=== PATIENT | male | born 1950 | race Caucasian/White ===

== ENCOUNTER 2016-10-25 15:09 | Emergency (ER) | payer OTHER, MEDICARE ==
[~2016-10-25 15:09] MED LIST: 8 HOUR PAIN RE650 M2 PO; ABILIFY 2MG2 MG PO; ABILIFY10 M1 PO; ABILIFY2 MG PO; ACEPHEN650 M1 PR; ALBUTEROL 3 ML3 ML INH; ALBUTEROL SULFAT3 M1 INH; ALBUTEROL2.5 MG/3 M INH/SOL; ASPIRIN CHILDRE81 MG PO; ASPIRIN EC81 M1 PO; ATIVAN 0.5MG T0.5 MG PO; ATORVASTATIN CA20 MG PO; ATROVENT HFA 121 PUF INH; BISACODYL10 M1 RC; BUPROPION HCL300 MG PO; BUPROPION XL300 M1 PO; CEFTIN 250 #201 PAC PO; CEFUROXIME AXE500 MG PO; CLEOCIN HCL150 MG PO; CLINDAMYCIN HY300 MG PO; ESCITALOPRAM10 MG PO; FLEET ENEMA133 ML RC; FUROSEMIDE20 M1 PO; FUROSEMIDE20 MG PO; FUROSEMIDE40 M1 PO; FUROSEMIDE40 MG PO; GABAPENTIN400 M2 PO; GABAPENTIN400 MG PO; IMDUR60 MG PO; ISOSORBIDE MONO30 M1 PO; KLOR-CON 10MEQ10 MEQ PO; LASIX20 M1 PO; LASIX40 M1 PO; LASIX40 MG PO; LASIX80 MG PO; LEVAQUIN500 M1 PO; LEXAPRO 5MG5 MG PO; LEXAPRO10 M1 PO; LIPITOR20 M2 PO; LISINOPRIL10 MG PO; LOPRESSOR 25MG25 MG PO; LOPRESSOR50 M1 PO; LUBRIDERM 480ML16 OZ EXT; METOPROLOL TART25 M1 PO; MILK OF MA400 MG/52 PO; NEURONTIN100 MG PO; NEURONTIN300 MG PO; OMEPRAZOLE20 M2 PO; PREDNISONE 10MG10 M1 PO; PREDNISONE 5 MG5 MG PO; PREDNISONE10 M1 PO; PREDNISONE10 MG PO; PROAIR HFA0.09 MG/Ac INH; PROAIR HFA8.5 GM INH; PROBIOTIC & ACI1 CAP PO; PROBIOTIC FORMU1 CAP PO; PROBIOTIC1 EACH PO; REMERON 15MG TA15 MG PO; REMERON30 M1 PO; ROBITUSSIN AC SY5 ML PO; SENOKOT NATURA8.6 MG PO; SPIRIVA1 PUF INH; SYMBICORT 160/41 PUF INH; TRAMADOL HCL50 M1 PO; TRAMADOL50 MG PO; TYLENOL325 M1 PO; ULTRAM50 M1 PO; VENTOLIN1 PUF INH; WELLBUTRIN XL300 M2 PO
--- NOTE | 2016-10-25 16:24 | ED MVC/FALL/TRAUMA COMPLAINT ---
History of Present Illness General Chief Complaint: Fall Stated Complaint: FALL 1 HOUR AGO, L SIDE PAIN Source: patient, old records Exam Limitations: no limitations Vital Signs & Intake/Output Vital Signs & Intake/Output Vital Signs Date Time Temp Pulse Resp B/P B/P Pulse O2 O2 Flow FiO2 Mean Ox Delivery Rate 10/25 1756 65 18 108/57 98 Nasal 2.0L Cannula 10/25 1628 Nasal 2.0L Cannula 10/25 1512 97.7 88 18 125/84 95 Nasal 2.5L Cannula Allergies Coded Allergies: adhesive tape (ALL TAPE EXCEPT PAPER 12/08/15) Reconcile Medications Acetaminophen (Tylenol) 325 MG TABLET 650 MG PO Q6P PRN PAIN Albuterol Sulfate 2.5 MG/3 ML VIAL.NEB 1 Vial INH/FERCHO TID RESPIRATORY ( Reported) Aripiprazole (Abilify) 2 MG TABLET 1 TAB PO QAM mood (Reported) Aripiprazole (Abilify) 2 MG TABLET 2 TAB PO QPM MOOD Aspirin (Ecotrin*) 81 MG TABLET.DR 2 TAB PO DAILY heart health (Reported) Atorvastatin Calcium (Lipitor) 20 MG TABLET 1 TAB PO DAILY CHOLESTEROL ( Reported) Bisacodyl 10 MG SUPP.RECT 1 SUP RC DAILY PRN NO BM (Reported) Budesonide/Formoterol Fumara (Symbicort 160-4.5 Mcg Inhaler) 160 MCG/4.5 MCG PUF 2 PUF INH BID COPD Bupropion HCl (Bupropion XL) 300 MG TAB.ER.24H 1 TAB PO DAILY DEPRESSION ( Reported) Escitalopram Oxalate (Lexapro) 10 MG TABLET 1 TAB PO DAILY DEPRESSION ( Reported) Furosemide (Lasix) 40 MG TABLET 1 MG PO DAILY leg swelling Gabapentin 400 MG CAPSULE 1 TAB PO BID PAIN (Reported) Isosorbide Mononitrate (Isosorbide Mononitrate ER) 30 MG TAB.ER.24H 1 TAB PO DAILY BP (Reported) Levofloxacin (Levaquin) 500 MG TABLET 1 TAB PO ONCE A DAY Throat infection Magnesium Hydroxide (Milk Of Magnesia) 400 MG/5 ML ORAL.SUSP 30 ML PO DAILY PRN NO BM IN 3 DAYS (Reported) Metoprolol Tartrate 25 MG TABLET 1 TAB PO BID HEART (Reported) Mirtazapine (Remeron 15MG Tab) 15 MG TABLET 1 TAB PO QPM DEPRESSION Na Phos,M-B/Na Phos,Di-Ba (Fleet Enema) 133 ML ENEMA 1 E RC DAILY PRN NO BM ( Reported) Omeprazole 20 MG CAPSULE.DR 1 MG PO DAILY AC PRN gerd Prednisone 10 MG TAB.DS.PK 1 TAB PO SI Lung Problem On Take 03/06-03/07 take 3 tabs every day 03/08-03/09 take 2 tabs every day 03/10-03/11 take 1 tab every day then stop Tramadol HCl 50 MG TABLET 2 TAB PO TID PAIN (Reported) Triage Note: TRIAGE; PT TO ED S/P FALL AND HIT HIS HEAD, UNSURE OF ANY LOC. ALSO HIT THE LEFT SIDE OF HIS BODY. PT C/O PAIN TO LEFT SIDE OF BODY. Triage Nurses Notes Reviewed? yes Onset: Abrupt Duration: hour(s): (1), constant Timing: recent history Severity: moderate, severe Severity Numbers: 8 Injuries/Fall Location: head, chest, abdomen, lower extremity Method of Injury: fall Loss of Consciousness: unsure No Modifying Factors: none Associated Symptoms: DENIES HPI: 66 Year old male with past medical history of bariatric surgery, history of chronic hypercapneic and hypoxic respiratory failure, severe sleep apnea difficult to control with positive airway pressure, severe O2 dep COPD, moderate persistent asthma, chronic lower extremity edema, CAD s/p CABG, HTN, and chronic venous insufficiency presents after he had a mechanical fall at his brothers . Patient is unsure of LOC however states he did hit his head. The fall occurred earlier this morning. He states that he's had left-sided head chest wrist leg and abdominal pain. He has not taken anything for symptoms. There is no dizziness or palpitations chest pain prior to the fall. He denies any right- sided injury no nausea no vomiting no vision changes. (UMESH GARCÍA) Past History Travel History Traveled to [place] past 21 day No Medical History Any Pertinent Medical History? see below for history Neurological: NONE EENT: NONE Cardiovascular: CAD (S/P CABG X 3 '03), hyperlipidemia, PVD Respiratory: COPD (2L O2 CONTINUOUS), obstructive sleep apnea (NIGHTLY CPAP) Gastrointestinal: NONE Hepatic: NONE Renal: NONE Musculoskeletal: chronic back pain, BACK SURGERY Psychiatric: depression (WITH SI+) Endocrine: obesity Blood Disorders: NONE Cancer(s): NONE TOOL AND CUTTER GRINDER/Reproductive: NONE Other Medical Hx: scc of vocal cords History of MRSA: No History of VRE: No History of CDIFF: No Influenza Vaccine: 03/07/15 Surgical History Surgical History: CABG, laminectomy (L4-5) Psychosocial History Who do you live with Family Services at Home Home Health Aide, Nursing, Occupational Therapy What is your primary language Moldovan Tobacco Use: Never used Family History Family History, If Any: FATHER (CAD and CVA). MOTHER (CAD). Hx Contributory? No (UMESH GARCÍA) Review of Systems Review of Systems Constitutional: Reports: see HPI. All Other Systems: Reviewed and Negative Comments Review of systems: See HPI, All other systems negative. Constitutional, no chills no fever, no malaise HEENT: No visual changes no sore throat no congestion, no ear pain Cardiovascular: No chest pain , no palpitation , no orthopnea Skin: no rashes, no change in skin Respiratory: No dyspnea no cough no sputum no hemoptysis GI: No nausea no vomiting, no diarrhea, no bloating/constipation : No dysuria No hematuria, no frequency, no discharge Muscle skeletal: No joint pain, no joint swelling, no back pain, no neck pain, Neurologic: No numbness no confusion, no headache Psych: No stress no depression,. Heme/endocrine: No bruising no bleeding Immunology: No lymphadenopathy (UMESH GARCÍA) Physical Exam Physical Exam General Appearance: well developed/nourished, no apparent distress, alert, awake Comments: Well-developed well-nourished person in no acute distress HEENT: Normal EENT exam; PERRL, EOMI, HEAD is atraumatic. moist mucous membranes. Neck: Supple, no lymphadenopathy, normal range of motion without pain or tenderness Back: Nontender, no CVA tenderness. Full range of motion Cardiovascular: Regular rate and rhythms no murmurs rubs or gallops, normal JVP Respiratory: Chest nontender.There were no bony deformities, no asymmetry. No respiratory distress. Patient speaking in full complete sentences. Breath sounds clear to auscultation bilaterally: NO W/R/R Abdomen: Soft, obese, no ecchymosis nontender nondistended, no appreciable organomegaly. Normal bowel sounds. No rebound/guarding, No appreciable enlargement of the abdominal aorta, No ascites. Shoulder: Atraumatic/Stable. FROM . Elbow: Atraumatic/stable. FROM. No laxity Upper arm/Forearm: Atraumatic. Nontender. No edema, 5 out of 5 escrow clerk strength noted to bilateral upper extremities Hand/Wrist: Atraumatic/stable. Skin intact. FROM Pulses: Normal/equal radial pulses bilaterally. Brisk cap refill Hip/Pelvis: Atraumatic/Stable. FROM. No pain with pelvic compression Knee: Atraumatic/stable. FROM. No joint swelling, no effusion. No laxity. Negative kinga/anterior drawer test. No pain with ROM Leg: Atraumatic. Nontender. No edema, 5 out of 5 strength in the lower extremity, normal dorsiflexion of great toe bilaterally, gross sensation is intact, patellar tendon reflex 2+ bilaterally. Ankle/Foot: Atraumatic/stable. Skin intact. FROM. No swelling, no effusion. No laxity on exam Pulses: Normal/equal DP/PT pulses bilaterally. Brisk cap refill Neuro: Alert oriented x3, motor sensory normal, cranial nerves II through XII grossly intact. There were no obvious focal neurologic abnormalities. Skin: No appreciable rash on exposed skin, skin is warm and dry. Psych: Mood and affect is normal, memory and judgment is normal. Core Measures ACS in differential dx? No Severe Sepsis Present: No Septic Shock Present: No (UMESH GARCÍA) Progress Differential Diagnosis: abd injury, C/T/L spine injury, ext injury, ICH, pelvis injury, pnemothorax, spinal cord injury Plan of Care: Orders Procedure Date/time Status Regular Diet 10/26 B Active Patient medicated tramadol x-rays CAT scan ordered Repeat evaluation patient reports to feeling poorly tramadol I discussed with the patient at length all of their results. I had an extensive conversation regarding need for close follow up with their primary care physician this week as well as return precautions. I answered all of their questions, they feel comfortable with the plan and follow-up care. I discussed with the patient/family the medications that they will receive. I gave them signs and symptoms that could indicate an adverse reaction. I have advised them to limit their activities until they can see how they respond to the medication. (UMESH GARCÍA) Diagnostic Imaging: Viewed by Me: Radiology Read, CT Scan. Discussed w/RAD: Radiology Read, CT Scan. Radiology Impression: PATIENT: CODY HERNÁNDEZ PRESENT AGE: 66 PATIENT ACCOUNT NO: [id number] : 51 LOCATION: [facility] ORDERING PHYSICIAN: UMESH BYRNES SERVICE DATE: 10/25/16 EXAM TYPE: CAT - CT ABD & PELVIS W/O IV CONTRAS; CT CHEST WO IV CONTRAST EXAMINATION: CT CHEST, ABDOMEN AND PELVIS WITHOUT CONTRAST CLINICAL INFORMATION: Left-sided chest and abdomen pain after fall. COMPARISON: Abdominal pelvic CT from 02/06/2012. TECHNIQUE: Contiguous axial thin section helical images of the chest, abdomen and pelvis were performed without oral or IV contrast. The data set was reformatted in the coronal and sagittal planes and reviewed on an independent workstation. DLP: 2502 mGy-cm. FINDINGS: The heart is of normal size. There is no pericardial effusion. There is neither mediastinal, hilar nor axillary lymphadenopathy. There are no chest wall masses. Review of lung windows demonstrates that there are neither pleural effusions nor pneumothoraces. There is left lower lobe bronchiectasis and adjacent scarring with mild bronchial wall thickening. This is likely chronic. There are no acute consolidations. There are no pulmonary parenchymal nodules. The liver is of normal size and attenuation without focal lesions nor intrahepatic biliary ductal dilation. A normal gallbladder is identified. There is no wall thickening or discernible pericholecystic fluid. The spleen, pancreas, adrenal glands are unremarkable. Both kidneys are of normal size and attenuation without hydronephrosis or nephrolithiasis. There is no abdominal free fluid. There is neither mesenteric nor retroperitoneal lymphadenopathy. There is sigmoid diverticulosis without evidence of diverticulitis. Otherwise, unremarkable unopacified loops of small and large bowel are identified. A normal appendix is identified. There is no pelvic free fluid. The urinary bladder is unremarkable. There is neither pelvic nor inguinal lymphadenopathy. Bone windows: Neither sclerotic nor lytic bone lesions are identified. There is disc height loss at L4/L5 and L5/S1. There is increased sclerosis within the facet joints of the lower lumbar spine. IMPRESSION: No evidence for acute traumatic injury. Bronchiectasis and scarring within the left lower lobe, likely chronic. Sigmoid diverticulosis without evidence of diverticulitis. Moderate degenerative change within the lower lumbar spine. DICTATED BY: ELIU LOGAN MD DATE/TIME DICTATED:10/25/161714 MOTORCYCLE SUBASSEMBLER:KARENA DATE/TIME TRANSCRIBED:10/25/161714 CONFIDENTIAL, DO NOT COPY WITHOUT APPROPRIATE AUTHORIZATION. <Electronically signed in Other Vendor System> SIGNED BY: ELIU LOGAN MD 10/25/161726, PATIENT: CODY HERNÁNDEZ PRESENT AGE: 66 PATIENT ACCOUNT NO: [id number] : 51 LOCATION: [facility] ORDERING PHYSICIAN: UMESH BYRNES SERVICE DATE : 10/25/16163 EXAM TYPE: CAT - CT HEAD WO IV CONTRAST EXAMINATION: CT HEAD WITHOUT CONTRAST CLINICAL INFORMATION: Trauma to head. Pain after fall. COMPARISON: None. TECHNIQUE: Contiguous helical images of the brain were obtained without IV contrast. Multiplanar reconstructions were performed. DLP: 700 mGy-cm. FINDINGS: There are no pathologic extra-axial fluid collections. The lateral, third, fourth ventricles are nondilated and concordant with the appearance of the sulci. There is no evidence for acute intraparenchymal hemorrhage or infarct. There is neither mass nor mass effect. There is no shift of midline structures. The paranasal sinuses and mastoid air cells are clear. There are no osseous lesions. IMPRESSION: No evidence for acute intracranial injury. DICTATED BY: ELIU LOGAN MD DATE/TIME DICTATED:10/25/161709 MOTORCYCLE SUBASSEMBLER:KARENA DATE/TIME TRANSCRIBED:10/25/161709 CONFIDENTIAL, DO NOT COPY WITHOUT APPROPRIATE AUTHORIZATION. <Electronically signed in Other Vendor System> SIGNED BY: ELIU LOGAN MD 10/25/161717 (UMESH GARCÍA) Departure Departure Time of Disposition: 1751 Disposition: HOME OR SELF CARE Condition: Stable Clinical Impression Primary Impression: Fall Referrals: SULEMA ZENG,VANNESSA Cano (PCP/Family) Additional Instructions: Continue taking your pain medication as prescribed rest ice. Follow-up with her primary care physician return with any concerns. Departure Forms: Customer Survey General Discharge Information (UMESH GARCÍA) PA/ACADEMIC ADVISER Co-Sign Statement Statement: ED Attending supervision documentation- [X] I saw and evaluated the patient. I have also reviewed all the pertinent lab results and diagnostic results. I agree with the findings and the plan of care as documented in the PA's/ACADEMIC ADVISER's documentation. [X] I have reviewed the ED Record and agree with the PA's/ACADEMIC ADVISER's documentation. [] Additions or exceptions (if any) to the PAs/ACADEMIC ADVISER's note and plan are summarized below: [] (ULICES ZENG,DIOGO Dawn)
--- NOTE | 2016-10-25 17:18 | CT SCAN REPORT ---
EXAMINATION: CT HEAD WITHOUT CONTRAST CLINICAL INFORMATION: Trauma to head. Pain after fall. COMPARISON: None. TECHNIQUE: Contiguous helical images of the brain were obtained without IV contrast. Multiplanar reconstructions were performed. DLP: 700 mGy-cm. FINDINGS: There are no pathologic extra-axial fluid collections. The lateral, third, fourth ventricles are nondilated and concordant with the appearance of the sulci. There is no evidence for acute intraparenchymal hemorrhage or infarct. There is neither mass nor mass effect. There is no shift of midline structures. The paranasal sinuses and mastoid air cells are clear. There are no osseous lesions. IMPRESSION: No evidence for acute intracranial injury.
--- NOTE | 2016-10-25 17:27 | CT SCAN REPORT ---
EXAMINATION: CT CHEST, ABDOMEN AND PELVIS WITHOUT CONTRAST CLINICAL INFORMATION: Left-sided chest and abdomen pain after fall. COMPARISON: Abdominal pelvic CT from 02/06/2012. TECHNIQUE: Contiguous axial thin section helical images of the chest, abdomen and pelvis were performed without oral or IV contrast. The data set was reformatted in the coronal and sagittal planes and reviewed on an independent workstation. DLP: 2502 mGy-cm. FINDINGS: The heart is of normal size. There is no pericardial effusion. There is neither mediastinal, hilar nor axillary lymphadenopathy. There are no chest wall masses. Review of lung windows demonstrates that there are neither pleural effusions nor pneumothoraces. There is left lower lobe bronchiectasis and adjacent scarring with mild bronchial wall thickening. This is likely chronic. There are no acute consolidations. There are no pulmonary parenchymal nodules. The liver is of normal size and attenuation without focal lesions nor intrahepatic biliary ductal dilation. A normal gallbladder is identified. There is no wall thickening or discernible pericholecystic fluid. The spleen, pancreas, adrenal glands are unremarkable. Both kidneys are of normal size and attenuation without hydronephrosis or nephrolithiasis. There is no abdominal free fluid. There is neither mesenteric nor retroperitoneal lymphadenopathy. There is sigmoid diverticulosis without evidence of diverticulitis. Otherwise, unremarkable unopacified loops of small and large bowel are identified. A normal appendix is identified. There is no pelvic free fluid. The urinary bladder is unremarkable. There is neither pelvic nor inguinal lymphadenopathy. Bone windows: Neither sclerotic nor lytic bone lesions are identified. There is disc height loss at L4/L5 and L5/S1. There is increased sclerosis within the facet joints of the lower lumbar spine. IMPRESSION: No evidence for acute traumatic injury. Bronchiectasis and scarring within the left lower lobe, likely chronic. Sigmoid diverticulosis without evidence of diverticulitis. Moderate degenerative change within the lower lumbar spine.
--- NOTE | 2016-10-25 17:46 | RADIOLOGY REPORT ---
EXAMINATION: XR TIBIA AND FIBULA, LEFT XR WRIST, LEFT CLINICAL INFORMATION: Status post fall with left lower extremity pain and left wrist pain COMPARISON: None TECHNIQUE: AP and lateral views of the left tibia and fibula were obtained. 4 views of the left wrist were obtained FINDINGS: Left lower extremity: There is mild narrowing of the medial compartment of the left knee. The distal femur appears intact. There is no joint effusion. Marginal osteophytes are present along the medial and lateral compartments as well as the patellofemoral compartment. The tibia and fibula appear intact. Vascular calcifications are noted posterior to the left knee. Scattered dermal calcifications are present throughout the subcutaneous tissues. Limited views of the left ankle are grossly unremarkable. Left wrist: The distal radius and ulna appear intact. The carpal rows are maintained. No acute fracture or subluxation. Dedicated views of the scaphoid are within normal range. No lytic or sclerotic lesion. IMPRESSION: 1. No acute fracture or subluxation involving the left wrist. 2. No acute fracture or subluxation involving the left lower extremity. 3. Mild to moderate tricompartmental degenerative changes involving the left knee.
[2016-10-25 17:56] VITALS: BP 108/57
== END 2016-10-25 18:31 ==
LOC: ERH 15:09
DX: S09.90XA Unspecified injury of head, initial encounter (principal); R07.9 Chest pain, unspecified; W19.XXXA Unspecified fall, initial encounter; Y92.89 Other specified places as the place of occurrence of the external cause; Y93.9 Activity, unspecified
CPT/HCPCS: 73110-LT; 73590-LT; 74176

== ENCOUNTER 2016-11-14 11:20 | Emergency (ER) | payer OTHER, MEDICARE ==
[~2016-11-14] VITALS: Ht 185.4 cm; Wt 151.0 kg
[2016-11-14 11:25] VITALS: BP 109/71
--- NOTE | 2016-11-14 11:33 | ED UPPER/LOWER EXTREMITY COMPL ---
History of Present Illness General Chief Complaint: Laceration Procedure Stated Complaint: LEFT LEG LAC Source: patient Exam Limitations: no limitations Vital Signs & Intake/Output Vital Signs & Intake/Output Vital Signs Date Time Temp Pulse Resp B/P B/P Pulse O2 O2 Flow FiO2 Mean Ox Delivery Rate 11/14 1125 98.6 64 18 109/71 98 Nasal 2.5L Cannula Allergies Coded Allergies: adhesive tape (ALL TAPE EXCEPT PAPER 12/08/15) Reconcile Medications Acetaminophen (Tylenol) 325 MG TABLET 650 MG PO Q6P PRN PAIN Albuterol Sulfate 2.5 MG/3 ML VIAL.NEB 1 Vial INH/FERCHO TID RESPIRATORY ( Reported) Aripiprazole (Abilify) 2 MG TABLET 1 TAB PO QAM mood (Reported) Aripiprazole (Abilify) 2 MG TABLET 2 TAB PO QPM MOOD Aspirin (Ecotrin*) 81 MG TABLET.DR 2 TAB PO DAILY heart health (Reported) Atorvastatin Calcium (Lipitor) 20 MG TABLET 1 TAB PO DAILY CHOLESTEROL ( Reported) Bisacodyl 10 MG SUPP.RECT 1 SUP RC DAILY PRN NO BM (Reported) Budesonide/Formoterol Fumara (Symbicort 160-4.5 Mcg Inhaler) 160 MCG/4.5 MCG PUF 2 PUF INH BID COPD Bupropion HCl (Bupropion XL) 300 MG TAB.ER.24H 1 TAB PO DAILY DEPRESSION ( Reported) Escitalopram Oxalate (Lexapro) 10 MG TABLET 1 TAB PO DAILY DEPRESSION ( Reported) Furosemide (Lasix) 40 MG TABLET 1 MG PO DAILY leg swelling Gabapentin 400 MG CAPSULE 1 TAB PO BID PAIN (Reported) Isosorbide Mononitrate (Isosorbide Mononitrate ER) 30 MG TAB.ER.24H 1 TAB PO DAILY BP (Reported) Levofloxacin (Levaquin) 500 MG TABLET 1 TAB PO ONCE A DAY Throat infection Magnesium Hydroxide (Milk Of Magnesia) 400 MG/5 ML ORAL.SUSP 30 ML PO DAILY PRN NO BM IN 3 DAYS (Reported) Metoprolol Tartrate 25 MG TABLET 1 TAB PO BID HEART (Reported) Mirtazapine (Remeron 15MG Tab) 15 MG TABLET 1 TAB PO QPM DEPRESSION Na Phos,M-B/Na Phos,Di-Ba (Fleet Enema) 133 ML ENEMA 1 E RC DAILY PRN NO BM ( Reported) Omeprazole 20 MG CAPSULE.DR 1 MG PO DAILY AC PRN gerd Prednisone 10 MG TAB.DS.PK 1 TAB PO SI Lung Problem On Take 03/06-03/07 take 3 tabs every day 03/08-03/09 take 2 tabs every day 03/10-03/11 take 1 tab every day then stop Tramadol HCl 50 MG TABLET 2 TAB PO TID PAIN (Reported) Triage Note: 66 YO MALE TO TRIAGE FOR LAC TO L DALY. STATES HE HIT IT ON A SCREEN THIS AM AND IT WONT STOP BLEEDING. PT TAKEN ASPIRIN DAILY. Triage Nurses Notes Reviewed? yes Onset: Morning Duration: hour(s): Timing: single episode today Severity: moderate Method of Injury: laceration HPI: 66-year-old male presents to emergency department complaining of laceration to left lower leg occurring just prior to arrival. Patient states that as he walked through his doorway his screen door hit a plastic bag into his leg causing 3 small lacerations. He was not able to control the bleeding well at home. He takes 2 baby aspirin at home daily. He is not up-to-date on his tetanus vaccine. (ALLERGA CHAVEZ) Past History Travel History Traveled to [place] past 21 day No Medical History Any Pertinent Medical History? 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 MOTHER (CAD). Hx Contributory? No (ALLEGRA CHAVEZ) Review of Systems Review of Systems Constitutional: Reports: no symptoms. EENTM: Reports: no symptoms. Respiratory: Reports: no symptoms. Cardiovascular: Reports: no symptoms. Gastrointestinal/Abdominal: Reports: no symptoms. Genitourinary: Reports: no symptoms. Musculoskeletal: Reports: see HPI. Skin: Reports: no symptoms. Neurological/Psychological: Reports: no symptoms. Hematologic/Endocrine: Reports: see HPI. Immunological: Reports: no symptoms. All Other Systems: Reviewed and Negative (ALLEGRA CHAVEZ) Physical Exam Physical Exam General Appearance: well developed/nourished, no apparent distress, alert, awake Head: atraumatic, normal appearance Eyes: Bilateral: normal appearance, EOMI. Ears, Nose, Throat: hearing grossly normal Neck: normal inspection, supple Cardiovascular/Respiratory: no respiratory distress Leg Left: 2x2cm nodular mass on left anterior lower leg, approx 6 cm distal to left patella, fluctuant, 3 0.5mm lacerations to anterior lower leg Skin: dark red/purple discoloration of bilateral lower legs (ALLEGRA CHAVEZ) Progress Differential Diagnosis: fracture, sprain, tendon injury, laceration, abrasion, contusion, puncture wound, skin tear Plan of Care: Current Medications Sig/Samreen Start time Last Medication Dose Stop Time Status Admin Tetanus/Diphtheria 0.5 ML ONCE ONE 11/14 121 AC Toxoids Adsorbed 11/14 1216 (Decavac) 11/14/2016 12:09:11 PM Wounds appear superficial and linear, bleeding has been controlled. No signs of infection at this time. Wounds approximated with Dermabond and Steri-Strips. Suspicion for fracture or sprain is low at this time given that patient did not fall and has no bony tenderness. Patient is in agreement with plan of care. (ALLEGRA CHAVEZ) Departure Departure Time of Disposition: 121 Disposition: HOME OR SELF CARE Condition: Stable Clinical Impression Primary Impression: Skin tear Referrals: VANNESSA LEONE MD (PCP/Family) Additional Instructions: Follow-up with your primary care physician call to make appointment. Keep area clean and dry. The Steri-Strips will fall off on their own. Return for any worsening symptoms or concerns. You're given a tetanus vaccination here in the emergency department today. Elevate her leg as much as possible as it may begin to start bruising and becoming swollen. 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 I have also reviewed all the pertinent lab results and diagnostic results. I agree with the findings and the plan of care as documented in the PA's/TRUCK RAILROAD AND BUS MOTOR MECHANIC's documentation. [X] I have reviewed the ED Record and agree with the PA's/TRUCK RAILROAD AND BUS MOTOR MECHANIC's documentation. [] Additions or exceptions (if any) to the PAs/TRUCK RAILROAD AND BUS MOTOR MECHANIC's note and plan are summarized below: [] (ULICES ZENG,DIOGO Dawn) Procedures Laceration/Wound Repair Laceration/Wound Repair: Wound Location: lower extremity Wound's Depth, Shape: linear, superficial Wound Length (cm): 1 Wound Explored: irrigated extensively Irrigated w/ Saline (ccs): 100 Betadine Prep? Yes Anesthesia: none Wound Repaired With: Steri-strips, Dermabond Sterile Dressing Applied: Yes Date of Last Tetanus: 11/14/16 Tetanus Status: up to date Progress: Patient tolerated procedure well. (JUDITH BYRNES,ALLEGRA)
== END 2016-11-14 12:26 ==
LOC: ERH 11:20
DX: S81.812A Laceration without foreign body, left lower leg, initial encounter (principal); W22.8XXA Striking against or struck by other objects, initial encounter; Y93.01 Activity, walking, marching and hiking; Y92.9 Unspecified place or not applicable
CPT/HCPCS: 90714

== ENCOUNTER 2017-06-08 07:28 | Inpatient (IN) | payer OTHER, MEDICARE ==
[~2017-06-08] VITALS: Ht 185.4 cm; Wt 149.7 kg
[~2017-06-08 07:28] MED LIST changes: +ESCITALOPRAM OX10 MG PO; +KLOR-CON 1010 ME1 PO; +MIRTAZAPINE30 M2 PO; +NAPROXEN500 M2 PO; +NORCO 5-325 TA1 EACH PO; +PANTOPRAZOLE SO40 M1 PO; +REMERON15 M2 PO; +SYMBICORT 16010.2 GM INH
--- NOTE | 2017-06-08 08:21 | RADIOLOGY REPORT ---
EXAMINATION: XR PORTABLE CHEST CLINICAL INFORMATION: Shortness of breath. Productive cough. COMPARISON: 03/23/2017 TECHNIQUE: Portable frontal view of the chest was obtained. FINDINGS: Median sternotomy wires appear intact. Surgical clips overlie the mediastinum. Low lung volumes. Increased hazy left basilar opacity with small left pleural effusion. This is superimposed on known chronic scarring. No pneumothorax. The cardiomediastinal silhouette is unchanged. No acute osseous abnormality. IMPRESSION: There are known chronic changes at the left base, but there appears to be increased opacity suggestive of small effusion with associated atelectasis/pneumonia.
--- NOTE | 2017-06-08 09:22 | ED DYSPNEA/ASTHMA COMPLAINT ---
History of Present Illness General Chief Complaint: Dyspnea (COPD, CHF, Other) Stated Complaint: INCREASED SOB Source: patient, old records, EMS Exam Limitations: no limitations Vital Signs & Intake/Output Vital Signs & Intake/Output Vital Signs Date Time Temp Pulse Resp B/P B/P Pulse O2 O2 Flow FiO2 Mean Ox Delivery Rate 06/08 1352 98.9 72 18 120/70 97 Nasal 2.0L Cannula 06/08 1243 98.0 70 20 102/51 98 Nasal 2.0L Cannula 06/08 1044 98.2 68 20 114/57 97 Nasal 2.0L Cannula 06/08 0926 97 Nasal 2.0L Cannula 06/08 0803 96 Nasal 2.0L Cannula 06/08 0736 97 Nasal 2.0L Cannula 06/08 0734 98.6 89 20 133/86 97 Nasal 2.0L Cannula Allergies Coded Allergies: adhesive tape (ALL TAPE GIVES RASH EXCEPT PAPER, PAPER TAPE OK 01/14/17) Reconcile Medications Albuterol Sulfate 2.5 MG/3 ML VIAL.NEB 1 Vial INH/FERCHO BID RESPIRATORY ( Reported) Aspirin (Ecotrin*) 81 MG TABLET.DR 2 TAB PO DAILY heart health (Reported) Atorvastatin Calcium (Lipitor) 20 MG TABLET 1 TAB PO DAILY CHOLESTEROL ( Reported) Budesonide/Formoterol Fumarate (Symbicort 160-4.5 Mcg Inhaler) 160 MCG-4.5 MCG/ ACTUATION HFA.AER.AD 2 PUF INH BID COPD (Reported) Bupropion HCl (Bupropion XL) 300 MG TAB.ER.24H 1 TAB PO DAILY DEPRESSION ( Reported) Escitalopram Oxalate 10 MG TABLET 1 TAB PO DAILY DEPRESSION (Reported) Furosemide (Lasix) 40 MG TABLET 1 TAB PO DAILY DIURETIC (Reported) Gabapentin 400 MG CAPSULE 1 TAB PO BID PAIN (Reported) Isosorbide Mononitrate (Isosorbide Mononitrate ER) 30 MG TAB.ER.24H 1 TAB PO DAILY BP (Reported) Metoprolol Tartrate 25 MG TABLET 1 TAB PO BID HEART (Reported) Mirtazapine 30 MG TABLET 1 TAB PO QPM MENTAL HEALTH (Reported) Naproxen 500 MG TABLET 1 TAB PO BID PAIN/INFLAMMATION (Reported) Pantoprazole Sodium 40 MG TABLET.DR 1 TAB PO DAILY ACID REFLUX (Reported) Potassium Chloride (Klor-Con 10) 10 MEQ TABLET.ER SUPPLEMENT (Reported) Core Measure Meds Pre-Hospital aspirin Triage Note: PT BIBA FROM HOME AFTER HAVING INCREASEED SOB. 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 PT ARRIVES SOB 02 SAT 93% ON RA PLACED ON O2 2L VIA NC. PT COUGHING UNABLE TO SPIT OUT ANYTHING. Triage Nurses Notes Reviewed? yes Onset: 3 days ago Duration: day(s):, constant, continues in ED Timing: recent history Severity: moderate, severe Activities at Onset: rest Prior Episodes/Possible Cause: illness exposure Modifying Factors: Worsens With: movement. Associated Symptoms: cough, wheezing, weakness HPI: 3 days prior to admission patient complains of progressive productive cough with increasing shortness of breath and wheezing worse with exertion not relieved with rest nebulizer BiPAP. He denies fever chills nausea vomiting diarrhea chest pain headache dysuria rash bleeding. Past History Travel History Traveled to [place] past 21 day No Medical History Any Pertinent Medical History? 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 MOTHER (CAD). Hx Contributory? Yes Review of Systems Review of Systems Constitutional: Reports: see HPI, malaise. EENTM: Reports: no symptoms. Respiratory: Reports: see HPI, cough, short of breath, sputum production. Cardiovascular: Reports: no symptoms. GI: Reports: no symptoms. Genitourinary: Reports: no symptoms. Musculoskeletal: Reports: no symptoms. Skin: Reports: no symptoms. Neurological/Psychological: Reports: no symptoms. Hematologic/Endocrine: Reports: no symptoms. Immunologic/Allergic: Reports: no symptoms. All Other Systems: Reviewed and Negative Physical Exam Physical Exam General Appearance: well developed/nourished, alert, awake, anxious, moderate distress, severe distress, obese Head: atraumatic, normal appearance Eyes: Bilateral: normal appearance, PERRL, EOMI. Ears, Nose, Throat: normal pharynx, normal ENT inspection, hearing grossly normal Neck: normal inspection, supple, full range of motion, no midline tenderness Respiratory: chest non-tender, decreased breath sounds, accessory muscle use, wheezing, rales, respiratory distress Cardiovascular: regular rate/rhythm, normal peripheral pulses, norml femoral pulses equa Peripheral Pulses: 4+ carotid (R), 4+ carotid (L) Gastrointestinal: normal bowel sounds, soft, non-tender, no organomegaly Extremities: normal inspection, normal capillary refill, normal range of motion, pedal edema, stasis dermatitis Neurologic/Psych: no motor/sensory deficits, awake, alert, oriented x 3, 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 Yes No ASA d/t Medical Contraindication CVA/TIA Diagnosis No Sepsis Present: No Sepsis Focused Exam Completed? No Progress Differential Diagnosis: asthma, bronchitis, CHF, COPD, pneumonia Plan of Care: Orders Procedure Date/time Status CBC WITHOUT DIFFERENTIAL 06/09 0600 Active BASIC ELECTROLYTES PLUS BUN&CR 06/09 0600 Active Regular Diet 06/08 L Active Vital Signs 06/08 1400 Complete Teach/Educate 06/08 1400 Active Pain Treatment and Response 06/08 1400 Active Nutritional Intake, Monitor 06/08 1400 Active Isolation 06/08 1400 Active Intake & Output 06/08 1400 Complete Patient Care Conference 06/08 1400 Active Activity/Ambulation 06/08 1400 Complete TRC EVALUATION (GEN) 06/08 1221 Active Pathway - chart 06/08 1221 Active House Staff 06/08 1221 Active Patient Data 06/08 1221 Active RAPID VIRAL INFLUENZA A 06/08 1221 Active STREP PNEUMO URINARY ANTIGEN 06/08 1221 Active LEGIONELLA URINARY ANTIGEN 06/08 1221 Active LOWER RESPIRATORY CULTURE 06/08 1221 Active Patient Data 06/08 1215 Active OXYGEN SETUP (GEN) 06/08 1041 Active Saline Lock 06/08 1041 Active Admit to inpatient 06/08 1041 Active Add-on Test (ER Only) 06/08 1041 Active Vital Signs 06/08 1041 Active Activity/Ambulation 06/08 1041 Active Code Status 06/08 1041 Active Intake & Output 06/08 1032 Active TROPONIN LEVEL 06/08 0954 Complete BLOOD CULTURE 06/08 0833 Active MAGNESIUM 06/08 0800 Complete COMPREHENSIVE METABOLIC PANEL 06/08 08 Complete CBC WITHOUT DIFFERENTIAL 06/08 08 Complete B-TYPE NATRIURETIC PEP (BNP) 06/08 08 Complete EKG 06/08 0800 Active VTE Mechanical Prophylaxis 06/08 UNK Active Current Medications Sig/Samreen Start time Last Medication Dose Stop Time Status Admin Azithromycin 500 MG DAILY 06/09 1000 AC (Zithromax) Sodium Chloride 250 ML (Normal Saline 0.9%) Ceftriaxone Sodium 1,000 MG DAILY 06/09 1000 AC (Rocephin) Enoxaparin Sodium 40 MG DAILY 06/09 1000 AC (Lovenox) Omeprazole 40 MG DAILY AC 06/09 0700 AC (Prilosec) Mirtazapine 30 MG QPM 06/08 2200 AC (Remeron) Aspirin Buffered 162 MG DAILY 06/08 1415 UNVr (Ecotrin) Budesonide/ 2 PUF BID 06/08 1410 UNVr Formoterol Fumarate (Symbicort) Bupropion HCl 300 MG DAILY 06/08 1410 UNVr (Wellbutrin XL) Escitalopram Oxalate 10 MG DAILY 06/08 1410 UNVr (Lexapro) Gabapentin 400 MG BID 06/08 1410 UNVr (Neurontin) Atorvastatin Calcium 20 MG DAILY 06/08 1409 UNVr (Lipitor) Sodium Chloride 1,000 ML Q13H 06/08 1345 AC 06/08 (Normal Saline 0.9%) 1407 Acetaminophen 650 MG Q6PRN PRN 06/08 1230 AC (Tylenol) Ibuprofen 600 MG Q6P PRN 06/08 1230 AC (Motrin) Oxycodone HCl 5 MG Q6 PRN 06/08 1230 AC (Roxicodone) Laboratory Tests 06/08/17 0954: Anion Gap 8, Estimated GFR > 60, BUN/Creatinine Ratio 26.3 H, Glucose 108 H, Calcium 9.3, Magnesium 2.4 H, Total Bilirubin 0.3, AST 23, ALT 36, Alkaline Phosphatase 81, Troponin I < 0.01, [id number] Pept 255 H, Total Protein 6.4, Albumin 3.6, Globulin 2.8, Albumin/Globulin Ratio 1.3, CBC w Diff NO MAN DIFF REQ, RBC 5.15, MCV 86.4, MCH 28.4, RDW 15.5 H, MPV 7.2 L, Gran % 81.3 H, Lymphocytes % 10.4 L, Monocytes % 7.1, Eosinophils % 0.8, Basophils % 0.4, Absolute Granulocytes 8.0 H, Absolute Lymphocytes 1.0 L, Absolute Monocytes 0.7 H, Absolute Eosinophils 0.1, Absolute Basophils 0, PUBS MCHC 32.8 L Microbiology 06/08 1221 URINE ROUT: Legionella Antigen - COLB 06/08 1221 URINE ROUT: Streptococcus pneumoniae Antigen (M - COLB 06/08 1221 LOWER RESP: Respiratory Culture - COLB 06/08 1221 LOWER RESP: Gram Stain - COLB 06/08 1221 NASOPHARYN: Influenza Virus A & B Rapid Smear - COLB 06/08 1015 BLOOD: Blood Culture - RECD 06/08 0957 BLOOD: Blood Culture - RECD Diagnostic Imaging: Viewed by Me: Radiology Read. Discussed w/RAD: Radiology Read. CXR Impression: There are known chronic changes at the left base, but there appears to be increased opacity suggestive of small effusion with associated atelectasis/pneumonia. Initial ED EKG: normal axis, normal intervals, normal p-waves, normal QRS complex, normal sinus rhythm, nonspecific ST T wave chg Prior EKG: unchanged Rhythm Strip: sinus tachycardia Departure Departure Disposition: STILL A PATIENT Condition: Stable Clinical Impression Primary Impression: Pneumonia Qualifiers: Pneumonia type: due to unspecified organism Laterality: left Lung location: lower lobe of lung Qualified Code: J18.1 - Lobar pneumonia, unspecified organism Secondary Impressions: COPD exacerbation Referrals: Byron ZENG,Tristan Cano (PCP/Family) Departure Forms: Customer Survey General Discharge Information Admission Note Spoke With: Braulio Kaye MD Documentation of Exam: Documentation of any treatments & extenuating circumstances including Concerns Regarding Discharge (functional status, medication knowledge or non-compliance, living conditions, etc.) that warrant an admission rather than observation: Supplemental oxygen IV antibiotics serial beta agonist nebs IV steroids medication adjustment follow cultures continuing care discharge planning Critical Care Note Critical Care Note Critical Care Time: non-applicable
[2017-06-08 10:01] LABS: ABSOLUTE BASOPHIL COUNT 0 /CUMM (0.0-0.2); ABSOLUTE EOSINOPHIL COUNT 0.1 /CUMM (0.0-0.7); ABSOLUTE MONOCYTE COUNT 0.7 /CUMM (0.10-0.60); BASOPHIL % 0.4 % (0.0-2.0); EOSINOPHIL % 0.8 % (0-5); GRANULOCYTE % 81.3 % (42.2-75.2); HEMATOCRIT 44.4 % (42-52); MEAN CORPUSCULAR HGB 28.4 PG (27.0-31.0); MEAN CORPUSCULAR HGB CONC 32.8 G/DL (33.0-37.0); MEAN CORPUSCULAR VOLUME 86.4 FL (80.0-94.0); MEAN PLATELET VOLUME 7.2 FL (7.4-10.4); PLATELET COUNT 242 /CUMM (130-400); RBC DISTRIBUTION WIDTH 15.5 % (11.5-14.5); RED BLOOD CELL CT 5.15 /CUMM (4.70-6.10); WHITE BLOOD CELL COUNT 9.8 /CUMM (4.8-10.8)
--- NOTE | 2017-06-08 12:22 | History & Physical ---
IainRaina dela cruz 06/08/17 1221: General Information and HPI MD Statement: I have seen and personally examined CODY HERNÁNDEZ and documented this H&P. 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 Patient has been having trouble breathing for the last couple of days both exertional and on resting, worsening for the last 2-3 days. Not associated with any chest chest pain/palpitations/sweating. Had a documented temperature at home of 101 with chills last night. Denied any nausea vomiting and abdominal discomfort and denied any urinary bowel habit complaints. Patient mentioned that last night his symptoms gotten worse(used his inhalers/ nebulizers at home without any improvement), to the point he couldnt breathe, and was in to ER for further assessment. In the ER patient, patient was found to be in respiratory distress was put on 2 L continuous oxygen per nasal cannula, received IV steroids with some friends on azithromycin that resulted in improvement in his symptoms. As mentioned above patient was recently diagnosed in April 2016 with recurrence of cancer of the vocal cords has been scheduled for vocal cord removal on 06/14/2016 by ENT specialist. Patient is ex smoker , dosenot drink alcohol. Allergies/Medications Allergies: Coded Allergies: adhesive tape (ALL TAPE GIVES RASH EXCEPT PAPER, PAPER TAPE [place] 01/14/17) Home Med list Albuterol Sulfate 2.5 MG/3 ML VIAL.NEB 1 Vial INH/FERCHO BID RESPIRATORY ( Reported) Aspirin (Ecotrin*) 81 MG TABLET.DR 2 TAB PO DAILY heart health (Reported) Atorvastatin Calcium (Lipitor) 20 MG TABLET 1 TAB PO DAILY CHOLESTEROL ( Reported) Budesonide/Formoterol Fumarate (Symbicort 160-4.5 Mcg Inhaler) 160 MCG-4.5 MCG/ ACTUATION HFA.AER.AD 2 PUF INH BID COPD (Reported) Bupropion HCl (Bupropion XL) 300 MG TAB.ER.24H 1 TAB PO DAILY DEPRESSION ( Reported) Escitalopram Oxalate 10 MG TABLET 1 TAB PO DAILY DEPRESSION (Reported) Furosemide (Lasix) 40 MG TABLET 1 TAB PO DAILY DIURETIC (Reported) Gabapentin 400 MG CAPSULE 1 TAB PO BID PAIN (Reported) Isosorbide Mononitrate (Isosorbide Mononitrate ER) 30 MG TAB.ER.24H 1 TAB PO DAILY BP (Reported) Metoprolol Tartrate 25 MG TABLET 1 TAB PO BID HEART (Reported) Mirtazapine 30 MG TABLET 1 TAB PO QPM MENTAL HEALTH (Reported) Naproxen 500 MG TABLET 1 TAB PO BID PAIN/INFLAMMATION (Reported) Pantoprazole Sodium 40 MG TABLET.DR 1 TAB PO DAILY ACID REFLUX (Reported) Potassium Chloride (Klor-Con 10) 10 MEQ TABLET.ER SUPPLEMENT (Reported) Past History Travel History Traveled to [place] past 21 day No Medical History Neurological: NONE EENT: NONE Cardiovascular: CAD (S/P CABG X 3 '03), hyperlipidemia, PVD Respiratory: COPD (2L O2 CONTINUOUS), obstructive sleep apnea (NIGHTLY CPAP) Gastrointestinal: NONE Hepatic: NONE Renal: NONE Musculoskeletal: chronic back pain, BACK SURGERY Psychiatric: depression (WITH SI+) Endocrine: obesity Blood Disorders: NONE 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 MOTHER (CAD). Psychosocial History Who Do You Live With? Roommate Services at Home: Home Health Aide, Nursing, Occupational Therapy Primary Language: Yoruba ETOH Use: denies use Illicit Drug Use: denies illicit drug use Functional Ability ADLs Independent: eating, toileting. Needs Assist: dressing, bathing. Ambulation: walker IADLs Needs Assist: medication admin. Review of Systems Review of Systems Constitutional: Reports: chills, fever, weakness. EENTM: Denies: blurred vision, double vision, visual changes, eye pain. Cardiovascular: Denies: chest pain, edema, orthopena. Respiratory: Denies: cough, hemoptysis, orthopnea. GI: Denies: abdominal pain, constipation, diarrhea. Musculoskeletal: Denies: joint pain, joint swelling. Exam & Diagnostic Data Last 24 Hrs of Vital Signs/I&O Vital Signs Date Time Temp Pulse Resp B/P B/P Pulse O2 O2 Flow FiO2 Mean Ox Delivery Rate 06/08 1044 98.2 68 20 114/57 97 Nasal 2.0L Cannula 06/08 0926 97 Nasal 2.0L Cannula 06/08 0803 96 Nasal 2.0L Cannula 06/08 0736 97 Nasal 2.0L Cannula 06/08 0734 98.6 89 20 133/86 97 Nasal 2.0L Cannula Intake & Output 06/08 1600 06/08 0800 06/08 0000 Intake Total 250 Output Total Balance 250 Intake, IV 250 Patient 330 lb Weight Weight Reported by Patient Measurement Method Physical Exam General Appearance Alert, Oriented X3 Skin No Rashes, No Breakdown HEENT Atraumatic, PERRLA Neck Supple, No JVD Cardiovascular Regular Rate, Normal S1, Normal S2 Lungs decreased breath sounds bilaerally Abdomen Normal Bowel Sounds, Soft Neurological Normal Gait, Normal Speech Extremities bilateral skin changes Vascular Normal Pulses Last 24 Hrs of Labs/Radu: Laboratory Tests 06/08/17 0954: Anion Gap 8, Estimated GFR > 60, BUN/Creatinine Ratio 26.3 H, Glucose 108 H, Calcium 9.3, Magnesium 2.4 H, Total Bilirubin 0.3, AST 23, ALT 36, Alkaline Phosphatase 81, Troponin I < 0.01, Hij-B-Nwvxiwgzqod Pept 255 H, Total Protein 6.4, Albumin 3.6, Globulin 2.8, Albumin/Globulin Ratio 1.3, CBC w Diff NO MAN DIFF REQ, RBC 5.15, MCV 86.4, MCH 28.4, RDW 15.5 H, MPV 7.2 L, Gran % 81.3 H, Lymphocytes % 10.4 L, Monocytes % 7.1, Eosinophils % 0.8, Basophils % 0.4, Absolute Granulocytes 8.0 H, Absolute Lymphocytes 1.0 L, Absolute Monocytes 0.7 H, Absolute Eosinophils 0.1, Absolute Basophils 0, PUBS MCHC 32.8 L Microbiology 06/08 1221 URINE ROUT: Legionella Antigen - COLB 06/08 1221 URINE ROUT: Streptococcus pneumoniae Antigen (M - COLB 06/08 1221 LOWER RESP: Respiratory Culture - COLB 06/08 1221 LOWER RESP: Gram Stain - COLB 06/08 1221 NASOPHARYN: Influenza Virus A & B Rapid Smear - COLB 06/08 1015 BLOOD: Blood Culture - RECD 06/08 0957 BLOOD: Blood Culture - RECD Assessment/Plan Assessment: Patient is a 64-year-old morbidly obese man with a past medical history significant for 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 Vitals on admission: Temperature 98.6, pulse 89, sedimentation rate 20, blood pressure 138/80 on 2 L saturating around 92% Chest x-ray: There are known chronic changes at the left base, but there appears to be increased opacity suggestive of small effusion with associated atelectasis/pneumonia. Assessment and plan Problem list 1. Acute on chronic hypoxic respiratory failure in setting of community- acquired pneumonia 2. History of chronic hypoxic respiratory failure due to COPD and GUSTAVO 3. History of coronary artery disease status post CABG 2003 4. 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 Hx of hypertension and hyperlipidemia 1. Acute on chronic hypoxic respiratory failure in setting of community- acquired pneumonia * Admit the patient [facility] floor * Patient received 1 dose of IV cefazolin and azithromycin in the ED with Solu- Medrol 125 mg. Patient is currently afebrile without any leukocytosis but in view of his symptoms worsening shortness of breath with fever of 101 and chest x -ray suggestive of possible opacity we'll treat him for community-acquired pneumonia . Continue with IV ceftriaxone And Azithromycin . * TRC nebs. * Hold antihypertensives(blood pressure is currently borderline. 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 * Monitor vitals every 4 hours. 2. History of chronic hypoxic respiratory failure due to COPD and GUSTAVO * Continue oxygen * Continue nocturnal bipap. 3. History of coronary artery disease status post CABG 2003: * Continue aspirin, statin * Hold Lasix and metoprolol(in the setting of borderline blood pressure). 4. 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 * Pt has been scheduled for vocal cord removal on 06/14/2016 by ENT specialist. * Will inform ENT specialist about patient's admission to the hospital 5. Hx of hypertension and hyperlipidemia: * Continue statins * Anti-hypertensives on hold DVT prophylaxis subcutaneous Lovenox mild to moderate pain controlled with Tylenol and ibuprofen Patient is full code As Ranked By This Provider Problem List: 1. Pneumonia Qualifiers Pneumonia type: due to unspecified organism Laterality: left Lung location: lower lobe of lung Qualified Code: J18.1 - Lobar pneumonia, unspecified organism Core Measures/Misc (02/21) Acute Coronary Syndrome ACS Diagnosis: No Congestive Heart Failure Congestive Heart Failure Diagnosis No Cerebrovascular Accident CVA/TIA Diagnosis: No VTE (View Protocol) VTE Risk Factors No risk factors No Mechanical VTE Prophylaxis d/t LowRisk-No Interven Req'd No VTE Pharm Prophylaxis d/t LowRisk-No Interven Req'd Sepsis (View protocol) Sepsis Present: No Resident Review Statement Resident Statement: examined this patient, discussed with dietetic intern Kristy Mane MD 06/09/17 0800: Attending MD Review Statement Attending Statement Attending MD Statement: examined this patient, discuss w/resident/PA/CONSULTING GROUP ANALYST, agreed w/resident/PA/CONSULTING GROUP ANALYST, reviewed EMR data (avail), reviewed images Attending Assessment/Plan: See medical brief addendum note dated 06/08/17
[2017-06-08 13:52] VITALS: BP 120/70
--- NOTE | 2017-06-08 14:02 | Admission Certification ---
Admission Certification Certification Statement - As attending physician, I certify that at the time of - admission, based on clinical presentation, severity of - symptoms, need for further diagnostic testing and - therapeutic interventions, and risk of adverse outcomes - without in-hospital treatment, in my clinical assessment, - this patient requires an acute hospital stay for a minimum - of two nights or longer. I have also considered psychsocial - factors such as support system, advanced age, financial - issues, cognitive issues, and failed out-patient treatments, - past re-admission history, safety of patient, and lack of - compliance as applicable. Specific rationale supporting this admission is: Sob, cap needs IV abx
--- NOTE | 2017-06-08 14:05 | PN- Att Addend ---
Attending Addendum Attending Brief Note 66-year-old male past medical history of squamous cell carcinoma of the vocal cord status post radiation therapy and scheduled for surgery on June 14, COPD with chronic respiratory failure on 2 L of oxygen at home, CAD status post CABG and morbid obesity was here with complaints of cough, shortness of breath and fever of 101 at home. Patient is afebrile here and doesn't have a high white count but given the constellation of symptoms and a chest x-ray suggestive of an opacity we'll treat him for community-acquired pneumonia with IV ceftriaxone and azithromycin. 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 Will notify ENT that he is here in terms of his scheduled surgery. Will hold off on his antihypertensives given his blood pressure is borderline and hydrate him gently watching closely as he does have a history of chronic diastolic heart failure. We'll put him on DVT prophylaxis and follow-up.
[2017-06-08 22:58] VITALS: BP 118/72
[2017-06-09 06:38] VITALS: BP 120/68
--- NOTE | 2017-06-09 08:28 | Cons- Pulmonary ---
General Information and HPI Consulting Request Date of Consult: 06/09/17 Requested By: Dr. Mane Reason for Consult: Community acquired pneumonia Source of Information: patient, old records Exam Limitations: no limitations History of Present Illness: The patient is a 66-year-old male with a past medical history significant for squamous cell carcinoma of the vocal cord status post biopsy and radiation with recurrence, followed by ENT and awaiting vocal cord removal later this month, morbid obesity status post bariatric surgery with significant weight loss, coronary artery disease status post CABG in 2003, hypertension, hyperlipidemia, chronic hypoxic respiratory failure secondary to COPD on nocturnal oxygen, objective sleep apnea on nocturnal BiPAP, and ejection fraction preserved heart failure. The patient presented to the emergency department with several days of worsening shortness of breath. The patient's symptoms have worsened over the past 2-3 days. They were not associated with any chest pain or palpitations. His symptoms worsened despite the use of his inhalers and nebulizer. The patient also has had an ongoing cough. At home he had a fever of 101 associated with chills. In the emergency department, the patient was afebrile with a saturation of 93% on room air. He is placed on 2 L nasal cannula. The patient had a chest x-ray that showed increased density at the left lung base suspicious for pneumonia. The patient was pancultured and started on ceftriaxone and azithromycin. Allergies/Medications Allergies: Coded Allergies: adhesive tape (ALL TAPE GIVES RASH EXCEPT PAPER, PAPER TAPE OK 01/14/17) Home Med List: Albuterol Sulfate 2.5 MG/3 ML VIAL.NEB 1 Vial INH/FERCHO BID RESPIRATORY ( Reported) Aspirin (Ecotrin*) 81 MG TABLET.DR 2 TAB PO DAILY heart health (Reported) Atorvastatin Calcium (Lipitor) 20 MG TABLET 1 TAB PO DAILY CHOLESTEROL ( Reported) Budesonide/Formoterol Fumarate (Symbicort 160-4.5 Mcg Inhaler) 160 MCG-4.5 MCG/ ACTUATION HFA.AER.AD 2 PUF INH BID COPD (Reported) Bupropion HCl (Bupropion XL) 300 MG TAB.ER.24H 1 TAB PO DAILY DEPRESSION ( Reported) Escitalopram Oxalate 10 MG TABLET 1 TAB PO DAILY DEPRESSION (Reported) Furosemide (Lasix) 40 MG TABLET 1 TAB PO DAILY DIURETIC (Reported) Gabapentin 400 MG CAPSULE 1 TAB PO BID PAIN (Reported) Isosorbide Mononitrate (Isosorbide Mononitrate ER) 30 MG TAB.ER.24H 1 TAB PO DAILY BP (Reported) Metoprolol Tartrate 25 MG TABLET 1 TAB PO BID HEART (Reported) Mirtazapine 30 MG TABLET 1 TAB PO QPM MENTAL HEALTH (Reported) Naproxen 500 MG TABLET 1 TAB PO BID PAIN/INFLAMMATION (Reported) Pantoprazole Sodium 40 MG TABLET.DR 1 TAB PO DAILY ACID REFLUX (Reported) Potassium Chloride (Klor-Con 10) 10 MEQ TABLET.ER SUPPLEMENT (Reported) Current Medications: Current Medications Sig/Samreen Start time Last Medication Dose Route Stop Time Status Admin Acetaminophen 650 MG Q6PRN PRN 06/08 1230 AC PO Albuterol Sulfate 3 ML EVERY 4 HRS/AWAKE 06/09 0800 AC 06/08 INH 2100 Albuterol Sulfate 3 ML ONCE ONE 06/08 0915 DC 06/08 INH 06/08 0916 0925 Aspirin Buffered 162 MG DAILY 06/08 1415 AC PO Atorvastatin Calcium 20 MG DAILY 06/08 1409 AC 06/08 PO 1719 Azithromycin 500 MG DAILY 06/09 1000 AC Sodium Chloride 250 ML IV Azithromycin 500 MG ONCE ONE 06/08 0915 DC 06/08 Sodium Chloride 250 ML IV 06/08 1014 1028 Budesonide/ 2 PUF BID 06/08 1410 AC 06/08 Formoterol Fumarate INH 2104 Bupropion HCl 300 MG DAILY 06/08 1410 AC 06/08 PO 1719 Ceftriaxone Sodium 1,000 MG DAILY 06/09 1000 AC IV Ceftriaxone Sodium 0 .STK-MED ONE 06/08 1005 DC .ROUTE Ceftriaxone Sodium 1,000 MG ONCE ONE 06/08 0915 DC 06/08 IV 06/08 0916 1018 Enoxaparin Sodium 40 MG DAILY 06/09 1000 AC SC Escitalopram Oxalate 10 MG DAILY 06/08 1410 AC 06/08 PO 1719 Gabapentin 400 MG BID 06/08 1410 AC 06/08 PO 2104 Guaifenesin 0 .STK-MED ONE 06/08 1005 DC PO Guaifenesin/ 10 ML ONCE ONE 06/08 0915 DC 06/08 Dextromethorphan PO 06/08 0916 1028 Ibuprofen 600 MG Q6P PRN 06/08 1230 AC PO Influenza Virus 0.5 ML ONCE ONE 06/08 1430 DC 06/08 Vaccine IM 06/08 1431 2106 Methylprednisolone 0 .STK-MED ONE 06/08 1005 DC .ROUTE Methylprednisolone 125 MG ONCE ONE 06/08 0915 DC 06/08 IV 06/08 0916 1018 Mirtazapine 30 MG QPM 06/08 2200 AC 06/08 PO 2104 Omeprazole 40 MG DAILY AC 06/09 0700 AC 06/09 PO 0602 Oxycodone HCl 5 MG Q6 PRN 06/08 1230 AC PO Sodium Chloride 1,000 ML Q13H 06/08 1345 DC 06/08 IV 06/09 0244 1407 Past History Travel History Traveled to [place] past 21 day No Medical History Blood Transfusion Hx: No Neurological: NONE EENT: NONE Cardiovascular: CAD (S/P CABG X 3 '03), hyperlipidemia, PVD Respiratory: COPD (2L O2 CONTINUOUS), obstructive sleep apnea (NIGHTLY CPAP) Gastrointestinal: GERD Hepatic: NONE Renal: NONE Musculoskeletal: chronic back pain, BACK SURGERY Psychiatric: depression (WITH SI+) Endocrine: obesity Blood Disorders: NONE 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 MOTHER (CAD). Psychosocial History Where Do You Live? Home Who Do You Live With? Roommate Services at Home: Home Health Aide, Nursing Primary Language: [place] Smoking Status: Former Smoker ETOH Use: denies use Illicit Drug Use: denies illicit drug use Functional Ability ADLs Independent: eating, toileting. Needs Assist: dressing, bathing. Ambulation: walker IADLs Needs Assist: medication admin. Exam & Diagnostic Data Last 24 Hrs of Vital Signs/I&O Vital Signs Date Time Temp Pulse Resp B/P B/P Pulse O2 O2 Flow FiO2 Mean Ox Delivery Rate 06/09 0638 97.5 66 18 120/68 98 BIPAP 06/09 0201 61 97 06/09 0000 BIPAP 06/08 2258 98.4 74 19 118/72 97 BIPAP 06/08 2147 Nasal 2.0L Cannula 06/08 1419 97 Nasal 2.0L Cannula 06/08 1352 98.9 72 18 120/70 97 Nasal 2.0L Cannula 06/08 1243 98.0 70 20 102/51 98 Nasal 2.0L Cannula 06/08 1044 98.2 68 20 114/57 97 Nasal 2.0L Cannula 06/08 0926 97 Nasal 2.0L Cannula Intake & Output 06/09 1600 06/09 0800 06/09 0000 Intake Total 450 225 Output Total 300 Balance 450 -75 Intake, IV 450 225 Output, Urine 300 Last 48 Hrs of Labs/Radu: Laboratory Tests 06/09/17 0750: Sodium Pending, Potassium Pending, Chloride Pending, Carbon Dioxide Pending, Anion Gap Pending, BUN Pending, Creatinine Pending, BUN/Creatinine Ratio Pending , CBC w Diff Pending, WBC Pending, RBC Pending, Hgb Pending, Hct Pending, MCV Pending, MCH Pending, RDW Pending, Plt Count Pending, MPV Pending, PUBS MCHC Pending 06/08/17 0954: Anion Gap 8, Estimated GFR > 60, BUN/Creatinine Ratio 26.3 H, Glucose 108 H, Calcium 9.3, Magnesium 2.4 H, Total Bilirubin 0.3, AST 23, ALT 36, Alkaline Phosphatase 81, Troponin I < 0.01, Ttf-Y-Wvspfgvytyw Pept 255 H, Total Protein 6.4, Albumin 3.6, Globulin 2.8, Albumin/Globulin Ratio 1.3, CBC w Diff NO MAN DIFF REQ, RBC 5.15, MCV 86.4, MCH 28.4, RDW 15.5 H, MPV 7.2 L, Gran % 81.3 H, Lymphocytes % 10.4 L, Monocytes % 7.1, Eosinophils % 0.8, Basophils % 0.4, Absolute Granulocytes 8.0 H, Absolute Lymphocytes 1.0 L, Absolute Monocytes 0.7 H, Absolute Eosinophils 0.1, Absolute Basophils 0, PUBS MCHC 32.8 L Diagnostic Data CXR Results There are known chronic changes at the left base, but there appears to be increased opacity suggestive of small effusion with associated atelectasis/pneumonia. Assessment/Plan Impression/Plan: 1. Left lower lobe pneumonia, community-acquired. 2. 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 Followed by ENT. 3. History of morbid obesity status post bariatric surgery with significant weight loss. 4. History of obstructive sleep apnea on nocturnal BiPAP. 5. History of CAD status post CABG and history of heart failure. 6. History of prolonged respiratory failure status post tracheostomy with removal. Recommendations: * Check quick flu (ordered). * Check urine for Strep pneumo and legionnella. * Continue ceftriaxone and azithromycin. * Check a non-contrast CT of the chest. * Swallowing evaluation. Consult Acknowledgment - Thank you for your consult request.
[2017-06-09 08:32] LABS: ABSOLUTE BASOPHIL COUNT 0 /CUMM (0.0-0.2); ABSOLUTE EOSINOPHIL COUNT 0.1 /CUMM (0.0-0.7); ABSOLUTE GRANULOCYTE CT 9.9 /CUMM (1.4-6.5); ABSOLUTE LYMPH COUNT 1.2 /CUMM (1.2-3.4); ABSOLUTE MONOCYTE COUNT 0.8 /CUMM (0.10-0.60); BASOPHIL % 0.4 % (0.0-2.0); EOSINOPHIL % 0.5 % (0-5); GRANULOCYTE % 82.2 % (42.2-75.2); HEMATOCRIT 40.4 % (42-52); MEAN CORPUSCULAR HGB 28.4 PG (27.0-31.0); MEAN CORPUSCULAR VOLUME 86.1 FL (80.0-94.0); MEAN PLATELET VOLUME 7.6 FL (7.4-10.4); PLATELET COUNT 238 /CUMM (130-400); RBC DISTRIBUTION WIDTH 15.5 % (11.5-14.5); RED BLOOD CELL CT 4.69 /CUMM (4.70-6.10)
--- NOTE | 2017-06-09 09:24 | PN- Housestaff ---
See Addendum Subjective Follow-up For: CAP Subjective: Patient was seen and examined. On BiPAP. Reports dyspnea however states that it is much improved compared to his admission day. Denies headache, dizziness, lightheadedness, chest pain, nausea, vomiting, abdominal pain, urinary symptoms. Blood cultures pending. Sputum culture, sputum Gram stain, rapid influenza, legionella and strep pneumonia antigens ordered but to be sent. Continues to remain afebrile, developed slight leukocytosis today (WBC 12 with granulocytosis). Review of Systems Constitutional: Reports: see HPI. Objective Last 24 Hrs of Vital Signs/I&O Vital Signs Date Time Temp Pulse Resp B/P B/P Pulse O2 O2 Flow FiO2 Mean Ox Delivery Rate 06/09 0841 98 Room Air 06/09 0638 97.5 66 18 120/68 98 BIPAP 06/09 0201 61 97 06/09 0000 BIPAP 06/08 2258 98.4 74 19 118/72 97 BIPAP 06/08 2147 Nasal 2.0L Cannula 06/08 1419 97 Nasal 2.0L Cannula 06/08 1352 98.9 72 18 120/70 97 Nasal 2.0L Cannula 06/08 1243 98.0 70 20 102/51 98 Nasal 2.0L Cannula 06/08 1044 98.2 68 20 114/57 97 Nasal 2.0L Cannula Intake & Output 06/09 1600 06/09 0800 06/09 0000 Intake Total 450 225 Output Total 300 Balance 450 -75 Intake, IV 450 225 Output, Urine 300 Physical Exam General Appearance: Alert, Oriented X3, Cooperative, No Acute Distress, On BIPAP Skin: No Rashes HEENT: Atraumatic, PERRLA, EOMI Neck: Supple, No JVD, No thryomegaly Lymphatic: Cervical nl Cardiovascular: Regular Rate, Normal S1, Normal S2, No Murmurs, Gallops, Rubs Lungs: Clear to Auscultation (ant auscultation), Normal Air Movement Abdomen: Normal Bowel Sounds, Soft, No Tenderness, No Hepatospenomegaly, No Masses Extremities: No Clubbing, No Cyanosis, No Edema, Normal Pulses, No Tenderness/ Swelling Current Medications: Current Medications Sig/Samreen Start time Last Medication Dose Route Stop Time Status Admin Acetaminophen 650 MG Q6PRN PRN 06/08 1230 AC PO Albuterol Sulfate 3 ML EVERY 4 HRS/AWAKE 06/09 0800 AC 06/09 INH 0839 Aspirin Buffered 162 MG DAILY 06/08 1415 AC PO Atorvastatin Calcium 20 MG DAILY 06/08 1409 AC 06/08 PO 1719 Azithromycin 500 MG DAILY 06/09 1000 AC Sodium Chloride 250 ML IV Azithromycin 500 MG ONCE ONE 06/08 0915 DC 06/08 Sodium Chloride 250 ML IV 06/08 1014 1028 Budesonide/ 2 PUF BID 06/08 1410 AC 06/08 Formoterol Fumarate INH 2104 Bupropion HCl 300 MG DAILY 06/08 1410 AC 06/08 PO 1719 Ceftriaxone Sodium 1,000 MG DAILY 06/09 1000 AC IV Ceftriaxone Sodium 0 .STK-MED ONE 06/08 1005 DC .ROUTE Enoxaparin Sodium 40 MG DAILY 06/09 1000 AC SC Escitalopram Oxalate 10 MG DAILY 06/08 1410 AC 06/08 PO 1719 Gabapentin 400 MG BID 06/08 1410 AC 06/08 PO 2104 Guaifenesin 0 .STK-MED ONE 06/08 1005 DC PO Ibuprofen 600 MG Q6P PRN 06/08 1230 AC PO Influenza Virus 0.5 ML ONCE ONE 06/08 1430 DC 06/08 Vaccine IM 06/08 1431 2106 Methylprednisolone 0 .STK-MED ONE 06/08 1005 DC .ROUTE Mirtazapine 30 MG QPM 06/08 2200 AC 06/08 PO 2104 Omeprazole 40 MG DAILY AC 06/09 0700 AC 06/09 PO 0602 Oxycodone HCl 5 MG Q6 PRN 06/08 1230 AC PO Sodium Chloride 1,000 ML Q13H 06/08 1345 DC 06/08 IV 06/09 0244 1407 Last 24 Hrs of Lab/Radu Results Last 24 Hrs of Labs/Mics: Laboratory Tests 06/09/17 0750: Anion Gap 9, Estimated GFR > 60, BUN/Creatinine Ratio 38.3 H, CBC w Diff NO MAN DIFF REQ, RBC 4.69 L, MCV 86.1, MCH 28.4, RDW 15.5 H, MPV 7.6, Gran % 82.2 H, Lymphocytes % 10.3 L, Monocytes % 6.6, Eosinophils % 0.5, Basophils % 0.4, Absolute Granulocytes 9.9 H, Absolute Lymphocytes 1.2, Absolute Monocytes 0.8 H, Absolute Eosinophils 0.1, Absolute Basophils 0, PUBS MCHC 33.0 06/08/17 0954: Anion Gap 8, Estimated GFR > 60, BUN/Creatinine Ratio 26.3 H, Glucose 108 H, Calcium 9.3, Magnesium 2.4 H, Total Bilirubin 0.3, AST 23, ALT 36, Alkaline Phosphatase 81, Troponin I < 0.01, Uze-V-Dnbbsndqhxz Pept 255 H, Total Protein 6.4, Albumin 3.6, Globulin 2.8, Albumin/Globulin Ratio 1.3, CBC w Diff NO MAN DIFF REQ, RBC 5.15, MCV 86.4, MCH 28.4, RDW 15.5 H, MPV 7.2 L, Gran % 81.3 H, Lymphocytes % 10.4 L, Monocytes % 7.1, Eosinophils % 0.8, Basophils % 0.4, Absolute Granulocytes 8.0 H, Absolute Lymphocytes 1.0 L, Absolute Monocytes 0.7 H, Absolute Eosinophils 0.1, Absolute Basophils 0, PUBS MCHC 32.8 L Microbiology 06/08 1221 URINE ROUT: Legionella Antigen - COLB 06/08 1221 URINE ROUT: Streptococcus pneumoniae Antigen (M - COLB 06/08 1221 LOWER RESP: Respiratory Culture - COLB 06/08 1221 LOWER RESP: Gram Stain - COLB 06/08 1221 NASOPHARYN: Influenza Virus A & B Rapid Smear - COLB 06/08 1015 BLOOD: Blood Culture - RECD 06/08 0957 BLOOD: Blood Culture - RECD Assessment/Plan Assessment: This is a 66-year-old gentleman with past medical history significant for 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 Chest x-ray on admission reveals increased opacity suggestive of small effusion with associated atelectasis/pneumonia. Problem list/plan #Dyspnea: Likely acute on chronic respiratory failure in a patient with a history of COPD, chronic hypoxic respiratory failure now with community-acquired pneumonia. Patient has received 1 dose of IV cefazolin and azithromycin in the ED along with 125 mg of IV methylprednisolone. He has remained afebrile since presentation however is reported to have a fever of 101 at home. * Continue nocturnal BiPAP and oxygen supplementation as needed * Consider checking an ABG * Continue with TRC/nebs * Pulmonary consult appreciated, will follow recommendations * Non- contrast CT chest ordered per pulmonary recommendations. 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 * Swallow evaluation ordered * Will follow up with ENT #History of CAD and heart failure: * Continue with aspirin, statin * Consider restarting furosemide and metoprolol if blood pressure allows #DVT prophylaxis: * Subcutaneous enoxaparin #CODE STATUS: * Full code Problem List: 1. GUSTAVO on CPAP 2. Pneumonia Pain Ratin Pain Location: NA Pain Goal: Remain pain free Pain Plan: NA Tomorrow's Labs & Rationales: BEP to monitor electrolytes CBC to monitor WBC
--- NOTE | 2017-06-09 15:45 | CT SCAN REPORT ---
EXAMINATION: CT CHEST WITHOUT CONTRAST CLINICAL INFORMATION: Dyspnea. Presumptive diagnosis of pneumonia. COMPARISON: Chest x-ray dated 06/08/2017. CT scan of the neck dated 03/26/2017. PET CT scan dated 03/23/2017. CT scan of the chest dated 10/25/2016. TECHNIQUE: Multidetector volumetric CT imaging of the chest was obtained noncontrast. Sagittal and coronal reformations were obtained. DLP: 1011.97 mGy-cm. FINDINGS: LUNGS: Prominent subpleural fat deposition is seen bilaterally. There is volume loss in both lower lobes with both dependent atelectasis seen in the right and left lower lobe and linear plate-like atelectasis seen in the left lower lobe. Mild associated traction bronchiectasis is seen in this region. Small focal rounded area of fluid attenuation is seen in the extreme left lung base, likely representing a trace amount of pleural fluid, similar to prior exam. No evolving dense consolidation is seen to suspect a pneumonia. There are small peribronchial areas of subtle groundglass opacities seen scattered throughout the lungs, suggestive of a airway associated inflammation/bronchitis. No pneumothorax. Central airways patent. LYMPHOVASCULAR STRUCTURES: The patient is status post median sternotomy and CABG surgery. Severe three-vessel coronary artery calcifications are seen. Aortic and heart size normal. No pericardial effusion. No mediastinal, hilar or axillary adenopathy or free fluid collection. THYROID GLAND: Small nodular densities in the thyroid gland again noted along the course left mid lobe calcification, similar to prior exam. UPPER ABDOMEN: There is a small hiatal hernia. Slightly lobulated appearance of the adrenal glands is stable. Included portions of the solid organs in the upper abdomen, otherwise unremarkable. Incidental note is made of a small accessory splenule in the splenic hilar region. BONES: Multilevel moderate degenerative changes as seen in the thoracic spine. No suspicious focal findings. IMPRESSION: 1. No evolving dense consolidation is seen. There are patchy areas of peribronchial groundglass opacities, raising the suspicion of subtle airway associated inflammation/infection. Clinical correlation requested. 2. Plate-like area of atelectasis in the superior segment of the left lower lobe again seen, unchanged. 3. Dependent areas of atelectatic change in both lung bases again noted, unchanged. 4. Small loculated pocket of fluid is seen in the extreme left lung base, unchanged dating back to at least 10/25/2016. 5. Severe three-vessel coronary artery calcifications. 6. Small hiatal hernia.
[2017-06-09 16:00] VITALS: BP 163/73
[2017-06-09 21:59] VITALS: BP 132/68
[2017-06-10 06:22] VITALS: BP 134/66
[2017-06-10 08:07] LABS: ABSOLUTE BASOPHIL COUNT 0 /CUMM (0.0-0.2); ABSOLUTE EOSINOPHIL COUNT 0.1 /CUMM (0.0-0.7); ABSOLUTE GRANULOCYTE CT 8.9 /CUMM (1.4-6.5); ABSOLUTE MONOCYTE COUNT 0.8 /CUMM (0.10-0.60); BASOPHIL % 0.4 % (0.0-2.0); EOSINOPHIL % 0.9 % (0-5); GRANULOCYTE % 81.6 % (42.2-75.2); HEMATOCRIT 41.2 % (42-52); MEAN CORPUSCULAR HGB 28.5 PG (27.0-31.0); MEAN CORPUSCULAR HGB CONC 32.8 G/DL (33.0-37.0); MEAN PLATELET VOLUME 7.5 FL (7.4-10.4); PLATELET COUNT 249 /CUMM (130-400); RBC DISTRIBUTION WIDTH 15.6 % (11.5-14.5); RED BLOOD CELL CT 4.73 /CUMM (4.70-6.10); WHITE BLOOD CELL COUNT 10.9 /CUMM (4.8-10.8)
--- NOTE | 2017-06-10 09:06 | PN- Att Addend ---
Attending Addendum Attending Brief Note Patient seen and examined. He says he had a rough night. Overall he does feel like he is getting better albeit slowly. He says that Dr Hammonds is scheduled to do the surgery but he believes it's canceled due to this infection. He is a 66-year-old morbidly obese male with a history of squamous cell carcinoma of the vocal cords who is here with a community-acquired pneumonia. We have him on IV ceftriaxone and azithromycin. The noncontrast chest CT recommended by pulmonary showed atelectasis and some groundglass opacities. Swallow initially wanted to do modified barium swallow but his size does not permit him to sit on the table and they felt that he was safe for a regular diet. We'll discuss with pulmonary and ENT and follow closely.
--- NOTE | 2017-06-10 09:56 | PN- Pulmonary ---
Subjective HPI/Critical Care Issues: The patient is awake and alert. He did not sleep well last night and feels fatigued today. He continues to have a cough which is now more productive with loose sputum. He is less congested in his chest. He continues to have shortness of breath however this has improved overall. His CT scan of the chest demonstrated atelectasis with some groundglass opacities. His ENT surgery has been canceled due to his current respiratory infection/pneumonia. A modified barium swallow was recommended by speech therapy however his weight limit does not permit him to sit on the table. Objective Current Medications: Current Medications Sig/Samreen Start time Last Medication Dose Route Stop Time Status Admin Acetaminophen 650 MG Q6PRN PRN 06/08 1230 AC PO Albuterol Sulfate 3 ML EVERY 4 HRS/AWAKE 06/09 0800 AC 06/10 INH 0739 Aspirin Buffered 162 MG DAILY 06/08 1415 AC PO Atorvastatin Calcium 20 MG DAILY 06/08 1409 AC 06/09 PO 1044 Azithromycin 500 MG 2200 06/09 2359 AC 06/10 Sodium Chloride 250 ML IV 0010 Azithromycin 500 MG DAILY 06/09 1000 DC 06/09 Sodium Chloride 250 ML IV 1045 Budesonide/ 2 PUF BID 06/08 1410 AC 06/09 Formoterol Fumarate INH 2100 Bupropion HCl 300 MG DAILY 06/08 1410 AC 06/09 PO 1044 Ceftriaxone Sodium 1,000 MG DAILY 06/09 1000 AC 06/09 IV 1045 Enoxaparin Sodium 40 MG DAILY 06/09 1000 AC 06/09 SC 1045 Escitalopram Oxalate 10 MG DAILY 06/08 1410 AC 06/09 PO 1044 Furosemide 40 MG DAILY 06/10 1000 AC PO Gabapentin 400 MG BID 06/08 1410 AC 06/09 PO 2059 Ibuprofen 600 MG Q6P PRN 06/08 1230 AC 06/10 PO 0518 Mirtazapine 30 MG QPM 06/08 2200 AC 06/09 PO 2059 Omeprazole 40 MG DAILY AC 06/09 0700 AC 06/10 PO 0516 Oxycodone HCl 5 MG Q6 PRN 06/08 1230 AC 06/09 PO 2149 Patient Medication 1 ED ONE ONE 06/09 1230 DC 06/09 Teaching ED 06/09 1231 1817 Vital Signs & I&O Last 24 Hrs of Vitals and I&O: Vital Signs Date Time Temp Pulse Resp B/P B/P Pulse O2 O2 Flow FiO2 Mean Ox Delivery Rate 06/10 06 97.7 77 20 134/66 98 06/10 0230 105 99 06/10 0217 99 Nasal 2.0L Cannula 06/10 0000 BIPAP 06/09 2209 76 95 06/09 2159 97.9 81 20 132/68 98 BIPAP 06/09 1625 98 Nasal 2.0L Cannula 06/09 1600 98.2 89 22 163/73 98 Nasal 2.0L Cannula 06/09 1600 98 Nasal 2.0L Cannula Intake & Output 06/10 1600 06/10 0800 06/10 0000 Intake Total 240 240 Output Total Balance 240 240 Intake, Oral 240 240 Exam General Appearance: no apparent distress, alert, awake, comfortable Head: atraumatic Neck: supple Respiratory: rhonchi, trachea is midline, lungs expand symmetrically Cardiovascular: regular rate/rhythm, heart sounds are distant Abdomen: normal bowel sounds, soft, non-tender Extremities: chronic edema Skin: intact, warm/dry Results Last 24 Hrs of Lab Results: Laboratory Tests 06/10/17 0650: Anion Gap 9, Estimated GFR > 60, BUN/Creatinine Ratio 31.3 H, CBC w Diff NO MAN DIFF REQ, RBC 4.73, MCV 87.0, MCH 28.5, RDW 15.6 H, MPV 7.5, Gran % 81.6 H, Lymphocytes % 9.6 L, Monocytes % 7.5, Eosinophils % 0.9, Basophils % 0.4, Absolute Granulocytes 8.9 H, Absolute Lymphocytes 1.0 L, Absolute Monocytes 0.8 H, Absolute Eosinophils 0.1, Absolute Basophils 0, PUBS MCHC 32.[address] Scan Findings: 1. No evolving dense consolidation is seen. There are patchy areas of peribronchial groundglass opacities, raising the suspicion of subtle airway associated inflammation/infection. Clinical correlation requested. 2. Plate-like area of atelectasis in the superior segment of the left lower lobe again seen, unchanged. 3. Dependent areas of atelectatic change in both lung bases again noted, unchanged. 4. Small loculated pocket of fluid is seen in the extreme left lung base, unchanged dating back to at least 10/25/2016. 5. Severe three-vessel coronary artery calcifications. 6. Small hiatal hernia. Impression/Plan Impression/Plan Impression/Plan: 1. Community-acquired pneumonia. 2. 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 3. History of morbid obesity status post bariatric surgery with significant weight loss. 4. History of obstructive sleep apnea on nocturnal BiPAP. 5. History of CAD status post CABG and history of heart failure. 6. History of prolonged respiratory failure status post tracheostomy with removal. 7. Rhinorrhea. Recommendations: * Continue supplemental oxygen to maintain saturations greater than 92%. * Continue ceftriaxone and azithromycin. * Please send sputum for culture again - poor quality samples. * Continue nebs/total respiratory care. * Add fluticasone nasal spray, 2 sprays each nostril at bedtime. * Agree with restarting Lasix. * Continue home medications as per primary team. * DVT prophylaxis at all times. * Out of bed to chair/increase activity. * Continue all supportive care.
--- NOTE | 2017-06-10 14:43 | PN- Housestaff ---
See Addendum Subjective Follow-up For: CAP Subjective: Patient was seen and examined. On BiPAP. Reports dyspnea and feeling wheezy. Feels worse compared to yesterday. Denies headache, dizziness, lightheadedness, chest pain, nausea, vomiting, abdominal pain, urinary symptoms. Blood cultures neg(Jun 08). Sputum culture, sputum Gram stain: poor quality sample rapid influenza, legionella and strep pneumonia antigens ordered but to be sent. Continues to remain afebrile, leukocytosis improved. His weight is over the limit for the xray table for MBS. His ENT Sx to be rescheduled by Dr. Hammonds. Review of Systems Constitutional: Reports: see HPI. Objective Last 24 Hrs of Vital Signs/I&O Vital Signs Date Time Temp Pulse Resp B/P B/P Pulse O2 O2 Flow FiO2 Mean Ox Delivery Rate 06/10 1600 Nasal 2.0L Cannula 06/10 1600 98 06/10 1600 98 BIPAP 2.0L 06/10 1454 97.6 78 20 120/62 99 Nasal 2.0L Cannula 06/10 1037 98 BIPAP 06/10 1015 94 Room Air 06/10 0800 BIPAP 06/10 0622 97.7 77 20 134/66 98 06/10 0230 105 99 06/10 0217 99 Nasal 2.0L Cannula 06/10 0000 BIPAP 06/09 2209 76 95 06/09 2159 97.9 81 20 132/68 98 BIPAP Intake & Output 06/10 1600 06/10 0800 06/10 0000 Intake Total 400 240 240 Output Total Balance 400 240 240 Intake, IV 0 Intake, Oral 400 240 240 Number 0 Bowel Movements Physical Exam General Appearance: Alert, Cooperative, No Acute Distress Other Physical Findings: Skin: No Rashes HEENT: Atraumatic, PERRLA, EOMI Neck: Supple, No JVD, No thryomegaly Lymphatic: Cervical nl Cardiovascular: Regular Rate, Normal S1, Normal S2, No Murmurs, Gallops, Rubs Lungs: Clear to Auscultation, Normal Air Movement Abdomen: Normal Bowel Sounds, Soft, No Tenderness, No Hepatospenomegaly, No Masses Extremities: No Clubbing, No Cyanosis, No Edema, Normal Pulses, No Tenderness/ Swelling Current Medications: Current Medications Sig/Samreen Start time Last Medication Dose Route Stop Time Status Admin Acetaminophen 650 MG Q6PRN PRN 06/08 1230 AC PO Albuterol Sulfate 3 ML EVERY 4 HRS/AWAKE 06/09 0800 AC 06/10 INH 1558 Aspirin Buffered 162 MG DAILY 06/08 1415 AC 06/10 PO 1000 Atorvastatin Calcium 20 MG DAILY 06/08 1409 AC 06/10 PO 1000 Azithromycin 500 MG 2200 06/09 2359 AC 06/10 Sodium Chloride 250 ML IV 0010 Azithromycin 500 MG DAILY 06/09 1000 DC 06/09 Sodium Chloride 250 ML IV 1045 Budesonide/ 2 PUF BID 06/08 1410 AC 06/10 Formoterol Fumarate INH 1000 Bupropion HCl 300 MG DAILY 06/08 1410 AC 06/10 PO 1000 Ceftriaxone Sodium 1,000 MG DAILY 06/09 1000 AC 06/10 IV 1000 Enoxaparin Sodium 40 MG DAILY 06/09 1000 AC 06/10 SC 1000 Escitalopram Oxalate 10 MG DAILY 06/08 1410 AC 06/10 PO 1000 Fluticasone 2 SPRAY AT BEDTIME 06/10 2200 AC Propionate DARRYL Furosemide 40 MG DAILY 06/10 1000 AC 06/10 PO 1134 Gabapentin 400 MG BID 06/08 1410 AC 06/10 PO 1000 Ibuprofen 600 MG Q6P PRN 06/08 1230 AC 06/10 PO 1952 Mirtazapine 30 MG QPM 06/08 2200 AC 06/09 PO 2059 Omeprazole 40 MG DAILY AC 06/09 0700 AC 06/10 PO 0516 Oxycodone HCl 5 MG Q6 PRN 06/08 1230 AC 06/09 PO 2149 Last 24 Hrs of Lab/Radu Results Last 24 Hrs of Labs/Mics: Laboratory Tests 06/10/17 0650: Anion Gap 9, Estimated GFR > 60, BUN/Creatinine Ratio 31.3 H, CBC w Diff NO MAN DIFF REQ, RBC 4.73, MCV 87.0, MCH 28.5, RDW 15.6 H, MPV 7.5, Gran % 81.6 H, Lymphocytes % 9.6 L, Monocytes % 7.5, Eosinophils % 0.9, Basophils % 0.4, Absolute Granulocytes 8.9 H, Absolute Lymphocytes 1.0 L, Absolute Monocytes 0.8 H, Absolute Eosinophils 0.1, Absolute Basophils 0, PUBS MCHC 32.8 L Microbiology 06/10 1443 LOWER RESP: Respiratory Culture - ORD 01/04 1443 LOWER RESP: Gram Stain - ORD 06/09 2229 LOWER RESP: Respiratory Culture - CAN Cancelled: POOR QUALITY SPECIMEN CALLED [facility] FOR RECOLLECT AT 2317 06/09 2229 LOWER RESP: Gram Stain - CAN Cancelled: POOR QUALITY SPECIMEN CALLED [facility] FOR RECOLLECT AT 2316 Assessment/Plan Assessment: This is a 66-year-old gentleman with past medical history significant for 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 Chest x-ray on admission reveals increased opacity suggestive of small effusion with associated atelectasis/pneumonia. Problem list/plan #Dyspnea: Likely acute on chronic respiratory failure in a patient with a history of COPD, chronic hypoxic respiratory failure now with community-acquired pneumonia. Patient has received 1 dose of IV cefazolin and azithromycin in the ED along with 125 mg of IV methylprednisolone. He has remained afebrile since presentation however is reported to have a fever of 101 at home. * Continue nocturnal BiPAP and oxygen supplementation as needed * Consider checking an ABG * Continue with TRC/nebs * Pulmonary consult appreciated, will follow recommendations * Fluticasone added per pulmonary * Non- contrast CT chest reveals atelectasis and groundglass opacities. 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 * Swallow evaluation done; speech therapy recommended MBS.His weight is over the limit for the xray table for MBS. * Meanwhile was started on regular diet speech therapist #History of CAD and heart failure: * Continue with aspirin, statin * Consider restarting metoprolol if blood pressure allows * furosemide restarted today #DVT prophylaxis: * Subcutaneous enoxaparin #CODE STATUS: * Full code Problem List: 1. Sleep apnea 2. GUSTAVO treated with BiPAP 3. Pneumonia Pain Ratin Pain Location: NA Pain Goal: Remain pain free Pain Plan: NA Tomorrow's Labs & Rationales: BEP to monitor electrolytes CBC to monitor WBC
[2017-06-10 14:54] VITALS: BP 120/62
[2017-06-10 22:33] VITALS: BP 122/74
[2017-06-11 06:35] VITALS: BP 142/76
--- NOTE | 2017-06-11 08:14 | PN- Housestaff ---
Lee Ruth 06/11/17 0814: Subjective Follow-up For: CAP Subjective: Patient seen and examined. Still reports having shortness of breath. Feels improved compared to yesterday. Adequate oxygen saturation on 2 L nasal cannula oxygen. Denies headache, dizziness, lightheadedness, chest pain, nausea, vomiting, abdominal pain, urinary symptoms. Blood cultures neg(Jun 08). Sputum culture, sputum Gram stain: poor quality sample; repeat culture also poor quality sample. rapid influenza, legionella and strep pneumonia antigens ordered but to be sent. Continues to remain afebrile, leukocytosis improved. Review of Systems Constitutional: Reports: see HPI. Objective Last 24 Hrs of Vital Signs/I&O Vital Signs Date Time Temp Pulse Resp B/P B/P Pulse O2 O2 Flow FiO2 Mean Ox Delivery Rate 06/11 1650 97 Nasal 2.0L Cannula 06/11 1600 Nasal 2.0L Cannula 06/11 1500 97.9 68 18 124/70 94 Room Air 06/11 1146 78 136/78 06/11 0942 20 96 Nasal 2.0L Cannula 06/11 0929 94 Room Air 06/11 0900 96 Nasal 2.0L Cannula 06/11 0800 20 95 BIPAP 06/11 0635 98.3 77 20 142/76 95 CPAP 06/11 0424 96 BIPAP 2.0L 06/11 0000 BIPAP 06/10 2356 71 96 06/10 2325 78 98 06/10 2233 98.0 82 21 122/74 96 Nasal 2.0L Cannula Intake & Output 06/11 1600 06/11 0800 06/11 0000 Intake Total 850 490 990 Output Total Balance 850 490 990 Intake, IV 50 10 270 Intake, Oral 800 480 720 Number 0 1 Bowel Movements Physical Exam General Appearance: Alert, No Acute Distress Other Physical Findings: Skin: No Rashes HEENT: Atraumatic, PERRLA, EOMI Neck: Supple, No JVD, No thryomegaly Lymphatic: Cervical nl Cardiovascular: Regular Rate, Normal S1, Normal S2, No Murmurs, Gallops, Rubs Lungs: Clear to Auscultation, Normal Air Movement Abdomen: Normal Bowel Sounds, Soft, No Tenderness, No Hepatospenomegaly, No Masses Extremities: No Clubbing, No Cyanosis, No Edema, Normal Pulses, No Tenderness/ Swelling Current Medications: Current Medications Sig/Samreen Start time Last Medication Dose Route Stop Time Status Admin Acetaminophen 650 MG Q6PRN PRN 06/08 1230 AC PO Albuterol Sulfate 3 ML EVERY 4 HRS/AWAKE 06/09 0800 AC 06/11 INH 1655 Aspirin Buffered 162 MG DAILY 06/08 1415 AC 06/11 PO 1012 Atorvastatin Calcium 20 MG DAILY 06/08 1409 AC 06/11 PO 1012 Azithromycin 500 MG 2200 06/11 2200 AC Sodium Chloride 250 ML IV Azithromycin 500 MG 2200 06/09 2359 DC 06/10 Sodium Chloride 250 ML IV 2214 Budesonide/ 2 PUF BID 06/08 1410 AC 06/11 Formoterol Fumarate INH 1012 Bupropion HCl 300 MG DAILY 06/08 1410 AC 06/11 PO 1012 Ceftriaxone Sodium 1,000 MG DAILY 06/12 1000 AC IV Ceftriaxone Sodium 1,000 MG DAILY 06/09 1000 DC 06/11 IV 1012 Enoxaparin Sodium 40 MG DAILY 06/09 1000 AC 06/11 SC 1012 Escitalopram Oxalate 10 MG DAILY 06/08 1410 AC 06/11 PO 1012 Fluticasone 2 SPRAY AT BEDTIME 06/10 2200 AC 06/10 Propionate DARRYL 2214 Furosemide 40 MG DAILY 06/10 1000 AC 06/11 PO 1012 Gabapentin 400 MG BID 06/08 1410 AC 06/11 PO 1012 Ibuprofen 600 MG Q6P PRN 06/08 1230 AC 06/11 PO 0440 Isosorbide 30 MG DAILY 06/11 1030 AC 06/11 Mononitrate PO 1146 Metoprolol Tartrate 25 MG BID 06/11 1031 AC 06/11 PO 1146 Mirtazapine 30 MG QPM 06/08 2200 AC 06/10 PO 2214 Omeprazole 40 MG DAILY AC 06/09 0700 AC 06/11 PO 0647 Oxycodone HCl 5 MG Q6 PRN 06/08 1230 AC 06/11 PO 0649 Last 24 Hrs of Lab/Radu Results Last 24 Hrs of Labs/Mics: Microbiology 06/10 2126 LOWER RESP: Respiratory Culture - CAN Cancelled: NUMBER OF SQUAMOUS CELLS INDICATES POOR QUALITY SPECIMEN 06/10 2126 LOWER RESP: Gram Stain - CAN Cancelled: NUMBER OF SQUAMOUS CELLS INDICATES POOR QUALITY SPECIMEN Assessment/Plan Assessment: This is a 66-year-old gentleman with past medical history significant for 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 Chest x-ray on admission reveals increased opacity suggestive of small effusion with associated atelectasis/pneumonia. Problem list/plan #Dyspnea: Likely acute on chronic respiratory failure in a patient with a history of COPD, chronic hypoxic respiratory failure now with community-acquired pneumonia. Patient has received 1 dose of IV cefazolin and azithromycin in the ED along with 125 mg of IV methylprednisolone. He has remained afebrile since presentation however is reported to have a fever of 101 at home. * Continue nocturnal BiPAP and oxygen supplementation as needed * Consider checking an ABG * Continue with TRC/nebs * Pulmonary consult appreciated, will follow recommendations * Fluticasone added per pulmonary * Non- contrast CT chest reveals atelectasis and groundglass opacities. * Follow-up all cultures * Continue with ceftriaxone and azithromycin; change to PO levofloxacin upon discharge to complete total 7 days of AB tx. 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 * Swallow evaluation done; speech therapy recommended MBS.His weight is over the limit for the xray table for MBS. * Meanwhile was started on regular diet per speech therapist #History of CAD and heart failure: * Continue with aspirin, statin * Restart metoprolol and Imdur * furosemide restarted today #DVT prophylaxis: * Subcutaneous enoxaparin #CODE STATUS: * Full code Problem List: 1. Pneumonia Pain Ratin Pain Location: NA Pain Goal: Remain pain free Pain Plan: NA Tomorrow's Labs & Rationales: CBC to montior WBC levels Kristy Mane MD 06/11/17 0943: Attending MD Review Statement Attending Statement Attending MD Statement: examined this patient, discuss w/resident/PA/BLANKING MACHINE OPERATOR, agreed w/resident/PA/BLANKING MACHINE OPERATOR, discussed with family, reviewed images Attending Assessment/Plan: Pt feels a little low today. He still coughing and feels short of breath. We have him on IV ceftriaxone and azithromycin for community-acquired pneumonia as evidenced by groundglass opacities on the CT chest. He has underlying squamous cell carcinoma of the vocal cords. I spoke to Dr. Jorge and if he is clinically improving will plan for discharge in a.m. on an oral quinolone to finish a total of [address] Jorge wants to repeat the chest x-ray before he goes just to make sure there is no effusion there. We'll also restart his Imdur and metoprolol today. We had held it on admission because of his borderline blood pressure.
--- NOTE | 2017-06-11 09:20 | PN- Pulmonary ---
Subjective HPI/Critical Care Issues: The patient is awake and alert. He reports that his throat is sore. His respiratory status has improved overall. His cough is better and he is producing less sputum. He has no chest pain, fever or chills. He is ambulating well without issue. His shortness of breath has improved overall as well. Objective Current Medications: Current Medications Sig/Samreen Start time Last Medication Dose Route Stop Time Status Admin Acetaminophen 650 MG Q6PRN PRN 06/08 1230 AC PO Albuterol Sulfate 3 ML EVERY 4 HRS/AWAKE 06/09 0800 AC 06/11 INH 0423 Aspirin Buffered 162 MG DAILY 06/08 1415 AC 06/10 PO 1000 Atorvastatin Calcium 20 MG DAILY 06/08 1409 AC 06/10 PO 1000 Azithromycin 500 MG 2200 06/09 2359 AC 06/10 Sodium Chloride 250 ML IV 2214 Budesonide/ 2 PUF BID 06/08 1410 AC 06/10 Formoterol Fumarate INH 2214 Bupropion HCl 300 MG DAILY 06/08 1410 AC 06/10 PO 1000 Ceftriaxone Sodium 1,000 MG DAILY 06/09 1000 AC 06/10 IV 1000 Enoxaparin Sodium 40 MG DAILY 06/09 1000 AC 06/10 SC 1000 Escitalopram Oxalate 10 MG DAILY 06/08 1410 AC 06/10 PO 1000 Fluticasone 2 SPRAY AT BEDTIME 06/10 2200 AC 06/10 Propionate DARRYL 2214 Furosemide 40 MG DAILY 06/10 1000 AC 06/10 PO 1134 Gabapentin 400 MG BID 06/08 1410 AC 06/10 PO 2214 Ibuprofen 600 MG Q6P PRN 06/08 1230 AC 06/11 PO 0440 Mirtazapine 30 MG QPM 06/08 2200 AC 06/10 PO 2214 Omeprazole 40 MG DAILY AC 06/09 0700 AC 06/11 PO 0647 Oxycodone HCl 5 MG Q6 PRN 06/08 1230 AC 06/11 PO 0649 Vital Signs & I&O Last 24 Hrs of Vitals and I&O: Vital Signs Date Time Temp Pulse Resp B/P B/P Pulse O2 O2 Flow FiO2 Mean Ox Delivery Rate 06/11 0800 20 95 BIPAP 06/11 0635 98.3 77 20 142/76 95 CPAP 06/11 0424 96 BIPAP 2.0L 06/11 0000 BIPAP 06/10 2356 71 96 06/10 2325 78 98 06/10 2233 98.0 82 21 122/74 96 Nasal 2.0L Cannula 06/10 1600 Nasal 2.0L Cannula 06/10 1600 98 06/10 1600 98 BIPAP 2.0L 06/10 1454 97.6 78 20 120/62 99 Nasal 2.0L Cannula 06/10 1037 98 BIPAP 06/10 1015 94 Room Air Intake & Output 06/11 1600 06/11 0800 06/11 0000 Intake Total 490 990 Output Total Balance 490 990 Intake, IV 10 270 Intake, Oral 480 720 Number 1 Bowel Movements Exam General Appearance: no apparent distress, alert, awake, comfortable Head: atraumatic Neck: supple Respiratory: rhonchi, trachea is midline, lungs expand symmetrically Cardiovascular: regular rate/rhythm, heart sounds are distant Abdomen: normal bowel sounds, soft, non-tender Extremities: chronic edema Skin: intact, warm/dry Impression/Plan Impression/Plan Impression/Plan: 1. Community-acquired pneumonia. 2. 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 3. History of morbid obesity status post bariatric surgery with significant weight loss. 4. History of obstructive sleep apnea on nocturnal BiPAP. 5. History of CAD status post CABG and history of heart failure. 6. History of prolonged respiratory failure status post tracheostomy with removal. 7. Rhinorrhea. Recommendations: * Continue supplemental oxygen to maintain saturations greater than 92%. * Continue ceftriaxone and azithromycin. * Check a chest x-ray tomorrow morning to ensure no development of worsening consolidation or pleural effusion. * If the patient improves over the next 24 hours, exchange engineer to a quinolone and consider discharge to home. * Continue nebs/total respiratory care. * Continue fluticasone nasal spray, 2 sprays each nostril at bedtime. * Continue PO Lasix. * Continue home medications as per primary team. Antihypertensives being restarted. * DVT prophylaxis at all times. * Out of bed to chair/increase activity. * Continue all supportive care.
--- NOTE | 2017-06-11 11:51 | RADIOLOGY REPORT ---
EXAMINATION: XR CHEST CLINICAL INFORMATION: Dyspnea COMPARISON: CT chest 06/09/2016 TECHNIQUE: 2 views of the chest were obtained. FINDINGS: Status post median sternotomy and CABG. The cardiomediastinal silhouette is stable. There are low lung volumes. There is a small left pleural effusion with adjacent airspace opacity most likely representing atelectasis. Minimal right basal atelectasis. No pneumothorax is appreciated. No acute osseous abnormalities. IMPRESSION: Low lung volumes. Small left effusion with adjacent atelectasis otherwise no acute cardiopulmonary process.
[2017-06-11] MEDS ORDERED: FLUTICASONE PRO16 GM NAS (12:35)
[2017-06-11] MEDS ORDERED: LEVAQUIN500 M1 PO (12:35)
--- NOTE | 2017-06-11 12:37 | Patient Discharge Instructions ---
Discharge Instructions General Discharge Information You were seen/treated for: Community-acquired pneumonia COPD exacerbation Special Instructions: discharge. Diet Continue normal diet: Yes Additional DIET Information: Low-sodium diet, 2 g daily sodium. Activity Additional ACTIVITY Info: As tolerated. Acute Coronary Syndrome Inclusion Criteria At DC or during hospital stay patient has or had the following: ACS DIAGNOSIS No Discharge Core Measures Meds if any: Prescribed or Continued at Discharge Meds if any: NOT Prescribed or Continued at Discharge Congestive Heart Failure Inclusion Criteria At DC or during hospital stay patient has or had the following: CHF DIAGNOSIS No Discharge Core Measures Meds if any: Prescribed or Continued at Discharge Meds if any: NOT Prescribed or Continued at Discharge Cerebrovascular accident Inclusion Criteria At DC or during hospital stay patient has or had the following: CVA/TIA Diagnosis No Discharge Core Measures Meds if any: Prescribed or Continued at Discharge Meds if any: NOT Prescribed or Continued at Discharge Venous thromboembolism Inclusion Criteria VTE Diagnosis No VTE Type NONE VTE Confirmed by (Test) NONE Discharge Core Measures - Per Current guidelines, there needs to be overlap - treatment for the first 5 days of Warfarin therapy. - If discharged on Warfarin prior to 5 days of - overlap therapy, the patient will need to be - assessed for post discharge needs including - *Post discharge parental anticoagulation - *Warfarin and/or parental anticoagulation education - *Follow up date to check INR post discharge At least 5 days overlap therapy as Inpatient No Meds if any: Prescribed or Continued at Discharge Note: Overlap Therapy is Warfarin and Anticoagulant Meds if any: NOT Prescribed or Continued at Discharge
[2017-06-11 15:00] VITALS: BP 124/70
[2017-06-11 22:25] VITALS: BP 104/60
--- NOTE | 2017-06-12 04:58 | Event Note ---
Event Note Event Note: Rapid response called at 3:40 AM, patient was desaturating to 70% on 2 L oxygen while using BiPAP. On arrival patient was tachycardic, tachypneic and he was placed on Ventimask, patient was alert, awake, oriented 3. Loud wheezing heard , but on auscultation lying where clear with decreased air entry bibasilar. We obtain ABG, chest x-ray, EKG troponin, CBC and basic panel electrolytes stat. ABG came back as acute on chronic hypercarbic respiratory acidosis/failure. Patient received treatment and after that his oxygen saturation improved and he went back and has baseline of 2 L oxygen on BiPAP with oxygen saturation in 98% and his tachycardia subsided.
--- NOTE | 2017-06-12 04:58 | RADIOLOGY REPORT ---
EXAMINATION: XR PORTABLE CHEST CLINICAL INFORMATION: Oxygen desaturation. Shortness of breath, wheezing. COMPARISON: Chest radiographs dated 06/11/2017, chest CT dated 06/09/2017. TECHNIQUE: Portable frontal view of the chest was obtained. FINDINGS: Equivocal subtle increase in left perihilar opacity. No pleural effusion. Cardiomediastinal silhouette is stable with midline sternotomy wires noted. No pneumothorax. Chronic deformity of the left second rib. No acute osseous abnormalities. IMPRESSION: Equivocal subtle increase versus no change in left perihilar opacity.
[2017-06-12 05:10] LABS: ABSOLUTE BASOPHIL COUNT 0.1 /CUMM (0.0-0.2); ABSOLUTE EOSINOPHIL COUNT 0.2 /CUMM (0.0-0.7); ABSOLUTE GRANULOCYTE CT 7.4 /CUMM (1.4-6.5); ABSOLUTE MONOCYTE COUNT 0.6 /CUMM (0.10-0.60); BASOPHIL % 0.6 % (0.0-2.0); EOSINOPHIL % 1.7 % (0-5); GRANULOCYTE % 80.6 % (42.2-75.2); HEMATOCRIT 42.2 % (42-52); MEAN CORPUSCULAR HGB 28.1 PG (27.0-31.0); MEAN CORPUSCULAR VOLUME 87.8 FL (80.0-94.0); MEAN PLATELET VOLUME 7.8 FL (7.4-10.4); PLATELET COUNT 271 /CUMM (130-400); RBC DISTRIBUTION WIDTH 16.1 % (11.5-14.5); WHITE BLOOD CELL COUNT 9.2 /CUMM (4.8-10.8)
[2017-06-12 07:19] VITALS: BP 124/80
[2017-06-12 08:19] LABS: ABSOLUTE BASOPHIL COUNT 0 /CUMM (0.0-0.2); ABSOLUTE EOSINOPHIL COUNT 0.1 /CUMM (0.0-0.7); ABSOLUTE GRANULOCYTE CT 8.3 /CUMM (1.4-6.5); ABSOLUTE LYMPH COUNT 0.7 /CUMM (1.2-3.4); ABSOLUTE MONOCYTE COUNT 0.6 /CUMM (0.10-0.60); BASOPHIL % 0.4 % (0.0-2.0); GRANULOCYTE % 85.4 % (42.2-75.2); HEMATOCRIT 38.2 % (42-52); MEAN CORPUSCULAR HGB 28.8 PG (27.0-31.0); MEAN CORPUSCULAR HGB CONC 33.1 G/DL (33.0-37.0); MEAN CORPUSCULAR VOLUME 87.1 FL (80.0-94.0); MEAN PLATELET VOLUME 7.4 FL (7.4-10.4); PLATELET COUNT 235 /CUMM (130-400); RBC DISTRIBUTION WIDTH 15.4 % (11.5-14.5); RED BLOOD CELL CT 4.38 /CUMM (4.70-6.10); WHITE BLOOD CELL COUNT 9.8 /CUMM (4.8-10.8)
--- NOTE | 2017-06-12 09:58 | PN- Housestaff ---
Dean Schwab 06/12/17 0958: Subjective Follow-up For: CAP Hypoxemic respiratory failure with rapid response on 06/12/2017 Subjective: Overnight the patient was found to be hypoxemic with a saturation of 70% on 2L via BiPAP, tachypneic and tachycardic, audible wheezing present at the time. Follow-up AB.19/78/171/29 on 6L. EKG unchanged, follow-up troponin negative. CXR showed subtle increase in L perihilar opacity, no pleural effusion. This morning Mrs. Bella is resting comfortably in bed, able to be off the BiPAP for a few minutes, states that he has been producing a lot of secretions but is unable to expel completely. He does report subjective fever at this time. Review of Systems Constitutional: Reports: see HPI. EENTM: Reports: no symptoms. Cardiovascular: Reports: no symptoms. Respiratory: Reports: see HPI. Gastrointestinal: Reports: no symptoms. Genitourinary: Reports: no symptoms. Musculoskeletal: Reports: no symptoms. Objective Last 24 Hrs of Vital Signs/I&O Vital Signs Date Time Temp Pulse Resp B/P B/P Pulse O2 O2 Flow FiO2 Mean Ox Delivery Rate 06/12 1050 88 95 06/12 1020 77 124/80 06/12 1019 77 124/80 06/12 0843 95 BIPAP 2.0L 06/12 0719 98.4 77 16 124/80 97 06/12 0514 104 97 06/12 0350 98 Nasal 4.0L Cannula 06/12 0017 89 98 06/12 0000 CPAP 06/11 2225 98.0 70 19 104/60 93 Room Air 06/11 2151 85 98 06/11 2052 70 104/60 06/11 1650 97 Nasal 2.0L Cannula 06/11 1600 Nasal 2.0L Cannula 06/11 1500 97.9 68 18 124/70 94 Room Air Intake & Output 06/12 1600 06/12 0800 06/12 0000 Intake Total 1150 Output Total Balance 1150 Intake, IV 250 Intake, Oral 900 Physical Exam General Appearance: Alert, Cooperative, currently on the BiPAP in no acute distress Skin: No Breakdown Skin Temp/Moisture Exam: Cool/Diaphoretic HEENT: Mucous Membr. moist/pink Cardiovascular: Regular Rate, Normal S1, Normal S2 Lungs: significantly diminished breath sounds and basilar regions bilaterally. extra stridor appreciated at the substernal region anteriorly Abdomen: Normal Bowel Sounds, Soft, No Tenderness Neurological: Normal Speech, Normal Tone Extremities: chronic venous changes present in the distal lower extremities. 2+ pitting edema Vascular: Pulses Symmetrical Current Medications: Current Medications Sig/Samreen Start time Last Medication Dose Route Stop Time Status Admin Acetaminophen 650 MG Q6PRN PRN 06/08 1230 AC PO Albuterol Sulfate 3 ML EVERY 4 HRS/AWAKE 06/09 0800 AC 06/12 INH 1203 Aspirin Buffered 162 MG DAILY 06/08 1415 AC 06/12 PO 1020 Atorvastatin Calcium 20 MG DAILY 06/08 1409 AC 06/12 PO 1021 Azithromycin 500 MG 2200 06/11 2200 AC 06/11 Sodium Chloride 250 ML IV 2053 Azithromycin 500 MG 2200 06/09 2359 DC 06/10 Sodium Chloride 250 ML IV 2214 Budesonide/ 2 PUF BID 06/08 1410 AC 06/12 Formoterol Fumarate INH 1017 Bupropion HCl 300 MG DAILY 06/08 1410 AC 06/12 PO 1021 Ceftriaxone Sodium 1,000 MG DAILY 06/12 1000 AC 06/12 IV 1012 Ceftriaxone Sodium 1,000 MG DAILY 06/09 1000 DC 06/11 IV 1012 Enoxaparin Sodium 40 MG DAILY 06/09 1000 AC 06/12 SC 1011 Escitalopram Oxalate 10 MG DAILY 06/08 1410 AC 06/12 PO 1021 Fluticasone 2 SPRAY AT BEDTIME 06/10 2200 AC 06/11 Propionate DARRYL 2051 Furosemide 40 MG DAILY 06/10 1000 AC 06/12 PO 1019 Gabapentin 400 MG BID 06/08 1410 AC 06/12 PO 1021 Ibuprofen 600 MG Q6P PRN 06/08 1230 AC 06/11 PO 1856 Isosorbide 30 MG DAILY 06/11 1030 AC 06/12 Mononitrate PO 1019 Metoprolol Tartrate 25 MG BID 06/11 1031 AC 06/12 PO 1020 Mirtazapine 30 MG QPM 06/08 2200 AC 06/11 PO 2052 Omeprazole 40 MG DAILY AC 06/09 0700 AC 06/12 PO 0518 Oxycodone HCl 5 MG Q6 PRN 06/08 1230 AC 06/11 PO 0649 Last 24 Hrs of Lab/Radu Results Last 24 Hrs of Labs/Mics: Laboratory Tests 06/12/17 0700: CBC w Diff MAN DIFF ORDERED, RBC 4.38 L, MCV 87.1, MCH 28.8, RDW 15.4 H, MPV 7.4, Gran % 85.4 H, Lymphocytes % 7.2 L, Monocytes % 6.0, Eosinophils % 1.0, Basophils % 0.4, Absolute Granulocytes 8.3 H, Segmented Neutrophils Pending, Absolute Lymphocytes 0.7 L, Absolute Monocytes 0.6, Absolute Eosinophils 0.1, Absolute Basophils 0, PUBS MCHC 33.1 06/12/17 0440: Troponin I < 0.01 06/12/17 0440: Anion Gap 9, Estimated GFR > 60, BUN/Creatinine Ratio 30.0 H, Phosphorus 5.0 H , Magnesium 2.2, CBC w Diff NO MAN DIFF REQ, RBC 4.80, MCV 87.8, MCH 28.1, RDW 16.1 H, MPV 7.8, Gran % 80.6 H, Lymphocytes % 10.4 L, Monocytes % 6.7, Eosinophils % 1.7, Basophils % 0.6, Absolute Granulocytes 7.4 H, Absolute Lymphocytes 1.0 L, Absolute Monocytes 0.6, Absolute Eosinophils 0.2, Absolute Basophils 0.1, PUBS MCHC 32.0 L 06/12/17 0355: pH 7.19 *L, pCO2 78 *H, pO2 171 H, HCO3 29 H, ABG O2 Sat (Measured) 99.0, P-50 (Temp Corrected) N, Carboxyhemoglobin 0.5 L, O2 Concentration % 6L, O2 Delivery Method NEB RX, Phlebotomy Draw Site RIGHT RADIAL Assessment/Plan Assessment: This is a 66-year-old gentleman with past medical history significant for 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 Problem list/plan #Dyspnea: * AB.19/78/171/29 on 6 LNC. Patient appears to be resting comfortably at this time but unable to obtain a repeat ABG due to edema. 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 * Swallow evaluation done; speech therapy recommended MBS.His weight is over the limit for the xray table for MBS. * Meanwhile was started on regular diet per speech therapist #History of CAD and heart failure: * Continue with aspirin, statin * Restart metoprolol and Imdur * furosemide restarted today #DVT prophylaxis: * Subcutaneous enoxaparin #CODE STATUS: * Full code Problem List: 1. GUSTAVO treated with BiPAP 2. Shortness of breath Pain Ratin Pain Location: NA Pain Goal: Pain 4 or less Pain Plan: NA Tomorrow's Labs & Rationales: BEP: following Cr, magnesium and phsophorus DVT/Prophylaxis: pharmacological Gordon Wan MD 06/12/176: Attending MD Review Statement Attending Statement Attending MD Statement: examined this patient, discuss w/resident/PA/ACUTE DIALYSIS REGISTERED NURSE, agreed w/resident/PA/ACUTE DIALYSIS REGISTERED NURSE, reviewed EMR data (avail), discussed with nursing, discussed with case mgmt, amended to note Attending Assessment/Plan: The patient was seen and discussed with house staff and nursing. Had rapid response yesterday and some increased congestion. Will continue IV antibiotics today and follow.
--- NOTE | 2017-06-12 13:22 | PN- Pulmonary ---
Subjective HPI/Critical Care Issues: Patient seen and examined this morning. He had a desaturation episode overnight and was placed back on BiPAP. He appears to be doing better now and he should have an ABG performed this morning to assure resolution of significant respiratory stenosis. Objective Current Medications: Current Medications Sig/Samreen Start time Last Medication Dose Route Stop Time Status Admin Acetaminophen 650 MG Q6PRN PRN 06/08 1230 AC PO Albuterol Sulfate 3 ML EVERY 4 HRS/AWAKE 06/09 0800 AC 06/12 INH 1203 Aspirin Buffered 162 MG DAILY 06/08 1415 AC 06/12 PO 1020 Atorvastatin Calcium 20 MG DAILY 06/08 1409 AC 06/12 PO 1021 Azithromycin 500 MG 2200 06/11 2200 AC 06/11 Sodium Chloride 250 ML IV 2053 Budesonide/ 2 PUF BID 06/08 1410 AC 06/12 Formoterol Fumarate INH 1017 Bupropion HCl 300 MG DAILY 06/08 1410 AC 06/12 PO 1021 Ceftriaxone Sodium 1,000 MG DAILY 06/12 1000 AC 06/12 IV 1012 Enoxaparin Sodium 40 MG DAILY 06/09 1000 AC 06/12 SC 1011 Escitalopram Oxalate 10 MG DAILY 06/08 1410 AC 06/12 PO 1021 Fluticasone 2 SPRAY AT BEDTIME 06/10 2200 AC 06/11 Propionate DARRYL 2051 Furosemide 40 MG DAILY 06/10 1000 AC 06/12 PO 1019 Gabapentin 400 MG BID 06/08 1410 AC 06/12 PO 1021 Ibuprofen 600 MG Q6P PRN 06/08 1230 AC 06/11 PO 1856 Isosorbide 30 MG DAILY 06/11 1030 AC 06/12 Mononitrate PO 1019 Metoprolol Tartrate 25 MG BID 06/11 1031 AC 06/12 PO 1020 Mirtazapine 30 MG QPM 06/08 2200 AC 06/11 PO 2052 Omeprazole 40 MG DAILY AC 06/09 0700 AC 06/12 PO 0518 Oxycodone HCl 5 MG Q6 PRN 06/08 1230 AC 06/11 PO 0649 Vital Signs & I&O Last 24 Hrs of Vitals and I&O: Vital Signs Date Time Temp Pulse Resp B/P B/P Pulse O2 O2 Flow FiO2 Mean Ox Delivery Rate 06/12 1050 88 95 06/12 1020 77 124/80 06/12 1019 77 124/80 06/12 0843 95 BIPAP 2.0L 06/12 0719 98.4 77 16 124/80 97 06/12 0514 104 97 06/12 0350 98 Nasal 4.0L Cannula 06/12 0017 89 98 06/12 0000 CPAP 06/11 2225 98.0 70 19 104/60 93 Room Air 06/11 2151 85 98 06/11 2052 70 104/60 06/11 1650 97 Nasal 2.0L Cannula 06/11 1600 Nasal 2.0L Cannula 06/11 1500 97.9 68 18 124/70 94 Room Air Intake & Output 06/12 1600 06/12 0800 06/12 0000 Intake Total 1150 Output Total Balance 1150 Intake, IV 250 Intake, Oral 900 Exam Other Physical Findings: Generally - Awake, alert Cardiovascular - S1, S2 Lungs - rare rhonchi Abdomen - Bowel sounds positive, soft, non-tender Extremities - without edema Results Last 24 Hrs of Lab Results: Laboratory Tests 06/12/17 0700: CBC w Diff MAN DIFF ORDERED, RBC 4.38 L, MCV 87.1, MCH 28.8, RDW 15.4 H, MPV 7.4, Gran % 85.4 H, Lymphocytes % 7.2 L, Monocytes % 6.0, Eosinophils % 1.0, Basophils % 0.4, Absolute Granulocytes 8.3 H, Segmented Neutrophils 77 H, Band Neutrophils 6 H, Absolute Lymphocytes 0.7 L, Lymphocytes 8 L, Monocytes 9, Absolute Monocytes 0.6, Absolute Eosinophils 0.1, Absolute Basophils 0, Platelet Estimate VERIFIED BY SMEAR, Anisocytosis 1+, PUBS MCHC 33.1 06/12/17 0440: Troponin I < 0.01 06/12/17 0440: Anion Gap 9, Estimated GFR > 60, BUN/Creatinine Ratio 30.0 H, Phosphorus 5.0 H , Magnesium 2.2, CBC w Diff NO MAN DIFF REQ, RBC 4.80, MCV 87.8, MCH 28.1, RDW 16.1 H, MPV 7.8, Gran % 80.6 H, Lymphocytes % 10.4 L, Monocytes % 6.7, Eosinophils % 1.7, Basophils % 0.6, Absolute Granulocytes 7.4 H, Absolute Lymphocytes 1.0 L, Absolute Monocytes 0.6, Absolute Eosinophils 0.2, Absolute Basophils 0.1, PUBS MCHC 32.0 L 06/12/17 0355: pH 7.19 *L, pCO2 78 *H, pO2 171 H, HCO3 29 H, ABG O2 Sat (Measured) 99.0, P-50 (Temp Corrected) N, Carboxyhemoglobin 0.5 L, O2 Concentration % 6L, O2 Delivery Method NEB RX, Phlebotomy Draw Site RIGHT RADIAL Impression/Plan Impression/Plan Impression/Plan: Impression 66 year old man * cap * resp acidosis - hypercarbic respiratory failure acute on chronic * sq cell ca of vocal cords * obesity * bereket Plan -check abg -nocturnal bipap -cont abx -hold dc for now DVT prophylaxis at all times
[2017-06-12 13:23] VITALS: BP 140/72
--- NOTE | 2017-06-12 21:04 | Event Note ---
Event Note Event Note: Notified by the nurse that patient was having difficulty breathing even while on BiPAP and has no improvement with albuterol treatment. Vitals stable with O2 sats in the 90s on BiPAP . ABG done couple of hours ago showed pH of 7.40, PCO2 55 and PO2 of 108. Lung examination; markedly decreased airway entry bilaterally. Patient was informed about the possibility of being intubated if no improvement on BiPAP, which the patient refused. Patient daughter who is the POA was called , who agreed(also convinced the patient) for intubation if needed. CTA was ordered but could not be done as the patient had an adverse reaction to the contrast in the past. Chest x-ray did not show any infiltrate or vascular congestion but Slight blunting of costophrenic angles likely due to small bilateral pleural effusions. Troponins and EKG were negative. Patient spitting improved after BiPAP settings were increased to 18/9 and after giving IV Solu-Medrol 40 mg once. Will continue IV Solu-Medrol 40 mg every 8 and increased BiPAP settings to 22/[address] Velasquez's recommendations.
[2017-06-12 21:41] VITALS: BP 152/81
--- NOTE | 2017-06-12 22:50 | RADIOLOGY REPORT ---
EXAMINATION: XR PORTABLE CHEST CLINICAL INFORMATION: Shortness of breath. COMPARISON: Chest x-ray 06/12/[address] chest 06/09/2017 TECHNIQUE: Portable frontal view of the chest was obtained. 10:26 PM FINDINGS: Status post median sternotomy for CABG. There is no pulmonary vascular congestion. No focal consolidation. Slight blunting of the right and left costophrenic angles consistent with small bilateral pleural effusions. No pneumothorax. IMPRESSION: No infiltrate or vascular congestion. Slight blunting of costophrenic angles likely due to small bilateral pleural effusions.
[2017-06-13 07:32] VITALS: BP 158/90
--- NOTE | 2017-06-13 09:36 | PN- Housestaff ---
Martin ZENG,Iswiil 06/13/17 0936: Subjective Follow-up For: CAP Acute on chronic hypercarbic respiratory failure Squamous cell carcinoma of focal cord Obesity Obstructive sleep apnea Subjective: Afebrile, hemodynamically stable, saturating well on BiPAP. He reports improvement on his cough and shortness breath spatial when he is on BiPAP. A rapid response was called overnight(refer to events note) however patient now denies any current active complaints Review of Systems Constitutional: Reports: no symptoms. Respiratory: Reports: cough, short of breath. Denies: wheezing. Gastrointestinal: Reports: no symptoms. Genitourinary: Reports: no symptoms. Objective Last 24 Hrs of Vital Signs/I&O Vital Signs Date Time Temp Pulse Resp B/P B/P Pulse O2 O2 Flow FiO2 Mean Ox Delivery Rate 06/13 1625 61 98 06/13 1438 97.8 67 18 130/90 98 06/13 1353 94 06/13 1143 95 06/13 1030 73 122/70 06/13 1030 73 122/70 06/13 0807 94 BIPAP 30% 06/13 0806 94 06/13 0800 94 BIPAP 2.0L 06/13 0732 98.2 66 20 158/90 98 06/13 0324 72 96 06/13 0110 70 97 06/13 0000 93 BIPAP 06/12 2258 87 97 06/12 2221 111 169/96 06/12 2141 83 152/81 06/12 2009 97 Intake & Output 06/13 1600 06/13 0800 06/13 0000 Intake Total 620 350 500 Output Total 350 Balance 620 350 150 Intake, IV 250 Intake, Oral 620 350 250 Number 1 Bowel Movements Output, Urine 350 Patient 149.685 kg Weight Physical Exam General Appearance: Alert, Oriented X3, Cooperative, No Acute Distress, morbid obese Skin: No Rashes HEENT: Atraumatic, PERRLA, EOMI, Mucous Membr. 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 Plan #Acute on chronic hypercarbic respiratory failure most likely secondary to community-acquired pneumonia. The patient has a history of COPD, GUSTAVO, the community-acquired pneumonia most likely exacerbated his baseline dyspnea which left him with hypercarbic respiratory failure. All culture are still negative. * Continue nocturnal BiPAP and oxygen supplementation as needed * Continue with TRC/nebs * We will continue Solu-Medrol * Follow-up all cultures * We will continue IV ceftriaxone and azithromycin. 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 * Swallow evaluation done, started on regular diet per speech therapist #History of CAD and heart failure: * Continue with aspirin, statin * Restart metoprolol and Imdur * furosemide restarted today -Regular diet -DVT prophylaxis: Subcutaneous enoxaparin -CODE STATUS: Full code Problem List: 1. GUSTAVO treated with BiPAP 2. Acute hypercapnic respiratory failure due to obstructive sleep apnea Pain Ratin Pain Location: See assessment and plan Pain Goal: Remain pain free Pain Plan: See assessment and plan Tomorrow's Labs & Rationales: CBCs to follow hemoglobin Gordon Wan MD 06/13/171952: Attending MD Review Statement Attending Statement Attending MD Statement: examined this patient, discuss w/resident/PA/CHAR PULLER, agreed w/resident/PA/CHAR PULLER, reviewed EMR data (avail), discussed with nursing, amended to note Attending Assessment/Plan: The patient was seen and discussed with house staff and nursing. Pulmonary input from Dr. Velasquez appreciated. Another rapid response last evening- still using Bipap. Continue care as per pulmonary and follow respiratory status closely.
--- NOTE | 2017-06-13 12:01 | PN- Pulmonary ---
Subjective HPI/Critical Care Issues: pt seen and examined overnight desaturated, declined cta per team bipap settings changed to 28/03 Objective Current Medications: Current Medications Sig/Samreen Start time Last Medication Dose Route Stop Time Status Admin Acetaminophen 650 MG Q6PRN PRN 06/08 1230 AC PO Albuterol Sulfate 3 ML EVERY 4 HRS/AWAKE 06/09 0800 AC 06/13 INH 1142 Aspirin Buffered 162 MG DAILY 06/08 1415 AC 06/12 PO 1020 Atorvastatin Calcium 20 MG DAILY 06/08 1409 AC 06/12 PO 1021 Azithromycin 500 MG 2200 06/11 2200 AC 06/12 Sodium Chloride 250 ML IV 2222 Budesonide/ 2 PUF BID 06/08 1410 AC 06/12 Formoterol Fumarate INH 1017 Bupropion HCl 300 MG DAILY 06/08 1410 AC 06/12 PO 1021 Ceftriaxone Sodium 1,000 MG DAILY 06/12 1000 AC 06/12 IV 1012 Enoxaparin Sodium 40 MG DAILY 06/09 1000 AC 06/12 SC 1011 Escitalopram Oxalate 10 MG DAILY 06/08 1410 AC 06/12 PO 1021 Fluticasone 2 SPRAY AT BEDTIME 06/10 2200 AC 06/11 Propionate DARRYL 2051 Furosemide 40 MG DAILY 06/10 1000 AC 06/12 PO 1019 Gabapentin 400 MG BID 06/08 1410 AC 06/12 PO 2221 Ibuprofen 600 MG Q6P PRN 06/08 1230 AC 06/11 PO 1856 Isosorbide 30 MG DAILY 06/11 1030 AC 06/12 Mononitrate PO 1019 Methylprednisolone 40 MG Q8 06/13 0600 AC 06/13 IV 0539 Methylprednisolone 40 MG ONCE ONE 06/12 2230 DC 06/12 IV 06/12 2231 2221 Metoprolol Tartrate 25 MG BID 06/11 1031 AC 06/12 PO 2221 Mirtazapine 30 MG QPM 06/08 2200 AC 06/12 PO 2221 Omeprazole 40 MG DAILY AC 06/09 0700 AC 06/13 PO 0539 Oxycodone HCl 5 MG Q6 PRN 06/08 1230 AC 06/11 PO 0649 Vital Signs & I&O Last 24 Hrs of Vitals and I&O: Vital Signs Date Time Temp Pulse Resp B/P B/P Pulse O2 O2 Flow FiO2 Mean Ox Delivery Rate 06/13 1143 95 06/13 0807 94 BIPAP 30% 06/13 0806 94 06/13 0800 94 BIPAP 2.0L 06/13 0732 98.2 66 20 158/90 98 06/13 0324 72 96 06/13 0110 70 97 06/13 0000 93 BIPAP 06/12 2258 87 97 06/12 2221 111 169/96 06/12 2141 83 152/81 06/12 2008 97 06/12 1700 68 97 06/12 1645 93 Nasal 2.0L Cannula 06/12 1323 98.1 98 20 140/72 97 Nasal 4.0L Cannula Intake & Output 06/13 1600 06/13 0800 06/13 0000 Intake Total 350 500 Output Total 350 Balance 350 150 Intake, IV 250 Intake, Oral 350 250 Output, Urine 350 Patient 330 lb Weight Exam Other Physical Findings: Generally - Awake, alert Cardiovascular - S1, S2 Lungs - rare rhonchi Abdomen - Bowel sounds positive, soft, non-tender Extremities - without edema Results Last 24 Hrs of Lab Results: Laboratory Tests 06/13/17 0626: Anion Gap 10, Estimated GFR > 60, BUN/Creatinine Ratio 31.7 H, Phosphorus 3.2 06/12/17 2100: Troponin I < 0.01 06/12/17 1720: pH 7.40, pCO2 55 H, pO2 108 H, HCO3 33 H, ABG O2 Sat (Measured) 97.0, Carboxyhemoglobin 0.5 L, O2 Concentration % 4L, Temperature 98.6, O2 Delivery Method BIPAP, Vent Mode S, Expiratory Pressure 9, Inspiratory Pressure 15, Phlebotomy Draw Site RIGHT RADIAL Impression/Plan Impression/Plan Impression/Plan: Impression 66 year old man * cap * resp acidosis - hypercarbic respiratory failure acute on chronic * sq cell ca of vocal cords * obesity * bereket Plan -bipap settings changed 28/03, give breaks for eating and use prn and nocturnal -cont abx -cont solumedrol -hold dc for now DVT prophylaxis at all times
[2017-06-13 14:38] VITALS: BP 130/90
[2017-06-13 23:18] VITALS: BP 143/69
[2017-06-14 07:28] VITALS: BP 128/82
--- NOTE | 2017-06-14 09:20 | PN- Att Addend ---
Attending Addendum Attending Brief Note Patient seen and examined. Events over the weekend noted. On Wednesday, June 12 patient went into acute hypoxemic hypercapnic respiratory failure with a pH of 7.19 and a PCO2 of 78 and required BiPAP. Currently he says he's feeling better than over the weekend. He refused the CTA as he felt it was not needed and he felt that this was all his COPD. He is on IV steroids per pulmonary with antibiotics. We are treating him for a community-acquired pneumonia and a COPD exacerbation. He has underlying squamous cell carcinoma of his vocal cord and surgery for that was postponed. Will discuss with pulmonary and follow-up.
[2017-06-14 09:29] LABS: ABSOLUTE BASOPHIL COUNT 0 /CUMM (0.0-0.2); ABSOLUTE EOSINOPHIL COUNT 0 /CUMM (0.0-0.7); ABSOLUTE GRANULOCYTE CT 16.7 /CUMM (1.4-6.5); ABSOLUTE LYMPH COUNT 0.7 /CUMM (1.2-3.4); EOSINOPHIL % 0 % (0-5); MEAN PLATELET VOLUME 7.8 FL (7.4-10.4)
[2017-06-14 09:57] LABS: ABSOLUTE MONOCYTE COUNT 0.7 /CUMM (0.10-0.60); BASOPHIL % 0.1 % (0.0-2.0); HEMATOCRIT 38.8 % (42-52); MEAN CORPUSCULAR HGB 28.8 PG (27.0-31.0); MEAN CORPUSCULAR HGB CONC 32.9 G/DL (33.0-37.0); MEAN CORPUSCULAR VOLUME 87.5 FL (80.0-94.0); PLATELET COUNT 274 /CUMM (130-400); RBC DISTRIBUTION WIDTH 15.8 % (11.5-14.5); RED BLOOD CELL CT 4.43 /CUMM (4.70-6.10)
[2017-06-14 10:07] LABS: WHITE BLOOD CELL COUNT 18.2 /CUMM (4.8-10.8)
[2017-06-14 10:57] LABS: GRANULOCYTE % 91.9 % (42.2-75.2)
--- NOTE | 2017-06-14 10:57 | PN- Housestaff ---
See Addendum Subjective Follow-up For: CAP COPD exacerbation Subjective: Patient was seen and examined. States that his SOB has improved. Developed Acute Hypoxic resp failure over the weekend. CTA was recommended which he refused. States that he "Cannot" receive contrast, developed reaction after having CT of the neck in March. He is unsure about the nature of the reation; however states that he was not hospitalized. He gave me permission to call her daughter to get more detail about the reaction ; tried to reach the daughter, left a voice msg. Review of Systems Constitutional: Reports: no symptoms. Objective Last 24 Hrs of Vital Signs/I&O Vital Signs Date Time Temp Pulse Resp B/P B/P Pulse O2 O2 Flow FiO2 Mean Ox Delivery Rate 06/14 2232 98.3 72 20 120/70 98 BIPAP 06/14 2153 120/70 06/14 2100 75 95 06/14 1601 96 Nasal 2.0L Cannula 06/14 1600 Nasal 1.0L Cannula 06/14 1449 98.1 70 20 130/63 96 Nasal 1.0L Cannula 06/14 1200 18 96 Nasal 1.0L Cannula 06/14 1143 120/78 06/14 0926 102/48 06/14 0846 76 96 06/14 0845 96 BIPAP 30% 06/14 0800 96 Nasal 2.0L Cannula 06/14 0750 97 BIPAP 06/14 0728 98.6 63 20 128/82 97 06/14 0607 58 96 06/14 0317 61 94 06/14 0042 58 97 06/14 0000 CPAP 06/13 2318 71 143/69 06/13 2309 80 97 06/13 2306 98.4 75 20 97 Room Air 06/13 2304 71 141/69 Intake & Output 06/14 1600 08 0800 06/14 0000 Intake Total 850 Output Total Balance 850 Intake, IV 50 Intake, Oral 800 Number 0 Bowel Movements Physical Exam General Appearance: Alert, Oriented X3, Cooperative, No Acute Distress, on Bipap Other Physical Findings: Skin: No Rashes HEENT: Atraumatic, PERRLA, EOMI Neck: Supple, No JVD, No thryomegaly Lymphatic: Cervical nl Cardiovascular: Regular Rate, Normal S1, Normal S2, No Murmurs, Gallops, Rubs Lungs: Clear to Auscultation, Normal Air Movement Abdomen: Normal Bowel Sounds, Soft, No Tenderness, No Hepatospenomegaly, No Masses Extremities: No Clubbing, No Cyanosis, No Edema, Normal Pulses, No Tenderness/ Swelling Current Medications: Current Medications Sig/Samreen Start time Last Medication Dose Route Stop Time Status Admin Acetaminophen 650 MG Q6PRN PRN 06/08 1230 AC PO Albuterol Sulfate 3 ML EVERY 4 HRS/AWAKE 06/09 0800 AC 06/14 INH 2033 Aspirin Buffered 162 MG DAILY 06/08 1415 AC 06/14 PO 0926 Atorvastatin Calcium 20 MG DAILY 06/08 1409 AC 06/14 PO 0926 Azithromycin 500 MG 2200 06/11 2200 AC 06/14 Sodium Chloride 250 ML IV 2154 Budesonide/ 2 PUF BID 06/08 1410 AC 06/14 Formoterol Fumarate INH 2154 Bupropion HCl 300 MG DAILY 06/08 1410 AC 06/14 PO 0927 Ceftriaxone Sodium 1,000 MG DAILY 06/12 1000 AC 06/14 IV 1143 Enoxaparin Sodium 40 MG DAILY 06/09 1000 AC 06/14 SC 0926 Escitalopram Oxalate 10 MG DAILY 06/08 1410 AC 06/14 PO 0926 Fluticasone 2 SPRAY AT BEDTIME 06/10 2200 AC 06/14 Propionate DARRYL 2152 Furosemide 40 MG DAILY 06/10 1000 DC 06/14 PO 0926 Gabapentin 400 MG BID 06/08 1410 AC 06/14 PO 2153 Ibuprofen 600 MG Q6P PRN 06/08 1230 AC 06/11 PO 1856 Isosorbide 30 MG DAILY 06/11 1030 AC 06/14 Mononitrate PO 1143 Methylprednisolone 40 MG Q8 06/13 0600 AC 06/14 IV 2153 Metoprolol Tartrate 25 MG BID 06/11 1031 AC 06/14 PO 2153 Mirtazapine 30 MG QPM 06/08 2200 AC 06/14 PO 2153 Omeprazole 40 MG DAILY AC 06/09 0700 AC 06/14 PO 0634 Oxycodone HCl 5 MG Q6 PRN 06/08 1230 AC 06/11 PO 0649 Patient Medication 1 ED ONE ONE 06/14 1145 DC 06/14 Teaching ED 06/14 1146 1153 Last 24 Hrs of Lab/Radu Results Last 24 Hrs of Labs/Mics: Laboratory Tests 06/14/17 0705: Anion Gap 13, Estimated GFR > 60, BUN/Creatinine Ratio 30.0 H, CBC w Diff NO MAN DIFF REQ, RBC 4.43 L, MCV 87.5, MCH 28.8, RDW 15.8 H, MPV 7.8, Gran % 91.9 H, Lymphocytes % 3.9 L, Monocytes % 4.1, Eosinophils % 0, Basophils % 0.1, Absolute Granulocytes 16.7 H, Absolute Lymphocytes 0.7 L, Absolute Monocytes 0.7 H, Absolute Eosinophils 0, Absolute Basophils 0, PUBS MCHC 32.9 L Assessment/Plan Assessment: #Dyspnea: Likely acute on chronic respiratory failure in a patient with a history of COPD, chronic hypoxic respiratory failure now with community-acquired pneumonia. Patient has received 1 dose of IV cefazolin and azithromycin in the ED along with 125 mg of IV methylprednisolone. He has remained afebrile since presentation however is reported to have a fever of 101 at home. * Continue nocturnal BiPAP and oxygen supplementation as needed * Non- contrast CT chest reveals atelectasis and groundglass opacities. * Consider checking an ABG * Continue with TRC/nebs * Pulmonary consult appreciated, will follow recommendations * C/w Fluticasone * Was started on IV methylprednisolone over the weekend * Follow-up all cultures * Continue with ceftriaxone and azithromycin * Worsening of leukocytosis likely 2/2 IV steroids. 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 * Swallow evaluation done; speech therapy recommended MBS.His weight is over the limit for the xray table for MBS. * Meanwhile was started on regular diet per speech therapist #History of CAD and heart failure: * Continue with aspirin, statin, metoprolol and Imdur * Hold furosemide given hypernatremia #DVT prophylaxis: * Subcutaneous enoxaparin #CODE STATUS: * Full code Problem List: 1. COPD exacerbation 2. Pneumonia Pain Ratin Pain Location: NA Pain Goal: Remain pain free Pain Plan: NA Tomorrow's Labs & Rationales: CBC to montior WBC levels
[2017-06-14 14:49] VITALS: BP 130/63
[2017-06-14 22:32] VITALS: BP 120/70
[2017-06-15 06:17] VITALS: BP 139/74
[2017-06-15 08:06] LABS: ABSOLUTE BASOPHIL COUNT 0 /CUMM (0.0-0.2); ABSOLUTE EOSINOPHIL COUNT 0 /CUMM (0.0-0.7); ABSOLUTE GRANULOCYTE CT 11.4 /CUMM (1.4-6.5); ABSOLUTE LYMPH COUNT 0.6 /CUMM (1.2-3.4); ABSOLUTE MONOCYTE COUNT 0.5 /CUMM (0.10-0.60); BASOPHIL % 0.1 % (0.0-2.0); EOSINOPHIL % 0 % (0-5); HEMATOCRIT 38.4 % (42-52); MEAN CORPUSCULAR HGB 28.5 PG (27.0-31.0); MEAN CORPUSCULAR HGB CONC 32.8 G/DL (33.0-37.0); MEAN CORPUSCULAR VOLUME 86.8 FL (80.0-94.0); MEAN PLATELET VOLUME 7.7 FL (7.4-10.4); PLATELET COUNT 248 /CUMM (130-400); RBC DISTRIBUTION WIDTH 15.7 % (11.5-14.5); RED BLOOD CELL CT 4.42 /CUMM (4.70-6.10); WHITE BLOOD CELL COUNT 12.6 /CUMM (4.8-10.8)
[2017-06-15 08:46] LABS: GRANULOCYTE % 90.7 % (42.2-75.2)
--- NOTE | 2017-06-15 12:14 | PN- Housestaff ---
Lee Ruth 06/15/17 1214: Subjective Follow-up For: CAP COPD exacerbation Subjective: Patient was seen and examined. His dyspnea has much improved. Denies headache, dizziness, lightheadedness, nausea, vomiting, abdominal pain, urinary symptoms. Had previous adverse reaction to contrast (patient is unsure about the nature of the reaction) Leukocytosis has improved. Saturating adequately on room air. Review of Systems Constitutional: Denies: see HPI. Objective Last 24 Hrs of Vital Signs/I&O Vital Signs Date Time Temp Pulse Resp B/P B/P Pulse O2 O2 Flow FiO2 Mean Ox Delivery Rate 06/15 1413 97.8 67 20 116/57 95 Room Air 06/15 0810 65 98 06/15 08 Nasal 1.0L Cannula 06/15 0617 98.2 64 20 139/74 93 06/15 0101 76 96 06/15 0000 Nasal 1.0L Cannula 06/14 2232 98.3 72 20 120/70 98 BIPAP 06/14 2153 120/70 06/14 2100 75 95 Intake & Output 06/15 1600 06/15 0800 06/15 0000 Intake Total 1350 240 240 Output Total 500 200 Balance 850 240 40 Intake, IV 0 Intake, Oral 1350 240 240 Number 0 Bowel Movements Output, Urine 500 200 Physical Exam General Appearance: Alert, Oriented X3, Cooperative, No Acute Distress Other Physical Findings: Skin: No Rashes HEENT: Atraumatic, PERRLA, EOMI Neck: Supple, No JVD, No thryomegaly Lymphatic: Cervical nl Cardiovascular: Regular Rate, Normal S1, Normal S2, No Murmurs, Gallops, Rubs Lungs: Clear to Auscultation, Normal Air Movement Abdomen: Normal Bowel Sounds, Soft, No Tenderness, No Hepatospenomegaly, No Masses Extremities: No Clubbing, No Cyanosis, No Edema, Normal Pulses, No Tenderness/ Swelling Current Medications: Current Medications Sig/Samreen Start time Last Medication Dose Route Stop Time Status Admin Acetaminophen 650 MG Q6PRN PRN 06/08 1230 AC PO Albuterol Sulfate 3 ML EVERY 4 HRS/AWAKE 06/09 0800 AC 06/15 INH 1153 Aspirin Buffered 162 MG DAILY 06/08 1415 AC 06/15 PO 1045 Atorvastatin Calcium 20 MG DAILY 06/08 1409 AC 06/15 PO 1045 Azithromycin 500 MG 2200 06/150 AC Dextrose/Water 250 ML IV Azithromycin 500 MG 2200 06/11 2200 DC 06/14 Sodium Chloride 250 ML IV 2154 Budesonide/ 2 PUF BID 06/08 1410 AC 06/15 Formoterol Fumarate INH 1044 Bupropion HCl 300 MG DAILY 06/08 1410 AC 06/15 PO 1045 Ceftriaxone Sodium 1,000 MG DAILY 06/12 1000 AC 06/15 IV 1044 Enoxaparin Sodium 40 MG DAILY 06/09 1000 AC 06/15 SC 1045 Escitalopram Oxalate 10 MG DAILY 06/08 1410 AC 06/15 PO 1044 Fluticasone 2 SPRAY AT BEDTIME 06/10 2200 AC 06/14 Propionate DARRYL 2152 Gabapentin 400 MG BID 06/08 1410 AC 06/15 PO 1045 Ibuprofen 600 MG Q6P PRN 06/08 1230 AC 06/11 PO 1856 Isosorbide 30 MG DAILY 06/11 1030 AC 06/15 Mononitrate PO 1045 Methylprednisolone 40 MG Q8 06/13 0600 DC 06/15 IV 0526 Metoprolol Tartrate 25 MG BID 06/11 1031 AC 06/15 PO 1045 Mirtazapine 30 MG QPM 06/08 2200 AC 06/14 PO 2153 Omeprazole 40 MG DAILY AC 06/09 0700 AC 06/15 PO 0526 Oxycodone HCl 5 MG Q6 PRN 06/08 1230 DC 06/11 PO 0649 Prednisone 60 MG DAILY 06/16 1000 AC PO Last 24 Hrs of Lab/Radu Results Last 24 Hrs of Labs/Mics: Laboratory Tests 06/15/17 0706: Anion Gap 10, Estimated GFR > 60, BUN/Creatinine Ratio 27.1 H, CBC w Diff NO MAN DIFF REQ, RBC 4.42 L, MCV 86.8, MCH 28.5, RDW 15.7 H, MPV 7.7, Gran % 90.7 H, Lymphocytes % 5.2 L, Monocytes % 4.0, Eosinophils % 0, Basophils % 0.1, Absolute Granulocytes 11.4 H, Absolute Lymphocytes 0.6 L, Absolute Monocytes 0.5, Absolute Eosinophils 0, Absolute Basophils 0, PUBS MCHC 32.8 L Assessment/Plan Assessment: This is a 66-year-old gentleman with past medical history significant for 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 Chest x-ray on admission reveals increased opacity suggestive of small effusion with associated atelectasis/pneumonia. Problem list/plan #Dyspnea: Likely acute on chronic respiratory failure in a patient with a history of COPD, chronic hypoxic respiratory failure now with community-acquired pneumonia. Patient has received 1 dose of IV cefazolin and azithromycin in the ED along with 125 mg of IV methylprednisolone. He has remained afebrile since presentation however is reported to have a fever of 101 at home. * Continue nocturnal BiPAP and oxygen supplementation as needed * Non- contrast CT chest reveals atelectasis and groundglass opacities. * Consider checking an ABG * Continue with TRC/nebs * Pulmonary consult appreciated. * Just, Dr. Jorge spoke with attending Dr. Mane. She recommended VQ scan to rule out PE. 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 * Swallow evaluation done; speech therapy recommended MBS.His weight is over the limit for the xray table for MBS. * Meanwhile was started on regular diet per speech therapist #History of CAD and heart failure: * Continue with aspirin, statin, metoprolol and Imdur * Hypernatremia has resolved, will resume furosemide tomorrow. #DVT prophylaxis: * Subcutaneous enoxaparin #CODE STATUS: * Full code Problem List: 1. COPD exacerbation Pain Ratin Pain Location: NA Pain Goal: Remain pain free Pain Plan: NA Tomorrow's Labs & Rationales: CBC to monitor leukocytosis BEP to monitor electrolytes Kristy Mane MD 06/15/17 1509: Attending MD Review Statement Attending Statement Attending MD Statement: examined this patient, discuss w/resident/PA/CLINICAL HAEMATOLOGIST, agreed w/resident/PA/CLINICAL HAEMATOLOGIST, reviewed EMR data (avail), discussed with nursing, reviewed images Attending Assessment/Plan: Overall patient feels about the same. I discussed with Dr. Jorge that patient says he got contrast for the CT neck in March following which she had a reaction and he is not willing to undergo a CTA again. I tried to leave a message for the daughter but couldn't get through to regarding what the reaction was. Dr. Jorge feels that we should get a VQ scan to rule out a PE. If it's a low probability for a PE then we'll switch him to by mouth steroids and taper him with aim for discharge in a.m. He is a 66-year-old male with a history of vocal cord squamous cell carcinoma who came in with a community-acquired pneumonia and was hospital course was complicated by acute hypoxic and hypercapnic respiratory failure that developed over 06/12-06/13.
[2017-06-15 14:13] VITALS: BP 116/57
--- NOTE | 2017-06-15 17:45 | RADIOLOGY REPORT ---
EXAMINATION: XR PORTABLE CHEST CLINICAL INFORMATION: Dyspnea. COMPARISON: Chest x-ray 06/12/2017. CT chest 06/09/2017. PET/CT 03/23/2017 TECHNIQUE: Portable frontal view of the chest was obtained. 5:13 PM FINDINGS: Status post median sternotomy. Heart size normal. No pulmonary vascular congestion. There is persistent hazy opacity at the left lung base with blunting left costophrenic angle and thickening the lateral pleura at the left hemithorax stable since prior chest x-ray 06/12/2017. There is no right pleural effusion. The right lung is clear. Deformity of the left second rib related to an old healed fracture again noted. Appears more radiolucent on this current study which could be projectional. History of head deformity similar to this on chest x-ray 06/12/2017. No specific lytic lesion was seen on CT chest 06/09/2017. IMPRESSION: Persistent pleural-based density at the left lung base and left lateral chest wall similar prior exams.. No acute infiltrate or pulmonary vascular congestion.
--- NOTE | 2017-06-15 18:05 | NUCLEAR MEDICINE REPORT ---
EXAMINATION: PULMONARY VENTILATION PERFUSION STUDY CLINICAL INFORMATION: Shortness of breath in patient with vocal cord cancer and COPD. COMPARISON: The previous lung scan dated 01/12/2014 is available for comparison. A radiograph of the chest dated 06/15/2017, the same date as this lung scan, is available for comparison. TECHNIQUE: Serial gamma scintillation camera images were obtained over the posterior chest during the single breath, equilibrium rebreathing and washout of 16.6 mCi Xe 133 gas. The patient then received 3.7 mCi Tc-99m MAA intravenously and a 6-view perfusion study was performed. FINDINGS: Ventilation images: On the single breath and equilibrium images there is homogeneous distribution of gas bilaterally. During the washout phase there minimal gas trapping at the right lung base. Perfusion images: No segmental perfusion defects are present. Minimal nonsegmental perfusion abnormality is present posteriorly in the right upper lung jackson. This could be due to some prominence of the major interlobar fissure in this region. There is also dilatation of the mediastinum in the cardiac silhouette is top normal in size. No additional focal anatomic perfusion defects are present. Compared to the previous study dated 01/12/2014, the mild abnormality posteriorly in the right upper lobe is slightly more prominent on the current study but similar in size and shape to the prior study. The scan appearance is otherwise not significantly changed. IMPRESSION: Very low probability of pulmonary embolism.
[2017-06-15 22:00] VITALS: BP 128/68
[2017-06-16 07:13] VITALS: BP 128/76
[2017-06-16 09:39] LABS: ABSOLUTE BASOPHIL COUNT 0 /CUMM (0.0-0.2); ABSOLUTE EOSINOPHIL COUNT 0.1 /CUMM (0.0-0.7); ABSOLUTE GRANULOCYTE CT 8.2 /CUMM (1.4-6.5); ABSOLUTE LYMPH COUNT 1.3 /CUMM (1.2-3.4); ABSOLUTE MONOCYTE COUNT 0.9 /CUMM (0.10-0.60); BASOPHIL % 0.4 % (0.0-2.0); EOSINOPHIL % 0.8 % (0-5); GRANULOCYTE % 77.5 % (42.2-75.2); HEMATOCRIT 40.8 % (42-52); MEAN CORPUSCULAR HGB 28.5 PG (27.0-31.0); MEAN CORPUSCULAR HGB CONC 32.5 G/DL (33.0-37.0); MEAN CORPUSCULAR VOLUME 87.9 FL (80.0-94.0); MEAN PLATELET VOLUME 7.7 FL (7.4-10.4); PLATELET COUNT 235 /CUMM (130-400); RED BLOOD CELL CT 4.65 /CUMM (4.70-6.10); WHITE BLOOD CELL COUNT 10.5 /CUMM (4.8-10.8)
--- NOTE | 2017-06-16 13:21 | PN- Housestaff ---
Lee Ruth 06/16/17 1321: Subjective Follow-up For: CAP COPD exacerbation Subjective: The patient was seen and examined. He had an episode of dyspnea, unable to catch his breath. ABG and IV methylprednisolone 40 mg 1 ordered. Also received TRC/nebs. He denies dizziness, lightheadedness, chest pain, palpitation, abdominal pain, urinary symptoms. Review of Systems Constitutional: Reports: see HPI. Objective Last 24 Hrs of Vital Signs/I&O Vital Signs Date Time Temp Pulse Resp B/P B/P Pulse O2 O2 Flow FiO2 Mean Ox Delivery Rate 06/16 1628 97 Nasal 1.0L Cannula 06/16 1421 98.2 66 20 95/53 95 Nasal 2.0L Cannula 06/16 1147 72 98 06/16 1111 BIPAP 30% 06/16 0845 98 06/16 0841 98 BIPAP 30% 06/16 0713 97.3 67 18 128/76 97 06/16 0549 98 BIPAP 30% 06/16 0545 72 98 06/16 0238 67 97 06/16 0000 98 BIPAP 06/15 2215 98.0 66 19 98 BIPAP 06/15 2200 128/68 06/15 1916 BIPAP 30% Intake & Output 06/16 1600 06/16 0800 06/16 0000 Intake Total 120 510 Output Total Balance 120 510 Intake, IV 270 Intake, Oral 120 240 Physical Exam General Appearance: Alert, Cooperative, Mild Distress Other Physical Findings: Skin: No Rashes HEENT: Atraumatic, PERRLA, EOMI Neck: Supple, No JVD, No thryomegaly Lymphatic: Cervical nl Cardiovascular: Regular Rate, Normal S1, Normal S2, No Murmurs, Gallops, Rubs Lungs: Mild expiratory wheezes Abdomen: Normal Bowel Sounds, Soft, No Tenderness, No Hepatospenomegaly, No Masses Extremities: No Clubbing, No Cyanosis, No Edema, Normal Pulses, No Tenderness/ Swelling Current Medications: Current Medications Sig/Samreen Start time Last Medication Dose Route Stop Time Status Admin Acetaminophen 650 MG Q6PRN PRN 06/08 1230 AC PO Albuterol Sulfate 3 ML EVERY 4 HRS/AWAKE 06/09 0800 AC 06/16 INH 1626 Aspirin Buffered 162 MG DAILY 06/08 1415 AC 06/16 PO 0947 Atorvastatin Calcium 20 MG DAILY 06/08 1409 AC 06/16 PO 0948 Azithromycin 500 MG 2200 06/15 2200 DC 06/15 Dextrose/Water 250 ML IV 2136 Budesonide/ 2 PUF BID 06/08 1410 AC 06/16 Formoterol Fumarate INH 0948 Bupropion HCl 300 MG DAILY 06/08 1410 AC 06/16 PO 0947 Ceftriaxone Sodium 1,000 MG DAILY 06/12 1000 DC 06/16 IV 0947 Enoxaparin Sodium 40 MG DAILY 06/09 1000 AC 06/16 SC 0948 Escitalopram Oxalate 10 MG DAILY 06/08 1410 AC 06/16 PO 0948 Fluticasone 2 SPRAY AT BEDTIME 06/10 2200 AC 06/15 Propionate DARRYL 2135 Furosemide 40 MG DAILY 06/16 1000 AC 06/16 PO 0949 Gabapentin 400 MG BID 06/08 1410 AC 06/16 PO 0947 Ibuprofen 600 MG .STK-MED ONE 06/15 2337 DC PO 06/15 2338 Ibuprofen 600 MG Q6P PRN 06/08 1230 AC 06/15 PO 2339 Isosorbide 30 MG DAILY 06/11 1030 AC 06/16 Mononitrate PO 0948 Methylprednisolone 40 MG ONCE ONE 06/16 0915 DC 06/16 IV 06/16 0916 0947 Metoprolol Tartrate 25 MG BID 06/11 1031 AC 06/16 PO 0947 Mirtazapine 30 MG QPM 06/08 2200 AC 06/15 PO 2136 Omeprazole 40 MG DAILY AC 06/09 0700 AC 06/16 PO 0600 Patient Medication 1 ED ONE ONE 06/16 1130 [facility] 06/16 1131 Prednisone 60 MG DAILY 06/16 1000 AC 06/16 PO 0947 Last 24 Hrs of Lab/Radu Results Last 24 Hrs of Labs/Mics: Laboratory Tests 06/16/17 0920: pH 7.45, pCO2 44, pO2 112 H, HCO3 30 H, ABG O2 Sat (Measured) 98.0, P-50 (Temp Corrected) YES, Carboxyhemoglobin 0.2 L, O2 Concentration % 30%, Temperature 97.3, Respiration Rate 20, O2 Delivery Method BIPAP, Vent Mode ST, Expiratory Pressure 10, Inspiratory Pressure 22, Phlebotomy Draw Site RIGHT RADIAL 06/16/17 0700: Anion Gap 11, Estimated GFR > 60, BUN/Creatinine Ratio 30.0 H, CBC w Diff NO MAN DIFF REQ, RBC 4.65 L, MCV 87.9, MCH 28.5, RDW 16.0 H, MPV 7.7, Gran % 77.5 H, Lymphocytes % 12.8 L, Monocytes % 8.5, Eosinophils % 0.8, Basophils % 0.4, Absolute Granulocytes 8.2 H, Absolute Lymphocytes 1.3, Absolute Monocytes 0.9 H, Absolute Eosinophils 0.1, Absolute Basophils 0, PUBS MCHC 32.5 L Assessment/Plan Assessment: This is a 66-year-old gentleman with past medical history significant for 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 Chest x-ray on admission reveals increased opacity suggestive of small effusion with associated atelectasis/pneumonia. Problem list/plan #Dyspnea: Likely acute on chronic respiratory failure in a patient with a history of COPD, chronic hypoxic respiratory failure now with community-acquired pneumonia. Patient has received 1 dose of IV cefazolin and azithromycin in the ED along with 125 mg of IV methylprednisolone. He has remained afebrile since presentation however is reported to have a fever of 101 at home. * Continue nocturnal BiPAP and oxygen supplementation as needed * Non- contrast CT chest reveals atelectasis and groundglass opacities. * Consider checking an ABG * Continue with TRC/nebs * Pulmonary consult appreciated. * VQ scan low probability for PE. * C/w Fluticasone * PO prednisone taper. Required additional one-time dose of IV methylprednisolone this morning. * Blood cultures negative * Discontinue ceftriaxone and azithromycin * Leukocytosis resolved. 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 * Swallow evaluation done; speech therapy recommended MBS.His weight is over the limit for the xray table for MBS. * Meanwhile was started on regular diet per speech therapist #History of CAD and heart failure: * Continue with aspirin, statin, metoprolol and Imdur * Hypernatremia has resolved, will resume furosemide tomorrow. #DVT prophylaxis: * Subcutaneous enoxaparin #CODE STATUS: * Full code Problem List: 1. GUSTAVO treated with BiPAP 2. COPD exacerbation 3. Pneumonia Pain Ratin Pain Location: NA Pain Goal: Remain pain free Pain Plan: NA Tomorrow's Labs & Rationales: BEP and mg to monitor electrolytes. Antonietta ZENG,Kristy 06/16/17 1322: Attending MD Review Statement Attending Statement Attending MD Statement: examined this patient, discuss w/resident/PA/ALIGNER TYPEWRITER, agreed w/resident/PA/ALIGNER TYPEWRITER, reviewed EMR data (avail), discussed with nursing, discussed with case mgmt, reviewed images Attending Assessment/Plan: Patient had an episode this morning where he became acutely short of breath. Required BiPAP. Blood gas showed PO2 of 112 and PCO2 in the 40s. I called Dr. Jorge again and spoke to her at length over the phone. She is discussing the case with me over the phone. The VQ scan was negative for a PE. Based on Dr. Jorge's recommendations I recommended STR with [facility] as patient has significant comorbidities of COPD, morbid obesity, chronic respiratory failure on oxygen and his hospital course has been complicated by episodes of acute hypercapnic respiratory acidosis. transport manager spoke to him and he is agreeable to rehabilitation at [facility], will pursue that. We'll keep him on the by mouth prednisone and he is finished 7 days of antibiotics for pneumonia with stop the antibiotics at this point.
[2017-06-16 14:21] VITALS: BP 95/53
--- NOTE | 2017-06-16 19:18 | Discharge Summary ---
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 Physical exam on admission: Temperature 98.6, pulse rate 89, respiratory rate 20 , blood pressure 133/86, oxygen saturation 97% on 2 L nasal cannula oxygen. General Appearance Alert, Oriented X3 Skin No Rashes, No Breakdown HEENT Atraumatic, PERRLA Neck Supple, No JVD Cardiovascular Regular Rate, Normal S1, Normal S2 Lungs decreased breath sounds bilaerally Abdomen Normal Bowel Sounds, Soft Neurological Normal Gait, Normal Speech Extremities bilateral skin changes Vascular Normal Pulses Chest x-ray on admission revealed increased opacity suggestive of small effusion with associated atelectasis/pneumonia. The following problems were addressed during the course of his hospital stay: #Dyspnea/community acquired pneumonia, COPD exacerbation: Likely acute on chronic respiratory failure in a patient with a history of COPD, chronic hypoxic respiratory failure now with community-acquired pneumonia and a component of COPD exacerbation. The patient has received 1 dose of IV cefazolin and azithromycin in the ED along with 125 mg of IV methylprednisolone. He has remained afebrile since presentation however is reported to have a fever of 101 at home. Non- contrast CT chest reveals atelectasis and groundglass opacities. We continue nocturnal BiPAP and oxygen supplementation as needed. He was also started on fluticasone for acute rhinitis. Admitted to the hospital, patient had episodes of acute respiratory failure and was started on IV steroids. Pulmonary recommended VQ scan which revealed very low probability for PE. IV steroids was later on changed to by mouth prednisone taper. Blood cultures remained negative. Leukocytosis resolved. The patient completed a five-day course of IV antibiotic therapy with ceftriaxone and azithromycin. #History of GUSTAVO on nocturnal BiPAP The patient was maintained on nocturnal BiPAP. 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 He will need to follow- up with ENT to reschedule the appointment when appropriate. The course of his hospital stay, swallow evaluation was performed. Speech therapy recommended modified barium swallow study (MBS) however the patient's weight was over the limit for the x-ray table for MBS. Meanwhile, he was cleared by speech therapist to be started on regular diet. #History of CAD and heart failure: We continued aspirin, statin, metoprolol and Imdur. Furosemide held briefly given hypernatremia. Was resumed after hypernatremia resolved. #DVT prophylaxis: Subcutaneous enoxaparin #CODE STATUS: Full code Allergies: Coded Allergies: adhesive tape (ALL TAPE GIVES RASH EXCEPT PAPER, PAPER TAPE OK 01/14/17) Significant Procedures: PULMONARY VENTILATION PERFUSION STUDY 06/15/17 FINDINGS: Ventilation images: On the single breath and equilibrium images there is homogeneous distribution of gas bilaterally. During the washout phase there minimal gas trapping at the right lung base. Perfusion images: No segmental perfusion defects are present. Minimal nonsegmental perfusion abnormality is present posteriorly in the right upper lung jackson. This could be due to some prominence of the major interlobar fissure in this region. There is also dilatation of the mediastinum in the cardiac silhouette is top normal in size. No additional focal anatomic perfusion defects are present. Compared to the previous study dated 01/12/2014, the mild abnormality posteriorly in the right upper lobe is slightly more prominent on the current study but similar in size and shape to the prior study. The scan appearance is otherwise not significantly changed. IMPRESSION: Very low probability of pulmonary embolism. Disposition Summary Disposition Principal Diagnosis: Community-acquired pneumonia Additional Diagnosis: COPD exacerbation Acute hypercapnic resp failure Sq cell ca of vocal cord Obesity Discharge Disposition: SNF Discharge Instructions General Discharge Information Code Status: Full Code Patient's Diet: Low-sodium diet, 2 g daily sodium. Patient's Activity: As tolerated Follow-Up Instructions/Appts: discharge. Medications at Discharge Discharge Medications: Continue taking these medications: Aspirin (Ecotrin*) 81 MG TABLET.DR 2 Tablet ORAL DAILY Days = 30 Comments: Last Taken: 01/22/17 Time: 09:30 AM Isosorbide Mononitrate (Isosorbide Mononitrate ER) 30 MG TAB.ER.24H 1 Tablet ORAL DAILY Days = 30 Comments: Last Taken: 02/07/17 Time: 10:20AM Atorvastatin Calcium (Lipitor) 20 MG TABLET 1 Tablet ORAL DAILY Days = 30 Comments: Last Taken: 02/06/17 Time: 4:15PM Albuterol Sulfate (Albuterol Sulfate) 2.5 MG/3 ML VIAL.NEB 1 Vial Inhale Solution TWICE DAILY Comments: Last Taken: 02/07/17 Time: 8:34AM Metoprolol Tartrate (Metoprolol Tartrate) 25 MG TABLET 1 Tablet ORAL TWICE DAILY Qty = 180 Comments: Last Taken: 02/07/17 Time: 10:21AM Gabapentin (Gabapentin) 400 MG CAPSULE 1 Tablet ORAL TWICE DAILY Qty = 60 Comments: Last Taken: 02/07/17 Time: 10:22 AM Bupropion HCl (Bupropion XL) 300 MG TAB.ER.24H 1 Tablet ORAL DAILY Qty = 30 Comments: Last Taken: 02/07/17 Time: 10:22AM Budesonide/Formoterol Fumarate (Symbicort 160-4.5 Mcg Inhaler) 160 MCG-4.5 MCG/ ACTUATION HFA.AER.AD 2 Puff Inhale through mouth TWICE DAILY Comments: Last Taken: 02/07/17 Time: 10:22AM Furosemide (Lasix) 40 MG TABLET 1 Tablet ORAL DAILY Comments: Last Taken: 02/06/17 Time: 09:00AM Naproxen (Naproxen) 500 MG TABLET 1 Tablet ORAL TWICE DAILY Qty = 180 Comments: Last Taken: 01/22/17 Time: 09:30 AM Mirtazapine (Mirtazapine) 30 MG TABLET 1 Tablet ORAL Every night Qty = 90 Comments: Last Taken: 01/21/17 Time: 10:30 PM Potassium Chloride (Klor-Con 10) 10 MEQ TABLET.ER Tablet ORAL TWICE DAILY Qty = 180 Pantoprazole Sodium (Pantoprazole Sodium) 40 MG TABLET.DR 1 Tablet ORAL DAILY Qty = 90 Escitalopram Oxalate (Escitalopram Oxalate) 10 MG TABLET 1 Tablet ORAL DAILY Qty = 90 Start taking the following new medications: Fluticasone Propionate (Fluticasone Propionate) 50 MCG/ACTUATION SPRAY.SUSP 2 [place] In the nose AT BEDTIME Qty = 1 No Refills Prednisone (Prednisone) 10 MG TABLET 1 Tablet ORAL SEE INSTRUCTIONS Qty = 47 No Refills Instructions: 5 Tabs on 06/18/17, 06/19/17, 06/20/17 4 Tabs on 06/21/17, 06/22/17, 06/23/17 3 Tabs on 06/24/17, 06/25/17, 06/26/17 2 Tabs on 06/27/17, 06/28/17, 06/29/17 1 Tab on 06/30/17, 07/01/17, 07/02/17 0.5 Tab on 07/03/17, 07/04/17, 07/05/17 Then stop Copies To: Luisito ZENG,Yuli Nelson; Cassius ZENG,Jonathan Harrison; Byron ZENG,Tristan Cano
[2017-06-16] MEDS ORDERED: PREDNISONE10 M2 PO (20:40)
[2017-06-16 22:10] VITALS: BP 114/59
[2017-06-17 07:20] VITALS: BP 116/56
--- NOTE | 2017-06-17 08:04 | PN- Housestaff ---
See Addendum Subjective Follow-up For: CAP COPD exacerbation Subjective: The patient was seen and examined. He offers no complaints. No further episodes of dyspnea. Denies headache, nausea, vomiting, chest pain, shortness of breath, abdominal pain, urinary symptoms. Vital signs stable. No overnight events noted. Review of Systems Constitutional: Reports: no symptoms. Objective Last 24 Hrs of Vital Signs/I&O Vital Signs Date Time Temp Pulse Resp B/P B/P Pulse O2 O2 Flow FiO2 Mean Ox Delivery Rate 06/17 1013 80 116/56 06/17 1012 80 116/56 06/17 0817 Nasal 1.0L Cannula 06/17 0815 80 98 06/17 0800 98 Nasal 1.0L Cannula 06/17 0720 98.2 58 18 116/56 98 06/17 0056 58 97 06/17 0000 BIPAP 06/16 2223 67 114/59 06/16 2210 98.4 67 20 114/59 93 Nasal 1.0L Cannula 06/16 2203 78 98 06/16 1628 97 Nasal 1.0L Cannula 06/16 1600 Nasal 1.0L Cannula 06/16 1421 98.2 66 20 95/53 95 Nasal 2.0L Cannula Intake & Output 06/17 1600 06/17 0800 06/17 0000 Intake Total 120 120 Output Total Balance 120 120 Intake, Oral 120 120 Physical Exam General Appearance: Alert, Cooperative, No Acute Distress Other Physical Findings: Skin: No Rashes HEENT: Atraumatic, PERRLA, EOMI Neck: Supple, No JVD, No thryomegaly Lymphatic: Cervical nl Cardiovascular: Regular Rate, Normal S1, Normal S2, No Murmurs, Gallops, Rubs Lungs: CTA BL Abdomen: Normal Bowel Sounds, Soft, No Tenderness, No Hepatospenomegaly, No Masses Extremities: No Clubbing, No Cyanosis, No Edema, Normal Pulses, No Tenderness/ Swelling Current Medications: Current Medications Sig/Samreen Start time Last Medication Dose Route Stop Time Status Admin Acetaminophen 650 MG Q6PRN PRN 06/08 1230 AC PO Albuterol Sulfate 3 ML EVERY 4 HRS/AWAKE 06/09 0800 AC 06/17 INH 1145 Aspirin Buffered 162 MG DAILY 06/08 1415 AC 06/17 PO 1013 Atorvastatin Calcium 20 MG DAILY 06/08 1409 AC 06/17 PO 1012 Budesonide/ 2 PUF BID 06/08 1410 AC 06/17 Formoterol Fumarate INH 1014 Bupropion HCl 300 MG DAILY 06/08 1410 AC 06/17 PO 1012 Enoxaparin Sodium 40 MG DAILY 06/09 1000 AC 06/17 SC 1013 Escitalopram Oxalate 10 MG DAILY 06/08 1410 AC 06/17 PO 1012 Fluticasone 2 SPRAY AT BEDTIME 06/10 2200 AC 06/16 Propionate DARRYL 2224 Furosemide 40 MG DAILY 06/16 1000 AC 06/17 PO 1013 Gabapentin 400 MG BID 06/08 1410 AC 06/17 PO 1012 Ibuprofen 600 MG Q6P PRN 06/08 1230 AC 06/15 PO 2339 Isosorbide 30 MG DAILY 06/11 1030 AC 06/17 Mononitrate PO 1012 Metoprolol Tartrate 25 MG BID 06/11 1031 AC 06/17 PO 1013 Mirtazapine 30 MG QPM 06/08 2200 AC 06/16 PO 2223 Omeprazole 40 MG DAILY AC 06/09 0700 AC 06/17 PO 0530 Prednisone 60 MG DAILY 06/16 1000 AC 06/17 PO 1011 Last 24 Hrs of Lab/Radu Results Last 24 Hrs of Labs/Mics: Laboratory Tests 06/17/17 0745: Anion Gap 10, Estimated GFR > 60, BUN/Creatinine Ratio 34.3 H, Magnesium 2.3 Assessment/Plan Assessment: This is a 66-year-old gentleman with past medical history significant for 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 Chest x-ray on admission reveals increased opacity suggestive of small effusion with associated atelectasis/pneumonia. Problem list/plan #Dyspnea: Likely acute on chronic respiratory failure in a patient with a history of COPD, chronic hypoxic respiratory failure now with community-acquired pneumonia. Patient has received 1 dose of IV cefazolin and azithromycin in the ED along with 125 mg of IV methylprednisolone. He has remained afebrile since presentation however is reported to have a fever of 101 at home. * Continue nocturnal BiPAP and oxygen supplementation as needed * Non- contrast CT chest reveals atelectasis and groundglass opacities. * Consider checking an ABG * Continue with TRC/nebs * Pulmonary consult appreciated. * VQ scan low probability for PE. * C/w Fluticasone * C/w PO prednisone taper upon discharge * Blood cultures negative * Leukocytosis resolved. 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 * Swallow evaluation done; speech therapy recommended MBS. His weight is over the limit for the xray table for MBS. * Meanwhile was started on regular diet per speech therapist #History of CAD and heart failure: * Continue with aspirin, statin, metoprolol and Imdur * Hypernatremia has resolved, now on furosemide. #DVT prophylaxis: * Subcutaneous enoxaparin #CODE STATUS: * Full code Problem List: 1. COPD exacerbation 2. Pneumonia Pain Ratin Pain Location: NA Pain Goal: Remain pain free Pain Plan: NA Tomorrow's Labs & Rationales: None Consulting Request: Consulting Specialty: Pulmonary Disease
[2017-06-17 13:51] VITALS: BP 116/56
== END 2017-06-17 14:38 | DRG 190 ==
LOC: ERH 07:28 → ERHI 10:41 → 2NB 10:41 → ENRESERV 13:07 → ENTRNSPT 13:15 → EDTRNSPT 13:29 → EDTRNSPTSTS 13:29 → CMPTRNSPT 13:45 → 2NB 13:47 → ENPENDDIS 06-17 10:25 → 2NB 06-17 14:38
PROVIDERS: Emergency Medicine; Internal Medicine; Internal Medicine Hematology & Oncology; Student in an Organized Health Care Education/Training Program
DX: J44.0 Chronic obstructive pulmonary disease with (acute) lower respiratory infection (principal); J18.9 Pneumonia, unspecified organism; J96.21 Acute and chronic respiratory failure with hypoxia; I11.0 Hypertensive heart disease with heart failure; I50.30 Unspecified diastolic (congestive) heart failure; Z99.81 Dependence on supplemental oxygen; Z68.41 Body mass index [BMI] 40.0-44.9, adult; J00 Acute nasopharyngitis [common cold]; J44.1 Chronic obstructive pulmonary disease with (acute) exacerbation; E66.01 Morbid (severe) obesity due to excess calories; Z98.84 Bariatric surgery status; G47.33 Obstructive sleep apnea (adult) (pediatric); Z85.21 Personal history of malignant neoplasm of larynx; I25.10 Atherosclerotic heart disease of native coronary artery without angina pectoris; Z95.1 Presence of aortocoronary bypass graft
CPT/HCPCS: 2NBSP; 2NSBP; 36415; 71045; 71046; 78582; 82436; 87040; 87070; 87449; 87450; 87804; 87804-59; 93005; 93010; 94799; 96365; 96375; 97161-GP; A9540; A9558; J0456; J0696; J1650; J2920; J2930; J3490; J7040; J7060

== ENCOUNTER 2017-06-20 20:49 | Observation (INO) | payer OTHER, MEDICARE ==
[~2017-06-20] VITALS: Ht 185.4 cm; Wt 146.5 kg
[~2017-06-20 20:49] MED LIST changes: +FLUTICASONE PRO16 GM NAS; +PREDNISONE10 M2 PO
--- NOTE | 2017-06-20 20:57 | ED DYSPNEA/ASTHMA COMPLAINT ---
History of Present Illness General Chief Complaint: Dyspnea (COPD, CHF, Other) Stated Complaint: BIBA FOR DIFFICULTY BREATHING Source: patient, old records, EMS Exam Limitations: clinical condition Vital Signs & Intake/Output Vital Signs & Intake/Output Vital Signs Date Time Temp Pulse Resp B/P B/P Pulse O2 O2 Flow FiO2 Mean Ox Delivery Rate 06/21 0055 89 98 06/209 98.7 06/201 69 20 131/68 98 BIPAP 06/20 2108 93 Non 10L ReBreather 06/20 2107 98 BIPAP 35% 06/20 2102 112 98 ED Intake and Output 06/21 0000 06/20 1200 Intake Total 0 Output Total Balance 0 Intake, Oral 0 Allergies Coded Allergies: adhesive tape (ALL TAPE GIVES RASH EXCEPT PAPER, PAPER TAPE OK 01/14/17) Reconcile Medications Albuterol Sulfate 2.5 MG/3 ML VIAL.NEB 1 Vial INH/FERCHO BID RESPIRATORY ( Reported) Aspirin (Ecotrin*) 81 MG TABLET.DR 2 TAB PO DAILY heart health (Reported) Atorvastatin Calcium (Lipitor) 20 MG TABLET 1 TAB PO DAILY CHOLESTEROL ( Reported) Budesonide/Formoterol Fumarate (Symbicort 160-4.5 Mcg Inhaler) 160 MCG-4.5 MCG/ ACTUATION HFA.AER.AD 2 PUF INH BID COPD (Reported) Bupropion HCl (Bupropion XL) 300 MG TAB.ER.24H 1 TAB PO DAILY DEPRESSION ( Reported) Escitalopram Oxalate 10 MG TABLET 1 TAB PO DAILY DEPRESSION (Reported) Fluticasone Propionate 50 MCG/ACTUATION SPRAY.SUSP 2 SPRAY DARRYL AT BEDTIME Rhinitis Furosemide (Lasix) 40 MG TABLET 1 TAB PO DAILY DIURETIC (Reported) Gabapentin 400 MG CAPSULE 1 TAB PO BID PAIN (Reported) Isosorbide Mononitrate (Isosorbide Mononitrate ER) 30 MG TAB.ER.24H 1 TAB PO DAILY BP (Reported) Metoprolol Tartrate 25 MG TABLET 1 TAB PO BID HEART (Reported) Mirtazapine 30 MG TABLET 1 TAB PO QPM MENTAL HEALTH (Reported) Naproxen 500 MG TABLET 1 TAB PO BID PAIN/INFLAMMATION (Reported) Pantoprazole Sodium 40 MG TABLET.DR 1 TAB PO DAILY ACID REFLUX (Reported) Potassium Chloride (Klor-Con 10) 10 MEQ TABLET.ER SUPPLEMENT (Reported) Prednisone 10 MG TABLET 1 TAB PO SEE ADMIN CRITERIA COPD exacerbation 5 Tabs on 06/18/17, 06/19/17, 06/20/17 4 Tabs on 06/21/17, 06/22/17, 06/23/17 3 Tabs on 06/24/17, 06/25/17, 06/26/17 2 Tabs on 06/27/17, 06/28/17, 06/29/17 1 Tab on 06/30/17, 07/01/17, 07/02/17 0.5 Tab on 07/03/17, 07/04/17, 07/05/17 Then stop Triage Nurses Notes Reviewed? 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, coronary artery disease status post CABG in 2003, hypertension, hyperlipidemia chronic respiratory failure secondary to COPD currently on 2 L of nasal cannula, history of prolonged respiratory failure status post tracheostomy with removal obstructive sleep apnea on nocturnal BiPAP, status post bariatric surgery in 2015 who was recently admitted and discharged from [facility] and admitted on June 08 and discharged on June 17 for concerns of COMMUNITY ACQUIRED pneumonia and COPD exacerbation patient was transferred to short-term rehabilitation who presents to the emergency room brought in by and bones for significant respiratory failure and coughing and wheezing in which EMS state that ox and saturation was low 80s prior to arrival patient was given dual neb on arrival with improvement of aeration with high flow oxygen Patient denies any chest pain arm pain jaw pain nausea vomiting leg swelling hemoptysis History is limited due to respirator distress and speaking in 1-2 word sentences (Darion BYRNES,Lance) Past History Travel History Traveled to [place] past 21 day No Medical History Any Pertinent Medical History? see below for history Neurological: NONE EENT: NONE Cardiovascular: CAD (S/P CABG X 3 '03), hyperlipidemia, PVD Respiratory: COPD (2L O2 CONTINUOUS), obstructive sleep apnea (NIGHTLY CPAP) Gastrointestinal: GERD Hepatic: NONE Renal: NONE Musculoskeletal: chronic back pain, BACK SURGERY Psychiatric: depression (WITH SI+) Endocrine: obesity Blood Disorders: NONE Cancer(s): CA OF [place] SPECIAL NEEDS CAREGIVER/Reproductive: NONE Other Medical Hx: scc of vocal cords, tracheostomy History of MRSA: No History of VRE: No History of CDIFF: No Influenza Vaccine: 06/08/17 Tetanus Vaccine: 11/14/16 Surgical History Surgical History: CABG, laminectomy (L4-5), GASTRIC SLEEVE Psychosocial History Who do you live with Patient/Self Services at Home Home Health Aide, Nursing What is your primary language Bhutanese Family History Family History, If Any: FATHER (CAD and CVA). MOTHER (CAD). Hx Contributory? No (Lance Beasley) Review of Systems Review of Systems Constitutional: Reports: see HPI. Denies: chills, fever. EENTM: Reports: no symptoms. Respiratory: Reports: see HPI, cough, short of breath, wheezing. Cardiovascular: Reports: no symptoms. GI: Reports: no symptoms. Genitourinary: Reports: no symptoms. Musculoskeletal: Reports: no symptoms. Skin: Reports: no symptoms. Neurological/Psychological: Reports: no symptoms. Hematologic/Endocrine: Reports: no symptoms. Immunologic/Allergic: Reports: no symptoms. All Other Systems: Reviewed and Negative (Lance Beasley) Physical Exam Physical Exam General Appearance: moderate distress, obese Head: atraumatic Eyes: Bilateral: normal appearance, PERRL. Ears, Nose, Throat: hearing grossly normal Neck: normal inspection Respiratory: chest non-tender, crackles, wheezing, respiratory distress Cardiovascular: tachycardia Peripheral Pulses: 2+ radial (R) Gastrointestinal: normal bowel sounds, soft, non-tender Extremities: swelling (PLUS ONE PITTING EDEMA) Neurologic/Psych: alert, oriented x 3 Skin: intact, normal color, warm/dry Core Measures ACS in differential dx? Yes CVA/TIA Diagnosis No Sepsis Present: No Sepsis Focused Exam Completed? No (Lance Beasley) Progress Differential Diagnosis: asthma, AMI, bronchitis, costochondritis, CHF, COPD, musculoskeletal pain, pericarditis, pulmonary embolism, pneumonia, pneumothorax, rib fracture, unstable angina Plan of Care: Orders Procedure Date/time Status Nothing by Mouth 06/21 B Active Patient Data 06/21 0139 Active ARTERIAL BLOOD GAS (GEN) 06/21 0106 Complete Saline Lock 06/[address] in observation 06/21 0036 Active Misc Message 06/21 0036 Active ED Holding Orders 06/21 0036 Active Vital Signs 06/21 0036 Active Code Status 06/21 0036 Active MAGNESIUM 06/20 2140 Complete BIPAP 06/20 2115 Complete D-DIMER 06/20 2111 Complete BIPAP 06/20 2100 Complete EKG 06/20 2054 Active ARTERIAL BLOOD GAS (GEN) 06/20 2053 Active LOWER RESPIRATORY CULTURE 06/20 2053 Active TROPONIN LEVEL 06/20 2053 Complete LACTIC ACID 06/20 2053 Complete COMPREHENSIVE METABOLIC PANEL 06/20 2053 Complete CBC WITHOUT DIFFERENTIAL 06/20 2053 Complete B-TYPE NATRIURETIC PEP (BNP) 06/20 2053 Complete Current Medications Sig/Samreen Start time Last Medication Dose Stop Time Status Admin Albuterol Sulfate 3 ML ONCE ONE 06/20 2099 CAN (Proventil) 06/20 2100 Laboratory Tests 06/21/17 0105: pH 7.47 H, pCO2 37, pO2 99, HCO3 26, ABG O2 Sat (Measured) 98.0, P-50 (Temp Corrected) N, Carboxyhemoglobin 0.4 L, O2 Concentration % .30, Respiration Rate 20, O2 Delivery Method BIPAP, Vent Mode ST, Expiratory Pressure 10, Inspiratory Pressure 22, Phlebotomy Draw Site RIGHT RADIAL 06/20/174: Lactic Acid Cancelled 06/20/17 2140: Anion Gap 13, Estimated GFR > 60, BUN/Creatinine Ratio 30.0 H, Glucose 118 H, Lactic Acid 1.4, Calcium 8.9, Magnesium 2.1, Total Bilirubin 0.3, AST 22, ALT 48 , Alkaline Phosphatase 72, Troponin I < 0.01, Cmr-B-[id number] Pept 226 H, Total Protein 6.4, Albumin 3.7, Globulin 2.7, Albumin/Globulin Ratio 1.4, D- Dimer High Sensitivty < 200, CBC w Diff NO MAN DIFF REQ, RBC 4.97, MCV 87.5, MCH 28.6, RDW 16.1 H, MPV 7.7, Gran % 85.3 H, Lymphocytes % 6.0 L, Monocytes % 5.8, Eosinophils % 0.8, Basophils % 2.1 H, Absolute Granulocytes 14.6 H, Absolute Lymphocytes 1.0 L, Absolute Monocytes 1.0 H, Absolute Eosinophils 0.1 , Absolute Basophils 0.4, PUBS MCHC 32.7 L 06/20/172110: Magnesium Cancelled Microbiology 06/20 233 BLOOD: Blood Culture - CAN Cancelled: BOTH BOTTLES QNS-CALLED TO FRANCISCO 06/20 2053 LOWER RESP: Respiratory Culture - ORD 06/20 2053 LOWER RESP: Gram Stain - ORD 06/20 2053 BLOOD: Blood Culture - CAN Cancelled: Cancelled via OE: UNABLE TO OBTAIN 2ND SET Patient on initial arrival showed significant respiratory distress ABG was ordered nebulizer ordered with BiPAP Respiratory therapist currently placing BiPAP BiPAP and nebulizer was administered patient did have symptomatic relief of respiratory failure 2235- patient was reevaluated noted to be still on BiPAP resting comfortably and had significant improvement of his symptoms Chest x-ray was unremarkable blood work essentially unremarkable patient will advise to be observed for concerns of respiratory failure and COPD exacerbation and which currently patient is stable on BiPAP Diagnostic Imaging: Viewed by Me: Radiology Read. Radiology Impression: no acute abnormality CXR Impression: no acute abnormality, no infiltrates Comments: PATIENT: CODY HERNÁNDEZ PRESENT AGE: 66 PATIENT ACCOUNT NO: [id number] : 51 LOCATION: [facility] ORDERING PHYSICIAN: Lance BYRNES SERVICE DATE: 06/20/17 EXAM TYPE: RAD - XRY-PORTABLE CHEST XRAY EXAMINATION: XR PORTABLE CHEST CLINICAL INFORMATION: Shortness of breath. COMPARISON: CT thorax dated 06/09/2017; prior chest regressed, most recently . TECHNIQUE: Portable frontal view of the chest was obtained. FINDINGS: The heart, great vessels, pulmonary vasculature and mediastinum are stable. There has been a prior median sternotomy. There is stable left upper lobe and basilar scar/subsegmental atelectasis, with persistent blunting of the left lateral costophrenic angle. The right lung field appears relatively clear, overlapping garments. No new infiltrate, effusion or pneumothorax is seen. There is no acute osseous abnormality. IMPRESSION: 1. No active cardiopulmonary disease. There is no significant interim change. 2. There is stable left upper and lower lobe atelectasis with blunting of the lateral costophrenic angle. DICTATED BY: Torsten Morse MD DATE/TIME DICTATED:06/20/172325 SITE LEASING AGENT:KARENA DATE/TIME TRANSCRIBED:06/20/172325 (Darion BYRNES,Lance) Initial ED EKG: normal axis, normal intervals, normal p-waves, normal QRS complex, normal sinus rhythm (Yael ZENG,Everardo May) Departure Departure Disposition: STILL A PATIENT Condition: Guarded Clinical Impression Primary Impression: Respiratory failure Secondary Impressions: COPD exacerbation Referrals: Byron ZENG,Tristan Cano (PCP/Family) Departure Forms: Customer Survey General Discharge Information Observation Note Spoke With: Nicholas ZENG,Isaiah Physician Advisor Notified: ULICES ZENG,DIOGO Dawn Place Patient In: Non-ED OBS Care Area Rationale for Observation: My rational for observation is as follows [patient requires repeat nebulizer treatments pulmonary consultation IV steroids, BiPAP, IV antibiotics, in which at this time outpatient treatment would be medically harmful due to clinical presentation of respiratory failure]. (Lance Beasley) PA/OCULAR CARE AIDE Co-Sign Statement Statement: ED Attending supervision documentation- [x] I saw and evaluated the patient. I have also reviewed all the pertinent lab results and diagnostic results. I agree with the findings and the plan of care as documented in the PA's/OCULAR CARE AIDE's documentation. 06/20/17, 21:15... pt with hypoxia, dyspnea, 02 sat 88% on room air, merits admission for 02 support, abx. [] I have reviewed the ED Record and agree with the PA's/OCULAR CARE AIDE's documentation. [] Additions or exceptions (if any) to the PAs/OCULAR CARE AIDE's note and plan are summarized below: [] (Yael ZENG,Everardo May) Critical Care Note Critical Care Note Critical Care Time: 75-104 min (Lance Beasley)
[2017-06-20 21:50] LABS: ABSOLUTE BASOPHIL COUNT 0.4 /CUMM (0.0-0.2); ABSOLUTE EOSINOPHIL COUNT 0.1 /CUMM (0.0-0.7); ABSOLUTE GRANULOCYTE CT 14.6 /CUMM (1.4-6.5); BASOPHIL % 2.1 % (0.0-2.0); EOSINOPHIL % 0.8 % (0-5); GRANULOCYTE % 85.3 % (42.2-75.2); HEMATOCRIT 43.5 % (42-52); MEAN CORPUSCULAR HGB 28.6 PG (27.0-31.0); MEAN CORPUSCULAR HGB CONC 32.7 G/DL (33.0-37.0); MEAN CORPUSCULAR VOLUME 87.5 FL (80.0-94.0); MEAN PLATELET VOLUME 7.7 FL (7.4-10.4); PLATELET COUNT 249 /CUMM (130-400); RBC DISTRIBUTION WIDTH 16.1 % (11.5-14.5); RED BLOOD CELL CT 4.97 /CUMM (4.70-6.10)
[2017-06-20 21:55] LABS: WHITE BLOOD CELL COUNT 17.1 /CUMM (4.8-10.8)
--- NOTE | 2017-06-20 23:34 | RADIOLOGY REPORT ---
EXAMINATION: XR PORTABLE CHEST CLINICAL INFORMATION: Shortness of breath. COMPARISON: CT thorax dated 06/09/2017; prior chest regressed, most recently . TECHNIQUE: Portable frontal view of the chest was obtained. FINDINGS: The heart, great vessels, pulmonary vasculature and mediastinum are stable. There has been a prior median sternotomy. There is stable left upper lobe and basilar scar/subsegmental atelectasis, with persistent blunting of the left lateral costophrenic angle. The right lung field appears relatively clear, overlapping garments. No new infiltrate, effusion or pneumothorax is seen. There is no acute osseous abnormality. IMPRESSION: 1. No active cardiopulmonary disease. There is no significant interim change. 2. There is stable left upper and lower lobe atelectasis with blunting of the lateral costophrenic angle.
--- NOTE | 2017-06-21 04:35 | History & Physical ---
Angel Luis Albright 06/21/17 0434: General Information and HPI MD Statement: I have seen and personally examined CODY HERNÁNDEZ and documented this H&P. The patient is a 66 year old M who presented with a patient stated chief complaint of [shortness of breath]. 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 According to the documentation in a [facility] patient developed sudden onset shortness of breath and became hypoxic down to 80s. Patient mentioned that he has had some productive cough, which he has had when he was discharged from , there has been no changes in the characteristics of a cough or sputum production, denies any fever, shaking chills, sick contacts. His shortness of breath was not associated with chest chest pain/palpitations/ sweating, worsening of his lower extremity edema. Denied any nausea vomiting and abdominal discomfort and denied any urinary bowel habit complaints. Allergies/Medications Allergies: Coded Allergies: adhesive tape (ALL TAPE GIVES RASH EXCEPT PAPER, PAPER TAPE OK 01/14/17) Home Med list Albuterol Sulfate 2.5 MG/3 ML VIAL.NEB 1 Vial INH/FERCHO BID RESPIRATORY ( Reported) Aspirin (Ecotrin*) 81 MG TABLET.DR 2 TAB PO DAILY heart health (Reported) Atorvastatin Calcium (Lipitor) 20 MG TABLET 1 TAB PO DAILY CHOLESTEROL ( Reported) Budesonide/Formoterol Fumarate (Symbicort 160-4.5 Mcg Inhaler) 160 MCG-4.5 MCG/ ACTUATION HFA.AER.AD 2 PUF INH BID COPD (Reported) Bupropion HCl (Bupropion XL) 300 MG TAB.ER.24H 1 TAB PO DAILY DEPRESSION ( Reported) Escitalopram Oxalate 10 MG TABLET 1 TAB PO DAILY DEPRESSION (Reported) Fluticasone Propionate 50 MCG/ACTUATION SPRAY.SUSP 2 SPRAY DARRYL AT BEDTIME Rhinitis Furosemide (Lasix) 40 MG TABLET 1 TAB PO DAILY DIURETIC (Reported) Gabapentin 400 MG CAPSULE 1 TAB PO BID PAIN (Reported) Isosorbide Mononitrate (Isosorbide Mononitrate ER) 30 MG TAB.ER.24H 1 TAB PO DAILY BP (Reported) Metoprolol Tartrate 25 MG TABLET 1 TAB PO BID HEART (Reported) Mirtazapine 30 MG TABLET 1 TAB PO QPM MENTAL HEALTH (Reported) Naproxen 500 MG TABLET 1 TAB PO BID PAIN/INFLAMMATION (Reported) Pantoprazole Sodium 40 MG TABLET.DR 1 TAB PO DAILY ACID REFLUX (Reported) Potassium Chloride (Klor-Con 10) 10 MEQ TABLET.ER SUPPLEMENT (Reported) Prednisone 10 MG TABLET 1 TAB PO SEE ADMIN CRITERIA COPD exacerbation 5 Tabs on 06/18/17, 06/19/17, 06/20/17 4 Tabs on 06/21/17, 06/22/17, 06/23/17 3 Tabs on 06/24/17, 06/25/17, 06/26/17 2 Tabs on 06/27/17, 06/28/17, 06/29/17 1 Tab on 06/30/17, 07/01/17, 07/02/17 0.5 Tab on 07/03/17, 07/04/17, 07/05/17 Then stop Compliance With Home Meds: GOOD Past History Travel History Traveled to [place] past 21 day No Medical History Neurological: NONE EENT: NONE Cardiovascular: CAD (S/P CABG X 3 '03), hyperlipidemia, PVD Respiratory: COPD (2L O2 CONTINUOUS), obstructive sleep apnea (NIGHTLY CPAP) Gastrointestinal: GERD Hepatic: NONE Renal: NONE Musculoskeletal: chronic back pain, BACK SURGERY Psychiatric: depression (WITH SI+) Endocrine: obesity Blood Disorders: NONE 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 MOTHER (CAD). Psychosocial History Who Do You Live With? Roommate Services at Home: Home Health Aide, Nursing Primary Language: Wolof Functional Ability ADLs Independent: eating, toileting. Needs Assist: dressing, bathing. Ambulation: walker IADLs Needs Assist: medication admin. Review of Systems Review of Systems Constitutional: Reports: see HPI. EENTM: Reports: see HPI. Cardiovascular: Reports: no symptoms. Respiratory: Reports: see HPI, cough, short of breath, sputum production. Denies: hemoptysis , orthopnea, stridor, wheezing. GI: Reports: no symptoms. Genitourinary: Reports: no symptoms. Musculoskeletal: Reports: no symptoms. Skin: Reports: no symptoms. All Other Systems: Reviewed and Negative Exam & Diagnostic Data Last 24 Hrs of Vital Signs/I&O Vital Signs Date Time Temp Pulse Resp B/P B/P Pulse O2 O2 Flow FiO2 Mean Ox Delivery Rate 06/21 0428 75 24 125/60 97 Room Air 06/21 0321 89 98 06/21 0253 98.0 86 22 130/60 98 BIPAP 06/21 0055 89 98 06/20 2329 98.7 06/20 2321 69 20 131/68 98 BIPAP 06/20 210 93 Non 10L ReBreather 06/20 2107 98 BIPAP 35% 06/20 2102 112 98 Intake & Output 06/21 0800 06/21 0000 06/20 1600 Intake Total 0 Output Total 300 Balance -300 0 Intake, Oral 0 Output, Urine 300 Physical Exam General Appearance Alert, Oriented X3, Cooperative, Moderate Distress Skin No Rashes, No Breakdown, No Significant Lesion HEENT PERRLA, EOMI, Mucous Membr. moist/pink Neck No JVD, No thryomegaly Lymphatic Axillary nl, Cervical nl Cardiovascular Normal S1, Normal S2, No Murmurs Lungs Clear to Auscultation, Normal Air Movement, no wheezing no crackle Abdomen Soft, No Tenderness Neurological Normal Speech Extremities bilateral 2+ pitting edema; baseline Last 24 Hrs of Labs/Radu: Laboratory Tests 06/21/17 0105: pH 7.47 H, pCO2 37, pO2 99, HCO3 26, ABG O2 Sat (Measured) 98.0, P-50 (Temp Corrected) N, Carboxyhemoglobin 0.4 L, O2 Concentration % .30, Respiration Rate 20, O2 Delivery Method BIPAP, Vent Mode ST, Expiratory Pressure 10, Inspiratory Pressure 22, Phlebotomy Draw Site RIGHT RADIAL 06/20/17 2354: Lactic Acid Cancelled 06/20/17 2140: Anion Gap 13, Estimated GFR > 60, BUN/Creatinine Ratio 30.0 H, Glucose 118 H, Lactic Acid 1.4, Calcium 8.9, Magnesium 2.1, Total Bilirubin 0.3, AST 22, ALT 48 , Alkaline Phosphatase 72, Troponin I < 0.01, Gzy-P-Ryorwmgpnud Pept 226 H, Total Protein 6.4, Albumin 3.7, Globulin 2.7, Albumin/Globulin Ratio 1.4, D- Dimer High Sensitivty < 200, CBC w Diff NO MAN DIFF REQ, RBC 4.97, MCV 87.5, MCH 28.6, RDW 16.1 H, MPV 7.7, Gran % 85.3 H, Lymphocytes % 6.0 L, Monocytes % 5.8, Eosinophils % 0.8, Basophils % 2.1 H, Absolute Granulocytes 14.6 H, Absolute Lymphocytes 1.0 L, Absolute Monocytes 1.0 H, Absolute Eosinophils 0.1 , Absolute Basophils 0.4, PUBS MCHC 32.7 L 06/20/172110: Magnesium Cancelled Microbiology 06/20 2330 BLOOD: Blood Culture - CAN Cancelled: BOTH BOTTLES QNS-CALLED TO FRANCISCO 06/20 2053 LOWER RESP: Respiratory Culture - COLB 06/20 2053 LOWER RESP: Gram Stain - COLB 06/20 2053 BLOOD: Blood Culture - CAN Cancelled: Cancelled via OE: UNABLE TO OBTAIN 2ND SET Diagnostic Data EKG Results Normal sinus [address]-T segment change CXR Results 1. No active cardiopulmonary disease. There is no significant interim change. 2. There is stable left upper and lower lobe atelectasis with blunting of the lateral costophrenic angle. Assessment/Plan Assessment: This is a 66-year-old gentleman with multiple comorbidities and significant past medical history who was recently treated for community-acquired pneumonia and COPD exacerbation was admitted for acute hypoxic respiratory failure. Pertinent data: Chest x-ray: No evidence of pneumonia Review of medical records, Chest CT scan from June 09 2017 showed: No evolving dense consolidation is seen. There are patchy areas of peribronchial groundglass opacities, raising the suspicion of subtle airway associated inflammation/infection. Lung VQ scan in 06/15/2017: Very low probability for pulmonary embolism. C BC: 17.1 no bandemia and no left shift; H&H 14.2/43.5; sodium 146, potassium 3.7, BUN 27, creatinine 0.9, troponin less than 0.01 D-dimer less than 200 Blood gas: 7.47/77 PCO2/bicarbonate 26 VSS List of active problems #1 acute hypoxic respiratory failure: History of severe COPD and recent pneumonia currently on prednisone taper; no active evidence of new airway infections and or COPD flare; history of heart failure: No active evidence of fluid overload a failure decompensation; Pulmonary embolism: Remote possibility in this patient is an area considering recent low probability VQ scan and negative d-dimer #2 history of GUSTAVO nocturnal BiPAP #3 history of coronary artery disease status post CABG #4 history of retention and hyperlipidemia Plan * Admit to general medical floor as an observation * Watch off antibiotics * Budesonide/Formoterol Fumarate (Symbicort 160-4.5 Mcg Inhaler) 160 MCG-4.5 MCG /ACTUATION HFA.AER.AD 2 Puff Inhale through mouth TWICE DAILY * Hold - By mouth prednisone 40 mg decrease 10 mg every other day and finish with 0.5 Tab on 07/03/17, 07/04/17, 07/05/17; start IV solumedrol 40 mg BID * TRC/nebulizer [id number] as needed * Nocturnal BiPAP * O2 sat up targets oxygen saturation of 92% * Isosorbide mononitrate 30 mg extended release once daily * aspirin 81 mg by mouth daily * Atorvastatin 20 mg by mouth daily * Metoprolol 25 mg by mouth twice a day * Gabapentin (Gabapentin) 400 MG CAPSULE 1 Tablet ORAL TWICE DAILY * Bupropion HCl (Bupropion XL) 300 MG TAB.ER.24H 1 Tablet ORAL DAILY * Lasix 40 mg by mouth daily * Naproxen 500 mg by mouth twice a day * Mirtazapine 30 mg by mouth daily * Potassium chloride 10 mEq by mouth twice a day * Omeprazole 40 mg by mouth daily * escitalopram 10 mg by mouth daily * Pulmonology consult in the a.m. DVT prophylaxis subcutaneous heparin 5000 units every 8 hours Pain pathway Patient is full code As Ranked By This Provider Problem List: 1. COPD exacerbation 2. DVT prophylaxis 3. Hypertension 4. Heart failure 5. DNI (do not intubate) 6. Pneumonia 7. Depression 8. Morbid obesity with BMI of 40.0-44.9, adult 9. GUSTAVO on CPAP 10. Hypotension 11. Headache 12. COPD (chronic obstructive pulmonary disease) 13. Renal failure 14. Full code status 15. Congestive heart failure (CHF) 16. Obesity 17. Sleep apnea 18. Cellulitis 19. Chronic respiratory failure 20. Major depression 21. Moderate persistent asthma 22. History of CHF (congestive heart failure) 23. Tracheostomy in place 24. Hypercapnic respiratory failure 25. Tracheostomy complication 26. Vocal cord cancer 27. Acute hypercapnic respiratory failure due to obstructive sleep apnea 28. Morbid obesity 29. Tracheal obstruction 30. Mucus plugging of bronchi 31. Shortness of breath 32. Fall 33. Skin tear 34. Nasal fracture 35. Hematoma 36. Symptomatic bradycardia 37. Altered mental status 38. Syncope 39. Traumatic hematoma of left lower leg with infection 40. CAD (coronary artery disease) 41. GUSTAVO treated with BiPAP 42. Cellulitis of left leg 43. Open wound 44. Near syncope 45. Respiratory failure Core Measures/Misc (02/21) Acute Coronary Syndrome ACS Diagnosis: No Congestive Heart Failure Congestive Heart Failure Diagnosis No Cerebrovascular Accident CVA/TIA Diagnosis: No VTE (View Protocol) VTE Risk Factors CHF or Resp Failure No Mechanical VTE Prophylaxis d/t N/A MechProphylax Ordered No VTE Pharm Prophylaxis d/t NA PharmProphylax ordered Sepsis (View protocol) Sepsis Present: No Resident Review Statement Resident Statement: examined this patient, discussed with internet assessor, agreed with internet assessor, discussed with family, reviewed EMR data (avail), discussed with nursing , discussed with case mgmt, reviewed images, amended to note Nicholas ZENG, [facility] 06/21/17 0809: Attending MD Review Statement Attending Statement Attending MD Statement: examined this patient, discuss w/resident/PA/FOUNTAIN OPERATOR, agreed w/resident/PA/FOUNTAIN OPERATOR, reviewed images, amended to note Attending Assessment/Plan: 66 yo morbidly obese M with h/o SCC of vocal cord s/p radiation, CAD s/p CABG, HTN, chronic hypoxic respiratory failure on 2L for COPD, HfpEF, GUSTAVO on nocturnal Bipap, previous prolonged respiratory failure s/p tracheostomy with removal, was discharged on Jun 17 after being treated for COPDE and pneumonia. Today at the facility, he was noted to be gasping for air and coughed up copious amounts of yellow mucous, he was hypoxic to 88%, nebs were given and he was placed on Bipap. Vitals stable and O2 sats maintained on Bipap. Patient appears comfortable at present. Labs: WBC 17.1, D-dimer < 200, Na 146, BUN 27, lactic acid 1.4, trop neg. AB.47/37/99/26. CXR: no acute process, stable left upper and lower lobe atelectasis with blunting of lateral costophrenic angle. EKG: sinus rhythm, no acute changes. Echo (2017): EF> 55%. Assessment and plan: 1. Acute on chronic hypoxic respiratory failure 2. Persistent COPD exacerbation 3. No evidence of pneumonia or CHF 4. Recent VQ scan showed low probability of PE 5. GUSTAVO possible OHS on nocturnal Bipap 6. Leukocytosis is likely steroid induced - 23 hour observation on general medicine - [facility] nebs - Sputum culture - IV solumedrol 40 mg BID followed by slow taper - Monitor off antibiotics - Continue Bipap, give time off in AM, no need to repeat ABG - Pulm consult in AM (Dr. Jorge) - Repeat EKG and troponin in AM - Resume all home meds DVT ppx Lovenox. Full code. Observation Initial Note - I have personally examined CODY HERNÁNDEZ on 06/21/17 at 0809. The disposition of CODY HERNÁNDEZ is uncertain at this time and before a determination can be made, he requires a period of observation for the following reasons [dyspnea, COPD exacerbation]
[2017-06-21 07:55] LABS: ABSOLUTE BASOPHIL COUNT 0.1 /CUMM (0.0-0.2); ABSOLUTE EOSINOPHIL COUNT 0 /CUMM (0.0-0.7); ABSOLUTE GRANULOCYTE CT 9.6 /CUMM (1.4-6.5); ABSOLUTE LYMPH COUNT 0.4 /CUMM (1.2-3.4); ABSOLUTE MONOCYTE COUNT 0.3 /CUMM (0.10-0.60); BASOPHIL % 1.3 % (0.0-2.0); EOSINOPHIL % 0 % (0-5); GRANULOCYTE % 92.5 % (42.2-75.2); HEMATOCRIT 39.8 % (42-52); MEAN CORPUSCULAR HGB 28.8 PG (27.0-31.0); MEAN CORPUSCULAR HGB CONC 33.1 G/DL (33.0-37.0); MEAN CORPUSCULAR VOLUME 86.9 FL (80.0-94.0); MEAN PLATELET VOLUME 7.8 FL (7.4-10.4); PLATELET COUNT 206 /CUMM (130-400); RED BLOOD CELL CT 4.59 /CUMM (4.70-6.10); WHITE BLOOD CELL COUNT 10.4 /CUMM (4.8-10.8)
--- NOTE | 2017-06-21 12:30 | PN- Att Addend ---
Attending Addendum Attending Brief Note Patient seen and examined, claims that he's feeling slightly better than yesterday. Breathing is improved. Coughing up yellowish sputum. Vital Signs Date Time Temp Pulse Resp B/P B/P Pulse O2 O2 Flow FiO2 Mean Ox Delivery Rate 06/21 1209 98.0 80 20 118/56 06/21 1047 82 95 06/21 0933 97.2 78 18 140/77 06/21 0933 97.2 78 18 140/77 06/21 0750 97.2 78 18 140/77 06/21 0634 98.5 76 18 136/69 97 BIPAP 06/21 0428 75 24 125/60 97 Room Air 06/21 0321 89 98 06/21 0253 98.0 86 22 130/60 98 BIPAP 06/21 0055 89 98 06/20 2329 98.7 06/20 2321 69 20 131/68 98 BIPAP 06/20 210 93 Non 10L ReBreather 06/20 2107 98 BIPAP 35% 06/20 2102 112 98 on exam; aox3, nad cv; s1, s2, rrr resp; mild scattered wheeze. abd; soft, nt, bs+ ext; 1+ edema b/l Laboratory Tests 06/21 06/21 0738 0105 Blood Gas pH (7.35 - 7.45 PH) 7.47 H pCO2 (35 - 45 TORR) 37 pO2 (80 - 100 TORR) 99 HCO3 (21 - 28 MEQ/L) 26 ABG O2 Sat (Measured) (>96.0 %) 98.0 P-50 (Temp Corrected) N Carboxyhemoglobin (1.5 - 5.0 %) 0.4 L O2 Concentration % .30 Respiration Rate (BPM) 20 O2 Delivery Method BIPAP Vent Mode ST Expiratory Pressure (CM H2O P) 10 Inspiratory Pressure (CM H2O P) 22 Hematology CBC w Diff NO MAN DIFF REQ WBC (4.8 - 10.8 /CUMM) 10.4 RBC (4.70 - 6.10 /CUMM) 4.59 L Hgb (14.0 - 18.0 G/DL) 13.2 L Hct (42 - 52 %) 39.8 L MCV (80.0 - 94.0 FL) 86.9 MCH (27.0 - 31.0 PG) 28.8 RDW (11.5 - 14.5 %) 16.0 H Plt Count (130 - 400 /CUMM) 206 MPV (7.4 - 10.4 FL) 7.8 Gran % (42.2 - 75.2 %) 92.5 H Lymphocytes % (20.5 - 51.1 %) 3.7 L Monocytes % (1.7 - 9.3 %) 2.5 Eosinophils % (0 - 5 %) 0 Basophils % (0.0 - 2.0 %) 1.3 Absolute Granulocytes (1.4 - 6.5 /CUMM) 9.6 H Absolute Lymphocytes (1.2 - 3.4 /CUMM) 0.4 L Absolute Monocytes (0.10 - 0.60 /CUMM) 0.3 Absolute Eosinophils (0.0 - 0.7 /CUMM) 0 Absolute Basophils (0.0 - 0.2 /CUMM) 0.1 PUBS MCHC (33.0 - 37.0 G/DL) 33.1 Miscellaneous Phlebotomy Draw Site RIGHT RADIAL 06/20 06/20 06/20 2354 2140 2111 Chemistry Sodium (137 - 145 mmol/L) 146 H Potassium (3.5 - 5.1 mmol/L) 3.7 Chloride (98 - 107 mmol/L) 103 Carbon Dioxide (22 - 30 mmol/L) 30 Anion Gap (5 - 16) 13 BUN (9 - 20 mg/dL) 27 H Creatinine (0.7 - 1.2 mg/dL) 0.9 Estimated GFR (>60 ml/min) > 60 BUN/Creatinine Ratio (7 - 25 %) 30.0 H Glucose (65 - 99 mg/dL) 118 H Lactic Acid (0.7 - 2.1 mmol/L) Cancelled 1.4 Calcium (8.4 - 10.2 mg/dL) 8.9 Magnesium (1.6 - 2.3 mg/dL) 2.1 Cancelled Total Bilirubin (0.2 - 1.3 mg/dL) 0.3 AST (17 - 59 U/L) 22 ALT (21 - 72 U/L) 48 Alkaline Phosphatase (< 127 U/L) 72 Troponin I (<0.11 ng/ml) < 0.01 Koh-L-Gfooulqmado Pept (<125 pg/mL) 226 H Total Protein (6.3 - 8.2 g/dL) 6.4 Albumin (3.5 - 5.0 g/dL) 3.7 Globulin (1.9 - 4.2 gm/dL) 2.7 Albumin/Globulin Ratio (1.1 - 2.2 %) 1.4 Coagulation D-Dimer High Sensitivty (0 - 243 ng/ml) < 200 Hematology CBC w Diff NO MAN DIFF REQ WBC (4.8 - 10.8 /CUMM) 17.1 H RBC (4.70 - 6.10 /CUMM) 4.97 Hgb (14.0 - 18.0 G/DL) 14.2 Hct (42 - 52 %) 43.5 MCV (80.0 - 94.0 FL) 87.5 MCH (27.0 - 31.0 PG) 28.6 RDW (11.5 - 14.5 %) 16.1 H Plt Count (130 - 400 /CUMM) 249 MPV (7.4 - 10.4 FL) 7.7 Gran % (42.2 - 75.2 %) 85.3 H Lymphocytes % (20.5 - 51.1 %) 6.0 L Monocytes % (1.7 - 9.3 %) 5.8 Eosinophils % (0 - 5 %) 0.8 Basophils % (0.0 - 2.0 %) 2.1 H Absolute Granulocytes (1.4 - 6.5 /CUMM) 14.6 H Absolute Lymphocytes (1.2 - 3.4 /CUMM) 1.0 L Absolute Monocytes (0.10 - 0.60 /CUMM) 1.0 H Absolute Eosinophils (0.0 - 0.7 /CUMM) 0.1 Absolute Basophils (0.0 - 0.2 /CUMM) 0.4 PUBS MCHC (33.0 - 37.0 G/DL) 32.7 L A/P; 66 y/o M with pmh sig for 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 Continue IV steroids. We will follow-up on the cultures. Patient has been watched off of antibiotics currently. Continue TRC nebs. Pulmonology will be consulted. Continue the rest of the medications. DVt px; He sq.
[2017-06-21 16:00] VITALS: BP 118/56
[2017-06-21 23:00] VITALS: BP 156/73
[2017-06-22 06:18] LABS: ABSOLUTE BASOPHIL COUNT 0 /CUMM (0.0-0.2); ABSOLUTE EOSINOPHIL COUNT 0 /CUMM (0.0-0.7); ABSOLUTE GRANULOCYTE CT 12.2 /CUMM (1.4-6.5); ABSOLUTE LYMPH COUNT 0.7 /CUMM (1.2-3.4); ABSOLUTE MONOCYTE COUNT 0.3 /CUMM (0.10-0.60); BASOPHIL % 0.1 % (0.0-2.0); EOSINOPHIL % 0.1 % (0-5); HEMATOCRIT 40.6 % (42-52); MEAN CORPUSCULAR VOLUME 87.8 FL (80.0-94.0); MEAN PLATELET VOLUME 8.3 FL (7.4-10.4); PLATELET COUNT 210 /CUMM (130-400); RBC DISTRIBUTION WIDTH 16.4 % (11.5-14.5); RED BLOOD CELL CT 4.63 /CUMM (4.70-6.10); WHITE BLOOD CELL COUNT 13.2 /CUMM (4.8-10.8)
[2017-06-22 06:41] VITALS: BP 139/68
--- NOTE | 2017-06-22 08:14 | PN- Housestaff ---
Subjective Follow-up For: COPD exacerbation Subjective: The patient was seen and examined. His dyspnea has improved. He denies any dizziness, lightheadedness, nausea, vomiting, chest pain, abdominal pain, urinary symptoms. Adequate saturation on his baseline 2 L nasal cannula oxygen. No overnight events reported. Review of Systems Constitutional: Reports: no symptoms. Objective Last 24 Hrs of Vital Signs/I&O Vital Signs Date Time Temp Pulse Resp B/P B/P Pulse O2 O2 Flow FiO2 Mean Ox Delivery Rate 06/22 1309 98 Nasal 2.0L Cannula 06/22 1120 97 Nasal 2.0L Cannula 06/22 1013 98.1 61 18 145/67 06/22 1011 98.1 61 18 145/67 98 Nasal 2.0L Cannula 06/22 1009 97.1 61 18 145/67 06/22 0730 56 99 06/22 0641 97.1 52 20 139/68 98 BIPAP 30% 06/22 0608 97.1 52 20 139/68 98 BIPAP 30% 06/22 0601 54 97 06/22 0316 53 98 06/22 0022 96 BIPAP 30% 06/22 0009 54 99 06/21 2326 97.5 61 18 156/73 100 BIPAP 06/21 2300 97.5 61 20 156/73 99 BIPAP 30% 06/21 2245 98.0 67 19 118/56 06/21 2213 67 99 06/21 1925 65 99 06/21 1600 Nasal 2.0L Cannula 06/21 1600 98.0 82 19 118/56 98 BIPAP 30% 06/21 1356 88 95 06/21 1354 95 BIPAP 30% Intake & Output 06/22 1600 06/22 0800 06/22 0000 Intake Total 240 Output Total Balance 240 Intake, Oral 240 Patient 323 lb Weight Physical Exam General Appearance: Alert, Oriented X3, Cooperative, No Acute Distress Skin: No Rashes Neck: Supple Cardiovascular: Regular Rate, Normal S1, Normal S2, No Murmurs, Gallops, Rubs Lungs: Clear to Auscultation, Normal Air Movement Abdomen: Normal Bowel Sounds, Soft, No Tenderness, No Hepatospenomegaly, No Masses Extremities: No Clubbing, No Cyanosis, Normal Pulses, No Tenderness/Swelling, BL LE Edema Current Medications: Current Medications Sig/Samreen Start time Last Medication Dose Route Stop Time Status Admin Albuterol Sulfate 3 ML EVERY 4 HRS/AWAKE 06/21 1600 AC 06/22 INH 1119 Albuterol Sulfate 3 ML BID 06/21 1000 DC 06/21 INH 1107 Aspirin Buffered 162 MG DAILY 06/21 1000 AC 06/22 PO 1009 Atorvastatin Calcium 20 MG 1700 06/21 1700 AC 06/21 PO 1745 Budesonide/ 2 PUF BID 06/21 1000 AC 06/22 Formoterol Fumarate INH 1010 Bupropion HCl 300 MG DAILY 06/21 1000 AC 06/22 PO 1010 Escitalopram Oxalate 10 MG DAILY 06/21 1000 AC 06/22 PO 1010 Fluticasone 2 SPRAY AT BEDTIME 06/21 2200 AC 06/21 Propionate DARRYL 2245 Furosemide 40 MG DAILY 06/21 1000 AC 06/22 PO 1010 Gabapentin 400 MG BID 06/21 1000 AC 06/22 PO 1010 Heparin Sodium 0 .STK-MED ONE 06/22 0613 DC (Porcine) .ROUTE Heparin Sodium 5,000 UNIT Q8 06/21 0600 AC 06/22 (Porcine) SC 0623 Isosorbide 30 MG DAILY 06/21 1000 AC 06/22 Mononitrate PO 1009 Methylprednisolone 0 .STK-MED ONE 06/21 2240 DC .ROUTE Methylprednisolone 40 MG BID 06/21 1000 AC 06/22 IV 1010 Metoprolol Tartrate 25 MG BID 06/21 1000 AC 06/21 PO 2245 Mirtazapine 30 MG QPM 06/21 2200 AC 06/21 PO 2246 Naproxen 500 MG BID 06/21 1000 AC 06/22 PO 1010 Omeprazole 40 MG DAILY AC 06/21 0700 AC 06/22 PO 1009 Potassium Chloride 10 MEQ BID 06/21 1000 AC 06/22 PO 1009 Assessment/Plan Assessment: This is a 66-year-old gentleman with past medical history significant for squama cell carcinoma of the vocal cord status post radiation and laryngeal biopsy, CAD that is post CABG in 2003, hypertension, hyperlipidemia, chronic hypoxic respiratory failure secondary to COPD on 2 L nasal cannula oxygen at baseline, history of prolonged respiratory failure status post tracheostomy with removal, GUSTAVO on nocturnal BiPAP, status post bariatric surgery in September 2015, recently discharged from [place] to rehab on 06/17/17 who was sent to the hospital from the facility for worsening of dyspnea. #Dyspnea,COPD exacerbation: * Likely acute on chronic respiratory failure in a patient with a history of COPD, chronic hypoxic respiratory failure who presented with worsening of shortness of breath. * Received TRC/nebs, IV steroids which was changed to PO steroid taper upon discharge. * Remained afebrile during hospital stay, symptoms improved. #History of GUSTAVO on nocturnal BiPAP * On nocturnal BiPAP. 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 #History of CAD and heart failure: * C/w aspirin, statin, metoprolol and Imdur. #DVT prophylaxis: * Subcutaneous heparin #CODE STATUS: * Full code Problem List: 1. COPD exacerbation Pain Ratin Pain Location: NA Pain Goal: Remain pain free Pain Plan: NA Tomorrow's Labs & Rationales: NA
--- NOTE | 2017-06-22 11:57 | PN- Att Addend ---
See Addendum Attending Addendum Attending Brief Note Patient seen and examined, overall doing better. Breathing is improving. Patient currently on IV steroids and on 2 lits of O2. Vital Signs Date Time Temp Pulse Resp B/P B/P Pulse O2 O2 Flow FiO2 Mean Ox Delivery Rate 06/22 1120 97 Nasal 2.0L Cannula 06/22 1013 98.1 61 18 145/67 06/22 1011 98.1 61 18 145/67 98 Nasal 2.0L Cannula 06/22 1009 97.1 61 18 145/67 06/22 0730 56 99 06/22 0641 97.1 52 20 139/68 98 BIPAP 30% 06/22 0608 97.1 52 20 139/68 98 BIPAP 30% 06/22 0601 54 97 06/22 0316 53 98 06/22 0022 96 BIPAP 30% 06/22 0009 54 99 06/21 2326 97.5 61 18 156/73 100 BIPAP 06/21 2300 97.5 61 20 156/73 99 BIPAP 30% 06/21 2245 98.0 67 19 118/56 06/21 2213 67 99 06/21 1925 65 99 06/21 1600 Nasal 2.0L Cannula 06/21 1600 98.0 82 19 118/56 98 BIPAP 30% 06/21 1356 88 95 06/21 1354 95 BIPAP 30% 06/21 1347 BIPAP 30% 06/21 1209 98.0 80 20 118/56 on exam; aox3, nad. cv; s1,s2, rrr resp; clear b/l abd; soft, nt, bs+ ext; + edema. Laboratory Tests 06/22 0604 Chemistry Sodium (137 - 145 mmol/L) 143 Potassium (3.5 - 5.1 mmol/L) 4.7 Chloride (98 - 107 mmol/L) 104 Carbon Dioxide (22 - 30 mmol/L) 26 Anion Gap (5 - 16) 13 BUN (9 - 20 mg/dL) 22 H Creatinine (0.7 - 1.2 mg/dL) 0.6 L Estimated GFR (>60 ml/min) > 60 BUN/Creatinine Ratio (7 - 25 %) 36.7 H Hematology CBC w Diff NO MAN DIFF REQ WBC (4.8 - 10.8 /CUMM) 13.2 H RBC (4.70 - 6.10 /CUMM) 4.63 L Hgb (14.0 - 18.0 G/DL) 13.4 L Hct (42 - 52 %) 40.6 L MCV (80.0 - 94.0 FL) 87.8 MCH (27.0 - 31.0 PG) 29.0 RDW (11.5 - 14.5 %) 16.4 H Plt Count (130 - 400 /CUMM) 210 MPV (7.4 - 10.4 FL) 8.3 Gran % (42.2 - 75.2 %) 92.0 H Lymphocytes % (20.5 - 51.1 %) 5.4 L Monocytes % (1.7 - 9.3 %) 2.4 Eosinophils % (0 - 5 %) 0.1 Basophils % (0.0 - 2.0 %) 0.1 Absolute Granulocytes (1.4 - 6.5 /CUMM) 12.2 H Absolute Lymphocytes (1.2 - 3.4 /CUMM) 0.7 L Absolute Monocytes (0.10 - 0.60 /CUMM) 0.3 Absolute Eosinophils (0.0 - 0.7 /CUMM) 0 Absolute Basophils (0.0 - 0.2 /CUMM) 0 PUBS MCHC (33.0 - 37.0 G/DL) 33.0 A/P; 66 y/o M with pmh sig for 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 Patient can be switched to oral steroids today. Continue Inhalers and TRC nebs. Pulm consult will be requested. Continue the rest of meds. DVT px; Hep sq. Possible DC later in the day.
--- NOTE | 2017-06-22 12:34 | Discharge Summary ---
See Addendum Visit Information Visit Dates Admission Date: 06/21/17 Discharge Date: 06/22/17 Hospital Course Course Attending Physician: Adarsh ZEGN,Brenda Primary Care Physician: Xuan ZENG,[facility] Hospital Course: This is a 66-year-old gentleman with past medical history significant for squama cell carcinoma of the vocal cord status post radiation and laryngeal biopsy, CAD that is post CABG in 2003, hypertension, hyperlipidemia, chronic hypoxic respiratory failure secondary to COPD on 2 L nasal cannula oxygen at baseline, history of prolonged respiratory failure status post tracheostomy with removal, GUSTAVO on nocturnal BiPAP, status post bariatric surgery in September 2015, recently discharged from [facility] to rehab on 06/17/17 who was sent to the hospital from the facility for worsening of dyspnea. #Dyspnea,COPD exacerbation: Likely acute on chronic respiratory failure in a patient with a history of COPD, chronic hypoxic respiratory failure who presented with worsening of shortness of breath. Received TRC/nebs, IV steroids which was changed to PO steroid taper upon discharge. Remained afebrile during hospital stay, symptoms improved. #History of GUSTAVO on nocturnal BiPAP The patient was maintained on nocturnal BiPAP. #Recurrent squamous cell carcinoma of the vocal cord: Follow-up with his ENT as outpatient. #History of CAD and heart failure: We continued aspirin, statin, metoprolol and Imdur. #DVT prophylaxis: Subcutaneous enoxaparin #CODE STATUS: Full code Allergies: Coded Allergies: adhesive tape (ALL TAPE GIVES RASH EXCEPT PAPER, PAPER TAPE OK 01/14/17) Significant Procedures: Chest x-ray:06/20/17 FINDINGS: The heart, great vessels, pulmonary vasculature and mediastinum are stable. There has been a prior median sternotomy. There is stable left upper lobe and basilar scar/subsegmental atelectasis, with persistent blunting of the left lateral costophrenic angle. The right lung field appears relatively clear, overlapping garments. No new infiltrate, effusion or pneumothorax is seen. There is no acute osseous abnormality. IMPRESSION: 1. No active cardiopulmonary disease. There is no significant interim change. 2. There is stable left upper and lower lobe atelectasis with blunting of the lateral costophrenic angle. Pertinent Lab Results: Laboratory Tests 06/22 06/21 0604 0738 Chemistry Sodium (137 - 145 mmol/L) 143 Potassium (3.5 - 5.1 mmol/L) 4.7 Chloride (98 - 107 mmol/L) 104 Carbon Dioxide (22 - 30 mmol/L) 26 Anion Gap (5 - 16) 13 BUN (9 - 20 mg/dL) 22 H Creatinine (0.7 - 1.2 mg/dL) 0.6 L Estimated GFR (>60 ml/min) > 60 BUN/Creatinine Ratio (7 - 25 %) 36.7 H Hematology CBC w Diff NO MAN DIFF REQ NO MAN DIFF REQ WBC (4.8 - 10.8 /CUMM) 13.2 H 10.4 RBC (4.70 - 6.10 /CUMM) 4.63 L 4.59 L Hgb (14.0 - 18.0 G/DL) 13.4 L 13.2 L Hct (42 - 52 %) 40.6 L 39.8 L MCV (80.0 - 94.0 FL) 87.8 86.9 MCH (27.0 - 31.0 PG) 29.0 28.8 RDW (11.5 - 14.5 %) 16.4 H 16.0 H Plt Count (130 - 400 /CUMM) 210 206 MPV (7.4 - 10.4 FL) 8.3 7.8 Gran % (42.2 - 75.2 %) 92.0 H 92.5 H Lymphocytes % (20.5 - 51.1 %) 5.4 L 3.7 L Monocytes % (1.7 - 9.3 %) 2.4 2.5 Eosinophils % (0 - 5 %) 0.1 0 Basophils % (0.0 - 2.0 %) 0.1 1.3 Absolute Granulocytes (1.4 - 6.5 /CUMM) 12.2 H 9.6 H Absolute Lymphocytes (1.2 - 3.4 /CUMM) 0.7 L 0.4 L Absolute Monocytes (0.10 - 0.60 /CUMM) 0.3 0.3 Absolute Eosinophils (0.0 - 0.7 /CUMM) 0 0 Absolute Basophils (0.0 - 0.2 /CUMM) 0 0.1 PUBS MCHC (33.0 - 37.0 G/DL) 33.0 33.1 06/21 06/20 0105 5764 Blood Gas pH (7.35 - 7.45 PH) 7.47 H pCO2 (35 - 45 TORR) 37 pO2 (80 - 100 TORR) 99 HCO3 (21 - 28 MEQ/L) 26 ABG O2 Sat (Measured) (>96.0 %) 98.0 P-50 (Temp Corrected) N Carboxyhemoglobin (1.5 - 5.0 %) 0.4 L O2 Concentration % .30 Respiration Rate (BPM) 20 O2 Delivery Method BIPAP Vent Mode ST Expiratory Pressure (CM H2O P) 10 Inspiratory Pressure (CM H2O P) 22 Chemistry Lactic Acid Cancelled Miscellaneous Phlebotomy Draw Site RIGHT RADIAL 06/200 2111 Chemistry Sodium (137 - 145 mmol/L) 146 H Potassium (3.5 - 5.1 mmol/L) 3.7 Chloride (98 - 107 mmol/L) 103 Carbon Dioxide (22 - 30 mmol/L) 30 Anion Gap (5 - 16) 13 BUN (9 - 20 mg/dL) 27 H Creatinine (0.7 - 1.2 mg/dL) 0.9 Estimated GFR (>60 ml/min) > 60 BUN/Creatinine Ratio (7 - 25 %) 30.0 H Glucose (65 - 99 mg/dL) 118 H Lactic Acid (0.7 - 2.1 mmol/L) 1.4 Calcium (8.4 - 10.2 mg/dL) 8.9 Magnesium (1.6 - 2.3 mg/dL) 2.1 Cancelled Total Bilirubin (0.2 - 1.3 mg/dL) 0.3 AST (17 - 59 U/L) 22 ALT (21 - 72 U/L) 48 Alkaline Phosphatase (< 127 U/L) 72 Troponin I (<0.11 ng/ml) < 0.01 Tls-B-Kkeriqwdpod Pept (<125 pg/mL) 226 H Total Protein (6.3 - 8.2 g/dL) 6.4 Albumin (3.5 - 5.0 g/dL) 3.7 Globulin (1.9 - 4.2 gm/dL) 2.7 Albumin/Globulin Ratio (1.1 - 2.2 %) 1.4 Coagulation D-Dimer High Sensitivty (0 - 243 ng/ml) < 200 Hematology CBC w Diff NO MAN DIFF REQ WBC (4.8 - 10.8 /CUMM) 17.1 H RBC (4.70 - 6.10 /CUMM) 4.97 Hgb (14.0 - 18.0 G/DL) 14.2 Hct (42 - 52 %) 43.5 MCV (80.0 - 94.0 FL) 87.5 MCH (27.0 - 31.0 PG) 28.6 RDW (11.5 - 14.5 %) 16.1 H Plt Count (130 - 400 /CUMM) 249 MPV (7.4 - 10.4 FL) 7.7 Gran % (42.2 - 75.2 %) 85.3 H Lymphocytes % (20.5 - 51.1 %) 6.0 L Monocytes % (1.7 - 9.3 %) 5.8 Eosinophils % (0 - 5 %) 0.8 Basophils % (0.0 - 2.0 %) 2.1 H Absolute Granulocytes (1.4 - 6.5 /CUMM) 14.6 H Absolute Lymphocytes (1.2 - 3.4 /CUMM) 1.0 L Absolute Monocytes (0.10 - 0.60 /CUMM) 1.0 H Absolute Eosinophils (0.0 - 0.7 /CUMM) 0.1 Absolute Basophils (0.0 - 0.2 /CUMM) 0.4 PUBS MCHC (33.0 - 37.0 G/DL) 32.7 L Disposition Summary Disposition Principal Diagnosis: COPD exacerbation Additional Diagnosis: None Discharge Disposition: SNF Discharge Instructions General Discharge Information Code Status: Full Code Patient's Diet: Heart Healthy Patient's Activity: As tolerated. Follow-Up Instructions/Appts: -Please follow-up with your PCP within a week of discharge. -Please follow-up Dr. Hammonds, within a week of discharge. -Please follow-up with your condenser cleaner, Dr. Jorge within a week of discharge. -Please take your medications as instructed. -Please return to the hospital if your symptoms not improve/worsen. -Needs nocturnal BIPAP. Medications at Discharge Discharge Medications: Stop taking the following medications: Prednisone (Prednisone) 10 MG TABLET ORAL SEE INSTRUCTIONS Qty = 47 Continue taking these medications: Aspirin (Ecotrin*) 81 MG TABLET. 2 Tablet ORAL DAILY Days = 30 Comments: Last Taken: 06/17/17 Time: 10:13 AM Isosorbide Mononitrate (Isosorbide Mononitrate ER) 30 MG TAB.ER.24H 1 Tablet ORAL DAILY Days = 30 Comments: Last Taken: 06/17/17 Time: 10:12 AM Atorvastatin Calcium (Lipitor) 20 MG TABLET 1 Tablet ORAL DAILY Days = 30 Comments: Last Taken: 06/17/17 Time: 10:12 AM Albuterol Sulfate (Albuterol Sulfate) 2.5 MG/3 ML VIAL.NEB 1 Vial Inhale Solution TWICE DAILY Comments: Last Taken: 06/17/17 Time: 10:31 AM Metoprolol Tartrate (Metoprolol Tartrate) 25 MG TABLET 1 Tablet ORAL TWICE DAILY Qty = 180 Comments: Last Taken: 06/17/17 Time: 10:13 AM Gabapentin (Gabapentin) 400 MG CAPSULE 1 Tablet ORAL TWICE DAILY Qty = 60 Comments: Last Taken: 06/17/17 Time: 10:12 AM Bupropion HCl (Bupropion XL) 300 MG TAB.ER.24H 1 Tablet ORAL DAILY Qty = 30 Comments: Last Taken: 06/17/17 Time: 10:12 AM Budesonide/Formoterol Fumarate (Symbicort 160-4.5 Mcg Inhaler) 160 MCG-4.5 MCG/ ACTUATION HFA.AER.AD 2 Puff Inhale through mouth TWICE DAILY Comments: Last Taken: 06/17/17 Time: 10:14 AM Furosemide (Lasix) 40 MG TABLET 1 Tablet ORAL DAILY Comments: Last Taken: 06/17/17 Time: 10:13 AM Naproxen (Naproxen) 500 MG TABLET 1 Tablet ORAL TWICE DAILY Qty = 180 Comments: Last Taken: 01/22/17 Time: 09:30 AM Mirtazapine (Mirtazapine) 30 MG TABLET 1 Tablet ORAL Every night Qty = 90 Comments: Last Taken: 06/16/17 Time: 10:23 AM Potassium Chloride (Klor-Con 10) 10 MEQ TABLET.ER Tablet ORAL TWICE DAILY Qty = 180 Pantoprazole Sodium (Pantoprazole Sodium) 40 MG TABLET.DR 1 Tablet ORAL DAILY Qty = 90 Escitalopram Oxalate (Escitalopram Oxalate) 10 MG TABLET 1 Tablet ORAL DAILY Qty = 90 Comments: Last Taken:06/17/17 Time:10:12 AM Fluticasone Propionate (Fluticasone Propionate) 50 MCG/ACTUATION SPRAY.SUSP 2 [place] In the nose AT BEDTIME Qty = 1 Comments: Last Taken:06/16/17 Time:10:24 PM Start taking the following new medications: Prednisone (Prednisone) 10 MG TABLET 0 ORAL SEE INSTRUCTIONS Qty = 32 No Refills Instructions: 4 Tabs 06/23/17, 06/24/17, 06/25/17 3 Tabs 06/26/17, 06/27/17, 06/28/17 2 Tabs 06/29/17, 06/30/17, 07/01/17 1 Tab 07/02/17, 07/03/17, 07/04/17 0.5 Tab 07/05/17, 07/06/17, 07/07/17 Then stop Copies To: Xuan ZENG,Judy
--- NOTE | 2017-06-22 12:57 | Patient Discharge Instructions ---
Discharge Instructions General Discharge Information You were seen/treated for: COPD exacerbation Special Instructions: -Please follow-up with your PCP within a week of discharge. -Please follow-up Dr. Hammonds, within a week of discharge. -Please follow-up with your merchandise adjustment clerk, Dr. Jorge within a week of discharge. -Please take your medications as instructed. -Please return to the hospital if your symptoms not improve/worsen. -Needs nocturnal BIPAP. Diet Recommended Diet: Heart Healthy Activity Additional ACTIVITY Info: As tolerated. Acute Coronary Syndrome Inclusion Criteria At DC or during hospital stay patient has or had the following: Discharge Core Measures Meds if any: Prescribed or Continued at Discharge Meds if any: NOT Prescribed or Continued at Discharge Congestive Heart Failure Inclusion Criteria At DC or during hospital stay patient has or had the following: Discharge Core Measures Meds if any: Prescribed or Continued at Discharge Meds if any: NOT Prescribed or Continued at Discharge Cerebrovascular accident Inclusion Criteria At DC or during hospital stay patient has or had the following: CVA/TIA Diagnosis No Discharge Core Measures Meds if any: Prescribed or Continued at Discharge Meds if any: NOT Prescribed or Continued at Discharge Venous thromboembolism Discharge Core Measures - Per Current guidelines, there needs to be overlap - treatment for the first 5 days of Warfarin therapy. - If discharged on Warfarin prior to 5 days of - overlap therapy, the patient will need to be - assessed for post discharge needs including - *Post discharge parental anticoagulation - *Warfarin and/or parental anticoagulation education - *Follow up date to check INR post discharge Meds if any: Prescribed or Continued at Discharge Note: Overlap Therapy is Warfarin and Anticoagulant Meds if any: NOT Prescribed or Continued at Discharge
[2017-06-22] MEDS ORDERED: PREDNISONE10 M2 PO ×2 (13:01→13:03)
[2017-06-22 14:50] VITALS: BP 136/72
== END 2017-06-22 14:59 ==
LOC: ERH 20:49 → ERHI 06-21 00:36 → CANRESERV 06-22 12:05 → ENRESERV 06-22 12:05 → ERHI 06-22 14:57
PROVIDERS: Internal Medicine; Physician Assistant; Student in an Organized Health Care Education/Training Program
DX: J96.21 Acute and chronic respiratory failure with hypoxia (principal); J44.1 Chronic obstructive pulmonary disease with (acute) exacerbation; E66.01 Morbid (severe) obesity due to excess calories; Z68.41 Body mass index [BMI] 40.0-44.9, adult; Z85.21 Personal history of malignant neoplasm of larynx; I25.10 Atherosclerotic heart disease of native coronary artery without angina pectoris; I11.0 Hypertensive heart disease with heart failure; I50.32 Chronic diastolic (congestive) heart failure; Z95.1 Presence of aortocoronary bypass graft; E78.5 Hyperlipidemia, unspecified; Z99.81 Dependence on supplemental oxygen; G47.33 Obstructive sleep apnea (adult) (pediatric); K21.9 Gastro-esophageal reflux disease without esophagitis; F32.9 Major depressive disorder, single episode, unspecified; Z79.82 Long term (current) use of aspirin
CPT/HCPCS: 1263; 1288; 1328; 1530; 71045; 82436; 87040; 87070; 93005; 93010; 96372; 96374; 96375; 96376; 99291; G0378; J0456; J1644; J2920; J2930; J3490; J7040

== ENCOUNTER 2017-06-28 20:08 | Observation (INO) | payer OTHER, MEDICARE ==
--- NOTE | 2017-06-28 20:15 | ED DYSPNEA/ASTHMA COMPLAINT ---
See Addendum History of Present Illness General Chief Complaint: Dyspnea (COPD, CHF, Other) Stated Complaint: SOB Source: patient, old records, EMS, [facility] Exam Limitations: no limitations Vital Signs & Intake/Output Vital Signs & Intake/Output Vital Signs Date Time Temp Pulse Resp B/P B/P Pulse O2 O2 Flow FiO2 Mean Ox Delivery Rate 06/28 2321 97.7 82 20 150/78 93 BIPAP 06/28 2320 85 20 150/78 06/28 2240 97.6 76 20 142/79 96 BIPAP 2.0L 06/28 2227 72 97 06/28 2042 91 95 06/28 2035 Nasal 2.0L Cannula 06/28 2030 Nasal 2.5L Cannula 06/28 2012 99.3 103 24 135/79 95 Nasal 3.0L Cannula ED Intake and Output 06/29 0000 06/28 1200 Intake Total 0 Output Total Balance 0 Intake, Oral 0 Patient 326 lb Weight Allergies Coded Allergies: adhesive tape (ALL TAPE GIVES RASH EXCEPT PAPER, PAPER TAPE OK 06/28/17) Reconcile Medications Albuterol Sulfate 2.5 MG/3 ML VIAL.NEB 1 Vial INH/FERCHO BID RESPIRATORY ( Reported) Aspirin (Ecotrin*) 81 MG TABLET.DR 2 TAB PO DAILY heart health (Reported) Atorvastatin Calcium (Lipitor) 20 MG TABLET 1 TAB PO DAILY CHOLESTEROL ( Reported) Budesonide/Formoterol Fumarate (Symbicort 160-4.5 Mcg Inhaler) 160 MCG-4.5 MCG/ ACTUATION HFA.AER.AD 2 PUF INH BID COPD (Reported) Bupropion HCl (Bupropion XL) 300 MG TAB.ER.24H 1 TAB PO DAILY DEPRESSION ( Reported) Escitalopram Oxalate 10 MG TABLET 1 TAB PO DAILY DEPRESSION (Reported) Fluticasone Propionate 50 MCG/ACTUATION SPRAY.SUSP 2 SPRAY DARRYL AT BEDTIME Rhinitis Furosemide (Lasix) 40 MG TABLET 1 TAB PO DAILY DIURETIC (Reported) Gabapentin 400 MG CAPSULE 1 TAB PO BID PAIN (Reported) Isosorbide Mononitrate (Isosorbide Mononitrate ER) 30 MG TAB.ER.24H 1 TAB PO DAILY BP (Reported) Metoprolol Tartrate 25 MG TABLET 1 TAB PO BID HEART (Reported) Mirtazapine 30 MG TABLET 1 TAB PO QPM MENTAL HEALTH (Reported) Naproxen 500 MG TABLET 1 TAB PO BID PAIN/INFLAMMATION (Reported) Pantoprazole Sodium 40 MG TABLET. 1 TAB PO DAILY ACID REFLUX (Reported) Potassium Chloride (Klor-Con 10) 10 MEQ TABLET.ER SUPPLEMENT (Reported) Prednisone 10 MG TABLET 0 PO SEE ADMIN CRITERIA COPD exacerbation 4 Tabs 06/23/17, 06/24/17, 06/25/17 3 Tabs 06/26/17, 06/27/17, 06/28/17 2 Tabs 06/29/17, 06/30/17, 07/01/17 1 Tab 07/02/17, 07/03/17, 07/04/17 0.5 Tab 07/05/17, 07/06/17, 07/07/17 Then stop Triage Nurses Notes Reviewed? yes HPI: Patient sent in from short-term rehabilitation for increasing shortness of breath and dyspnea on exertion. Patient has a history of COPD as well as squamous cell carcinoma of his larynx. Patient is chronically on steroids. Patient was admitted to the hospital and subsequently discharged short-term rehabilitation and then came back and stated his observation for dyspnea and then discharged on the back to short-term rehabilitation and now he comes back in today. Patient was given a DuoNeb by EMS. Patient has a productive cough. Patient denies any fevers or chills. Patient denies any chest pain. Positive dyspnea on exertion. No orthopnea. Past History Travel History Traveled to [place] past 21 day No Medical History Any Pertinent Medical History? see below for history Neurological: NONE EENT: NONE Cardiovascular: CAD (S/P CABG X 3 '03), hyperlipidemia, PVD Respiratory: COPD (2L O2 CONTINUOUS), obstructive sleep apnea (NIGHTLY CPAP) Gastrointestinal: GERD Hepatic: NONE Renal: NONE Musculoskeletal: chronic back pain, BACK SURGERY Psychiatric: depression (WITH SI+) Endocrine: obesity Blood Disorders: NONE Cancer(s): CA OF [place] [employer] MAGISTRATE/Reproductive: NONE Other Medical Hx: scc of vocal cords, tracheostomy History of MRSA: No History of VRE: No History of CDIFF: No Influenza Vaccine: 06/08/17 Tetanus Vaccine: 11/14/16 Surgical History Surgical History: CABG, laminectomy (L4-5), GASTRIC SLEEVE Psychosocial History Who do you live with Patient/Self Services at Home Home Health Aide, Nursing What is your primary language Upper Sorbian Tobacco Use: Quit >30 days ago ETOH Use: denies use Illicit Drug Use: denies illicit drug use Family History Family History, If Any: FATHER (CAD and CVA). MOTHER (CAD). Hx Contributory? No Review of Systems Review of Systems Constitutional: Reports: no symptoms. EENTM: Reports: no symptoms. Respiratory: Reports: see HPI, cough, short of breath, sputum production. Cardiovascular: Reports: no symptoms. GI: Reports: no symptoms. Genitourinary: Reports: no symptoms. Musculoskeletal: Reports: no symptoms. Skin: Reports: no symptoms. Neurological/Psychological: Reports: see HPI, anxiety. Hematologic/Endocrine: Reports: no symptoms. Immunologic/Allergic: Reports: no symptoms. All Other Systems: Reviewed and Negative Physical Exam Physical Exam General Appearance: well developed/nourished, alert, awake, anxious, moderate distress Head: atraumatic, normal appearance Eyes: Bilateral: PERRL, EOMI. Ears, Nose, Throat: normal pharynx, normal ENT inspection Neck: normal inspection, supple Respiratory: decreased breath sounds, rhonchi, wheezing, respiratory distress Cardiovascular: regular rate/rhythm, normal peripheral pulses Gastrointestinal: normal bowel sounds, soft, non-tender, OBESE Extremities: normal inspection, normal capillary refill, pedal edema Neurologic/Psych: no motor/sensory deficits, awake, alert, oriented x 3, normal mood/affect Skin: intact, normal color, warm/dry Lymphatic: no anterior cervical david Core Measures ACS in differential dx? No CVA/TIA Diagnosis No Sepsis Present: No Sepsis Focused Exam Completed? No Progress Differential Diagnosis: asthma, AMI, bronchitis, CHF, COPD, pneumonia, pneumothorax Plan of Care: Orders Procedure Date/time Status Heart Healthy Diet 06/[address] in observation 06/28 2132 Active ED Holding Orders 06/28 2132 Active Patient Data 06/28 2132 Active Vital Signs 06/28 2132 Active Code Status 06/28 2132 Active BIPAP 06/28 2044 Complete ARTERIAL BLOOD GAS (GEN) 06/28 2013 Complete TROPONIN LEVEL 06/28 2013 Complete COMPREHENSIVE METABOLIC PANEL 06/28 2013 Complete CBC WITHOUT DIFFERENTIAL 06/28 2013 Complete EKG 06/28 2013 Active Intake & Output 06/28 2011 Active OXYGEN SETUP (GEN) 06/28 UNK Complete Current Medications Sig/Samreen Start time Last Medication Dose Stop Time Status Admin Fluticasone 2 SPRAY AT BEDTIME 06/29 2200 AC Propionate (Flonase) Mirtazapine 30 MG QPM 06/29 2200 AC (Remeron) Albuterol Sulfate 3 ML BID 06/29 1000 UNVr (Proventil) Aspirin Buffered 162 MG DAILY 06/29 1000 UNVr (Ecotrin) Atorvastatin Calcium 20 MG DAILY 06/29 1000 UNVr (Lipitor) Budesonide/ 2 PUF BID 06/29 1000 UNVr Formoterol Fumarate (Symbicort) Bupropion HCl 300 MG DAILY 06/29 1000 AC (Wellbutrin XL) Escitalopram Oxalate 10 MG DAILY 06/29 1000 AC (Lexapro) Furosemide 40 MG DAILY 06/29 1000 AC (Lasix) Isosorbide 30 MG DAILY 06/29 1000 AC Mononitrate (Imdur) Naproxen 500 MG BID 06/28 2244 AC 06/28 (Naprosyn) 232 Potassium Chloride 10 MEQ BID 06/28 2244 AC 06/28 (K-Dur) 2321 Gabapentin 400 MG BID 06/28 2243 AC 06/28 (Neurontin) 2348 Metoprolol Tartrate 25 MG BID 06/28 2243 AC 06/28 (Lopressor) 232 Laboratory Tests 06/28/172027: Anion Gap 13, Estimated GFR > 60, BUN/Creatinine Ratio 36.3 H, Glucose 109 H, Calcium 9.7, Total Bilirubin 0.3, AST 14 L, ALT 43, Alkaline Phosphatase 70, Troponin I < 0.01, Total Protein 6.2 L, Albumin 3.7, Globulin 2.5, Albumin/ Globulin Ratio 1.5, CBC w Diff MAN DIFF ORDERED, RBC 5.01, MCV 88.6, MCH 28.2, RDW 16.6 H, MPV 7.7, Gran % 89.2 H, Lymphocytes % 4.2 L, Monocytes % 5.8, Eosinophils % 0.3, Basophils % 0.5, Absolute Granulocytes 14.8 H, Segmented Neutrophils 94 H, Absolute Lymphocytes 0.7 L, Lymphocytes 3 L, Monocytes 2, Absolute Monocytes 1.0 H, Eosinophils 1, Absolute Eosinophils 0.1, Absolute Basophils 0.1, Platelet Estimate VERIFIED BY SMEAR, Normocytic RBCs VERIFIED, Normochromic RBCs VERIFIED, PUBS MCHC 31.9 L, Fld Total RBCs Counted 100 06/28/172019: pH 7.46 H, pCO2 45, pO2 98, HCO3 31 H, ABG O2 Sat (Measured) 96.0, Carboxyhemoglobin 0.7 L, O2 Concentration % 2.5L, O2 Delivery Method NC, Phlebotomy Draw Site RIGHT RADIAL Diagnostic Imaging: Viewed by Me: Radiology Read. Discussed w/RAD: Radiology Read. Initial ED EKG: NSR, nonspecific ST T wave chg Prior EKG: unchanged Departure Departure Disposition: STILL A PATIENT Condition: Stable Clinical Impression Primary Impression: COPD (chronic obstructive pulmonary disease) Referrals: Judy Govea MD Departure Forms: Customer Survey General Discharge Information Critical Care Note Critical Care Note Critical Care Time: non-applicable ED Attending Observation Initial Observation Note: I have seen and personally examined CODY HERNÁNDEZ on 06/28/17 at 2133. I agree with the current emergency department documentation. The disposition (admission or discharge) is uncertain at this time, he needs a period of observation for the following reason(s): [Patient is 2 recent admissions for COPD exacerbation. Patient will remain in the emergency department on his CPAP machine. Nebulizer treatments. IV steroids. Pulmonary consultation in the morning. Depending on how he does he will either be stable to return short-term rehabilitation or hematoma prior readmission to the hospital.] The ED Nurse caring for this patient has been personally informed as to what the patient is being observed for. Observation Re-Evaluation: I have reevaluated CODY HERNÁNDEZ on 06/29/17 at 0048. The physical findings that support the continued need to observe this patient include [expiratory wheeze with scattered rhonchi. Patient is comfortable on the BiPAP.].
[2017-06-28 20:48] LABS: ABSOLUTE BASOPHIL COUNT 0.1 /CUMM (0.0-0.2); ABSOLUTE EOSINOPHIL COUNT 0.1 /CUMM (0.0-0.7); ABSOLUTE GRANULOCYTE CT 14.8 /CUMM (1.4-6.5); ABSOLUTE LYMPH COUNT 0.7 /CUMM (1.2-3.4); BASOPHIL % 0.5 % (0.0-2.0); EOSINOPHIL % 0.3 % (0-5); GRANULOCYTE % 89.2 % (42.2-75.2); HEMATOCRIT 44.4 % (42-52); MEAN CORPUSCULAR HGB 28.2 PG (27.0-31.0); MEAN CORPUSCULAR HGB CONC 31.9 G/DL (33.0-37.0); MEAN CORPUSCULAR VOLUME 88.6 FL (80.0-94.0); MEAN PLATELET VOLUME 7.7 FL (7.4-10.4); PLATELET COUNT 222 /CUMM (130-400); RBC DISTRIBUTION WIDTH 16.6 % (11.5-14.5); RED BLOOD CELL CT 5.01 /CUMM (4.70-6.10); WHITE BLOOD CELL COUNT 16.6 /CUMM (4.8-10.8)
--- NOTE | 2017-06-28 21:11 | RADIOLOGY REPORT ---
EXAMINATION: XR PORTABLE CHEST CLINICAL INFORMATION: Shortness of breath. Cough. COMPARISON: 06/20/2017 TECHNIQUE: Portable frontal view of the chest was obtained. FINDINGS: Median sternotomy wires appear intact. The lungs are well expanded. There is blunting at the left costophrenic angle. No dense consolidation. No edema. No pneumothorax. The cardiomediastinal silhouette is unchanged. IMPRESSION: Stable blunting at the left costophrenic angle which likely represents pleural thickening as seen on prior CT. No consolidation.
[2017-06-29 09:45] VITALS: BP 136/84
--- NOTE | 2017-06-29 10:13 | Cons- Pulmonary ---
General Information and HPI Consulting Request Date of Consult: 06/29/17 Requested By: Dr. Bull Reason for Consult: Stridor Source of Information: patient, old records Exam Limitations: no limitations Allergies/Medications Allergies: Coded Allergies: adhesive tape (ALL TAPE GIVES RASH EXCEPT PAPER, PAPER TAPE OK 06/28/17) Home Med List: Albuterol Sulfate 2.5 MG/3 ML VIAL.NEB 1 Vial INH/FERCHO BID RESPIRATORY ( Reported) Aspirin (Ecotrin*) 81 MG TABLET.DR 2 TAB PO DAILY heart health (Reported) Atorvastatin Calcium (Lipitor) 20 MG TABLET 1 TAB PO DAILY CHOLESTEROL ( Reported) Budesonide/Formoterol Fumarate (Symbicort 160-4.5 Mcg Inhaler) 160 MCG-4.5 MCG/ ACTUATION HFA.AER.AD 2 PUF INH BID COPD (Reported) Bupropion HCl (Bupropion XL) 300 MG TAB.ER.24H 1 TAB PO DAILY DEPRESSION ( Reported) Escitalopram Oxalate 10 MG TABLET 1 TAB PO DAILY DEPRESSION (Reported) Fluticasone Propionate 50 MCG/ACTUATION SPRAY.SUSP 2 SPRAY DARRYL AT BEDTIME Rhinitis Furosemide (Lasix) 40 MG TABLET 1 TAB PO DAILY DIURETIC (Reported) Gabapentin 400 MG CAPSULE 1 TAB PO BID PAIN (Reported) Isosorbide Mononitrate (Isosorbide Mononitrate ER) 30 MG TAB.ER.24H 1 TAB PO DAILY BP (Reported) Metoprolol Tartrate 25 MG TABLET 1 TAB PO BID HEART (Reported) Mirtazapine 30 MG TABLET 1 TAB PO QPM MENTAL HEALTH (Reported) Naproxen 500 MG TABLET 1 TAB PO BID PAIN/INFLAMMATION (Reported) Pantoprazole Sodium 40 MG TABLET.DR 1 TAB PO DAILY ACID REFLUX (Reported) Potassium Chloride (Klor-Con 10) 10 MEQ TABLET.ER SUPPLEMENT (Reported) Prednisone 10 MG TABLET 0 PO SEE ADMIN CRITERIA COPD exacerbation 4 Tabs 06/23/17, 06/24/17, 06/25/17 3 Tabs 06/26/17, 06/27/17, 06/28/17 2 Tabs 06/29/17, 06/30/17, 07/01/17 1 Tab 07/02/17, 07/03/17, 07/04/17 0.5 Tab 07/05/17, 07/06/17, 07/07/17 Then stop Current Medications: Current Medications Sig/Samreen Start time Last Medication Dose Route Stop Time Status Admin Albuterol Sulfate 3 ML BID 06/29 1000 AC INH Albuterol Sulfate 3 ML ONCE ONE 06/28 2014 DC 06/28 INH 06/28 Aspirin Buffered 162 MG DAILY 06/29 1000 AC 06/29 PO 0941 Atorvastatin Calcium 20 MG 1700 06/29 1700 AC PO Budesonide/ 2 PUF BID 06/29 1000 AC 06/29 Formoterol Fumarate INH 0951 Bupropion HCl 300 MG DAILY 06/29 1000 AC 06/29 PO 0941 Escitalopram Oxalate 10 MG DAILY 06/29 1000 AC 06/29 PO 0941 Fluticasone 2 SPRAY AT BEDTIME 06/29 2200 AC Propionate DARRYL Furosemide 40 MG DAILY 06/29 1000 AC 06/29 PO 0941 Gabapentin 400 MG BID 06/28 2244 AC 06/29 PO 0941 Isosorbide 30 MG DAILY 06/29 1000 AC 06/29 Mononitrate PO 0941 Methylprednisolone 0 .STK-MED ONE 06/28 2032 DC .ROUTE Methylprednisolone 125 MG ONCE ONE 06/28 2014 DC 06/28 IV 06/28 Metoprolol Tartrate 0 .STK-MED ONE 06/28 2320 DC PO Metoprolol Tartrate 25 MG BID 06/28 2244 AC 06/29 PO 0941 Mirtazapine 30 MG QPM 06/29 2200 AC PO Naproxen 0 .STK-MED ONE 06/28 2320 DC PO Naproxen 500 MG BID 06/28 2245 AC 06/29 PO 0941 Potassium Chloride 0 .STK-MED ONE 06/28 2320 DC PO Potassium Chloride 10 MEQ BID 06/28 2245 AC 06/29 PO 0941 Review of Systems Review of Systems All Other Systems: Reviewed and Negative Past History Travel History Traveled to [place] past 21 day No Medical History Blood Transfusion Hx: No Neurological: NONE EENT: NONE Cardiovascular: CAD (S/P CABG X 3 '03), hyperlipidemia, PVD Respiratory: COPD (2L O2 CONTINUOUS), obstructive sleep apnea (NIGHTLY CPAP) Gastrointestinal: GERD Hepatic: NONE Renal: NONE Musculoskeletal: chronic back pain, BACK SURGERY Psychiatric: depression (WITH SI+) Endocrine: obesity Blood Disorders: NONE 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 MOTHER (CAD). Psychosocial History Who Do You Live With? Roommate Services at Home: Home Health Aide, Nursing Primary Language: Maltese Smoking Status: Former Smoker ETOH Use: denies use Illicit Drug Use: denies illicit drug use Functional Ability ADLs Independent: eating, toileting. Needs Assist: dressing, bathing. Ambulation: walker IADLs Needs Assist: medication admin. Exam & Diagnostic Data Last 24 Hrs of Vital Signs/I&O Vital Signs Date Time Temp Pulse Resp B/P B/P Pulse O2 O2 Flow FiO2 Mean Ox Delivery Rate 06/29 944 98 Nasal 2.0L Cannula 06/29 944 98.8 86 18 136/84 98 Nasal 2.0L Cannula 06/29 09 98.8 86 18 136/84 06/29 09 98.8 86 18 136/84 06/29 0648 97.2 59 20 129/64 95 BIPAP 06/29 0458 72 20 143/67 96 BIPAP 06/29 0250 98.0 80 20 146/82 95 BIPAP 06/29 0143 89 98 06/28 2322 97.7 82 20 150/78 93 BIPAP 06/28 2321 85 20 150/78 06/28 2241 97.6 76 20 142/79 96 BIPAP 2.0L 06/288 72 97 06/28 2043 91 95 06/28 2035 Nasal 2.0L Cannula 06/28 2030 Nasal 2.5L Cannula 06/28 2012 99.3 103 24 135/79 95 Nasal 3.0L Cannula Intake & Output 06/29 1600 06/29 0800 06/29 0000 Intake Total 0 Output Total Balance 0 Intake, Oral 0 Patient 326 lb Weight Assessment/Plan Consult Acknowledgment - Thank you for your consult request.
== END 2017-06-29 11:22 | disposition short-term general hospital (02) ==
LOC: ERH 20:08 → ERHI 21:33 → EDBEDREQ 06-29 00:27 → ERHI 06-29 11:21
PROVIDERS: Emergency Medicine
DX: J44.9 Chronic obstructive pulmonary disease, unspecified (principal); G47.33 Obstructive sleep apnea (adult) (pediatric); I25.10 Atherosclerotic heart disease of native coronary artery without angina pectoris; Z95.1 Presence of aortocoronary bypass graft; E78.5 Hyperlipidemia, unspecified; Z85.21 Personal history of malignant neoplasm of larynx; M54.89 Other dorsalgia; K21.9 Gastro-esophageal reflux disease without esophagitis
CPT/HCPCS: 1263; 1288; 1328; 1425; 1748; 6090; 71045; 93005; 93010; 96374; 99291; G0378; J2930; J3490

== ENCOUNTER 2017-08-16 11:33 | Inpatient (IN) | payer OTHER, MEDICARE ==
[~2017-08-16] VITALS: Ht 185.4 cm; Wt 139.7 kg
--- NOTE | 2017-08-16 11:46 | ED DYSPNEA/ASTHMA COMPLAINT ---
History of Present Illness General Chief Complaint: Dyspnea (COPD, CHF, Other) Stated Complaint: BIBA DIFFBREATHING Source: patient, old records, EMS Exam Limitations: no limitations Vital Signs & Intake/Output Vital Signs & Intake/Output Vital Signs Date Time Temp Pulse Resp B/P B/P Pulse O2 O2 Flow FiO2 Mean Ox Delivery Rate 08/16 1558 99.1 70 98/52 100 Trach Mask 28% 08/16 1500 99 Trach Mask 28% 08/16 1340 99 Trach Mask 28% 08/16 1334 98.9 78 18 110/78 100 Trach Mask 30% 08/16 1206 100 Trach Mask 30% 08/16 1158 99.5 76 18 106/69 100 Trach Mask 28% 08/16 1140 99 Trach Mask 28% Allergies Coded Allergies: adhesive tape (ALL TAPE GIVES RASH EXCEPT PAPER, PAPER TAPE OK 06/28/17) Reconcile Medications Albuterol Sulfate 2.5 MG/3 ML VIAL.NEB 1 Vial INH/FERCHO BID RESPIRATORY ( Reported) Amoxicillin/Clavulanate Potass (Amox-Clav 875-125 MG Tablet) 875 MG-125 MG TABLET 875 MG PO Q12 Tracheitis . Aspirin (Ecotrin*) 81 MG TABLET.DR 2 TAB PO DAILY heart health (Reported) Atorvastatin Calcium (Lipitor) 20 MG TABLET 1 TAB PO DAILY CHOLESTEROL ( Reported) Budesonide/Formoterol Fumarate (Symbicort 160-4.5 Mcg Inhaler) 160 MCG-4.5 MCG/ ACTUATION HFA.AER.AD 2 PUF INH BID COPD (Reported) Escitalopram Oxalate 10 MG TABLET 1 TAB PO DAILY DEPRESSION (Reported) Furosemide (Lasix) 40 MG TABLET 1 TAB PO DAILY DIURETIC (Reported) Mirtazapine 30 MG TABLET 1 TAB PO QPM MENTAL HEALTH (Reported) Mupirocin 2 % OINT...G. 1 USHA TOP TID Peristomal cellulitis Apply three times a day on skin around stoma for 5 days. Naproxen 500 MG TABLET 1 TAB PO BID PAIN/INFLAMMATION (Reported) Pantoprazole Sodium 40 MG TABLET.DR 1 TAB PO DAILY ACID REFLUX (Reported) Potassium Chloride (Klor-Con 10) 10 MEQ TABLET.ER SUPPLEMENT (Reported) Triage Nurses Notes Reviewed? yes Onset: Abrupt Duration: day(s): (FEW) Timing: recent history Severity: moderate, severe Associated Symptoms: anxiety, cough HPI: This is a 66-year-old male status post trach stoma, laryngectomy [address] Giles who presents from home with respiratory distress. Patient has been on Keflex for the past 5 days. He reports feeling short of breath with some sputum production from the tracheostomy tube. He states he feels like he has his pneumonia again. Patient denies any chest pain. He is very anxious and tachypneic. Patient follows up with Dr. Guerrier for pulmonology. Dr. Giles was his surgeon. Past History Travel History Traveled to [place] past 21 day No Medical History Any Pertinent Medical History? 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 MOTHER (CAD). Hx Contributory? No Review of Systems Review of Systems Constitutional: Denies: chills, fever. EENTM: Reports: no symptoms. Respiratory: Reports: cough, short of breath, sputum production. Cardiovascular: Reports: chest pain. GI: Reports: no symptoms. Genitourinary: Reports: no symptoms. Musculoskeletal: Reports: no symptoms. Skin: Reports: no symptoms. Neurological/Psychological: Reports: anxiety. Hematologic/Endocrine: Denies: bruising, bleeding. Immunologic/Allergic: Reports: no symptoms. All Other Systems: Reviewed and Negative Physical Exam Physical Exam General Appearance: alert, awake, anxious, mild distress, moderate distress, obese Head: atraumatic Eyes: Bilateral: PERRL. Ears, Nose, Throat: TRACH STOMA WITH SURROUNDING ERYTHEMA Respiratory: decreased breath sounds, accessory muscle use, respiratory distress Cardiovascular: regular rate/rhythm, normal peripheral pulses Peripheral Pulses: 2+ radial (R), 2+ radial (L) Gastrointestinal: soft, non-tender, OBESE Neurologic/Psych: no motor/sensory deficits, awake, alert, ANXIOUS, TEARFUL Skin: intact, normal color, warm/dry Core Measures ACS in differential dx? No CVA/TIA Diagnosis No Sepsis Present: No Sepsis Focused Exam Completed? No Progress Differential Diagnosis: pulmonary embolism, pneumonia, MUCUS PLUG, CHF, PARASTOMAL SKIN INFECTION Plan of Care: Orders Procedure Date/time Status CBC WITHOUT DIFFERENTIAL 08/17 06 Active BASIC ELECTROLYTES PLUS BUN&CR 08/17 0600 Active Heart Healthy Diet 08/16 D Active LACTIC ACID 08/16 1931 Active LACTIC ACID 08/16 1631 Active Intake & Output 08/16 1528 Active LACTIC ACID 08/16 1446 Complete Pathway - chart 08/16 1436 Active Code Status 08/16 1436 Active LOWER RESPIRATORY CULTURE 08/16 1428 Active RAPID VIRAL INFLUENZA A 08/16 1427 Active CTA CHEST-PULMONARY EMBOLISM 08/16 1408 Active ED Holding Orders 08/16 1355 Active Admit to inpatient 08/16 1355 Active Patient Data 08/16 1348 Active RT ED ORDERS 08/16 1324 Complete LACTIC ACID 08/16 1311 Active OXYGEN SETUP (GEN) 08/16 1201 Complete Telemetry/Greenhouse Technician 08/16 1146 Active BLOOD CULTURE 08/16 1146 Active TROPONIN LEVEL 08/16 1146 Complete COMPREHENSIVE METABOLIC PANEL 08/16 1146 Complete CBC WITHOUT DIFFERENTIAL 08/16 1146 Active EKG 08/16 1137 Active TRC EVALUATION (GEN) 08/16 UNK Active SPUTUM INDUCTION (GEN) 08/16 UNK Complete THERAPIST ORDERS 08/16 UNK Complete House Staff 08/16 UNK Active VTE Mechanical Prophylaxis 08/16 UNK Active Nursing Misc 08/16 UNK Active Current Medications Sig/Samreen Start time Last Medication Dose Stop Time Status Admin Atorvastatin Calcium 20 MG 1700 08/17 1700 AC (Lipitor) Aspirin Buffered 162 MG DAILY 08/17 1000 AC (Ecotrin) Escitalopram Oxalate 10 MG DAILY 08/17 1000 AC (Lexapro) Furosemide 40 MG DAILY 08/17 1000 AC (Lasix) Isosorbide 30 MG DAILY 08/17 1000 AC Mononitrate (Imdur) Omeprazole 40 MG DAILY AC 08/17 0700 AC (Prilosec) Budesonide/ 2 PUF BID 08/16 2200 AC Formoterol Fumarate (Symbicort) Metoprolol Tartrate 25 MG BID 08/16 2200 AC (Lopressor) Mirtazapine 30 MG QPM 08/16 2200 AC (Remeron) Ampicillin Sodium/ 3,000 MG Q6 08/16 1800 AC Sulbactam Sodium (Unasyn) Sodium Chloride 100 ML (Normal Saline 0.9%) Sodium Chloride 1,000 ML Q6H 08/16 1645 AC (Normal Saline 0.9%) Enoxaparin Sodium 40 MG DAILY 08/16 1630 AC (Lovenox) Lorazepam 1 MG TID PRN 08/16 1545 AC (Ativan) Acetaminophen 650 MG Q6P PRN 08/16 1445 AC (Tylenol) Laboratory Tests 08/16/17 1342: Lactic Acid 5.2 H 08/16/17 1232: Anion Gap 13, Estimated GFR > 60, BUN/Creatinine Ratio 19.0, Glucose 98, Calcium 10.2, Total Bilirubin 0.4, AST 19, ALT 22, Alkaline Phosphatase 98, Troponin I < 0.01, Total Protein 6.6, Albumin 3.9, Globulin 2.7, Albumin/Globulin Ratio 1.4 Microbiology 08/16 1628 NASOPHARYN: Influenza Virus A & B Rapid Smear - RECD 08/16 1445 LOWER RESP: Respiratory Culture - RES 08/16 1445 LOWER RESP: Gram Stain - RES 08/16 1342 BLOOD: Blood Culture - RECD 08/16 1146 BLOOD: Blood Culture - ORD 2:10 PM D/W DR FONTENOT 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 D/W DR KLINE. CHEST CT ANGIOGRAM. 2:20 PM D/W DR GILES. WILL SEE PATIENT TOMORROW IN THE HOSPITAL BUT CAN BE CONTACTED EARLIER FOR ANY EMERGENCY Diagnostic Imaging: Viewed by Me: Radiology Read, CT Scan. Discussed w/RAD: Radiology Read, CT Scan. Radiology Impression: PATIENT: CODY HERNÁNDEZ PRESENT AGE: 66 PATIENT ACCOUNT NO: [id number] : 51 LOCATION: [facility] ORDERING PHYSICIAN: Grecia Savage MD SERVICE DATE: 08/16/17-1145 EXAM TYPE: RAD - XRY -PORTABLE CHEST XRAY EXAMINATION: XR PORTABLE CHEST CLINICAL INFORMATION: Productive sputum. Evaluate for pneumonia. COMPARISON: 06/28/2017 TECHNIQUE: Portable frontal view of the chest was obtained. FINDINGS: Lungs are slightly hypoinflated and without acute abnormality. No focal interstitial infiltrate, consolidation or pleural effusion. Linear opacity of scarring or atelectasis in the right base. Cardiac silhouette is normal in size. Sternotomy wires are intact in this patient who is status post remote coronary artery bypass graft surgery. The visualized bones are intact. Multiple surgical clips are present within the neck. IMPRESSION: No evidence of pneumonia. DICTATED BY: Kosta Fountain MD DATE/TIME DICTATED:08/16/171399 PASSENGER BOOKING CLERK:KARENA DATE/TIME TRANSCRIBED:08/16/171399 CONFIDENTIAL, DO NOT COPY WITHOUT APPROPRIATE AUTHORIZATION. <Electronically signed in Other Vendor System> SIGNED BY: Kosta Fountain MD 08/16/171404, PATIENT: CODY HERNÁNDEZ PRESENT AGE: 66 PATIENT ACCOUNT NO: [id number] : 51 LOCATION: A ORDERING PHYSICIAN: Grecia Savage MD SERVICE DATE: 08/16/17 EXAM TYPE: CAT - CTA CHEST-PULMONARY EMBOLISM EXAMINATION: CT ANGIOGRAM CHEST WITH AND WITHOUT CONTRAST (CT PULMONARY ANGIOGRAM FOR PE) CLINICAL INFORMATION: Rule out PE, Shortness of breath, Post trach/stoma and vocal cord removal. COMPARISON: X- ray from today. CT 06/09/2017. TECHNIQUE: Prior to contrast administration, noncontrast localization images were obtained. Subsequently, multidetector volumetric imaging was performed from the thoracic inlet to below the diaphragms following the administration of 95 mL Optiray 320 intravenous contrast. No contrast reaction reported. Sagittal, coronal, and MIP oblique sagittal reformatted images were obtained on the CT workstation, uploaded to PACS, and reviewed. Total exam dose-length product 701 mGy-cm. FINDINGS: QUALITY OF STUDY/ CONTRAST BOLUS: Satisfactory. PULMONARY ARTERIES: No evidence of central pulmonary embolus. There is limited evaluation of the segmental vessels to the bilateral lower lobes and the lingula, secondary to respiratory motion artifact and volume loss in the left lower lobe. The remainder of the segmental vessels appear patent without evidence of intraluminal filling defects to suggest pulmonary embolus. THORACIC AORTA: No aneurysm or dissection. LUNG: Volume loss in the left hemithorax. Linear plate-like atelectasis in the left lower lobe. There is traction bronchiectasis present. There is some opacity along the left fissure, appearing similar as compared to previous. Small patchy opacity in the lingula adjacent to fissure, probably reflecting atelectasis rather than infiltrate. No confluent opacity is otherwise seen to suggest atelectasis. There is mild atelectasis in the right lower lobe, with improved aeration as compared to previous. PLEURA: No pleural effusion or pneumothorax. MEDIASTINUM: Evidence of tracheostomy. Tracheostomy, with a tracheostomy tube not included in the [id number]. Normal heart size. No pericardial effusion. No hilar or mediastinal lymphadenopathy. No evidence of septal bowing or right heart strain. Coronary artery calcification. CHEST WALL/AXILLA: No axillary or internal mammary lymphadenopathy. OSSEOUS STRUCTURES: No acute or suspicious osseous abnormality. Multilevel degenerative changes in the spine. Status post sternotomy. UPPER ABDOMEN: Visualized liver, gallbladder, adrenal glands, spleen , pancreas, kidneys appear unremarkable. No reflux of contrast into the hepatic veins to suggest elevated right heart pressures. IMPRESSION: 1. No evidence of central pulmonary embolus. Limited evaluation of segmental vessels to the lingula and bilateral lower lobes. The remainder of the segmental vessels appear patent without evidence of embolus. 2. Volume loss in the left hemithorax. There is atelectasis with traction bronchiectasis in the left lower lobe. Mild right basilar atelectasis. DICTATED BY: Henrique Shrestha MD DATE/TIME DICTATED:1737 PASSENGER BOOKING CLERK:KARENA DATE/TIME TRANSCRIBED:08/16/171737 CONFIDENTIAL, DO NOT COPY WITHOUT APPROPRIATE AUTHORIZATION. <Electronically signed in Other Vendor System> SIGNED BY: Henrique Shrestha MD 08/16/17 1821 Initial ED EKG: NSR Departure Departure Time of Disposition: 1400 Disposition: STILL A PATIENT Condition: Stable Clinical Impression Primary Impression: Respiratory distress Secondary Impressions: COPD (chronic obstructive pulmonary disease), Tracheostomy care Referrals: Tristan Matthews MD (PCP/Family) Departure Forms: Customer Survey General Discharge Information Prescriptions: Current Visit Scripts Amoxicillin/Clavulanate Potass (Amox-Clav 875-125 MG Tablet) 875 MG PO Q12 #9 TAB . Mupirocin 1 USHA TOP TID #1 14MG Apply three times a day on skin around stoma for 5 days. Admission Note Spoke With: Gordon Wan MD Documentation of Exam: Documentation of any treatments & extenuating circumstances including Concerns Regarding Discharge (functional status, medication knowledge or non-compliance, living conditions, etc.) that warrant an admission rather than observation: [TRC /NEBS, PULMONARY CONSULTATION, ] Critical Care Note Critical Care Note Critical Care Time: 30-74 min
--- NOTE | 2017-08-16 14:05 | RADIOLOGY REPORT ---
EXAMINATION: XR PORTABLE CHEST CLINICAL INFORMATION: Productive sputum. Evaluate for pneumonia. COMPARISON: 06/28/2017 TECHNIQUE: Portable frontal view of the chest was obtained. FINDINGS: Lungs are slightly hypoinflated and without acute abnormality. No focal interstitial infiltrate, consolidation or pleural effusion. Linear opacity of scarring or atelectasis in the right base. Cardiac silhouette is normal in size. Sternotomy wires are intact in this patient who is status post remote coronary artery bypass graft surgery. The visualized bones are intact. Multiple surgical clips are present within the neck. IMPRESSION: No evidence of pneumonia.
--- NOTE | 2017-08-16 14:26 | History & Physical ---
Zhang ZENG,[facility] 08/16/17 1426: General Information and HPI History of Present Illness: Mr. 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 Mancia, CAD status post bypass, hypertension, hyperlipidemia, peripheral vascular disease, GUSTAVO, GERD, depression with history of suicidal ideation, obesity status post gastric sleeve, and COPD on 2.5 L O2 at night followed by Dr. Jorge who presents with complaints of shortness of breath. Please note that the history taking was limited by the patient's stoma. The patient was discharged to [facility] and has been home for about 4 weeks. He lives alone. He has developed shortness of breath, chills, and fever recently. The patient has noticed increasing dyspnea especially on exertion and productive cough. He denies any chest pain, abdominal pain, or other complaints. The patient is a former smoker. Allergies/Medications Allergies: Coded Allergies: adhesive tape (ALL TAPE GIVES RASH EXCEPT PAPER, PAPER TAPE OK 06/28/17) Home Med list Albuterol Sulfate 2.5 MG/3 ML VIAL.NEB 1 Vial INH/FERCHO BID RESPIRATORY ( Reported) Aspirin (Ecotrin*) 81 MG TABLET.DR 2 TAB PO DAILY heart health (Reported) Atorvastatin Calcium (Lipitor) 20 MG TABLET 1 TAB PO DAILY CHOLESTEROL ( Reported) Budesonide/Formoterol Fumarate (Symbicort 160-4.5 Mcg Inhaler) 160 MCG-4.5 MCG/ ACTUATION HFA.AER.AD 2 PUF INH BID COPD (Reported) Escitalopram Oxalate 10 MG TABLET 1 TAB PO DAILY DEPRESSION (Reported) Furosemide (Lasix) 40 MG TABLET 1 TAB PO DAILY DIURETIC (Reported) Isosorbide Mononitrate (Isosorbide Mononitrate ER) 30 MG TAB.ER.24H 1 TAB PO DAILY BP (Reported) Metoprolol Tartrate 25 MG TABLET 1 TAB PO BID HEART (Reported) Mirtazapine 30 MG TABLET 1 TAB PO QPM MENTAL HEALTH (Reported) Naproxen 500 MG TABLET 1 TAB PO BID PAIN/INFLAMMATION (Reported) Pantoprazole Sodium 40 MG TABLET.DR 1 TAB PO DAILY ACID REFLUX (Reported) Potassium Chloride (Klor-Con 10) 10 MEQ TABLET.ER SUPPLEMENT (Reported) Past History Travel History Traveled to [place] past 21 day No Medical History Neurological: NONE EENT: NONE Cardiovascular: CAD (S/P CABG X 3 '03), hyperlipidemia, PVD Respiratory: COPD (2L O2 CONTINUOUS), obstructive sleep apnea (NIGHTLY CPAP) Gastrointestinal: GERD Hepatic: NONE Renal: NONE Musculoskeletal: chronic back pain, BACK SURGERY Psychiatric: depression (WITH SI+) Endocrine: obesity Blood Disorders: NONE 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 MOTHER (CAD). Psychosocial History Who Do You Live With? Roommate Services at Home: Home Health Aide, Nursing Primary Language: Luxembourgish ETOH Use: denies use Functional Ability ADLs Independent: eating, toileting. Needs Assist: dressing, bathing. Ambulation: walker IADLs Needs Assist: medication admin. Review of Systems Review of Systems Constitutional: Reports: no symptoms. EENTM: Reports: no symptoms. Cardiovascular: Reports: no symptoms. Respiratory: Reports: see HPI. GI: Reports: no symptoms. Genitourinary: Reports: no symptoms. Musculoskeletal: Reports: no symptoms. Skin: Reports: no symptoms. Neurological/Psychological: Reports: see HPI. Hematologic/Endocrine: Reports: no symptoms. Immunologic/Allergic: Reports: no symptoms. All Other Systems: Reviewed and Negative Exam & Diagnostic Data Last 24 Hrs of Vital Signs/I&O Vital Signs Date Time Temp Pulse Resp B/P B/P Pulse O2 O2 Flow FiO2 Mean Ox Delivery Rate 08/16 1500 99 Trach Mask 28% 08/16 1340 99 Trach Mask 28% 08/16 1206 100 Trach Mask 30% 08/16 1158 99.5 76 18 106/69 100 Trach Mask 28% 08/16 1140 99 Trach Mask 28% Physical Exam General Appearance Alert, Oriented X3, Cooperative, Mild Distress Skin stoma site erythematous Sepsis Skin Exam (color): Normal for Ethnicity Cardiovascular Regular Rate, Normal S1, Normal S2 Lungs heavy breathing Abdomen Normal Bowel Sounds, Soft, No Tenderness Extremities singificant venous stasis dermatitis Sepsis Peripheral Pulse Location: Dorsalis Pedis Sepsis Peripheral Pulse Exam: Normal Sepsis Cap Refill Exam: <2 Sec Last 24 Hrs of Labs/Radu: Laboratory Tests 08/16/17 1342: Lactic Acid 5.2 H 08/16/17 1232: Anion Gap 13, Estimated GFR > 60, BUN/Creatinine Ratio 19.0, Glucose 98, Calcium 10.2, Total Bilirubin 0.4, AST 19, ALT 22, Alkaline Phosphatase 98, Troponin I < 0.01, Total Protein 6.6, Albumin 3.9, Globulin 2.7, Albumin/Globulin Ratio 1.4 Microbiology 08/16 1445 LOWER RESP: Respiratory Culture - RECD 08/16 1445 LOWER RESP: Gram Stain - RECD 08/16 1427 NASOPHARYN: Influenza Virus A & B Rapid Smear - ORD 08/16 1342 BLOOD: Blood Culture - RECD 08/16 1146 BLOOD: Blood Culture - ORD Assessment/Plan Assessment: Mr. 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 Mancia, CAD status post bypass, hypertension, hyperlipidemia, peripheral vascular disease, GUSTAVO, GERD, depression with history of suicidal ideation, obesity status post gastric sleeve, and COPD on 2.5 L O2 at night followed by Dr. Jorge who presents with complaints of shortness of breath. On presentation, vital signs were T 99.5, HR 76, RR 18, BP 106 is 69, saturating 100% on 28% nonrebreather. Laboratories were as insignificant. Chest x-ray was negative for any acute process. He was given methylprednisone, lorazepam, ceftriaxone, and azithromycin in the emergency room. He will be admitted to general medicine and treated for the following problems: 1. Tracheitis 2. Anxiety #Tracheitis: Patient presents with erythema around his stoma and complaints of fever and chills. Is likely that this is infected. -Ampicillin/sulbactam -Sputum culture -Influenza swab -Pulmonology consult -ENT consult #Anxiety: Patient expresses complaints of anxiety with history of psychiatric issues. -Psychiatry consult #Chronic medical problems: -Continue other home medications DVT prophylaxis with enoxaparin Heart healthy diet Full code As Ranked By This Provider Problem List: 1. Tracheitis Core Measures/Misc (02/21) Acute Coronary Syndrome ACS Diagnosis: No Congestive Heart Failure Congestive Heart Failure Diagnosis No Cerebrovascular Accident CVA/TIA Diagnosis: No VTE (View Protocol) VTE Risk Factors Age>40 No Mechanical VTE Prophylaxis d/t N/A MechProphylax Ordered No VTE Pharm Prophylaxis d/t NA PharmProphylax ordered Sepsis (View protocol) Sepsis Present: No Chelly Collins MD 08/16/17 1536: Resident Review Statement Resident Statement: examined this patient, discussed with agribusiness internship, agreed with agribusiness internship Other Findings: 66 YO M morbidly obese man with a past medical history significant for 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 Was seen by ENT physician and started on keflex which dod not improve his symptoms so he was sent in to the ER. Problem List 1. Sepsis 2/2 to Tracheitis 2. Morbid Obesity 3. Anxiety/Depression 4. Tracheostomy-History of laryngeal squamous cell cancer s/o laryngectomy Plan Admit to general medicine floor Start IV Unasyn 3 g every 6 hours Send sputum culture following suction of tracheostomy Trend lactate TRC/nebs Oxygen as needed IV fluid normal saline 150 mL per hour Resume his important home medications-please crush all meds and give with applesauce per patient Regular diet-patient reports he is able to eat a regular diet but does not needed chopped or pured DVT prophylaxis with subcutaneous Lovenox Adequate pain control Full code Follow attending recommendations Braulio Kaye MD 08/16/17 3379: Attending MD Review Statement Attending Statement Attending MD Statement: examined this patient, discuss w/resident/PA/AUTHORIZATION SPECIALIST, agreed w/resident/PA/AUTHORIZATION SPECIALIST, reviewed EMR data (avail) Attending Assessment/Plan: Will treat with Unasyn, deep sputum culture, suctioning, ENT and pulmonary consults, low threshold for ICU transfer, continue home medications, DVT PPx
--- NOTE | 2017-08-16 15:57 | Cons- Pulmonary ---
General Information and HPI Consulting Request Date of Consult: 08/16/17 Requested By: Juan Antonio Reason for Consult: Acute shortness of breath History of Present Illness: Patient is a 66-year-old gentleman status post surgery for laryngeal carcinoma COPD chronic hypoxic respiratory failure CPAP formally on BiPAP discontinued with tracheostomy history of coronary disease admitted with acute shortness of breath this morning. Patient felt congested with increased secretions. He denies hemoptysis or pleuritic chest pain. Chest x-ray was felt to be unrevealing for pneumonia. Note his lactic acid was elevated. CBCs is pending. Patient's respiratory status appears markedly improved from earlier this morning and he is much less tachypnea Allergies/Medications Allergies: Coded Allergies: adhesive tape (ALL TAPE GIVES RASH EXCEPT PAPER, PAPER TAPE OK 06/28/17) Home Med List: Albuterol Sulfate 2.5 MG/3 ML VIAL.NEB 1 Vial INH/FERCHO BID RESPIRATORY ( Reported) Aspirin (Ecotrin*) 81 MG TABLET.DR 2 TAB PO DAILY heart health (Reported) Atorvastatin Calcium (Lipitor) 20 MG TABLET 1 TAB PO DAILY CHOLESTEROL ( Reported) Budesonide/Formoterol Fumarate (Symbicort 160-4.5 Mcg Inhaler) 160 MCG-4.5 MCG/ ACTUATION HFA.AER.AD 2 PUF INH BID COPD (Reported) Escitalopram Oxalate 10 MG TABLET 1 TAB PO DAILY DEPRESSION (Reported) Furosemide (Lasix) 40 MG TABLET 1 TAB PO DAILY DIURETIC (Reported) Isosorbide Mononitrate (Isosorbide Mononitrate ER) 30 MG TAB.ER.24H 1 TAB PO DAILY BP (Reported) Metoprolol Tartrate 25 MG TABLET 1 TAB PO BID HEART (Reported) Mirtazapine 30 MG TABLET 1 TAB PO QPM MENTAL HEALTH (Reported) Naproxen 500 MG TABLET 1 TAB PO BID PAIN/INFLAMMATION (Reported) Pantoprazole Sodium 40 MG TABLET.DR 1 TAB PO DAILY ACID REFLUX (Reported) Potassium Chloride (Klor-Con 10) 10 MEQ TABLET.ER SUPPLEMENT (Reported) Review of Systems Review of Systems Constitutional: Reports: weakness. Denies: chills, fever. Cardiovascular: Reports: edema. Denies: chest pain. Respiratory: Reports: cough, short of breath, sputum production. Denies: hemoptysis. GI: Denies: abdominal pain, diarrhea, melena. 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 MOTHER (CAD). Psychosocial History Who Do You Live With? Roommate Services at Home: Home Health Aide, Nursing Primary Language: Malawian ETOH Use: denies use Functional Ability ADLs Independent: eating, toileting. Needs Assist: dressing, bathing. Ambulation: walker IADLs Needs Assist: medication admin. Exam & Diagnostic Data Last 24 Hrs of Vital Signs/I&O Vital Signs Date Time Temp Pulse Resp B/P B/P Pulse O2 O2 Flow FiO2 Mean Ox Delivery Rate 08/16 1500 99 Trach Mask 28% 08/16 1340 99 Trach Mask 28% 08/16 1334 98.9 78 18 110/78 100 Trach Mask 30% 08/16 1206 100 Trach Mask 30% 08/16 1158 99.5 76 18 106/69 100 Trach Mask 28% 08/16 1140 99 Trach Mask 28% Intake & Output 08/16 1600 08/16 0800 08/16 0000 Intake Total 0 Output Total Balance 0 Intake, Oral 0 Oxygen saturation is 99% on FiO2 0.2 H&H mask HEENT exam shows significant riddhi- stomal erythema which his family reports is new to his chest shows occasional rhonchi the breath sounds are diminished there are no wheezes cardiac exam shows regular S1 and S2 without murmurs abdomen is soft nontender he has chronic bilateral brawny edema Last 48 Hrs of Labs/Radu: Laboratory Tests 08/16/17 1342: Lactic Acid 5.2 H 08/16/17 1232: Anion Gap 13, Estimated GFR > 60, BUN/Creatinine Ratio 19.0, Glucose 98, Calcium 10.2, Total Bilirubin 0.4, AST 19, ALT 22, Alkaline Phosphatase 98, Troponin I < 0.01, Total Protein 6.6, Albumin 3.9, Globulin 2.7, Albumin/Globulin Ratio 1.4 Assessment/Plan Impression/Plan: 66-year-old status post laryngectomy for squamous cell carcinoma COPD on chronic low-flow oxygen sleep apnea resolved with tracheostomy is admitted with acute onset of shortness of breath this morning. His history of increased congestion and cough suggest respiratory infection though his chest x-ray is unrevealing. CBCs pending. Lactic acid is of concern for sepsis. Other concerns giving the acuity of her shortness of breath are possible pulmonary embolism,. Recommendations: ENT evaluation for possible peristomal soft tissue skin infection. Fully culture. Empiric broad-spectrum antibiotics. CAT scan angiogram to exclude pulmonary emboli. Repeat lactic acid. If CT scan of the chest fails to show evidence of infection would need to look at other sources such as intra- abdominal. Consult Acknowledgment - Thank you for your consult request.
[2017-08-16 17:52] VITALS: BP 98/60
--- NOTE | 2017-08-16 18:21 | CT SCAN REPORT ---
EXAMINATION: CT ANGIOGRAM CHEST WITH AND WITHOUT CONTRAST (CT PULMONARY ANGIOGRAM FOR PE) CLINICAL INFORMATION: Rule out PE, Shortness of breath, Post trach/stoma and vocal cord removal. COMPARISON: X-ray from today. CT 06/09/2017. TECHNIQUE: Prior to contrast administration, noncontrast localization images were obtained. Subsequently, multidetector volumetric imaging was performed from the thoracic inlet to below the diaphragms following the administration of 95 mL Optiray 320 intravenous contrast. No contrast reaction reported. Sagittal, coronal, and MIP oblique sagittal reformatted images were obtained on the CT workstation, uploaded to PACS, and reviewed. Total exam dose-length product 701 mGy-cm. FINDINGS: QUALITY OF STUDY/CONTRAST BOLUS: Satisfactory. PULMONARY ARTERIES: No evidence of central pulmonary embolus. There is limited evaluation of the segmental vessels to the bilateral lower lobes and the lingula, secondary to respiratory motion artifact and volume loss in the left lower lobe. The remainder of the segmental vessels appear patent without evidence of intraluminal filling defects to suggest pulmonary embolus. THORACIC AORTA: No aneurysm or dissection. LUNG: Volume loss in the left hemithorax. Linear plate-like atelectasis in the left lower lobe. There is traction bronchiectasis present. There is some opacity along the left fissure, appearing similar as compared to previous. Small patchy opacity in the lingula adjacent to fissure, probably reflecting atelectasis rather than infiltrate. No confluent opacity is otherwise seen to suggest atelectasis. There is mild atelectasis in the right lower lobe, with improved aeration as compared to previous. PLEURA: No pleural effusion or pneumothorax. MEDIASTINUM: Evidence of tracheostomy. Tracheostomy, with a tracheostomy tube not included in the [id number]. Normal heart size. No pericardial effusion. No hilar or mediastinal lymphadenopathy. No evidence of septal bowing or right heart strain. Coronary artery calcification. CHEST WALL/AXILLA: No axillary or internal mammary lymphadenopathy. OSSEOUS STRUCTURES: No acute or suspicious osseous abnormality. Multilevel degenerative changes in the spine. Status post sternotomy. UPPER ABDOMEN: Visualized liver, gallbladder, adrenal glands, spleen, pancreas, kidneys appear unremarkable. No reflux of contrast into the hepatic veins to suggest elevated right heart pressures. IMPRESSION: 1. No evidence of central pulmonary embolus. Limited evaluation of segmental vessels to the lingula and bilateral lower lobes. The remainder of the segmental vessels appear patent without evidence of embolus. 2. Volume loss in the left hemithorax. There is atelectasis with traction bronchiectasis in the left lower lobe. Mild right basilar atelectasis.
[2017-08-16 22:08] VITALS: BP 116/71
[2017-08-17 06:04] VITALS: BP 100/70
--- NOTE | 2017-08-17 07:50 | PN- Housestaff ---
Nan Washington 08/17/17 0750: Subjective Follow-up For: Tracheitis Subjective: No complaints or acute events overnight Review of Systems Constitutional: Reports: see HPI. Objective Last 24 Hrs of Vital Signs/I&O Vital Signs Date Time Temp Pulse Resp B/P B/P Pulse O2 O2 Flow FiO2 Mean Ox Delivery Rate 08/17 0926 97.3 61 20 100/70 08/17 0815 97.3 61 20 100/70 08/17 0814 97.3 61 20 100/70 08/17 0800 78 08/17 0604 97.3 61 20 100/70 99 Trach Mask 6.0L 08/17 0136 93 Trach Mask 28% 08/17 0000 95 Trach Mask 28% 08/16 2208 97.9 90 20 116/71 95 08/16 2027 90 116/70 08/16 1752 99.9 99 18 98/60 97 Trach Mask 28% 08/16 1747 97 Trach Mask 28% 08/16 1558 99.1 70 98/52 100 Trach Mask 28% 08/16 1500 99 Trach Mask 28% 08/16 1340 99 Trach Mask 28% 08/16 1334 98.9 78 18 110/78 100 Trach Mask 30% 08/16 1206 100 Trach Mask 30% 08/16 1158 99.5 76 18 106/69 100 Trach Mask 28% 08/16 1140 99 Trach Mask 28% Intake & Output 08/17 1600 08/17 0800 08/17 0000 Intake Total 1320 1900 Output Total 566 838 8231 Balance -400 970 800 Intake, IV 1200 1200 Intake, Oral 120 700 Output, Urine 544 045 5890 Patient 308 lb Weight Weight Reported by Patient Measurement Method Physical Exam General Appearance: Alert, Oriented X3, Cooperative, morbid obese Skin: Medial sternotomy scar HEENT: Trach in place Cardiovascular: Regular Rate, Normal S1, Normal S2 Lungs: Clear to Auscultation Abdomen: Normal Bowel Sounds, Soft, No Tenderness Extremities: BL skin discoloration Current Medications: Current Medications Sig/Samreen Start time Last Medication Dose Route Stop Time Status Admin Acetaminophen 650 MG Q6P PRN 08/16 1445 AC PO Acetaminophen 650 MG Q4P PRN 08/16 1430 DC PO Albuterol Sulfate 3 ML ONCE ONE 08/16 1330 DC INH 08/16 1331 Ampicillin Sodium/ 3,000 MG Q6H 08/17 0200 AC 08/17 Sulbactam Sodium IV 0805 Sodium Chloride 100 ML Ampicillin Sodium/ 3,000 MG Q6 08/16 1800 DC 08/16 Sulbactam Sodium IV 1958 Sodium Chloride 100 ML Aspirin Buffered 162 MG DAILY 08/17 1000 AC 08/17 PO 0815 Atorvastatin Calcium 20 MG 1700 08/17 1700 AC PO Azithromycin 500 MG ONCE ONE 08/16 1400 DC 08/16 Dextrose/Water 250 ML IV 08/16 1459 1428 Budesonide/ 2 PUF BID 08/16 2200 AC 08/17 Formoterol Fumarate INH 0815 Ceftriaxone Sodium 0 .STK-MED ONE 08/16 1433 DC .ROUTE Ceftriaxone Sodium 1,000 MG ONCE ONE 08/16 1400 DC 08/16 IV 08/16 1401 1428 Enoxaparin Sodium 40 MG DAILY 08/16 1630 AC 08/17 SC 0814 Enoxaparin Sodium 30 MG DAILY 08/16 1436 DC SC Escitalopram Oxalate 10 MG DAILY 08/17 1000 AC 08/17 PO 0815 Furosemide 40 MG DAILY 08/17 1000 AC 08/17 PO 0814 Ipratropium [place] 2.5 ML ONCE ONE 08/16 1330 DC INH 08/16 1331 Isosorbide Dinitrate 10 MG TID 08/17 1000 AC 08/17 PO 0926 Isosorbide 30 MG DAILY 08/17 1000 DC 08/17 Mononitrate PO 0815 Lorazepam 1 MG TID PRN 08/16 1545 AC IV Lorazepam 0 .STK-MED ONE 08/16 1333 DC .ROUTE Lorazepam 2 MG ONCE ONE 08/16 1330 DC 08/16 IM 08/16 1331 1334 Methylprednisolone 0 .STK-MED ONE 08/16 1433 DC .ROUTE Methylprednisolone 125 MG ONCE ONE 08/16 1345 DC 08/16 IV 08/16 1346 1428 Metoprolol Tartrate 25 MG BID 08/16 2200 AC 08/17 PO 0814 Mirtazapine 30 MG QPM 08/16 2200 AC 08/16 PO 2027 Morphine Sulfate 0 .STK-MED ONE 08/16 1449 DC .ROUTE Morphine Sulfate 4 MG ONCE ONE 08/16 1445 DC 08/16 IV 08/16 1446 1444 Naproxen 250 MG Q8 08/16 2200 AC 08/17 PO 0526 Naproxen 500 MG .STK-MED ONE 08/16 2125 DC PO 08/16 2126 Omeprazole 40 MG DAILY AC 08/17 0700 DC PO Pantoprazole Sodium 40 MG DAILY 08/17 1000 AC 08/17 IV 0805 Sodium Chloride 1,000 ML BOLUS ONE 08/17 0830 DC 08/17 IV 08/17 0929 0925 Sodium Chloride 1,000 ML Q6H 08/16 1645 AC 08/17 IV 0526 Sodium Chloride 4,170 ML ONCE ONE 08/16 1530 DC 08/16 IV 08/16 1531 1540 Last 24 Hrs of Lab/Radu Results Last 24 Hrs of Labs/Mics: Laboratory Tests 08/17/17 0920: Lactic Acid Pending 08/17/17 0920: Sodium Pending, Potassium Pending, Chloride Pending, Carbon Dioxide Pending, Anion Gap Pending, BUN Pending, Creatinine Pending, BUN/Creatinine Ratio Pending , WBC Pending, RBC Pending, Hgb Pending, Hct Pending, MCV Pending, MCH Pending, MCHC Pending, RDW Pending, Plt Count Pending, MPV Pending 08/16/17 2230: Lactic Acid 3.5 H 08/16/17 1920: Urine Color YEL, Urine Clarity CLEAR, Urine pH 8.0, Ur Specific [place] 1.010, Urine Protein TRACE H, Urine Ketones 15 H, Urine Nitrite NEG, Urine Bilirubin NEG, Urine Urobilinogen 0.2, Ur Leukocyte Esterase NEG, Ur Microscopic SEDIMENT EXAMINED, Urine RBC RARE, Urine WBC RARE, Ur Epithelial Cells RARE, Urine Bacteria RARE H, Urine Mucus RARE, Urine Hemoglobin NEG, Urine Glucose NEG 08/16/17 1759: Lactic Acid 3.8 H 08/16/17 1342: Lactic Acid 5.2 H 08/16/17 1259: Lactic Acid Cancelled 08/16/17 1232: Anion Gap 13, Estimated GFR > 60, BUN/Creatinine Ratio 19.0, Glucose 98, Calcium 10.2, Total Bilirubin 0.4, AST 19, ALT 22, Alkaline Phosphatase 98, Troponin I < 0.01, Total Protein 6.6, Albumin 3.9, Globulin 2.7, Albumin/Globulin Ratio 1.4, CBC w Diff Cancelled, WBC Cancelled, RBC Cancelled, Hgb Cancelled, Hct Cancelled , MCV Cancelled, MCH Cancelled, MCHC Cancelled, RDW Cancelled, Plt Count Cancelled, MPV Cancelled Microbiology 08/16 1628 NASOPHARYN: Influenza Virus A & B Rapid Smear - COMP 08/16 1445 LOWER RESP: Respiratory Culture - RES 08/16 1445 LOWER RESP: Gram Stain - RES 08/16 1342 BLOOD: Blood Culture - RECD 08/16 1146 BLOOD: Blood Culture - CAN Cancelled: SPECIMEN NEVER RECEIVED. REORDER IF NEEDED Assessment/Plan Assessment: Mr. 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 Mancia, CAD status post bypass, hypertension, hyperlipidemia, peripheral vascular disease, GUSTAVO, GERD, depression with history of suicidal ideation, obesity status post gastric sleeve, and COPD on 2.5 L O2 at night followed by Dr. Jorge who presents with complaints of shortness of breath. Problem list: 1.Tracheitis 2. Morbid Obesity 3. Anxiety/Depression 4. Tracheostomy-History of laryngeal squamous cell cancer s/o laryngectomy 5. Lactic acidosis Plan: Crush all meds in applesauce Change isosorbide mononitrate to dinitrate because unable to crush mononitrate NS IVF 1 bag for hypotension Lactic acid trending down 5.2>>>3 Apply Bactroban to peristomal skin daily, keep decannulated until infection improves as per ENT ENT recommendations appreciated DVT prophylaxis with subcutaneous Lovenox Full code Problem List: 1. 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 Doing much better today. Breathing comfortably and appears much less ill. Lungs clear. Erythema present at stomal site. Labs improving, lactate normalized. On 6L trach collar. 1. Tracheitis 2. Peristomal cellulitis 3. Acute on chronic hypoxemic respiratory failure 4. Anxiety and depression Plan - Continue on general medicine - Continue Unasyn - Follow cultures - Follow ENT and pulmonary recommmendations - Bactroban to stoma - Continue home medications - DVT PPx
--- NOTE | 2017-08-17 08:48 | PN- Pulmonary ---
Subjective HPI/Critical Care Issues: Patient feels markedly improved shortness breath is resolved. Objective Current Medications: Current Medications Sig/Samreen Start time Last Medication Dose Route Stop Time Status Admin Acetaminophen 650 MG Q6P PRN 08/16 1445 AC PO Acetaminophen 650 MG Q4P PRN 08/16 1430 DC PO Albuterol Sulfate 3 ML ONCE ONE 08/16 1330 DC INH 08/16 1331 Ampicillin Sodium/ 3,000 MG Q6H 08/17 0200 AC 08/17 Sulbactam Sodium IV 0805 Sodium Chloride 100 ML Ampicillin Sodium/ 3,000 MG Q6 08/16 1800 DC 08/16 Sulbactam Sodium IV 1958 Sodium Chloride 100 ML Aspirin Buffered 162 MG DAILY 08/17 1000 AC 08/17 PO 0815 Atorvastatin Calcium 20 MG 1700 08/17 1700 AC PO Azithromycin 500 MG ONCE ONE 08/16 1400 DC 08/16 Dextrose/Water 250 ML IV 08/16 1459 1428 Budesonide/ 2 PUF BID 08/16 2200 AC 08/17 Formoterol Fumarate INH 0815 Ceftriaxone Sodium 0 .STK-MED ONE 08/16 1433 DC .ROUTE Ceftriaxone Sodium 1,000 MG ONCE ONE 08/16 1400 DC 08/16 IV 08/16 1401 1428 Enoxaparin Sodium 40 MG DAILY 08/16 1630 AC 08/17 SC 0814 Enoxaparin Sodium 30 MG DAILY 08/16 1436 DC SC Escitalopram Oxalate 10 MG DAILY 08/17 1000 AC 08/17 PO 0815 Furosemide 40 MG DAILY 08/17 1000 AC 08/17 PO 0814 Ipratropium [place] 2.5 ML ONCE ONE 08/16 1330 DC INH 08/16 1331 Isosorbide 30 MG DAILY 08/17 1000 AC 08/17 Mononitrate PO 0815 Lorazepam 1 MG TID PRN 08/16 1545 AC IV Lorazepam 0 .STK-MED ONE 08/16 1333 DC .ROUTE Lorazepam 2 MG ONCE ONE 08/16 1330 DC 08/16 IM 08/16 1331 1334 Methylprednisolone 0 .STK-MED ONE 08/16 1433 DC .ROUTE Methylprednisolone 125 MG ONCE ONE 08/16 1345 DC 08/16 IV 08/16 1346 1428 Metoprolol Tartrate 25 MG BID 08/16 2200 AC 08/17 PO 0814 Mirtazapine 30 MG QPM 03/12 2200 AC 08/16 PO 2027 Morphine Sulfate 0 .STK-MED ONE 08/16 1449 DC .ROUTE Morphine Sulfate 4 MG ONCE ONE 08/16 1445 DC 08/16 IV 08/16 1446 1444 Naproxen 250 MG Q8 08/16 2200 AC 08/17 PO 0526 Naproxen 500 MG .STK-MED ONE 08/16 2126 DC PO 08/16 212 Omeprazole 40 MG DAILY AC 08/17 0700 DC PO Pantoprazole Sodium 40 MG DAILY 08/17 1000 AC 08/17 IV 0805 Sodium Chloride 1,000 ML BOLUS ONE 08/17 0830 AC IV 08/17 0929 Sodium Chloride 1,000 ML Q6H 08/16 1645 AC 08/17 IV 0526 Sodium Chloride 4,170 ML ONCE ONE 08/16 1530 DC 08/16 IV 08/16 1531 1540 Vital Signs & I&O Last 24 Hrs of Vitals and I&O: Vital Signs Date Time Temp Pulse Resp B/P B/P Pulse O2 O2 Flow FiO2 Mean Ox Delivery Rate 08/17 0815 97.3 61 20 100/70 08/17 0814 97.3 61 20 100/70 08/17 0604 97.3 61 20 100/70 99 Trach Mask 6.0L 08/17 0136 93 Trach Mask 28% 08/17 0000 95 Trach Mask 28% 08/16 2208 97.9 90 20 116/71 95 08/16 2027 90 116/70 08/16 1752 99.9 99 18 98/60 97 Trach Mask 28% 08/16 1747 97 Trach Mask 28% 08/16 1558 99.1 70 98/52 100 Trach Mask 28% 08/16 1500 99 Trach Mask 28% 08/16 1340 99 Trach Mask 28% 08/16 1334 98.9 78 18 110/78 100 Trach Mask 30% 08/16 1206 100 Trach Mask 30% 08/16 1158 99.5 76 18 106/69 100 Trach Mask 28% 08/16 1140 99 Trach Mask 28% Intake & Output 08/17 1600 08/17 0800 08/17 0000 Intake Total 1320 1900 Output Total 237 859 2976 Balance -400 970 800 Intake, IV 1200 1200 Intake, Oral 120 700 Output, Urine 594 849 1967 Patient 308 lb Weight Weight Reported by Patient Measurement Method Patient is comfortable on trach mask exam for chest shows diminished breath sounds there are rare rhonchi cardiac exam shows regular S1 and S2 without murmurs there is persistent. Trach stoma erythema Impression/Plan Impression/Plan Impression/Plan: 66-year-old status post laryngectomy for cancer is radiation admitted with increasing shortness breath which appears to have resolved and soft tissue skin infection around his stoma Recommendations: ENT evaluation for possible peristomal soft tissue skin infection. Fully culture. Empiric broad-spectrum antibiotics. In sure labs were sent inclusive of CBCs and repeat chemistries. Taper FiO2 his saturations allow maintaining saturation of 92% or greater
--- NOTE | 2017-08-17 08:52 | Cons- Ear,Nose&Throat ---
General Information and HPI Consulting Request Date of Consult: 08/17/17 Requested By: Mikki ZENG,Braulio Ahn MD, [place] Reason for Consult: acute dyspnea S/P total laryngectomy Source of Information: patient, old records Exam Limitations: no limitations History of Present Illness: This 66-year-old male is well known to me for evaluation and treatment of a laryngeal squamous cell Ca. History dates back to November 2015 at which time he was diagnosed with bilateral vocal cord squamous cell carcinoma and treated with radiation therapy for cure between March and May 2016 by Catherine Lindsey MD of the radiation center. He received 6600 cGY over 33 fractionation's He was doing reasonably well until March 2017 at which time a PET scan revealed uptake in the laryngeal area with the findings of paralysis of the right vocal cord and evidence of recurrent carcinoma which was proven by biopsy. For a variety of reasons surgical salvage was delayed until June 2017 at which time he underwent total laryngectomy with partial pharyngectomy and primary closure, bilateral neck dissection, cricopharyngeal myotomy, and sternocleidomastoid muscle rotation flaps bilaterally for reconstruction. He was rehabilitated at [facility] and eventually was able to be discharged to home on self care. I recently saw him approximately 10 days ago and noted an early infection in the peristomal skin and placed him on Keflex. Over the past several days he noted increasing sensation of airway obstruction and difficulty breathing and was seen in the emergency room and admitted. He has evidence of the peristomal soft tissue infection is noted by Dr. Ahn. Pulmonary examination is otherwise not remarkable He denies dysphagia Allergies/Medications Allergies: Coded Allergies: adhesive tape (ALL TAPE GIVES RASH EXCEPT PAPER, PAPER TAPE OK 06/28/17) Home Med List: Albuterol Sulfate 2.5 MG/3 ML VIAL.NEB 1 Vial INH/FERCHO BID RESPIRATORY ( Reported) Aspirin (Ecotrin*) 81 MG TABLET.DR 2 TAB PO DAILY heart health (Reported) Atorvastatin Calcium (Lipitor) 20 MG TABLET 1 TAB PO DAILY CHOLESTEROL ( Reported) Budesonide/Formoterol Fumarate (Symbicort 160-4.5 Mcg Inhaler) 160 MCG-4.5 MCG/ ACTUATION HFA.AER.AD 2 PUF INH BID COPD (Reported) Escitalopram Oxalate 10 MG TABLET 1 TAB PO DAILY DEPRESSION (Reported) Furosemide (Lasix) 40 MG TABLET 1 TAB PO DAILY DIURETIC (Reported) Isosorbide Mononitrate (Isosorbide Mononitrate ER) 30 MG TAB.ER.24H 1 TAB PO DAILY BP (Reported) Metoprolol Tartrate 25 MG TABLET 1 TAB PO BID HEART (Reported) Mirtazapine 30 MG TABLET 1 TAB PO QPM MENTAL HEALTH (Reported) Naproxen 500 MG TABLET 1 TAB PO BID PAIN/INFLAMMATION (Reported) Pantoprazole Sodium 40 MG TABLET.DR 1 TAB PO DAILY ACID REFLUX (Reported) Potassium Chloride (Klor-Con 10) 10 MEQ TABLET.ER SUPPLEMENT (Reported) Current Medications: Current Medications Sig/Samreen Start time Last Medication Dose Route Stop Time Status Admin Acetaminophen 650 MG Q6P PRN 08/16 1445 AC PO Acetaminophen 650 MG Q4P PRN 08/16 1430 DC PO Albuterol Sulfate 3 ML ONCE ONE 08/16 1330 DC INH 08/16 1331 Ampicillin Sodium/ 3,000 MG Q6H 08/17 0200 AC 08/17 Sulbactam Sodium IV 0805 Sodium Chloride 100 ML Ampicillin Sodium/ 3,000 MG Q6 08/16 1800 DC 08/16 Sulbactam Sodium IV 1958 Sodium Chloride 100 ML Aspirin Buffered 162 MG DAILY 08/17 1000 AC 08/17 PO 0815 Atorvastatin Calcium 20 MG 1700 08/17 1700 AC PO Azithromycin 500 MG ONCE ONE 08/16 1400 DC 08/16 Dextrose/Water 250 ML IV 08/16 1459 1428 Budesonide/ 2 PUF BID 08/16 2200 AC 08/17 Formoterol Fumarate INH 0815 Ceftriaxone Sodium 0 .STK-MED ONE 08/16 1433 DC .ROUTE Ceftriaxone Sodium 1,000 MG ONCE ONE 08/16 1400 DC 08/16 IV 08/16 1401 1428 Enoxaparin Sodium 40 MG DAILY 08/16 1630 AC 08/17 SC 0814 Enoxaparin Sodium 30 MG DAILY 08/16 1436 DC SC Escitalopram Oxalate 10 MG DAILY 08/17 1000 AC 08/17 PO 0815 Furosemide 40 MG DAILY 08/17 1000 AC 08/17 PO 0814 Ipratropium [place] 2.5 ML ONCE ONE 08/16 1330 DC INH 08/16 1331 Isosorbide 30 MG DAILY 08/17 1000 AC 08/17 Mononitrate PO 0815 Lorazepam 1 MG TID PRN 08/16 1545 AC IV Lorazepam 0 .STK-MED ONE 08/16 1333 DC .ROUTE Lorazepam 2 MG ONCE ONE 08/16 1330 DC 03/ IM 08/16 1331 1334 Methylprednisolone 0 .STK-MED ONE 08/16 1433 DC .ROUTE Methylprednisolone 125 MG ONCE ONE 08/16 1345 DC / IV 08/16 1346 1428 Metoprolol Tartrate 25 MG BID 08/16 2200 AC 08/17 PO 0814 Mirtazapine 30 MG QPM 08/16 2200 AC 08/16 PO 2027 Morphine Sulfate 0 .STK-MED ONE 08/16 1449 DC .ROUTE Morphine Sulfate 4 MG ONCE ONE 08/16 1445 DC / IV 08/16 1446 1444 Naproxen 250 MG Q8 08/16 2200 AC 08/17 PO 0526 Naproxen 500 MG .STK-MED ONE 08/16 2126 DC PO 08/16 2127 Omeprazole 40 MG DAILY AC 08/17 0700 DC PO Pantoprazole Sodium 40 MG DAILY 08/17 1000 AC 08/17 IV 0805 Sodium Chloride 1,000 ML BOLUS ONE 08/17 0830 AC IV 08/17 0929 Sodium Chloride 1,000 ML Q6H 08/16 1645 AC 08/17 IV 0526 Sodium Chloride 4,170 ML ONCE ONE 08/16 1530 DC 08/16 IV 08/16 1531 1540 Past History Medical History Neurological: NONE EENT: NONE Cardiovascular: CAD (S/P CABG X 3 '03), hyperlipidemia, PVD Respiratory: COPD (2L O2 CONTINUOUS), obstructive sleep apnea (NIGHTLY CPAP) Gastrointestinal: GERD Hepatic: NONE Renal: NONE Musculoskeletal: chronic back pain, BACK SURGERY Psychiatric: depression (WITH SI+) Endocrine: obesity Blood Disorders: NONE 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 MOTHER (CAD). Psychosocial History Where Do You Live? Home Who Do You Live With? Roommate Services at Home: Home Health Aide, Nursing Primary Language: Lithuanian Smoking Status: Former Smoker ETOH Use: denies use Functional Ability ADLs Independent: eating, toileting. Needs Assist: dressing, bathing. Ambulation: walker IADLs Needs Assist: medication admin. Exam & Diagnostic Data Vital Signs and I&O Vital Signs Date Time Temp Pulse Resp B/P B/P Pulse O2 O2 Flow FiO2 Mean Ox Delivery Rate 08/17 0815 97.3 61 20 100/70 08/17 0814 97.3 61 20 100/70 08/17 0604 97.3 61 20 100/70 99 Trach Mask 6.0L 08/17 0136 93 Trach Mask 28% 08/17 0000 95 Trach Mask 28% 08/16 2208 97.9 90 20 116/71 95 08/16 2027 90 116/70 08/16 1752 99.9 99 18 98/60 97 Trach Mask 28% 08/16 1747 97 Trach Mask 28% 08/16 1558 99.1 70 98/52 100 Trach Mask 28% 08/16 1500 99 Trach Mask 28% 08/16 1340 99 Trach Mask 28% 08/16 1334 98.9 78 18 110/78 100 Trach Mask 30% 08/16 1206 100 Trach Mask 30% 08/16 1158 99.5 76 18 106/69 100 Trach Mask 28% 08/16 1140 99 Trach Mask 28% Intake & Output 08/17 1600 08/17 0800 08/17 0000 08/16 1600 08/16 0800 08/16 0000 Intake Total 1320 1900 0 Output Total 780 759 7476 Balance -400 970 800 0 Intake, IV 1200 1200 Intake, Oral 120 700 0 Output, Urine 947 528 3109 Patient 308 lb Weight Weight Reported by Patient Measurement Method Physical Exam: Examination at the bedside reveals that he is awake and alert and oriented. He does not appear to be in any acute distress. His vital signs are stable and he is afebrile at this time although reports of a low-grade temperature overnight. Nose and oral pharyngeal examination are unremarkable with the exception of poor dentition. Neck examination reveals that his neck is supple. The stoma itself appears irritated crusted with mild soft tissue erythema and swelling in the peristomal region Fiberoptic tracheoscopy reveals inflammation of the upper trachea but there is no evidence of obstruction or debris within the lower trachea down to the [place]chell Assessment/Plan Assessment/Plan Impression: Peristomal skin infection with tracheitis Status post total laryngectomy for salvage following radiation therapy Multiple comorbidities including COPD, obesity, ischemic heart disease, hypertension, with history of obstructive sleep apnea (resolved following total laryngectomy) Plan: Continue antibiotic treatment pending cultures of the peristomal infection Local care to the peristomal skin with either Bactroban cream or ointment or Betadine ointment Keep decannulated until the infection improves and then replace the laryngectomy tube as the infection improves Consult Acknowledgment - Thank you for your consult request.
[2017-08-17 09:51] LABS: ABSOLUTE BASOPHIL COUNT 0 /CUMM (0.0-0.2); ABSOLUTE EOSINOPHIL COUNT 0 /CUMM (0.0-0.7); ABSOLUTE GRANULOCYTE CT 10.6 /CUMM (1.4-6.5); ABSOLUTE MONOCYTE COUNT 0.3 /CUMM (0.10-0.60); BASOPHIL % 0.2 % (0.0-2.0); EOSINOPHIL % 0.2 % (0-5); MEAN CORPUSCULAR HGB 28.5 PG (27.0-31.0); MEAN CORPUSCULAR HGB CONC 31.7 G/DL (33.0-37.0); MEAN CORPUSCULAR VOLUME 89.9 FL (80.0-94.0); MEAN PLATELET VOLUME 7.2 FL (7.4-10.4); PLATELET COUNT 279 /CUMM (130-400); RBC DISTRIBUTION WIDTH 17.8 % (11.5-14.5); RED BLOOD CELL CT 4.44 /CUMM (4.70-6.10)
[2017-08-17 10:19] LABS: GRANULOCYTE % 88.4 % (42.2-75.2)
[2017-08-17 16:30] VITALS: BP 102/70
[2017-08-17 22:48] VITALS: BP 120/68
[2017-08-18 06:27] VITALS: BP 118/62
--- NOTE | 2017-08-18 07:29 | PN- Housestaff ---
See Addendum Subjective Follow-up For: Tracheitis Subjective: No complaints or acute events overnight Patient OOB in chair Review of Systems Constitutional: Reports: see HPI. Objective Last 24 Hrs of Vital Signs/I&O Vital Signs Date Time Temp Pulse Resp B/P B/P Pulse O2 O2 Flow FiO2 Mean Ox Delivery Rate 08/18 06 98.5 61 20 118/62 96 Trach Mask 08/18 0119 97 Trach Mask 28% 08/18 0000 Trach Mask 6.0L 08/17 2314 52 120/68 08/17 2313 52 120/68 08/17 2248 98.1 52 20 120/68 97 08/17 2012 99 Trach Mask 28% 08/17 1959 Trach Mask 25% 08/17 1630 60 20 102/70 98 Trach Mask 6.0L 08/17 1600 97 Trach Mask 6.0L 08/17 1416 98.2 61 20 99 Room Air Intake & Output 08/18 1600 08/18 0800 08/18 0000 Intake Total 1200 600 Output Total 800 300 Balance 400 300 Intake, IV 1200 600 Number 0 Bowel Movements Output, Urine 800 300 Physical Exam General Appearance: Alert, Oriented X3, Cooperative, Obese Skin: Medial sternotomy scar Neck: Trach mask Cardiovascular: Regular Rate, Normal S1, Normal S2 Lungs: Clear to Auscultation, Decreased breath sounds Abdomen: Normal Bowel Sounds, Soft, No Tenderness Extremities: BL skin discoloration Current Medications: Current Medications Sig/Samreen Start time Last Medication Dose Route Stop Time Status Admin Acetaminophen 650 MG Q6P PRN 08/16 1445 AC PO Ampicillin Sodium/ 3,000 MG Q6H 08/17 0200 AC 08/18 Sulbactam Sodium IV 0808 Sodium Chloride 100 ML Aspirin Buffered 162 MG DAILY 08/17 1000 AC 08/17 PO 0815 Atorvastatin Calcium 20 MG 1700 08/17 1700 AC 08/17 PO 1625 Budesonide/ 2 PUF BID 08/16 2200 AC 08/17 Formoterol Fumarate INH 2312 Enoxaparin Sodium 40 MG DAILY 08/16 1630 AC 08/17 SC 0814 Escitalopram Oxalate 10 MG DAILY 08/17 1000 AC 08/17 PO 0815 Furosemide 40 MG DAILY 08/17 1000 AC 08/17 PO 0814 Isosorbide Dinitrate 10 MG TID 08/17 1000 AC 08/17 PO 2313 Lorazepam 1 MG TID PRN 08/16 1545 AC IV Metoprolol Tartrate 25 MG BID 08/16 2200 AC 08/17 PO 2314 Mirtazapine 30 MG QPM 08/16 2200 AC 08/17 PO 2315 Mupirocin 1 USHA TID 08/17 1235 AC 08/17 TOP 2314 Naproxen 250 MG Q8 08/16 2200 AC 08/18 PO 0521 Pantoprazole Sodium 40 MG DAILY 08/17 1000 AC 08/17 IV 0805 Polyethylene Glycol 17 GM DAILY 08/17 1313 AC 08/17 PO 1353 Senna 187 MG AT BEDTIME 08/17 220 AC 08/17 PO 2314 Sodium Chloride 1,000 ML Q6H 08/16 1645 DC 08/18 IV 0458 Last 24 Hrs of Lab/Radu Results Last 24 Hrs of Labs/Mics: Laboratory Tests 08/18/17 0803: CBC w Diff NO MAN DIFF REQ, RBC 4.45 L, MCV 89.6, MCH 29.3, MCHC 32.6 L, RDW 18.5 H, MPV 7.3 L, Gran % 73.1, Lymphocytes % 16.6 L, Monocytes % 6.5, Eosinophils % 2.6, Basophils % 1.2, Absolute Granulocytes 4.8, Absolute Lymphocytes 1.1 L, Absolute Monocytes 0.4, Absolute Eosinophils 0.2, Absolute Basophils 0.1 08/17/17 2041: Lactic Acid 1.9 08/17/17 1440: Lactic Acid 3.1 H Assessment/Plan Assessment: Mr. 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 Mancia, CAD status post bypass, hypertension, hyperlipidemia, peripheral vascular disease, GUSTAVO, GERD, depression with history of suicidal ideation, obesity status post gastric sleeve, and COPD on 2.5 L O2 at night followed by Dr. Jorge who presents with complaints of shortness of breath. Problem list: 1.Tracheitis 2. Morbid Obesity 3.Tracheostomy-History of laryngeal squamous cell cancer s/o laryngectomy 4. Lactic acidosis - resolved Plan: Crush all meds in applesauce Hold antihypertensives due to borderline hypotension Apply Bactroban to peristomal skin daily, keep decannulated until infection improves as per ENT ENT recommendations appreciated DVT prophylaxis with subcutaneous Lovenox Full code Problem List: 1. Tracheitis Pain Ratin Pain Location: NA Pain Goal: Remain pain free Pain Plan: NA Tomorrow's Labs & Rationales: NONE
--- NOTE | 2017-08-18 08:20 | PN- Pulmonary ---
Subjective HPI/Critical Care Issues: Shortness of breath has resolved. Ciarra-trach stoma erythema is fading Objective Current Medications: Current Medications Sig/Samreen Start time Last Medication Dose Route Stop Time Status Admin Acetaminophen 650 MG Q6P PRN 08/16 1445 AC PO Ampicillin Sodium/ 3,000 MG Q6H 08/17 0200 AC 08/18 Sulbactam Sodium IV 0808 Sodium Chloride 100 ML Aspirin Buffered 162 MG DAILY 08/17 1000 AC 08/17 PO 0815 Atorvastatin Calcium 20 MG 1700 08/17 1700 AC 08/17 PO 1625 Budesonide/ 2 PUF BID 08/16 2200 AC 08/17 Formoterol Fumarate INH 2312 Enoxaparin Sodium 40 MG DAILY 08/16 1630 AC 08/17 SC 0814 Escitalopram Oxalate 10 MG DAILY 08/17 1000 AC 08/17 PO 0815 Furosemide 40 MG DAILY 08/17 1000 AC 08/17 PO 0814 Isosorbide Dinitrate 10 MG TID 08/17 1000 AC 08/17 PO 2313 Isosorbide 30 MG DAILY 08/17 1000 DC 08/17 Mononitrate PO 0815 Lorazepam 1 MG TID PRN 08/16 1545 AC IV Metoprolol Tartrate 25 MG BID 08/16 2200 AC 08/17 PO 2314 Mirtazapine 30 MG QPM 08/16 2200 AC 08/17 PO 2315 Mupirocin 1 USHA TID 08/17 1235 AC 08/17 TOP 2314 Naproxen 250 MG Q8 08/16 2200 AC 08/18 PO 0521 Pantoprazole Sodium 40 MG DAILY 08/17 1000 AC 08/17 IV 0805 Polyethylene Glycol 17 GM DAILY 08/17 1313 AC 08/17 PO 1353 Senna 187 MG AT BEDTIME 08/17 2200 AC 08/17 PO 2314 Sodium Chloride 1,000 ML BOLUS ONE 08/17 0830 DC 08/17 IV 08/17 0929 0925 Sodium Chloride 1,000 ML Q6H 08/16 1645 AC 08/18 IV 0458 Vital Signs & I&O Last 24 Hrs of Vitals and I&O: Vital Signs Date Time Temp Pulse Resp B/P B/P Pulse O2 O2 Flow FiO2 Mean Ox Delivery Rate 08/18 0527 98.5 61 20 118/62 96 Trach Mask 08/18 0119 97 Trach Mask 28% 08/18 0000 Trach Mask 6.0L 08/17 2314 52 120/68 08/17 2313 52 120/68 08/17 2248 98.1 52 20 120/68 97 08/17 2012 99 Trach Mask 28% 08/179 Trach Mask 25% 08/17 1630 60 20 102/70 98 Trach Mask 6.0L 08/17 1600 97 Trach Mask 6.0L 08/17 1416 98.2 61 20 99 Room Air 08/17 0926 97.3 61 20 100/70 Intake & Output 08/18 1600 08/18 0800 08/18 0000 Intake Total 1200 600 Output Total 800 300 Balance 400 300 Intake, IV 1200 600 Number 0 Bowel Movements Output, Urine 800 300 Oxygen saturation 96% FiO2 28% exam of his chest shows rare rhonchi there is good air entry cardiac exam shows regular S1 and S2 without murmurs Impression/Plan Impression/Plan Impression/Plan: 66-year-old status post laryngectomy admitted with increasing shortness of breath which has resolved and soft tissue skin infection which is improving. Recommendations: Complete course of antibiotics. Continue aggressive pulmonary toilet. Mobilized out of bed.
[2017-08-18 08:59] LABS: ABSOLUTE BASOPHIL COUNT 0.1 /CUMM (0.0-0.2); ABSOLUTE EOSINOPHIL COUNT 0.2 /CUMM (0.0-0.7); ABSOLUTE GRANULOCYTE CT 4.8 /CUMM (1.4-6.5); ABSOLUTE LYMPH COUNT 1.1 /CUMM (1.2-3.4); ABSOLUTE MONOCYTE COUNT 0.4 /CUMM (0.10-0.60); BASOPHIL % 1.2 % (0.0-2.0); EOSINOPHIL % 2.6 % (0-5); GRANULOCYTE % 73.1 % (42.2-75.2); HEMATOCRIT 39.9 % (42-52); MEAN CORPUSCULAR HGB 29.3 PG (27.0-31.0); MEAN CORPUSCULAR HGB CONC 32.6 G/DL (33.0-37.0); MEAN CORPUSCULAR VOLUME 89.6 FL (80.0-94.0); MEAN PLATELET VOLUME 7.3 FL (7.4-10.4); PLATELET COUNT 223 /CUMM (130-400); RBC DISTRIBUTION WIDTH 18.5 % (11.5-14.5); RED BLOOD CELL CT 4.45 /CUMM (4.70-6.10); WHITE BLOOD CELL COUNT 6.6 /CUMM (4.8-10.8)
[2017-08-18 15:24] VITALS: BP 118/60
[2017-08-18 22:21] VITALS: BP 116/60
[2017-08-19 06:28] VITALS: BP 126/68
--- NOTE | 2017-08-19 07:13 | PN- Housestaff ---
See Addendum Nan Washington 08/19/17 0712: Subjective Follow-up For: Peristomal skin infection with tracheitis Subjective: No complaints or acute events overnight Review of Systems Constitutional: Reports: see HPI. Objective Last 24 Hrs of Vital Signs/I&O Vital Signs Date Time Temp Pulse Resp B/P B/P Pulse O2 O2 Flow FiO2 Mean Ox Delivery Rate 08/20 627 98.2 51 20 126/68 95 Trach Mask 08/19 0537 99 Trach Mask 28% 08/19 0138 96 Trach Mask 28% 08/19 0000 Trach Mask 6.0L 08/18 2221 97.8 50 20 116/60 94 Trach Mask 08/18 2206 96 Trach Mask 28% 08/18 1849 Trach Mask 28% 08/18 1600 Trach Mask 28% 08/18 1556 98 Trach Mask 28% 08/18 1524 98.0 52 20 118/60 99 Nasal Cannula 08/18 1157 99 Trach Mask 28% 08/18 1039 60 104/60 08/18 0800 Trach Mask 28% Intake & Output 08/19 0800 08/19 0000 08/18 1600 Intake Total 200 100 700 Output Total 500 220 400 Balance -300 -120 300 Intake, IV 300 Intake, Oral 200 100 400 Output, Urine 500 220 400 Physical Exam General Appearance: Alert, Oriented X3, Cooperative Neck: Peristomal skin erythema. Trach mask on 28% O2 Cardiovascular: Regular Rate, Normal S1, Normal S2, No Murmurs Lungs: Clear to Auscultation, Normal Air Movement Current Medications: Current Medications Sig/Samreen Start time Last Medication Dose Route Stop Time Status Admin Acetaminophen 650 MG Q6P PRN 08/16 1445 AC PO Albuterol Sulfate 3 ML BID 08/18 2200 AC 08/18 INH 1840 Amoxicillin/ 875 MG Q12 08/18 1040 AC 08/18 Clavulanate Potassium PO 2117 Ampicillin Sodium/ 3,000 MG Q6H 08/17 0200 DC 08/18 Sulbactam Sodium IV 0808 Sodium Chloride 100 ML Aspirin Buffered 162 MG DAILY 08/17 1000 AC 08/18 PO 1038 Atorvastatin Calcium 20 MG 1700 08/17 1700 AC 08/18 PO 1612 Budesonide/ 2 PUF BID 08/16 2200 AC 08/18 Formoterol Fumarate INH 2117 Enoxaparin Sodium 40 MG DAILY 08/16 1630 AC 08/18 SC 1041 Escitalopram Oxalate 10 MG DAILY 08/17 1000 AC 08/18 PO 1038 Furosemide 40 MG DAILY 08/17 1000 AC 08/17 PO 0814 Isosorbide Dinitrate 10 MG TID 08/17 1000 DC 08/17 PO 2313 Lorazepam 1 MG TID PRN 08/16 1545 AC IV Metoprolol Tartrate 25 MG BID 08/16 2200 DC 08/17 PO 2314 Mirtazapine 30 MG QPM 08/16 2200 AC 08/18 PO 2117 Mupirocin 1 USHA TID 08/17 1235 AC 08/18 TOP 2118 Naproxen 250 MG Q8 08/16 2200 AC 08/19 PO 0516 Pantoprazole Sodium 40 MG DAILY 08/17 1000 AC 08/17 IV 0805 Polyethylene Glycol 17 GM DAILY 08/17 1313 AC 08/17 PO 1353 Senna 187 MG AT BEDTIME 08/17 2200 AC 08/18 PO 2117 Sodium Chloride 1,000 ML Q6H 08/16 1645 DC 08/18 IV 0458 Last 24 Hrs of Lab/Radu Results Last 24 Hrs of Labs/Mics: Laboratory Tests 08/18/17 0803: CBC w Diff NO MAN DIFF REQ, RBC 4.45 L, MCV 89.6, MCH 29.3, MCHC 32.6 L, RDW 18.5 H, MPV 7.3 L, Gran % 73.1, Lymphocytes % 16.6 L, Monocytes % 6.5, Eosinophils % 2.6, Basophils % 1.2, Absolute Granulocytes 4.8, Absolute Lymphocytes 1.1 L, Absolute Monocytes 0.4, Absolute Eosinophils 0.2, Absolute Basophils 0.1 Assessment/Plan Assessment: Mr. 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 Mancia, CAD status post bypass, hypertension, hyperlipidemia, peripheral vascular disease, GUSTAVO, GERD, depression with history of suicidal ideation, obesity status post gastric sleeve, and COPD on 2.5 L O2 at night followed by Dr. Jorge who presents with complaints of shortness of breath. Problem list: 1.Tracheitis with peristomal cellulitis 2. Morbid Obesity 3.Tracheostomy-History of laryngeal squamous cell cancer s/o laryngectomy 4. Lactic acidosis - resolved Plan: Crush all meds in applesauce Hold antihypertensives due to borderline hypotension Apply Bactroban to peristomal skin daily, keep decannulated until infection improves as per ENT ENT recommendations appreciated DVT prophylaxis with subcutaneous Lovenox Full code Problem List: 1. Tracheitis 2. Morbid obesity with BMI of 40.0-44.9, adult 3. 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 Looking well today, feeling better than yesterday. Lightheadedness from yesterday has resolved. Patient notes change in sputum, now thick and brown. He denies dyspnea. 1. Tracheitis 2. Peristomal cellulitis 3. Acute on chronic hypoxemic respiratory failure 4. Anxiety and depression Plan - Continue on general medicine - Check CBC tomorrow - Repeat sputum culture - Continue Unasyn - Follow cultures - Follow ENT and pulmonary recommmendations - Bactroban to stoma - Continue home medications - DVT PPx - Anticipated discharge tomorrow with Augmentin to complete 7 day course and topical Bactroban to complete 7 day course.
--- NOTE | 2017-08-19 07:18 | Patient Discharge Instructions ---
Discharge Instructions General Discharge Information You were seen/treated for: Tracheitis You had these procedures: NONE Special Instructions: Follow up with your PCP within 1-2 weeks after discharge We stopped you blood pressure medications because of your low blood pressure during your hospital stay. Follow up with your PCP before resuming We prescribed you an antibiotic ointment to apply around your stoma three times a day and antibiotics for you to complete for a total of 7 days Diet Recommended Diet: Heart Healthy Activity Full Activity/No Limits: Yes Acute Coronary Syndrome Inclusion Criteria At DC or during hospital stay patient has or had the following: ACS DIAGNOSIS No Discharge Core Measures Meds if any: Prescribed or Continued at Discharge Meds if any: NOT Prescribed or Continued at Discharge Congestive Heart Failure Inclusion Criteria At DC or during hospital stay patient has or had the following: CHF DIAGNOSIS No Discharge Core Measures Meds if any: Prescribed or Continued at Discharge Meds if any: NOT Prescribed or Continued at Discharge Cerebrovascular accident Inclusion Criteria At DC or during hospital stay patient has or had the following: CVA/TIA Diagnosis No Discharge Core Measures Meds if any: Prescribed or Continued at Discharge Meds if any: NOT Prescribed or Continued at Discharge Venous thromboembolism Inclusion Criteria VTE Diagnosis No VTE Type NONE VTE Confirmed by (Test) NONE Discharge Core Measures - Per Current guidelines, there needs to be overlap - treatment for the first 5 days of Warfarin therapy. - If discharged on Warfarin prior to 5 days of - overlap therapy, the patient will need to be - assessed for post discharge needs including - *Post discharge parental anticoagulation - *Warfarin and/or parental anticoagulation education - *Follow up date to check INR post discharge At least 5 days overlap therapy as Inpatient No Meds if any: Prescribed or Continued at Discharge Note: Overlap Therapy is Warfarin and Anticoagulant Meds if any: NOT Prescribed or Continued at Discharge
[2017-08-19] MEDS ORDERED: AMOX-CLAV 875-1 EACH PO (07:39)
[2017-08-19] MEDS ORDERED: MUPIROCIN22 GM TOP (07:39)
--- NOTE | 2017-08-19 09:03 | PN- Pulmonary ---
Subjective HPI/Critical Care Issues: Patient feels well shortness of breath is at baseline. Trach stoma erythema has all but resolved Objective Current Medications: Current Medications Sig/Samreen Start time Last Medication Dose Route Stop Time Status Admin Acetaminophen 650 MG Q6P PRN 08/16 1445 AC PO Albuterol Sulfate 3 ML BID 08/18 2200 AC 08/18 INH 1840 Amoxicillin/ 875 MG Q12 08/18 1040 AC 08/18 Clavulanate Potassium PO 2117 Ampicillin Sodium/ 3,000 MG Q6H 08/17 0200 DC 08/18 Sulbactam Sodium IV 0808 Sodium Chloride 100 ML Aspirin Buffered 162 MG DAILY 08/17 1000 AC 08/18 PO 1038 Atorvastatin Calcium 20 MG 1700 08/17 1700 AC 08/18 PO 1612 Budesonide/ 2 PUF BID 08/16 2200 AC 08/18 Formoterol Fumarate INH 2117 Enoxaparin Sodium 40 MG DAILY 08/16 1630 AC 08/18 SC 1041 Escitalopram Oxalate 10 MG DAILY 08/17 1000 AC 08/18 PO 1038 Furosemide 40 MG DAILY 08/17 1000 AC 08/17 PO 0814 Isosorbide Dinitrate 10 MG TID 08/17 1000 DC 08/17 PO 2313 Lorazepam 1 MG TID PRN 08/16 1545 AC IV Metoprolol Tartrate 25 MG BID 08/16 2200 DC 08/17 PO 2314 Mirtazapine 30 MG QPM 08/16 2200 AC 08/18 PO 2117 Mupirocin 1 USHA TID 08/17 1235 AC 08/18 TOP 2118 Naproxen 250 MG Q8 08/16 2200 AC 08/19 PO 0516 Pantoprazole Sodium 40 MG DAILY 08/17 1000 AC 08/17 IV 0805 Polyethylene Glycol 17 GM DAILY 08/17 1313 AC 08/17 PO 1353 Senna 187 MG AT BEDTIME 08/17 2200 AC 08/18 PO 2117 Vital Signs & I&O Last 24 Hrs of Vitals and I&O: Vital Signs Date Time Temp Pulse Resp B/P B/P Pulse O2 O2 Flow FiO2 Mean Ox Delivery Rate 08/20 627 98.2 51 20 126/68 95 Trach Mask 08/19 0537 99 Trach Mask 28% 08/19 0138 96 Trach Mask 28% 08/19 0000 Trach Mask 6.0L 03/14 2221 97.8 50 20 116/60 94 Trach Mask 08/18 2206 96 Trach Mask 28% 08/18 1849 Trach Mask 28% 08/18 1600 Trach Mask 28% 08/18 1556 98 Trach Mask 28% 08/18 1524 98.0 52 20 118/60 99 Nasal Cannula 08/18 1157 99 Trach Mask 28% 08/18 1039 60 104/60 Intake & Output 08/19 1600 08/19 0800 08/19 0000 Intake Total 200 100 Output Total 500 220 Balance -300 -120 Intake, Oral 200 100 Output, Urine 500 220 Frank trach stoma infection and has improved markedly there is only faint erythema exam of his chest shows somewhat diminished breath sounds there are no wheezes or crackles cardiac exam shows regular S1 and S2 without murmurs Impression/Plan Impression/Plan Impression/Plan: 66-year-old status post trach admitted with soft tissue skin infection which is improved and dyspnea which is improved. Recommendations: Complete course of antibiotics. Continue aggressive pulmonary toilet. Mobilized out of bed. Patient's pulmonary status is at baseline
[2017-08-19 13:31] VITALS: BP 110/84
--- NOTE | 2017-08-19 18:21 | Event Note ---
Event Note Event Note: Mr. 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 Mancia Situation: Rapid Response was called around 6.10pm as the patient was having coughing spells, with increased cola colored secretions from the stoma. Brief: The patient mentions that he was feeling nauseous and vomited. It appears he experienced some choking during vomiting. RT was called and mild secretions were suctioned off. He most likely had a mucous plug which caused obstruction. Vitals at the time of the rapid: Pulse Ox 99% on RA, blood pressure 98/60 A/R: * Keep hob up * CXR to assess for aspiration * Continue current care
--- NOTE | 2017-08-19 19:13 | RADIOLOGY REPORT ---
EXAMINATION: XR PORTABLE CHEST CLINICAL INFORMATION: Aspiration pneumonia. History of tracheostomy COMPARISON: Chest x-ray 08/16/2017, 06/28/[address] chest 08/16/2017 TECHNIQUE: Portable frontal view of the chest was obtained. FINDINGS: Tracheostomy catheter in place. Status post median sternotomy. The heart size is normal. There is no pulmonary vascular congestion. There is no infiltrate. There is pleural density along left lateral chest wall and slight blunting of the left costophrenic angle which is chronic unchanged since chest x-ray of 06/28/[address] of chest. This is related to subpleural fat as seen on prior CT chest. IMPRESSION: Tracheostomy tube in place. No acute abnormality of the chest.
[2017-08-19 22:30] VITALS: BP 100/62
[2017-08-20 06:48] VITALS: BP 102/60
--- NOTE | 2017-08-20 07:28 | PN- Housestaff ---
See Addendum Subjective Follow-up For: Peristomal skin infection with tracheitis Subjective: Yesterday patient had a rapid response for a coughing spell and excessive brownish sputum production suspected to be due to a mucus plug. Patient feels much better today and anticipates to go home Review of Systems Constitutional: Reports: see HPI. Objective Last 24 Hrs of Vital Signs/I&O Vital Signs Date Time Temp Pulse Resp B/P B/P Pulse O2 O2 Flow FiO2 Mean Ox Delivery Rate 08/20 0825 98 Trach Mask 28% 08/20 0648 97.8 52 14 102/60 98 Trach Mask 08/20 0604 98 Trach Mask 28% 08/20 0136 95 Trach Mask 28% 08/20 0000 Trach Mask 28% 08/19 2230 97.7 62 20 100/62 98 Trach Mask 08/19 2216 Trach Mask 28% 08/19 1815 99 Trach Mask 28% 08/19 1605 98 Trach Mask 28% 08/19 1331 98.4 75 20 110/84 96 Room Air 08/19 0937 96 Trach Mask 28% Intake & Output 08/20 1600 08/20 0800 08/20 0000 Intake Total 20 50 Output Total 200 Balance 20 -150 Intake, Oral 20 50 Output, Urine 200 Physical Exam General Appearance: Alert, Oriented X3, Cooperative, No Acute Distress Neck: Trach mask on 28% O2 Cardiovascular: Regular Rate, Normal S1, Normal S2, No Murmurs Lungs: Clear to Auscultation, Normal Air Movement Current Medications: Current Medications Sig/Samreen Start time Last Medication Dose Route Stop Time Status Admin Acetaminophen 650 MG Q6P PRN 08/16 1445 AC PO Albuterol Sulfate 3 ML BID 08/18 2200 AC 08/20 INH 0824 Amoxicillin/ 875 MG Q12 08/18 1040 AC 08/19 Clavulanate Potassium PO 2200 Aspirin Buffered 162 MG DAILY 08/17 1000 AC 08/19 PO 1012 Atorvastatin Calcium 20 MG 1700 08/17 1700 AC 08/19 PO 1719 Budesonide/ 2 PUF BID 08/16 2200 AC 08/19 Formoterol Fumarate INH 2200 Enoxaparin Sodium 40 MG DAILY 08/16 1630 AC 08/19 SC 1012 Escitalopram Oxalate 10 MG DAILY 08/17 1000 AC 08/19 PO 1012 Furosemide 40 MG DAILY 08/17 1000 AC 08/19 PO 1012 Lorazepam 1 MG TID PRN 08/16 1545 AC IV Mirtazapine 30 MG QPM 08/16 2200 AC 08/19 PO 2200 Mupirocin 1 USHA TID 08/17 1235 AC 08/19 TOP 2159 Naproxen 250 MG Q8 08/16 2200 AC 08/20 PO 0550 Omeprazole 40 MG DAILY AC 08/19 1033 AC 08/20 PO 0550 Pantoprazole Sodium 40 MG DAILY 08/17 1000 DC 08/17 IV 0805 Polyethylene Glycol 17 GM DAILY 08/17 1313 AC 08/19 PO 1012 Senna 187 MG AT BEDTIME 08/17 220 AC 08/18 PO 2117 Last 24 Hrs of Lab/Radu Results Last 24 Hrs of Labs/Mics: Laboratory Tests 08/20/1712: CBC w Diff Pending, WBC Pending, RBC Pending, Hgb Pending, Hct Pending, MCV Pending, MCH Pending, MCHC Pending, RDW Pending, Plt Count Pending, MPV Pending Microbiology 08/19 1717 LOWER RESP: Respiratory Culture - RES 08/19 1717 LOWER RESP: Gram Stain - RES Assessment/Plan Assessment: Mr. 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 Mancia, CAD status post bypass, hypertension, hyperlipidemia, peripheral vascular disease, GUSTAVO, GERD, depression with history of suicidal ideation, obesity status post gastric sleeve, and COPD on 2.5 L O2 at night followed by Dr. Jorge who presents with complaints of shortness of breath. Problem list: 1.Tracheitis with peristomal cellulitis 2. Morbid Obesity 3.Tracheostomy-History of laryngeal squamous cell cancer s/o laryngectomy 4. Lactic acidosis - resolved Plan: Crush all meds in applesauce Continue Augmentin for 7 day course Hold antihypertensives due to borderline hypotension Apply Bactroban to peristomal skin daily, keep decannulated until infection improves as per ENT for a 7 day course ENT recommendations appreciated DVT prophylaxis with subcutaneous Lovenox Full code Problem List: 1. Infection of tracheostomy stoma 2. Tracheitis Pain Ratin Pain Location: NA Pain Goal: Remain pain free Pain Plan: NA Tomorrow's Labs & Rationales: none
--- NOTE | 2017-08-20 08:10 | PN- Pulmonary ---
Subjective HPI/Critical Care Issues: Patient feels well without respiratory complaints Objective Current Medications: Current Medications Sig/Samreen Start time Last Medication Dose Route Stop Time Status Admin Acetaminophen 650 MG Q6P PRN 08/16 1445 AC PO Albuterol Sulfate 3 ML BID 08/18 2200 AC 08/19 INH 1820 Amoxicillin/ 875 MG Q12 08/18 1040 AC 08/19 Clavulanate Potassium PO 2200 Aspirin Buffered 162 MG DAILY 08/17 1000 AC 08/19 PO 1012 Atorvastatin Calcium 20 MG 1700 08/17 1700 AC 08/19 PO 1719 Budesonide/ 2 PUF BID 08/16 2200 AC 08/19 Formoterol Fumarate INH 2200 Enoxaparin Sodium 40 MG DAILY 08/16 1630 AC 08/19 SC 1012 Escitalopram Oxalate 10 MG DAILY 08/17 1000 AC 08/19 PO 1012 Furosemide 40 MG DAILY 08/17 1000 AC 08/19 PO 1012 Lorazepam 1 MG TID PRN 08/16 1545 AC IV Mirtazapine 30 MG QPM 08/16 2200 AC 08/19 PO 2200 Mupirocin 1 USHA TID 08/17 1235 AC 08/19 TOP 2159 Naproxen 250 MG Q8 08/16 2200 AC 08/20 PO 0550 Omeprazole 40 MG DAILY AC 08/19 1033 AC 08/20 PO 0550 Pantoprazole Sodium 40 MG DAILY 08/17 1000 DC 08/17 IV 0805 Polyethylene Glycol 17 GM DAILY 08/17 1313 AC 08/19 PO 1012 Senna 187 MG AT BEDTIME 08/17 2200 AC 08/18 PO 2117 Vital Signs & I&O Last 24 Hrs of Vitals and I&O: Vital Signs Date Time Temp Pulse Resp B/P B/P Pulse O2 O2 Flow FiO2 Mean Ox Delivery Rate 08/20 0648 97.8 52 14 102/60 98 Trach Mask 08/20 0604 98 Trach Mask 28% 08/20 0136 95 Trach Mask 28% 08/20 0000 Trach Mask 28% 08/19 2230 97.7 62 20 100/62 98 Trach Mask 08/19 2216 Trach Mask 28% 08/19 1815 99 Trach Mask 28% 08/19 1605 98 Trach Mask 28% 08/19 1331 98.4 75 20 110/84 96 Room Air 08/19 0937 96 Trach Mask 28% Intake & Output 08/20 1600 03/16 0800 08/20 0000 Intake Total 20 50 Output Total 200 Balance 20 -150 Intake, Oral 20 50 Output, Urine 200 Oxygen saturations 98% of her chest shows clear lung jackson cardiac exam shows regular S1 and S2. He stomal erythema has resolved Impression/Plan Impression/Plan Impression/Plan: 66-year-old admitted with soft tissue skin infection and shortness of breath both of which appear to have resolved. Recommendations: Complete course of antibiotics. Continue aggressive pulmonary toilet. Mobilized out of bed. Patient's pulmonary status is at baseline. Discharge per primary care team
[2017-08-20 09:31] LABS: ABSOLUTE BASOPHIL COUNT 0 /CUMM (0.0-0.2); ABSOLUTE EOSINOPHIL COUNT 0.1 /CUMM (0.0-0.7); ABSOLUTE MONOCYTE COUNT 0.2 /CUMM (0.10-0.60); BASOPHIL % 0.7 % (0.0-2.0); EOSINOPHIL % 2.7 % (0-5); GRANULOCYTE % 73.9 % (42.2-75.2); HEMATOCRIT 37.4 % (42-52); MEAN CORPUSCULAR HGB 29.2 PG (27.0-31.0); MEAN CORPUSCULAR HGB CONC 32.4 G/DL (33.0-37.0); MEAN CORPUSCULAR VOLUME 90.3 FL (80.0-94.0); MEAN PLATELET VOLUME 7.3 FL (7.4-10.4); PLATELET COUNT 235 /CUMM (130-400); RBC DISTRIBUTION WIDTH 18.2 % (11.5-14.5); RED BLOOD CELL CT 4.14 /CUMM (4.70-6.10); WHITE BLOOD CELL COUNT 5.4 /CUMM (4.8-10.8)
[2017-08-20] MEDS ORDERED: MUPIROCIN22 GM TOP (09:48)
[2017-08-20] MEDS ORDERED: AMOX-CLAV 875-1 EACH PO (09:48)
--- NOTE | 2017-08-20 10:18 | Discharge Summary ---
Visit Information Visit Dates Admission Date: 08/16/17 Discharge Date: 08/20/17 Hospital Course Course Attending Physician: Braulio Kaye MD Primary Care Physician: Tristan Matthews MD Hospital Course: Mr. 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 Mancia, CAD status post bypass, hypertension, hyperlipidemia, peripheral vascular disease, GUSTAVO, GERD, depression with history of suicidal ideation, obesity status post gastric sleeve, and COPD on 2.5 L O2 at night followed by Dr. Jorge who presented with complaints of shortness of breath. Problem list: 1.Tracheitis with peristomal cellulitis 2. Morbid Obesity 3.Tracheostomy-History of laryngeal squamous cell cancer s/p laryngectomy with partial pharyngectomy He was admitted to gen medical floor. ENT and Pulmololgy were consulted. He received TRC/nebs as needed. His lactic acidosis and leukocytosis eventually resolved. Patient was continued on his home medications except antihypertensives due to hypotension. He remained stable throughtout his hospital stay. He was started on IV Unasyn and transitioned to Augmentin for a 7-day course. We applied Bactroban to peristomal skin daily, and he was kept decannulated until the infection improved as per ENT. Allergies: Coded Allergies: adhesive tape (ALL TAPE GIVES RASH EXCEPT PAPER, PAPER TAPE OK 06/28/17) Pertinent Lab Results: 08/16/17-1146 XRY-PORTABLE CHEST XRAY FINDINGS: Lungs are slightly hypoinflated and without acute abnormality. No focal interstitial infiltrate, consolidation or pleural effusion. Linear opacity of scarring or atelectasis in the right base. Cardiac silhouette is normal in size. Sternotomy wires are intact in this patient who is status post remote coronary artery bypass graft surgery. The visualized bones are intact. Multiple surgical clips are present within the neck. IMPRESSION: No evidence of pneumonia. 08/16/17-1408 CTA CHEST-PULMONARY EMBOLISM IMPRESSION: 1. No evidence of central pulmonary embolus. Limited evaluation of segmental vessels to the lingula and bilateral lower lobes. The remainder of the segmental vessels appear patent without evidence of embolus. 2. Volume loss in the left hemithorax. There is atelectasis with traction bronchiectasis in the left lower lobe. Mild right basilar atelectasis. 08/19/17 XRY-PORTABLE CHEST XRAY FINDINGS: Tracheostomy catheter in place. Status post median sternotomy. The heart size is normal. There is no pulmonary vascular congestion. There is no infiltrate. There is pleural density along left lateral chest wall and slight blunting of the left costophrenic angle which is chronic unchanged since chest x-ray of 06/28/[address] of chest. This is related to subpleural fat as seen on prior CT chest. IMPRESSION: Tracheostomy tube in place. No acute abnormality of the chest. Disposition Summary Disposition Principal Diagnosis: Tracheitis Additional Diagnosis: Peristomal skin infection Discharge Disposition: home health services Discharge Instructions General Discharge Information Code Status: Full Code Patient's Diet: Heart healthy Patient's Activity: As tolerated Follow-Up Instructions/Appts: Follow up with your PCP within 1-2 weeks after discharge We stopped you blood pressure medications because of your low blood pressure during your hospital stay. Follow up with your PCP before resuming We prescribed you an antibiotic ointment to apply around your stoma three times a day and antibiotics for you to complete for a total of 7 days Medications at Discharge Discharge Medications: Stop taking the following medications: Isosorbide Mononitrate (Isosorbide Mononitrate ER) 30 MG TAB.ER.24H ORAL DAILY Days = 30 Metoprolol Tartrate (Metoprolol Tartrate) 25 MG TABLET ORAL TWICE DAILY Qty = 180 Continue taking these medications: Aspirin (Ecotrin*) 81 MG TABLET.DR 2 Tablet ORAL DAILY Days = 30 Comments: Last Taken: 08/20/17 Time: 0900 AM Atorvastatin Calcium (Lipitor) 20 MG TABLET 1 Tablet ORAL DAILY Days = 30 Comments: Last Taken: 08/20/17 Time: 500 PM Albuterol Sulfate (Albuterol Sulfate) 2.5 MG/3 ML VIAL.NEB 1 Vial Inhale Solution TWICE DAILY Comments: Last Taken: 08/20/17 Time: 0830 AM Budesonide/Formoterol Fumarate (Symbicort 160-4.5 Mcg Inhaler) 160 MCG-4.5 MCG/ ACTUATION HFA.AER.AD 2 Puff Inhale through mouth TWICE DAILY Comments: Last Taken: 08/20/17 Time: 0900 AM Furosemide (Lasix) 40 MG TABLET 1 Tablet ORAL DAILY Comments: Last Taken: 08/20/17 Time: 0900 AM Naproxen (Naproxen) 500 MG TABLET 1 Tablet ORAL TWICE DAILY Qty = 180 Comments: Last Taken: 08/20/17 Time: 0600 AM Mirtazapine (Mirtazapine) 30 MG TABLET 1 Tablet ORAL Every night Qty = 90 Comments: Last Taken: 08/20/17 Time: 1000 PM Potassium Chloride (Klor-Con 10) 10 MEQ TABLET.ER Tablet ORAL TWICE DAILY Qty = 180 Comments: DID NOT TAKE IN HOSPITAL Pantoprazole Sodium (Pantoprazole Sodium) 40 MG TABLET.DR 1 Tablet ORAL DAILY Qty = 90 Comments: Last Taken:08/20/17 Time:0600 AM Escitalopram Oxalate (Escitalopram Oxalate) 10 MG TABLET 1 Tablet ORAL DAILY Qty = 90 Comments: Last Taken:08/20/17 Time:0900 AM Start taking the following new medications: Amoxicillin/Clavulanate Potass (Amox-Clav 875-125 MG Tablet) 875 MG-125 MG TABLET 875 Milligram ORAL EVERY 12 HOURS Qty = 9 No Refills Instructions: . Comments: Last Taken:08/20/17 Time:0900 AM Mupirocin (Mupirocin) 2 % OINT...G. 1 Application On the skin THREE TIMES DAILY Qty = 1 No Refills Instructions: Apply three times a day on skin around stoma for 5 days. Comments: Last Taken:08/20/17 Time:0900 AM Copies To: Jimy ZENG,Severo Dawn; Cassius ZENG,Jonathan Harrison; Byron ZENG,Tristan Cano
== END 2017-08-20 13:40 | disposition home health service (06) | DRG 205 ==
LOC: ERH 11:33 → ERHI 13:55 → 2NA 13:55 → ENRESERV 14:53 → ENTRNSPT 16:38 → EDTRNSPTSTS 17:00 → EDTRNSPT 17:00 → 2NA 17:12 → CMPTRNSPT 17:54 → ENPENDDIS 08-20 13:11 → ENTRNSPT 08-20 13:12 → EDTRNSPT 08-20 13:18 → EDTRNSPTSTS 08-20 13:18 → CMPTRNSPT 08-20 13:31 → 2NA 08-20 13:40
PROVIDERS: Student in an Organized Health Care Education/Training Program
DX: J95.02 Infection of tracheostomy stoma (principal); J96.21 Acute and chronic respiratory failure with hypoxia; E87.2 Acidosis; Z68.41 Body mass index [BMI] 40.0-44.9, adult; L03.221 Cellulitis of neck; Z99.81 Dependence on supplemental oxygen; E66.01 Morbid (severe) obesity due to excess calories; J44.9 Chronic obstructive pulmonary disease, unspecified; G47.33 Obstructive sleep apnea (adult) (pediatric); F41.9 Anxiety disorder, unspecified; Z85.828 Personal history of other malignant neoplasm of skin; Z92.3 Personal history of irradiation; I25.10 Atherosclerotic heart disease of native coronary artery without angina pectoris; I10 Essential (primary) hypertension; E78.5 Hyperlipidemia, unspecified; I73.9 Peripheral vascular disease, unspecified; K21.9 Gastro-esophageal reflux disease without esophagitis; F32.9 Major depressive disorder, single episode, unspecified; Z98.84 Bariatric surgery status; Z87.891 Personal history of nicotine dependence; Z79.82 Long term (current) use of aspirin; Z79.51 Long term (current) use of inhaled steroids; Z85.21 Personal history of malignant neoplasm of larynx; M54.9 Dorsalgia, unspecified; Z95.1 Presence of aortocoronary bypass graft; Z82.49 Family history of ischemic heart disease and other diseases of the circulatory system; J04.10 Acute tracheitis without obstruction
CPT/HCPCS: 2NAP; 36415; 36592; 71045; 81001; 82436; 87040; 87070; 87071; 87804; 87804-59; 93005; 93010; 94799; 96372; 97161-GP; 99291; J0696; J1650; J2930; J3490

== ENCOUNTER 2017-10-13 18:57 | Emergency (ER) | payer OTHER, MEDICARE ==
[~2017-10-13 18:57] MED LIST changes: +AMOX-CLAV 875-1 EACH PO; +MUPIROCIN22 GM TOP
--- NOTE | 2017-10-13 19:15 | ED MVC/FALL/TRAUMA COMPLAINT ---
History of Present Illness General Chief Complaint: Lower Extremity Injury Stated Complaint: BIBA FOR R KNEE PAIN AFTER FALL Source: patient, EMS Exam Limitations: no limitations Vital Signs & Intake/Output Vital Signs & Intake/Output Vital Signs Date Time Temp Pulse Resp B/P B/P Pulse O2 O2 Flow FiO2 Mean Ox Delivery Rate 10/14 2207 98.6 56 16 109/60 95 Room Air 10/13 2028 97 Room Air 10/13 1914 98.9 64 16 97/53 97 Room Air Allergies Coded Allergies: adhesive tape (ALL TAPE GIVES RASH EXCEPT PAPER, PAPER TAPE OK 06/28/17) Reconcile Medications Albuterol Sulfate 2.5 MG/3 ML VIAL.NEB 1 Vial INH/FERCHO BID RESPIRATORY ( Reported) Amoxicillin/Clavulanate Potass (Amox-Clav 875-125 MG Tablet) 875 MG-125 MG TABLET 875 MG PO Q12 Tracheitis . Aspirin (Ecotrin*) 81 MG TABLET.DR 2 TAB PO DAILY heart health (Reported) Atorvastatin Calcium (Lipitor) 20 MG TABLET 1 TAB PO DAILY CHOLESTEROL ( Reported) Budesonide/Formoterol Fumarate (Symbicort 160-4.5 Mcg Inhaler) 160 MCG-4.5 MCG/ ACTUATION HFA.AER.AD 2 PUF INH BID COPD (Reported) Bupropion HCl (Wellbutrin XL) 300 MG TAB.ER.24H 1 TAB PO DAILY HEART HEALTH ( Reported) Escitalopram Oxalate 10 MG TABLET 1 TAB PO DAILY DEPRESSION (Reported) Furosemide (Lasix) 40 MG TABLET 1 TAB PO DAILY DIURETIC (Reported) Isosorbide Mononitrate (Isosorbide Mononitrate ER) 30 MG TAB.ER.24H 1 TAB PO DAILY HEART HEALTH (Reported) Mirtazapine 30 MG TABLET 1 TAB PO QPM MENTAL HEALTH (Reported) Mupirocin 2 % OINT...G. 1 USHA TOP TID Peristomal cellulitis Apply three times a day on skin around stoma for 5 days. Naproxen 500 MG TABLET 1 TAB PO BID PAIN/INFLAMMATION (Reported) Pantoprazole Sodium 40 MG TABLET.DR 1 TAB PO DAILY ACID REFLUX (Reported) Potassium Chloride (Klor-Con 10) 10 MEQ TABLET.ER SUPPLEMENT (Reported) Triage Nurses Notes Reviewed? yes Onset: Abrupt Duration: minute(s): Timing: single episode today Severity: moderate Injuries/Fall Location: lower extremity Method of Injury: fall Loss of Consciousness: no loss of consciousness HPI: 67yo male with hx of CAD s/p CABG, obesity BIBA after fall at home prior to arrival. She states he was painting in his home and he got up from a chair when he tripped and fell forward landing primarily on right knee. Patient was barefoot at the time, he sustained lacerations to left foot. He should also complaining of 8/10 headache currently, he is unsure if he has had, headache described as frontal. PAtient reports numbness to calf and foot since the fall. Patient denies loss of conciousness, dizziness, chest pain, abdominal pain. (Lucero Sinha) Past History Travel History Traveled to [place] past 21 day No Medical History Any Pertinent Medical History? 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 MOTHER (CAD). Hx Contributory? No (Lucero Sinha) Review of Systems Review of Systems Constitutional: Reports: no symptoms. Eyes: Reports: no symptoms. Ears, Nose, Throat, Mouth: Reports: no symptoms. Respiratory: Reports: no symptoms. Cardiovascular: Reports: no symptoms. Gastrointestinal/Abdominal: Reports: no symptoms. Genitourinary: Reports: no symptoms. Musculoskeletal: Reports: see HPI. Skin: Reports: no symptoms. Neurological/Psychological: Reports: see HPI. All Other Systems: Reviewed and Negative (Lucero Sinha) Physical Exam Physical Exam General Appearance: well developed/nourished, no apparent distress, alert, awake , obese Head: atraumatic, normal appearance Eyes: Bilateral: normal appearance, PERRL, EOMI. Ears, Nose, Throat, Mouth: hearing grossly normal Neck: normal inspection, supple, full range of motion Respiratory: normal breath sounds, no respiratory distress, lungs clear Cardiovascular: regular rate/rhythm, normal peripheral pulses Peripheral Pulses: 2+ dorsalis pedis (R), 2+ dorsalis pedis (L) Gastrointestinal: normal bowel sounds, soft, non-tender, no organomegaly Back: normal inspection, normal range of motion Extremities: ecchymosis and tenderness to anterior right knee with swelling, , LEFT foot: 3 1 cm lacerations to 3rd and 4th toes Neurologic/Psych: awake, alert, oriented x 3, reported diminished sensation to right calf and foot Skin: lacerations to toes of left foot as described above Core Measures ACS in differential dx? No CVA/TIA Diagnosis No Sepsis Present: No Sepsis Focused Exam Completed? No (Shey BYRNES,Lucero Higginbotham) Progress Differential Diagnosis: abd injury, C/T/L spine injury, ext injury, ICH, pelvis injury, spinal cord injury Plan of Care: Orders Procedure Date/time Status CT LOWER EXT WO IV CONTRAST 10/[address] HEAD WO IV CONTRAST 10/[address] CERV SPINE WO IV CONTRAST 10/14 2051 Active Current Medications Sig/Samreen Start time Last Medication Dose Stop Time Status Admin Tetanus/Diphtheria 0.5 ML ONCE ONE 10/13 2099 UNVr Toxoids Adsorbed 10/13 2100 (Decavac) Lacerations were closed with 8 stitches total. Patient educated on signs and symptoms of skin infection. Images are negative for acute right knee fracture. Head CT negative for intracranial pathology. The patient initially had numbness to right calf and foot however patient reports improving sensation gradually, prior to discharge sensation was equal bilateral lower extremities. Patient in no acute distress, vital signs are stable. Case management to set up home health services to aid in his home care. The patient and his family agree with the plan of care. The patient was discussed with Dr. Michael who agrees with this plan. Diagnostic Imaging: Viewed by Me: Radiology Read, CT Scan. Discussed w/RAD: Radiology Read, CT Scan. Radiology Impression: PATIENT: CODY HERNÁNDEZ PRESENT AGE: 67 PATIENT ACCOUNT NO: [id number] : 51 LOCATION: [facility] ORDERING PHYSICIAN: Lucero BYRNES SERVICE DATE: 10/13/17 EXAM TYPE: RAD - XRY-KNEE COMPLETE RIGHT EXAMINATION: XR KNEE, RIGHT CLINICAL INFORMATION: Bruising and swelling after fall onto right knee COMPARISON: None TECHNIQUE: Four views of the right knee. FINDINGS: Obese body habitus with prominent adipose tissue of the extremity. Peripheral vessels are calcified. Multiple surgical clips are present in soft tissues of the medial leg. Soft tissues are swollen in the prepatellar and infrapatellar region. Correlate for soft tissue bruising/hematoma in this specific area. No acute fracture, subluxation or joint effusion. Tricompartmental osteoarthritis is present. The osteoarthritis is mild -to-moderate at the lateral tibiofemoral compartment and severe at the patellofemoral and medial tibiofemoral compartments. At the medial compartment, there is marked loss of the medial joint space with genu varus deformity. IMPRESSION: 1. No acute fracture or malalignment. 2. Tricompartmental osteoarthritis. 3. Posttraumatic soft tissue swelling of the prepatellar and infrapatellar region. DICTATED BY: Kosta Fountain MD DATE/TIME DICTATED:2004 ASSISTANT UNIT FORESTER:KARENA DATE/TIME TRANSCRIBED:10/13/172004 CONFIDENTIAL, DO NOT COPY WITHOUT APPROPRIATE AUTHORIZATION. <Electronically signed in Other Vendor System> SIGNED BY: Kosta Fountain MD 10/13/172010, PATIENT: CODY HERNÁNDEZ PRESENT AGE: 67 PATIENT ACCOUNT NO: [id number] : 51 LOCATION: [facility] ORDERING PHYSICIAN: Lucero BYRNES SERVICE DATE: 10/13/17 EXAM TYPE: CAT - CT LOWER EXT WO IV CONTRAST EXAMINATION: CT LOWER EXTREMITY WITHOUT CONTRAST, RIGHT CLINICAL INFORMATION: 67-year-old male with right knee pain and bruising after fall. Evaluate for tibial plateau fracture. COMPARISON: Radiographs of the knee from 10/13/2017 TECHNIQUE: Noncontrast multidetector CT imaging exam of the right knee was performed using 0.625 mm collimation. The multiplanar reformatted images were reviewed, as well. DLP: 591 mGy-cm FINDINGS: Subcutaneous tissue edema is predominantly seen in the anterior aspect of the knee. A hyperdense hematoma within the subcutaneous tissue compartment overlying the patella and proximal tibia occupies an area measuring approximately 12 cm long, 1.6 cm AP and 11.5 cm transverse. The quadriceps tendon and patellar tendon are intact. Bones have normal alignment. No evidence of patellar fracture or tibial plateau injury. There is tricompartmental osteoarthritis -- as noted on recent radiographs. The osteoarthritic deformity is most severe at the medial compartment where there is vgag-eu-lzki contact, subchondral cystic change, sclerosis, exuberant osteophytosis and associated genu varus deformity. A 0.4 x 0.6 x 0.7 cm intra-articular osteochondral body overlies the root ligament of the anterior horn of the lateral meniscus. Small joint effusion and small Olsen' s cyst. Atherosclerotic calcification of popliteal, tibial and peroneal arteries. IMPRESSION: 1. No evidence of tibial plateau fracture. 2. Tricompartmental osteoarthritis. 3. There is a hyperdense hematoma within subcutaneous tissues of the anterior knee. DICTATED BY: Kosta Fountain MD DATE/ TIME DICTATED:10/13/172125 ASSISTANT UNIT FORESTER:KARENA DATE/TIME TRANSCRIBED: 10/13/172125 CONFIDENTIAL, DO NOT COPY WITHOUT APPROPRIATE AUTHORIZATION. < Electronically signed in Other Vendor System> SIGNED BY: Kosta Fountain MD 10/13/172136, PATIENT: CODY HERNÁNDEZ PRESENT AGE: 67 PATIENT ACCOUNT NO: [id number] : 51 LOCATION: [facility] ORDERING PHYSICIAN: Lucero BYRNES SERVICE DATE: 10/13/17 EXAM TYPE: CAT - CT HEAD WO IV CONTRAST EXAMINATION: CT HEAD WITHOUT CONTRAST CLINICAL INFORMATION: Fracture fall COMPARISON: None TECHNIQUE: Contiguous axial imaging was performed from the skull base to vertex without intravenous administration of contrast. DLP: 697 mGy-cm FINDINGS: There is no evidence of acute intracranial hemorrhage or territorial infarction. No abnormal mass effect or midline shift is seen. Christopher to white matter differentiation is well preserved. No extra-axial fluid collections are identified. The ventricles are normal in size. There is no abnormal attenuation within the brain parenchyma. The osseous structures and soft tissues are normal. The mastoid air cells and visualized portions of the paranasal sinuses are well aerated. IMPRESSION: No acute abnormality DICTATED BY : Gordon Angeles MD DATE/TIME DICTATED:10/13/172120 ASSISTANT UNIT FORESTER: KARENA DATE/TIME TRANSCRIBED:10/13/172120 CONFIDENTIAL, DO NOT COPY WITHOUT APPROPRIATE AUTHORIZATION. <Electronically signed in Other Vendor System> SIGNED BY: Gordon Angeles MD 10/13/172133, PATIENT: CODY HERNÁNDEZ PRESENT AGE: 67 PATIENT ACCOUNT NO: [id number] : 51 LOCATION: [facility] ORDERING PHYSICIAN: Lucero BYRNES SERVICE DATE: 10/13/17 EXAM TYPE: CAT - CT CERV SPINE WO IV CONTRAST EXAMINATION: CT CERVICAL SPINE WITHOUT CONTRAST CLINICAL INFORMATION: Fall, evaluate for fracture. COMPARISON: None TECHNIQUE: CT scan of the cervical spine was performed with additional sagittal and coronal reformatted images obtained at the acquisition workstation. DLP: 432 mGy-cm FINDINGS: There is no fracture or dislocation. There is multilevel spondylosis of the cervical spine with disc space narrowing and endplate osteophyte formation at the C3-C4 level through the C6-C7 level. There is fusion across the left C2-C3 facet. Remaining facets appear intact. IMPRESSION: 1. No acute abnormality. 2. Multilevel spondylosis of the cervical spine. DICTATED BY: Gordon Angeles MD DATE/TIME DICTATED:2121 ASSISTANT UNIT FORESTER:KARENA DATE/TIME TRANSCRIBED:10/13/172121 CONFIDENTIAL, DO NOT COPY WITHOUT APPROPRIATE AUTHORIZATION. <Electronically signed in Other Vendor System> SIGNED BY: Gordon Angeles MD 10/13/172142 (Shey BYRNES,Lucero Higginbotham) Departure Departure Disposition: HOME OR SELF CARE Condition: Stable Clinical Impression Primary Impression: Fall Qualifiers: Encounter type: initial encounter Qualified Code: W19.XXXA - Unspecified fall, initial encounter Secondary Impressions: Knee strain Qualifiers: Encounter type: initial encounter Laterality: right Qualified Code: S86.911A - Strain of unspecified muscle(s) and tendon(s) at lower leg level, right leg, initial encounter Laceration Referrals: Tristan Matthews MD (PCP/Family) Additional Instructions: You have 8 total stiches in left toes. These need to be removed in 7-10 days. Soak the area daily in warm salt water rinse. After dry and apply clean dressing. Monitor for signs of infection such as redness, swelling, increasing pain. Return with any of these symptoms or other concerns. Please note that there might be incidental findings in your evaluation that are unrelated to the current emergency department visit. Please notify your primary care doctor about this emergency department visit in order to obtain and review all of the testing performed so that these incidental findings can be monitored as needed. If you had an x-ray performed, please understand that some fractures may not be seen on the initial set of x-rays. If your symptoms persist you might need a repeat set of x-rays to check for such a fracture. If you had a laceration evaluated, please understand that foreign bodies such as glass or wood may not be visible to the naked eye or on plain x-rays. If the wound becomes red, swollen, increasingly more painful or if there is any drainage from the wound, please have it reevaluated by a physician for the possibility of a retained foreign body. If you're unable to follow up as outlined in the discharge instructions please return to the emergency department. Thank you for choosing the [facility] Emergency Department for your care. It was a pleasure to serve you today. Departure Forms: Customer Survey General Discharge Information (Shey BYRNES,Lucero Higginbotham) PA/FAMILY AND CONSUMER EDUCATION TEACHER Co-Sign Statement Statement: ED Attending supervision documentation- x I saw and evaluated the patient. I have also reviewed all the pertinent lab results and diagnostic results. I agree with the findings and the plan of care as documented in the PA's/FAMILY AND CONSUMER EDUCATION TEACHER's documentation. [] I have reviewed the ED Record and agree with the PA's/FAMILY AND CONSUMER EDUCATION TEACHER's documentation. [] Additions or exceptions (if any) to the PAs/FAMILY AND CONSUMER EDUCATION TEACHER's note and plan are summarized below: [] (Fernanda ZENG,Prieto) Procedures Laceration/Wound Repair Laceration/Wound Repair: Wound Location: LEFT FOOT Wound's Depth, Shape: linear, 3 1CM LACERATION BETWEEN 3&4 TOES Wound Length (cm): 1 Wound Explored: irrigated extensively Irrigated w/ Saline (ccs): 300 Betadine Prep? Yes Anesthesia: 1% lidocaine Volume Anesthetic (ccs): 6 Wound Repaired With: sutures Suture Size/Type: 5:0, nylon Number of Sutures: 8 Layer Closure? No Date of Last Tetanus: 10/13/17 Tetanus Status: up to date Progress: Patient tolerated procedure well. (Shey BYRNES,Lucero Higginbotham)
--- NOTE | 2017-10-13 20:11 | RADIOLOGY REPORT ---
EXAMINATION: XR KNEE, RIGHT CLINICAL INFORMATION: Bruising and swelling after fall onto right knee COMPARISON: None TECHNIQUE: Four views of the right knee. FINDINGS: Obese body habitus with prominent adipose tissue of the extremity. Peripheral vessels are calcified. Multiple surgical clips are present in soft tissues of the medial leg. Soft tissues are swollen in the prepatellar and infrapatellar region. Correlate for soft tissue bruising/hematoma in this specific area. No acute fracture, subluxation or joint effusion. Tricompartmental osteoarthritis is present. The osteoarthritis is [id number] at the lateral tibiofemoral compartment and severe at the patellofemoral and medial tibiofemoral compartments. At the medial compartment, there is marked loss of the medial joint space with genu varus deformity. IMPRESSION: 1. No acute fracture or malalignment. 2. Tricompartmental osteoarthritis. 3. Posttraumatic soft tissue swelling of the prepatellar and infrapatellar region.
[2017-10-13] MEDS ORDERED: ISOSORBIDE MONO30 M1 PO (20:39)
[2017-10-13] MEDS ORDERED: WELLBUTRIN XL300 M2 PO (20:43)
--- NOTE | 2017-10-13 21:34 | CT SCAN REPORT ---
EXAMINATION: CT HEAD WITHOUT CONTRAST CLINICAL INFORMATION: Fracture fall COMPARISON: None TECHNIQUE: Contiguous axial imaging was performed from the skull base to vertex without intravenous administration of contrast. DLP: 697 mGy-cm FINDINGS: There is no evidence of acute intracranial hemorrhage or territorial infarction. No abnormal mass effect or midline shift is seen. Christopher to white matter differentiation is well preserved. No extra-axial fluid collections are identified. The ventricles are normal in size. There is no abnormal attenuation within the brain parenchyma. The osseous structures and soft tissues are normal. The mastoid air cells and visualized portions of the paranasal sinuses are well aerated. IMPRESSION: No acute abnormality
--- NOTE | 2017-10-13 21:37 | CT SCAN REPORT ---
EXAMINATION: CT LOWER EXTREMITY WITHOUT CONTRAST, RIGHT CLINICAL INFORMATION: 67-year-old male with right knee pain and bruising after fall. Evaluate for tibial plateau fracture. COMPARISON: Radiographs of the knee from 10/13/2017 TECHNIQUE: Noncontrast multidetector CT imaging exam of the right knee was performed using 0.625 mm collimation. The multiplanar reformatted images were reviewed, as well. DLP: 591 mGy-cm FINDINGS: Subcutaneous tissue edema is predominantly seen in the anterior aspect of the knee. A hyperdense hematoma within the subcutaneous tissue compartment overlying the patella and proximal tibia occupies an area measuring approximately 12 cm long, 1.6 cm AP and 11.5 cm transverse. The quadriceps tendon and patellar tendon are intact. Bones have normal alignment. No evidence of patellar fracture or tibial plateau injury. There is tricompartmental osteoarthritis -- as noted on recent radiographs. The osteoarthritic deformity is most severe at the medial compartment where there is [id number] contact, subchondral cystic change, sclerosis, exuberant osteophytosis and associated genu varus deformity. A 0.4 x 0.6 x 0.7 cm intra-articular osteochondral body overlies the root ligament of the anterior horn of the lateral meniscus. Small joint effusion and small Olsen's cyst. Atherosclerotic calcification of popliteal, tibial and peroneal arteries. IMPRESSION: 1. No evidence of tibial plateau fracture. 2. Tricompartmental osteoarthritis. 3. There is a hyperdense hematoma within subcutaneous tissues of the anterior knee.
--- NOTE | 2017-10-13 21:43 | CT SCAN REPORT ---
EXAMINATION: CT CERVICAL SPINE WITHOUT CONTRAST CLINICAL INFORMATION: Fall, evaluate for fracture. COMPARISON: None TECHNIQUE: CT scan of the cervical spine was performed with additional sagittal and coronal reformatted images obtained at the acquisition workstation. DLP: 432 mGy-cm FINDINGS: There is no fracture or dislocation. There is multilevel spondylosis of the cervical spine with disc space narrowing and endplate osteophyte formation at the C3-C4 level through the C6-C7 level. There is fusion across the left C2-C3 facet. Remaining facets appear intact. IMPRESSION: 1. No acute abnormality. 2. Multilevel spondylosis of the cervical spine.
[2017-10-13 22:08] VITALS: BP 109/60
== END 2017-10-13 22:21 ==
LOC: ERH 18:57
DX: S91.115A Laceration without foreign body of left lesser toe(s) without damage to nail, initial encounter (principal); S86.811A Strain of other muscle(s) and tendon(s) at lower leg level, right leg, initial encounter; W19.XXXA Unspecified fall, initial encounter; Y92.009 Unspecified place in unspecified non-institutional (private) residence as the place of occurrence of the external cause; Y93.89 Activity, other specified
CPT/HCPCS: 73562-RT; 90471; 90714; J2001; J2310

== ENCOUNTER 2017-10-22 10:05 | Emergency (ER) | payer OTHER, MEDICARE ==
[~2017-10-22] VITALS: Ht 185.4 cm; Wt 115.2 kg
--- NOTE | 2017-10-22 10:48 | ED GENERAL ADULT ---
History of Present Illness General Chief Complaint: General Adult Stated Complaint: BIBA SYNCOPAL EPISODE Source: patient Exam Limitations: no limitations Vital Signs & Intake/Output Vital Signs & Intake/Output Vital Signs Date Time Temp Pulse Resp B/P B/P Pulse O2 O2 Flow FiO2 Mean Ox Delivery Rate 10/22 1457 98.5 58 18 112/63 96 Room Air Room Air 10/22 1455 96 Room Air Room Air 10/22 1025 96 Room Air Room Air 10/22 1013 97.9 48 18 102/54 95 Room Air Room Air Allergies Coded Allergies: adhesive tape (ALL TAPE GIVES RASH EXCEPT PAPER, PAPER TAPE OK 06/28/17) Reconcile Medications Albuterol Sulfate 2.5 MG/3 ML VIAL.NEB 1 Vial INH/FERCHO BID RESPIRATORY ( Reported) Aspirin (Ecotrin*) 81 MG TABLET.DR 2 TAB PO DAILY heart health (Reported) Atorvastatin Calcium (Lipitor) 20 MG TABLET 1 TAB PO DAILY CHOLESTEROL ( Reported) Budesonide/Formoterol Fumarate (Symbicort 160-4.5 Mcg Inhaler) 160 MCG-4.5 MCG/ ACTUATION HFA.AER.AD 2 PUF INH BID COPD (Reported) Bupropion HCl (Wellbutrin XL) 300 MG TAB.ER.24H 1 TAB PO DAILY HEART HEALTH ( Reported) Escitalopram Oxalate 10 MG TABLET 1 TAB PO DAILY DEPRESSION (Reported) Furosemide (Lasix) 40 MG TABLET 1 TAB PO DAILY DIURETIC (Reported) Isosorbide Mononitrate (Isosorbide Mononitrate ER) 30 MG TAB.ER.24H 1 TAB PO DAILY HEART HEALTH (Reported) Metoprolol Tartrate 25 MG TABLET 1 TAB PO BID HEART (Reported) Mirtazapine 30 MG TABLET 1 TAB PO QPM MENTAL HEALTH (Reported) Naproxen 500 MG TABLET 1 TAB PO BID PAIN/INFLAMMATION (Reported) Pantoprazole Sodium 40 MG TABLET.DR 1 TAB PO DAILY ACID REFLUX (Reported) Potassium Chloride (Klor-Con 10) 10 MEQ TABLET.ER SUPPLEMENT (Reported) Triage Note: DAVID FROM DR YOUNG OFFICE FOR SUTURE REMOVAL FROM FOOT. PT BECAME LIGHTHEADED AT THIS OFFICE. PT ARRIVES TO ED, ABLE TO GET OFF EMS STRETCHER ON TO ED STRETCHER WITH 1 ASSIST, PRESENTLY FALLING ASLEEP. Triage Nurses Notes Reviewed? yes Onset: Abrupt Duration: hour(s): Timing: recent history HPI: 10/22/17 1:30 PM 67-year-old male past medical history of obesity, sleep apnea, laryngeal cancer. He has a tracheostomy. He was getting sutures removed in his primary care doctor's office today and he had a near syncopal episode after feeling weak. He denies chest pain or shortness of breath. Now in the emergency Department he is awake alert oriented 3. EKG reveal relative bradycardia, however he is on metoprolol. Past History Travel History Traveled to [place] past 21 day No Medical History Any Pertinent Medical History? 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 MOTHER (CAD). Hx Contributory? No Review of Systems Review of Systems Constitutional: Denies: fever. EENTM: Denies: visual changes. Respiratory: Denies: short of breath. Cardiovascular: Denies: chest pain. GI: Denies: abdominal pain. Genitourinary: Reports: no symptoms. Musculoskeletal: Reports: no symptoms. Skin: Reports: see HPI. Neurological/Psychological: Reports: see HPI. Hematologic/Endocrine: Reports: no symptoms. Physical Exam Physical Exam General Appearance: alert, awake, anxious, mild distress Head: atraumatic Eyes: Bilateral: normal appearance, PERRL, EOMI. Ears, Nose, Throat: tracheostomy Neck: supple Respiratory: no respiratory distress Cardiovascular: bradycardia Gastrointestinal: soft, non-tender Back: decreased range of motion Extremities: pedal edema Neurologic/Psych: awake, alert, oriented x 3 Skin: intact Core Measures ACS in differential dx? No CVA/TIA Diagnosis: No Sepsis Present: No Sepsis Focused Exam Completed? No Progress Differential Diagnoses I considered the following diagnoses in my evaluation of the patient: [Syncope, dysrhythmia, hypercarbic respiratory failure, electrolyte derangement, adverse drug reaction Plan of Care: Orders Procedure Date/time Status EKG 10/22 1308 Active Add-on Test (ER Only) 10/22 1120 Active Saline Lock 10/22 1115 Active URINE DRUG SCREEN FOR ER ONLY 10/22 1114 Complete EKG 10/22 1042 Active Laboratory Tests 10/22/17 1135: Urine Opiates Screen < 100, Methadone Screen 48, Barbiturate Screen < 60, Ur Phencyclidine Scrn < 6.00, Amphetamines Screen < 100, U Benzodiazepines Scrn < 85, Urine Cocaine Screen < 50, Urine Cannabis Screen < 5.00 10/22/17 1114: Troponin I Cancelled, CBC w Diff Cancelled, WBC Cancelled, RBC Cancelled, Hgb Cancelled, Hct Cancelled, MCV Cancelled, MCH Cancelled, MCHC Cancelled, RDW Cancelled, Plt Count Cancelled, MPV Cancelled Initial ED EKG: nonspecific ST T wave chg, sinus bradycardia Repeat EKG: unchanged Departure Departure Disposition: HOME OR SELF CARE Condition: Stable Clinical Impression Primary Impression: Near syncope Secondary Impressions: Bradycardia Referrals: Byron ZENG,Tristan Cano (PCP/Family) Departure Forms: Customer Survey General Discharge Information Comments 10/22/17 2:32 PM Patient's labs are essentially unremarkable. Troponin is nondetectable. He became lightheaded after he watched his sutures removed. It is consistent with vasovagal syncope. Although he did not pass out. He is asymptomatic. Never had any chest pain. His EKG did show sinus bradycardia however he is on metoprolol. I discussed his care with the on-call urologist Dr. Katz who agreed with the plan of care; we'll discharge and he will follow-up with Dr. Mane next week. He had a healing wound to his left foot where the suture was removed. Apparently he became light headed and the event happened when he was watching this. Critical Care Note Critical Care Note Critical Care Time: non-applicable
[2017-10-22] MEDS ORDERED: METOPROLOL TART25 M1 PO (11:09)
[2017-10-22 14:57] VITALS: BP 112/63
== END 2017-10-22 14:58 ==
LOC: ERH 10:05
DX: R55 Syncope and collapse (principal); R00.1 Bradycardia, unspecified; R42 Dizziness and giddiness
CPT/HCPCS: 80307; 93005; 93010

== ENCOUNTER 2017-10-27 12:53 | Inpatient (IN) | payer OTHER, MEDICARE ==
[~2017-10-27] VITALS: Ht 185.4 cm; Wt 147.0 kg
--- NOTE | 2017-10-27 13:11 | ED UPPER/LOWER EXTREMITY COMPL ---
History of Present Illness General Chief Complaint: Lower Extremity Problems Stated Complaint: SWELLING AND PAIN IN R LEG AND HIP HX FALL LAST WK Source: patient, family, old records Exam Limitations: no limitations Vital Signs & Intake/Output Vital Signs & Intake/Output Vital Signs Date Time Temp Pulse Resp B/P B/P Pulse O2 O2 Flow FiO2 Mean Ox Delivery Rate 10/27 1638 98.0 67 16 122/59 96 Room Air 10/27 1503 98.1 79 16 122/74 97 Room Air 10/27 1351 Room Air 10/27 1256 97.2 81 15 118/77 97 Room Air Room Air Allergies Coded Allergies: adhesive tape (ALL TAPE GIVES RASH EXCEPT PAPER, PAPER TAPE OK 10/27/17) Reconcile Medications Albuterol Sulfate 2.5 MG/3 ML VIAL.NEB 1 Vial INH/FERCHO BID RESPIRATORY ( Reported) Aspirin (Ecotrin*) 81 MG TABLET.DR 2 TAB PO DAILY heart health (Reported) Atorvastatin Calcium (Lipitor) 20 MG TABLET 1 TAB PO DAILY CHOLESTEROL ( Reported) Budesonide/Formoterol Fumarate (Symbicort 160-4.5 Mcg Inhaler) 160 MCG-4.5 MCG/ ACTUATION HFA.AER.AD 2 PUF INH BID COPD (Reported) Bupropion HCl (Wellbutrin XL) 300 MG TAB.ER.24H 1 TAB PO DAILY HEART HEALTH ( Reported) Escitalopram Oxalate 10 MG TABLET 1 TAB PO DAILY DEPRESSION (Reported) Furosemide (Lasix) 40 MG TABLET 1 TAB PO DAILY DIURETIC (Reported) Isosorbide Mononitrate (Isosorbide Mononitrate ER) 30 MG TAB.ER.24H 1 TAB PO DAILY HEART HEALTH (Reported) Metoprolol Tartrate 25 MG TABLET 1 TAB PO BID HEART (Reported) Mirtazapine 30 MG TABLET 1 TAB PO QPM MENTAL HEALTH (Reported) Naproxen 500 MG TABLET 1 TAB PO BID PAIN/INFLAMMATION (Reported) Pantoprazole Sodium 40 MG TABLET.DR 1 TAB PO DAILY ACID REFLUX (Reported) Potassium Chloride (Klor-Con 10) 10 MEQ TABLET.ER SUPPLEMENT (Reported) Triage Note: PT TO ED WITH FREDDY FOR C/C OF R CALF REDNESS AND SWELLING SINCE YESTERDAY. ALSO REPORTS +PAIN TO AREA. AFEBRILE IN TRIAGE. DENIES CP OR SOB. Triage Nurses Notes Reviewed? yes Onset: Abrupt Duration: day(s): (2), constant Timing: recent history Severity: moderate, severe Severity Numbers: 10 Pain/Injury Location: Right: Knee. 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 Mancia, CAD status post bypass, hypertension, hyperlipidemia, peripheral vascular disease, GUSTAVO, GERD, depression with history of suicidal ideation, obesity status post gastric sleeve , and COPD on 2.5 L O2 resents to ER for evaluation complaining of worsening right sutherland calf redness warm swelling since last night associated with chills diaphoresis. Patient was seen here last week status post fall sustaining injury to the right leg. The pain in his calf is reading up to his thigh. He denies any shortness of breath chest pain fevers. He does report that he's had a history of cellulitis to the same leg 4 times requiring admission to the hospital for IV antibiotic syndrome past. He states that it has been losing. (Lance Napoles) Past History Travel History Traveled to [place] past 21 day No Medical History Any Pertinent Medical History? 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 MOTHER (CAD). Hx Contributory? No (Lance Napoles) Review of Systems Review of Systems Constitutional: Reports: see HPI, chills, diaphoresis. Comments Review of systems: See HPI, All other systems negative. Constitutional, positive chills no fever HEENT: no sore throat no congestion Cardiovascular: No chest pain Skin: See HPI Respiratory: No dyspnea no cough no sputum GI: No nausea no vomiting, no diarrhea, no bloating/constipation : No dysuria Muscle skeletal: No joint pain, no back pain, no neck pain, Neurologic: , no headache Heme/endocrine: No bruising no bleeding Immunology: No lymphadenopathy (Lance Napoles) Physical Exam Physical Exam General Appearance: well developed/nourished, alert, awake Comments: Well-developed well-nourished person in no acute distress HEENT: Normal EENT exam; PERRL, EOMI. HEAD is atraumatic. moist mucous membranes. Neck: Supple, trach, normal range of motion Back: Full range of motion Cardiovascular: Regular rate and rhythms no murmur Respiratory: No respiratory distress. Patient speaking in full complete sentences. Breath sounds clear to auscultation bilaterally: NO W/R/R Abdomen: Morbidly obese, Soft, nontender nondistended upper Extremity: No edema, full range of motion of extremities Hip/Pelvis: Atraumatic/Stable. FROM. No pain with pelvic compression Knee: Healing ecchymosis noted to the right knee, FROM. No joint swelling, no effusion. No laxity. Negative kinga/anterior drawer test. No pain with ROM Leg: There is erythema noted to the right anterior sutherland positive warmth tender to palpation calf is tender to palpation No edema, 5 out of 5 strength in the lower extremity, normal dorsiflexion of great toe bilaterally, gross sensation is intact Ankle/Foot: Atraumatic/stable. Skin intact. FROM. No swelling, no effusion. No laxity on exam Pulses: Normal/equal DP/PT pulses bilaterally. Brisk cap refill Neuro: Alert oriented x3, motor sensory normal, cranial nerves II through XII grossly intact. There were no obvious focal neurologic abnormalities. Skin: No appreciable rash on exposed skin, skin is warm and dry. Psych: Mood and affect is normal, memory and judgment is normal. (Lance Napoles) Progress Differential Diagnosis: arterial insufficiency, cellulitis, compartment syndrome , contusion, dislocation, fracture, septic arthritis, sprain, tendon injury, infected hematoma, sepsis Plan of Care: Orders Procedure Date/time Status Heart Healthy Diet 10/27 D Active Intake & Output 10/27 1609 Active Patient Data 10/27 1536 Active ED Holding Orders 10/27 1519 Active Admit to inpatient 10/27 1519 Active Vital Signs 10/27 1519 Active Code Status 10/27 1519 Active EKG 10/27 1451 Active BLOOD CULTURE 10/27 1320 Active LACTIC ACID 10/27 1320 Complete COMPREHENSIVE METABOLIC PANEL 10/27 1320 Complete CBC WITHOUT DIFFERENTIAL 10/27 1320 Complete Current Medications Sig/Samreen Start time Last Medication Dose Stop Time Status Admin Atorvastatin Calcium 20 MG 1700 10/28 1700 AC (Lipitor) Aspirin Buffered 162 MG DAILY 10/28 09 AC (Ecotrin) Bupropion HCl 300 MG DAILY 10/28 09 AC (Wellbutrin XL) Escitalopram Oxalate 10 MG DAILY 10/28 899 AC (Lexapro) Furosemide 40 MG DAILY 10/28 899 AC (Lasix) Isosorbide 30 MG DAILY 10/28 899 AC Mononitrate (Imdur) Omeprazole 40 MG DAILY AC 10/28 07 AC (Prilosec) Albuterol Sulfate 3 ML BID 10/27 2099 AC (Proventil) Metoprolol Tartrate 25 MG BID 10/27 2099 AC (Lopressor) Mirtazapine 30 MG QPM 10/27 2099 AC (Remeron) Naproxen 500 MG BID 10/27 2099 AC (Naprosyn) Potassium Chloride 10 MEQ BID 10/27 2099 AC (K-Dur) Laboratory Tests 10/27/17 1620: Lactic Acid Cancelled 10/27/17 1350: Anion Gap 8, Estimated GFR > 60, BUN/Creatinine Ratio 22.5, Glucose 90, Lactic Acid 1.0, Calcium 8.8, Total Bilirubin 0.5, AST 19, ALT 23, Alkaline Phosphatase 71, Total Protein 5.6 L, Albumin 3.3 L, Globulin 2.3, Albumin/Globulin Ratio 1.4, CBC w Diff NO MAN DIFF REQ, RBC 4.19 L, MCV 89.3, MCH 29.4, MCHC 32.9 L, RDW 15.0 H, MPV 7.3 L, Gran % 77.1 H, Lymphocytes % 12.5 L, Monocytes % 6.5, Eosinophils % 3.3, Basophils % 0.6, Absolute Granulocytes 4.7, Absolute Lymphocytes 0.8 L, Absolute Monocytes 0.4, Absolute Eosinophils 0.2, Absolute Basophils 0 Microbiology 10/27 1405 BLOOD: Blood Culture - RECD 10/27 1350 BLOOD: Blood Culture - RECD Labs ordered old records reviewed case discussed with Dr. Bull agrees plan patient medicated IV Unasyn, IV Dilaudid ultrasound ordered Case discussed with the patient and his son all his labs and ultrasound findings given he is unable to ambulate and he is requiring admission the past for cellulitis I believe premature discharge treatment and medical harmful despite his labs looking normal at this time he is in agreement with plan IV Unasyn is running pain has improved with IV Dilaudid Diagnostic Imaging: Viewed by Me: Ultrasound. Discussed w/RAD: Ultrasound. Radiology Impression: PATIENT: CODY HERNÁNDEZ PRESENT AGE: 67 PATIENT ACCOUNT NO: [id number] : 51 LOCATION: [facility] ORDERING PHYSICIAN: Lance BYRNES SERVICE DATE: 10/27/17 EXAM TYPE: US - US- UNILATERAL VENOUS DOPPLER EXAMINATION: US TRIPLEX LOWER EXTREMITY, RIGHT CLINICAL INFORMATION: Right leg swelling COMPARISON: None TECHNIQUE: Color-flow triplex imaging with spectral analysis and compression Doppler were performed on the lower extremity. FINDINGS: Respiratory variation, normal compression and augmented flow are noted throughout the lower extremity. The visualized common femoral vein, superficial femoral vein, profunda femoral vein, popliteal vein and visualized tibial venous segments show no evidence of deep venous thrombosis. There is no Olsen's cyst. IMPRESSION: No evidence of deep venous thrombosis involving the lower extremity. DICTATED BY: Darius Humphrey MD DATE/ TIME DICTATED:10/27/171454 REGULATORY SUBMISSIONS ASSOCIATE:KARENA DATE/TIME TRANSCRIBED: 10/27/171454 CONFIDENTIAL, DO NOT COPY WITHOUT APPROPRIATE AUTHORIZATION. < Electronically signed in Other Vendor System> SIGNED BY: Darius Humphrey MD 10/27/17 1500 Initial ED EKG: normal intervals, normal p-waves, normal QRS complex, normal sinus rhythm (Lance Napoles) Departure Departure Time of Disposition: 1522 Disposition: STILL A PATIENT Condition: Stable Clinical Impression Primary Impression: Cellulitis Referrals: Tristan Matthews MD (PCP/Family) Departure Forms: Customer Survey General Discharge Information Admission Note Spoke With: Jimmy ZENG,Zoë Documentation of Exam: Documentation of any treatments & extenuating circumstances including Concerns Regarding Discharge (functional status, medication knowledge or non-compliance, living conditions, etc.) that warrant an admission rather than observation: IV antibiotics trend labs and cultures PT consult patient is unable to ambulate secondary to pain he's required admission to the hospital for previous times for cellulitis similar to today premature discharge would BE medically harmful (Ger BYRNES,Lance) PA/MOVING VAN DRIVER Co-Sign Statement Statement: ED Attending supervision documentation- [X] I saw and evaluated the patient. I have also reviewed all the pertinent lab results and diagnostic results. I agree with the findings and the plan of care as documented in the PA's/MOVING VAN DRIVER's documentation. [X] I have reviewed the ED Record and agree with the PA's/MOVING VAN DRIVER's documentation. [] Additions or exceptions (if any) to the PAs/MOVING VAN DRIVER's note and plan are summarized below: [Patient to be admitted for IV antibiotics. Patient gets recurrent cellulitis and has gotten pretty septic in the past from that. Patient cannot ambulate secondary to his leg pain and swelling.] (Jorgito ZENG,Jakob Dawn) (Jorgito ZENG,Jakob Dawn)
[2017-10-27 14:03] LABS: ABSOLUTE BASOPHIL COUNT 0 /CUMM (0.0-0.2); ABSOLUTE EOSINOPHIL COUNT 0.2 /CUMM (0.0-0.7); ABSOLUTE GRANULOCYTE CT 4.7 /CUMM (1.4-6.5); ABSOLUTE LYMPH COUNT 0.8 /CUMM (1.2-3.4); ABSOLUTE MONOCYTE COUNT 0.4 /CUMM (0.10-0.60); BASOPHIL % 0.6 % (0.0-2.0); EOSINOPHIL % 3.3 % (0-5); GRANULOCYTE % 77.1 % (42.2-75.2); HEMATOCRIT 37.5 % (42-52); MEAN CORPUSCULAR HGB 29.4 PG (27.0-31.0); MEAN CORPUSCULAR HGB CONC 32.9 G/DL (33.0-37.0); MEAN CORPUSCULAR VOLUME 89.3 FL (80.0-94.0); MEAN PLATELET VOLUME 7.3 FL (7.4-10.4); PLATELET COUNT 233 /CUMM (130-400); RED BLOOD CELL CT 4.19 /CUMM (4.70-6.10); WHITE BLOOD CELL COUNT 6.1 /CUMM (4.8-10.8)
--- NOTE | 2017-10-27 15:00 | ULTRASOUND REPORT ---
EXAMINATION: US TRIPLEX LOWER EXTREMITY, RIGHT CLINICAL INFORMATION: Right leg swelling COMPARISON: None TECHNIQUE: Color-flow triplex imaging with spectral analysis and compression Doppler were performed on the lower extremity. FINDINGS: Respiratory variation, normal compression and augmented flow are noted throughout the lower extremity. The visualized common femoral vein, superficial femoral vein, profunda femoral vein, popliteal vein and visualized tibial venous segments show no evidence of deep venous thrombosis. There is no Olsen's cyst. IMPRESSION: No evidence of deep venous thrombosis involving the lower extremity.
--- NOTE | 2017-10-27 15:39 | Admission Certification ---
Admission Certification Certification Statement - As attending physician, I certify that at the time of - admission, based on clinical presentation, severity of - symptoms, need for further diagnostic testing and - therapeutic interventions, and risk of adverse outcomes - without in-hospital treatment, in my clinical assessment, - this patient requires an acute hospital stay for a minimum - of two nights or longer. I have also considered psychsocial - factors such as support system, advanced age, financial - issues, cognitive issues, and failed out-patient treatments, - past re-admission history, safety of patient, and lack of - compliance as applicable. Specific rationale supporting this admission is: Right leg cellulitis and recent fall
--- NOTE | 2017-10-27 15:48 | PN- Att Addend ---
Attending Addendum Attending Brief Note Patient seen and examined in the emergency room. Plan of care discussed with the medical team, ER provider and the patient. Available lab work and radiology test reports were reviewed. 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 Patient also status post gastric sleeve surgery and also is on chronic O2 therapy at 2.5 L per COPD. Patient M.D. today after suffering a recent fall and landing on the right knee and subsequently developing chills and increasing redness and swelling of the right sutherland. He denies any fever. His breathing is at his baseline. Patient had multiple episodes of colitis and has been admitted to the hospital several times. Medical History Any Pertinent Medical History? 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 Other Medical Hx: scc of vocal cords, tracheostomy History of MRSA: No History of VRE: No History of CDIFF: No Tetanus Vaccine: 10/13/17 Vital Signs Date Time Temp Pulse Resp B/P B/P Pulse O2 O2 Flow FiO2 Mean Ox Delivery Rate 10/27 1351 Room Air 10/27 1256 97.2 81 15 118/77 97 Room Air Room Air Intake & Output 10/27 1600 10/27 0800 10/27 0000 Intake Total Output Total Balance Patient 320 lb Weight Weight Reported by Patient Measurement Method Exam: General: Patient awake alert oriented without any distress; follows commands; patient is dysphonic due to prior laryngeal surgery CVS: S1 plus S2 without any murmur or gallops Chest: Few scattered crepitation without any wheeze. There is no respiratory distress. Abdomen: Soft non-tender, bowel sound present, no guarding or rebound LITIGATION SPECIALIST: Awake alert oriented without any focal neuro deficit and follows commands appropriately Extremities: Area of ecchymosis and swelling below the right knee area. Right sutherland appears the images want to touch and erythematous. no clubbing or cyanosis noted Laboratory Tests 10/27/17 1350: Anion Gap 8, Estimated GFR > 60, BUN/Creatinine Ratio 22.5, Glucose 90, Lactic Acid 1.0, Calcium 8.8, Total Bilirubin 0.5, AST 19, ALT 23, Alkaline Phosphatase 71, Total Protein 5.6 L, Albumin 3.3 L, Globulin 2.3, Albumin/Globulin Ratio 1.4, CBC w Diff NO MAN DIFF REQ, RBC 4.19 L, MCV 89.3, MCH 29.4, MCHC 32.9 L, RDW 15.0 H, MPV 7.3 L, Gran % 77.1 H, Lymphocytes % 12.5 L, Monocytes % 6.5, Eosinophils % 3.3, Basophils % 0.6, Absolute Granulocytes 4.7, Absolute Lymphocytes 0.8 L, Absolute Monocytes 0.4, Absolute Eosinophils 0.2, Absolute Basophils 0 Microbiology 10/27 1405 BLOOD: Blood Culture - RECD 10/27 1350 BLOOD: Blood Culture - RECD Assessment * Right leg cellulitis * Recent trauma to right knee after a fall * History of laryngeal cancer status post laryngectomy * History of CAD and CABG * Morbid obesity status post gastric sleeve surgery Plan * Elevated right leg * Begin IV cefazolin * Continue all home medications
--- NOTE | 2017-10-27 16:21 | History & Physical ---
Jae ZENG,Deb 10/27/17 1431: General Information and HPI MD Statement: I have seen and personally examined CODY BELLA and documented this H&P. 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 Of note the patient is unable to speak s/p laryngectomy and uses a voice box. Family not in the room at the time of interview so communiation difficulties. The patient usually ambulates with a walker. He notes that 2 weeks ago he tripped and sustained a fall. He presented to the ER with an injury to his LEFT LE requiring suturing which he had removed 6 days ago. He also landed on his right knee, no bony injury found. After the suture removal, he denied any acute complaints until his presenting symptoms yesterday, primarily errythema of the RLE/knee, swelling, tenderness, and chills that have only progressed in severity. Pain level at most was 10/10, worse when attempting ambulation. He denies ever having any chills, fever, diaphoresis, nausea, vomiting. He denies any pus or granulation tissue, any fluctuance at any point. He states that small blisters formed on his anterior sutherland and then popped, leaving a "raw" area. As stated, the patient is active at baseline. He lives alone. Allergies/Medications Allergies: Coded Allergies: adhesive tape (ALL TAPE GIVES RASH EXCEPT PAPER, PAPER TAPE OK 10/27/17) Home Med list Albuterol Sulfate 2.5 MG/3 ML VIAL.NEB 1 Vial INH/FERCHO BID RESPIRATORY ( Reported) Aspirin (Ecotrin*) 81 MG TABLET.DR 2 TAB PO DAILY heart health (Reported) Atorvastatin Calcium (Lipitor) 20 MG TABLET 1 TAB PO DAILY CHOLESTEROL ( Reported) Budesonide/Formoterol Fumarate (Symbicort 160-4.5 Mcg Inhaler) 160 MCG-4.5 MCG/ ACTUATION HFA.AER.AD 2 PUF INH BID COPD (Reported) Bupropion HCl (Wellbutrin XL) 300 MG TAB.ER.24H 1 TAB PO DAILY HEART HEALTH ( Reported) Escitalopram Oxalate 10 MG TABLET 1 TAB PO DAILY DEPRESSION (Reported) Furosemide (Lasix) 40 MG TABLET 1 TAB PO DAILY DIURETIC (Reported) Isosorbide Mononitrate (Isosorbide Mononitrate ER) 30 MG TAB.ER.24H 1 TAB PO DAILY HEART HEALTH (Reported) Metoprolol Tartrate 25 MG TABLET 1 TAB PO BID HEART (Reported) Mirtazapine 30 MG TABLET 1 TAB PO QPM MENTAL HEALTH (Reported) Naproxen 500 MG TABLET 1 TAB PO BID PAIN/INFLAMMATION (Reported) Pantoprazole Sodium 40 MG TABLET.DR 1 TAB PO DAILY ACID REFLUX (Reported) Potassium Chloride (Klor-Con 10) 10 MEQ TABLET.ER SUPPLEMENT (Reported) Compliance With Home Meds: FAIR Past History Travel History Traveled to [place] past 21 day No Medical History Neurological: NONE EENT: NONE Cardiovascular: CAD (S/P CABG X 3 '03), hyperlipidemia, PVD Respiratory: COPD (2L O2 CONTINUOUS), TRACH R/T REMOVAL OF VOICE BOX ( NIGHTLY CPAP) Gastrointestinal: GERD Hepatic: NONE Renal: NONE Musculoskeletal: chronic back pain, BACK SURGERY Psychiatric: depression (WITH SI+) Endocrine: obesity Blood Disorders: NONE 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 MOTHER (CAD). Psychosocial History Who Do You Live With? Roommate Services at Home: Home Health Aide, Nursing Primary Language: Upper Sorbian ETOH Use: denies use Illicit Drug Use: denies illicit drug use Functional Ability ADLs Independent: eating, toileting. Needs Assist: dressing, bathing. Ambulation: walker IADLs Needs Assist: medication admin. Review of Systems Review of Systems Constitutional: Reports: chills, weakness. EENTM: Reports: no symptoms. Cardiovascular: Reports: no symptoms. Respiratory: Reports: no symptoms. GI: Reports: no symptoms. Genitourinary: Reports: no symptoms. Musculoskeletal: Reports: see HPI, joint pain. Skin: Reports: see HPI, change in skin color, erythema (sweling, blisters). Neurological/Psychological: Reports: no symptoms. Hematologic/Endocrine: Reports: no symptoms. Immunologic/Allergic: Reports: no symptoms. Exam & Diagnostic Data Last 24 Hrs of Vital Signs/I&O Vital Signs Date Time Temp Pulse Resp B/P B/P Pulse O2 O2 Flow FiO2 Mean Ox Delivery Rate 10/27 1904 Room Air 10/27 1742 93 Room Air Room Air 10/27 1740 98.5 52 14 124/68 95 Room Air 10/27 1638 98.0 67 16 122/59 96 Room Air 10/27 1503 98.1 79 16 122/74 97 Room Air 10/27 1351 Room Air 10/27 1256 97.2 81 15 118/77 97 Room Air Room Air Intake & Output 10/27 1600 10/27 0800 10/27 0000 Intake Total Output Total Balance Patient 320 lb Weight Weight Reported by Patient Measurement Method Physical Exam General Appearance Alert, Oriented X3, Cooperative, No Acute Distress Skin No Rashes, right lower extremity edema slightly more than left. erythema of the knee and sutherland. Tenderness on palpation, sutherland with open shallow blisters. Pain on light touch of this area. Intact pulses, motor. Decreased sensation more on the right. Skin Temp/Moisture Exam: Warm/Dry Sepsis Skin Exam (color): Normal for Ethnicity HEENT Atraumatic, EOMI, Mucous Membr. moist/pink Neck Supple, No JVD Cardiovascular Regular Rate, Normal S1, Normal S2, No Murmurs Lungs Clear to Auscultation, Normal Air Movement Abdomen Normal Bowel Sounds, Soft, No Tenderness Neurological inability to speak secondary to larygectomy Extremities No Clubbing, No Cyanosis, Normal Pulses Vascular Normal Pulses Body Front and Back (Adult) 1) Last 24 Hrs of Labs/Radu: Laboratory Tests 10/27/17 1620: Lactic Acid Cancelled 10/27/17 1350: Anion Gap 8, Estimated GFR > 60, BUN/Creatinine Ratio 22.5, Glucose 90, Hemoglobin A1c Pending, Lactic Acid 1.0, Calcium 8.8, Total Bilirubin 0.5, AST 19, ALT 23, Alkaline Phosphatase 71, Total Protein 5.6 L, Albumin 3.3 L, Globulin 2.3, Albumin/Globulin Ratio 1.4, CBC w Diff NO MAN DIFF REQ, RBC 4.19 L, MCV 89.3, MCH 29.4, MCHC 32.9 L, RDW 15.0 H, MPV 7.3 L, Gran % 77.1 H, Lymphocytes % 12.5 L, Monocytes % 6.5, Eosinophils % 3.3, Basophils % 0.6, Absolute Granulocytes 4.7, Absolute Lymphocytes 0.8 L, Absolute Monocytes 0.4, Absolute Eosinophils 0.2, Absolute Basophils 0 Microbiology 10/27 1405 BLOOD: Blood Culture - RECD 10/27 1350 BLOOD: Blood Culture - RECD Assessment/Plan Assessment: 67-year-old obese male with history of 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 He had a recent fall with injury to his right knee and now has a two day history of pain, erythema and warmness to touch, blisters of the sutherland. Vitals and labs are normal. EKG shows bradycardia that he apparentlly has had worked up with no cause found, untreated as it is asymptomatic. Patient is on metroprolol 25mg bid outpatient for Physical exam shows errythema and discoloration mostly around the knee, extending down to the sutherland, with tenderness to palpation mostly on the sutherland when he notes several blisters that that had formed, have burst. No crepitus noted on my exam. Benign left leg. Doppler ruled out DVT of left leg. Plan Skin changes secondary to bacterial infection: does not appear to be systemic, does not fit any SIRS criteria. However it is to be noted on a different resident's exam, that the patient is in severe pain on palpation to the knee which could possibly point to a nectrotizing fasciits in a patient with a recent fall. Was given a dose of Unasyn in ED. -Blood cultures -Start on cefazolin 1g q8h -CT scan lower extremity with and without contrast with call to surgery if positive for nec fasc. -PT evaluation -Follow CBC Bradycardia -Patient has been worked up for this issue and as such does not require telemetry as he is stable and asymptomatic. -Monitor vitals qshift Obesity -HbA1c, patient NOT known to be diabetic but this could predispose to infection Full code Lovenox for DVT prophylaxis IF CT NEGATIVE (if positive could need surgery) Heart healthy diet Labs as dictated above, overall unremarkable. Doppler ruled out DVT of the right leg. Assessment and Plan Cellulitis * Although this patient's vitals and labs look overall unremarkable, given his clinical exam, I am concerned for underlying necrotizing fasciitis. His risk factors include recent trauma, very rapid onset, obesity, severe tenderness out of proportion, and a remote history of malignancy. He is not a known diabetic with A1C in Jul 2016 <6.5. We will repeat A1C. * Admit to GM * Pt does not meet SIRS criteria. He was given a dose of unasyn in the ER. Plan to draw blood cultures. * Depending on the patients CT results, we will either treat with cephalosporins , or more aggressively to cover presumed polymicrobial Nec. Fasc. including anti -pseudomonal agents as well as anti-MRSA antimicrobials. We will also consider clindamycin for toxin releasing strains of strep and staph * Consider PT/OT if the patient has significant imobility Chronic Medical problems * We will continue the patients home medications as ordered in the CMR Full code Lovenox for DVT ppx starting tomororw if CT negative Heart healthy diet Pain path as ordered As Ranked By This Provider Problem List: 1. Bradycardia Core Measures/Misc (02/21) Acute Coronary Syndrome ACS Diagnosis: No Congestive Heart Failure Congestive Heart Failure Diagnosis No Cerebrovascular Accident CVA/TIA Diagnosis: No VTE (View Protocol) VTE Risk Factors Acute Medical Illness No Mechanical VTE Prophylaxis d/t N/A MechProphylax Ordered (only in left leg) No VTE Pharm Prophylaxis d/t NA PharmProphylax ordered Sepsis (View protocol) Sepsis Present: No If YES complete Sepsis Event Note If YES complete Sepsis Event Note Jony Triana 10/27/17 1509: Core Measures/Misc (02/21) Sepsis (View protocol) If YES complete Sepsis Event Note If YES complete Sepsis Event Note Resident Review Statement Other Findings: Mr. Bella is a 67-year-old male with past medical history of squamous cell carcinoma s/p radiation and laryngectomy with stoma followed by Dr. Mancia, CAD status post triple vessel bypass, HTN, HLD, PVD, GUSTAVO, GERD, depression with previous history of suicidal ideation, obesity status post gastric sleeve, and COPD (2.5 L of nocturnal O2 followed by Dr. Jorge) who presents with complaints of RIGHT LE pain, swelling and chills. The patient is accompained by his daughter and given his dysphonia, the history was corroborated by her. The patient states that the pain started last night. He lives alone and is active at baseline. He was gardening yesterday w/o significant impairment. He does state he was wearing close-toed shoes. He notes that 2 weeks ago, he fell and and presented to the ER with an injury to his LEFT LE (toes requiring suturing). He had his sutures removed last wednesday. He was not given any ABx. He denied any acute complaints until his presenting symptoms yesterday, primarily errythema of the RLE/knee, swelling and and chills. He states his pain was at most a 2/10 prior to yesterday evening, and suddenly and rapidly progressed to a 10/10, 8/10 at the time of the interview. The patient notes that he had some bruising after the fall, but his reddness and discoloration are significantly worse since yesterday. Vitals unremarkable as dictated above. Physical exam as dictated above, with note of errythema/ discoloration with illdefined irregular borders of the RLE and knee with severe tenderness to palpation. Crepitis could not be assessed due to the severe tenderness. Labs as dictated above, overall unremarkable. Doppler ruled out DVT of the right leg. Assessment and Plan Cellulitis * Although this patient's vitals and labs look overall unremarkable, given his clinical exam, I am concerned for underlying necrotizing fasciitis. His risk factors include recent trauma, very rapid onset, obesity, severe tenderness out of proportion, and a remote history of malignancy. He is not a known diabetic with A1C in Jul 2016 <6.5. We will repeat A1C. * Admit to GM * Pt does not meet SIRS criteria. He was given a dose of unasyn in the ER. Plan to draw blood cultures. * Depending on the patients CT results, we will either treat with cephalosporins , or more aggressively to cover presumed polymicrobial Nec. Fasc. including anti -pseudomonal agents as well as anti-MRSA antimicrobials. We will also consider clindamycin for toxin releasing strains of strep and staph * Consider PT/OT if the patient has significant imobility Chronic Medical problems * We will continue the patients home medications as ordered in the CMR Full code Lovenox for DVT ppx starting tomororw if CT negative Heart healthy diet Pain path as ordered
[2017-10-27] MEDS ORDERED: PANTOPRAZOLE SO40 M1 PO (16:47)
[2017-10-27 17:40] VITALS: BP 124/68
--- NOTE | 2017-10-27 21:44 | CT SCAN REPORT ---
EXAMINATION: CT LOWER EXTREMITY WITH CONTRAST, RIGHT CLINICAL INFORMATION: Tenderness out of proportion. Erythema. History of trauma. Please evaluate right hip to ankle. COMPARISON: 10/13/2017 TECHNIQUE: Contiguous helical axial tomographic images through the right lower extremity from the right hip to the right ankle were obtained. 95 cc Optiray 320 intravenous contrast was administered. DLP: 1665 mGy-cm FINDINGS: Visualized small bowel is nondilated. Scattered colonic diverticulosis without evidence of diverticulitis. Mild prostatomegaly. Urinary bladder normal. No pelvic or inguinal lymphadenopathy. There is fluid and fat stranding of the thigh, greatest anterolaterally and distally. Severe tricompartmental degenerative changes of the right knee are seen. Again seen is prepatellar and pretibial hyperdensity consistent with hematoma. The extent of the hematoma appears increased from the prior CT scan 10/23/2017 now measuring 12.8 cm transversely and up to 1.7 cm AP, previously 9.9 x 1.9 cm when measured similarly. There is circumferential fluid and reticulation of the subcutaneous fat of the calf from the level of the proximal tibia to the ankle. These findings were present previously as well. Aside from the above described hematoma, no discrete well-defined fluid collection is seen to suggest an abscess. No gas is present within the subcutaneous soft tissues to suggest necrotizing fasciitis. There are degenerative changes of the midfoot and hindfoot. IMPRESSION: Increased size of prepatellar and pretibial hematoma compared to prior study 10/13/2017. Aside from the hematoma, there is no discrete fluid collection to suggest an abscess. No gas is seen within the subcutaneous soft tissues of the right lower extremity to suggest necrotizing fasciitis. Again seen is circumferential fluid and reticulation of the subcutaneous fat of the calf consistent with edema. There are degenerative changes of the knee, ankle, and midfoot.
[2017-10-27 22:56] VITALS: BP 105/52
[2017-10-28 06:43] VITALS: BP 106/62
[2017-10-28 08:36] LABS: ABSOLUTE BASOPHIL COUNT 0 /CUMM (0.0-0.2); ABSOLUTE EOSINOPHIL COUNT 0.2 /CUMM (0.0-0.7); ABSOLUTE GRANULOCYTE CT 3.1 /CUMM (1.4-6.5); ABSOLUTE LYMPH COUNT 0.7 /CUMM (1.2-3.4); ABSOLUTE MONOCYTE COUNT 0.3 /CUMM (0.10-0.60); BASOPHIL % 0.8 % (0.0-2.0); EOSINOPHIL % 3.7 % (0-5); GRANULOCYTE % 70.6 % (42.2-75.2); MEAN CORPUSCULAR HGB 29.6 PG (27.0-31.0); MEAN CORPUSCULAR HGB CONC 33.4 G/DL (33.0-37.0); MEAN CORPUSCULAR VOLUME 88.6 FL (80.0-94.0); MEAN PLATELET VOLUME 7.6 FL (7.4-10.4); PLATELET COUNT 174 /CUMM (130-400); RBC DISTRIBUTION WIDTH 15.3 % (11.5-14.5); RED BLOOD CELL CT 3.66 /CUMM (4.70-6.10); WHITE BLOOD CELL COUNT 4.4 /CUMM (4.8-10.8)
[2017-10-28 09:07] LABS: HEMATOCRIT 32.5 % (42-52)
--- NOTE | 2017-10-28 13:11 | PN- Att Addend ---
Attending Addendum Attending Brief Note Patient seen and examined. Plan of care discussed with the medical team, ER provider and the patient. Available lab work and radiology test reports were reviewed. Patient awake alert and feels well and denies any recent fever chills or chest pain difficulty breathing. He has not been keeping his right leg elevated. Exam: General: Patient awake alert oriented without any distress; follows commands; patient is dysphonic due to prior laryngeal surgery CVS: S1 plus S2 without any murmur or gallops Chest: Few scattered crepitation without any wheeze. There is no respiratory distress. 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 Right sutherland appears erythematous but appears to have somewhat improved since yesterday; leg is warm to touch. no clubbing or cyanosis noted Assessment * Right leg cellulitis * Recent trauma to right knee after a fall * History of laryngeal cancer status post laryngectomy * History of CAD and CABG * Morbid obesity status post gastric sleeve surgery Plan * Elevated right leg * Continue IV cefazolin * Continue all home medications Current Medications Sig/Samreen Start time Last Medication Dose Route Stop Time Status Admin Acetaminophen 325 MG Q6P PRN 10/27 1815 AC 10/28 PO 0549 Albuterol Sulfate 3 ML BID 10/27 2100 CAN INH Albuterol Sulfate 3 ML TID 10/27 2100 AC 10/28 INH 1204 Ampicillin Sodium/ 0 .STK-MED ONE 10/27 1418 DC Sulbactam Sodium .ROUTE Ampicillin Sodium/ 3,000 MG ONCE ONE 10/27 1330 DC 10/27 Sulbactam Sodium IV 10/27 1359 1425 Sodium Chloride 100 ML Aspirin Buffered 162 MG DAILY 10/28 0900 AC 10/28 PO 1204 Atorvastatin Calcium 20 MG 1700 10/28 1700 AC PO Bupropion HCl 300 MG DAILY 10/28 0900 AC 10/28 PO 0949 Cefazolin Sodium 1,000 MG IQ8 10/28 0000 AC 10/28 IV 0837 Docusate Sodium 100 MG DAILY PRN 10/27 1815 AC PO Enoxaparin Sodium 40 MG DAILY 10/27 1807 AC 10/28 SC 0950 Escitalopram Oxalate 10 MG DAILY 10/28 0900 AC 10/28 PO 0949 Furosemide 40 MG DAILY 10/28 09 AC 10/28 PO 0949 Hydromorphone HCl 0 .STK-MED ONE 10/27 1357 DC .ROUTE Hydromorphone HCl 1 MG ONCE ONE 10/27 1330 DC 10/27 IV 10/27 1331 1402 Ibuprofen 600 MG Q6P PRN 10/27 1814 CAN PO Isosorbide 30 MG DAILY 10/28 09 AC 10/28 Mononitrate PO 0949 Metoprolol Tartrate 25 MG BID 10/27 2099 AC 10/28 PO 0949 Mirtazapine 30 MG QPM 10/27 2099 AC 10/27 PO 2219 Naproxen 500 MG BID 10/27 2099 AC 10/28 PO 0949 Omeprazole 40 MG DAILY AC 10/28 07 AC 10/28 PO 0540 Oxycodone HCl 10 MG Q6P PRN 10/27 1814 DC PO Polyethylene Glycol 17 GM AT BEDTIME PRN 10/27 1814 AC PO Potassium Chloride 10 MEQ BID 10/27 2300 AC PO Potassium Chloride 10 MEQ BID 10/27 2099 DC PO Laboratory Tests 10/28/17 0615: Anion Gap 7, Estimated GFR > 60, BUN/Creatinine Ratio 21.4, CBC w Diff NO MAN DIFF REQ, RBC 3.66 L, MCV 88.6, MCH 29.6, MCHC 33.4, RDW 15.3 H, MPV 7.6, Gran % 70.6, Lymphocytes % 17.1 L, Monocytes % 7.8, Eosinophils % 3.7, Basophils % 0.8, Absolute Granulocytes 3.1, Absolute Lymphocytes 0.7 L, Absolute Monocytes 0.3, Absolute Eosinophils 0.2, Absolute Basophils 0 10/27/17 1620: Lactic Acid Cancelled 10/27/17 1350: Anion Gap 8, Estimated GFR > 60, BUN/Creatinine Ratio 22.5, Glucose 90, Hemoglobin A1c 5.4, Lactic Acid 1.0, Calcium 8.8, Total Bilirubin 0.5, AST 19, ALT 23, Alkaline Phosphatase 71, Total Protein 5.6 L, Albumin 3.3 L, Globulin 2.3, Albumin/Globulin Ratio 1.4, CBC w Diff NO MAN DIFF REQ, RBC 4.19 L, MCV 89.3, MCH 29.4, MCHC 32.9 L, RDW 15.0 H, MPV 7.3 L, Gran % 77.1 H, Lymphocytes % 12.5 L, Monocytes % 6.5, Eosinophils % 3.3, Basophils % 0.6, Absolute Granulocytes 4.7, Absolute Lymphocytes 0.8 L, Absolute Monocytes 0.4, Absolute Eosinophils 0.2, Absolute Basophils 0 Microbiology 10/27 1405 BLOOD: Blood Culture - RECD 10/27 1350 BLOOD: Blood Culture - RECD Vital Signs Date Time Temp Pulse Resp B/P B/P Pulse O2 O2 Flow FiO2 Mean Ox Delivery Rate 10/28 1137 95 Room Air 10/28 0949 74 106/62 10/28 0949 74 106/62 10/28 0810 99 Trach Mask 28% 10/28 0800 Room Air 10/28 0643 97.6 50 18 106/62 100 Trach Mask 28% 10/28 0118 94 Trach Mask 28% 10/28 0000 Trach Mask 28% 10/27 2256 98.0 56 20 105/52 94 Room Air 10/27 2231 96 Trach Mask 28% 10/27 2219 56 105/52 10/27 1904 Room Air 10/27 1742 93 Room Air Room Air 10/27 1740 98.5 52 14 124/68 95 Room Air 10/27 1638 98.0 67 16 122/59 96 Room Air 10/27 1503 98.1 79 16 122/74 97 Room Air 10/27 1351 Room Air Intake & Output 10/28 1600 10/28 0800 10/28 0000 Intake Total 480 1070 Output Total 250 500 250 Balance -250 -20 820 Intake, IV 0 110 Intake, Oral 480 960 Number 0 0 Bowel Movements Output, Urine 250 500 250 Patient 324 lb Weight Weight Reported by Patient Measurement Method
[2017-10-28 14:11] VITALS: BP 124/68
--- NOTE | 2017-10-28 17:02 | PN- Housestaff ---
Subjective Follow-up For: cellulitis Subjective: Patient is resting comfortably in bed on exam. He notes slightly less pain in his right leg on palpation. Vitals are stable. Patient denies any nausea, vomiting, fever, chills. Review of Systems Constitutional: Reports: no symptoms. EENTM: Reports: no symptoms. Cardiovascular: Reports: no symptoms. Respiratory: Reports: no symptoms. Gastrointestinal: Reports: no symptoms. Musculoskeletal: Reports: joint pain, muscle pain. Skin: Reports: lesions. Neurological/Psychological: Reports: no symptoms. Objective Last 24 Hrs of Vital Signs/I&O Vital Signs Date Time Temp Pulse Resp B/P B/P Pulse O2 O2 Flow FiO2 Mean Ox Delivery Rate 10/28 1600 94 Room Air 10/28 1411 98.0 61 20 124/68 93 Room Air 10/28 1137 95 Room Air 10/28 0949 74 106/62 10/28 0949 74 106/62 10/28 0810 99 Trach Mask 28% 10/28 0800 Room Air 10/28 0643 97.6 50 18 106/62 100 Trach Mask 28% 10/28 0118 94 Trach Mask 28% 10/28 0000 Trach Mask 28% 10/27 2256 98.0 56 20 105/52 94 Room Air 10/27 2231 96 Trach Mask 28% 10/27 2219 56 105/52 10/27 1904 Room Air 10/27 1742 93 Room Air Room Air 10/27 1740 98.5 52 14 124/68 95 Room Air Intake & Output 10/28 1600 10/28 0800 10/28 0000 Intake Total 188 587 5235 Output Total 550 500 250 Balance -150 -20 820 Intake, IV 0 0 110 Intake, Oral 400 480 960 Number 0 0 0 Bowel Movements Output, Urine 550 500 250 Patient 324 lb Weight Weight Reported by Patient Measurement Method Physical Exam General Appearance: Alert, Oriented X3, Cooperative, No Acute Distress Skin: No Rashes, right leg knee hematoma from fall, sutherland erythema, tenderness to palpation. Skin Temp/Moisture Exam: Warm/Dry Sepsis Skin Exam (color): Normal for Ethnicity HEENT: Atraumatic, EOMI Cardiovascular: Regular Rate, Normal S1, Normal S2, No Murmurs Lungs: Clear to Auscultation, Normal Air Movement Abdomen: Normal Bowel Sounds, Soft, No Tenderness Extremities: No Clubbing, No Cyanosis, Normal Pulses Current Medications: Current Medications Sig/Samreen Start time Last Medication Dose Route Stop Time Status Admin Acetaminophen 325 MG .STK-MED ONE 10/28 0547 DC PO 10/28 0548 Acetaminophen 325 MG Q6P PRN 10/27 181 AC 10/28 PO 0549 Albuterol Sulfate 3 ML BID 10/27 2100 CAN INH Albuterol Sulfate 3 ML TID 10/27 2100 AC 10/28 INH 1204 Aspirin Buffered 162 MG DAILY 10/28 0900 AC 10/28 PO 1204 Atorvastatin Calcium 20 MG 1700 10/28 1700 AC 10/28 PO 1642 Bupropion HCl 300 MG DAILY 10/28 0900 AC 10/28 PO 0949 Cefazolin Sodium 1,000 MG IQ8 10/28 0000 AC 10/28 IV 1642 Docusate Sodium 100 MG DAILY PRN 10/27 181 AC PO Enoxaparin Sodium 40 MG DAILY 10/27 1807 AC 10/28 SC 0950 Escitalopram Oxalate 10 MG DAILY 10/28 0900 AC 10/28 PO 0949 Furosemide 40 MG DAILY 10/28 0900 AC 10/28 PO 0949 Ibuprofen 600 MG Q6P PRN 10/27 181 CAN PO Isosorbide 30 MG DAILY 10/28 0900 AC 10/28 Mononitrate PO 0949 Metoprolol Tartrate 25 MG BID 10/27 2099 AC 10/28 PO 0949 Mirtazapine 30 MG QPM 10/27 PO 2219 Naproxen 500 MG BID 10/27 2100 10/28 PO 0949 Omeprazole 40 MG DAILY AC 10/28 0700 AC 10/28 PO 0540 Oxycodone HCl 10 MG Q6P PRN 10/27 181 DC PO Patient Medication 1 ED ONE ONE 10/28 1545 DC Teaching ED 10/28 1546 Polyethylene Glycol 17 GM AT BEDTIME PRN 10/27 1814 AC PO Potassium Chloride 10 MEQ BID 10/27 2300 AC PO Potassium Chloride 10 MEQ BID 10/27 2099 DC PO Last 24 Hrs of Lab/Radu Results Last 24 Hrs of Labs/Mics: Laboratory Tests 10/28/17 0615: Anion Gap 7, Estimated GFR > 60, BUN/Creatinine Ratio 21.4, CBC w Diff NO MAN DIFF REQ, RBC 3.66 L, MCV 88.6, MCH 29.6, MCHC 33.4, RDW 15.3 H, MPV 7.6, Gran % 70.6, Lymphocytes % 17.1 L, Monocytes % 7.8, Eosinophils % 3.7, Basophils % 0.8, Absolute Granulocytes 3.1, Absolute Lymphocytes 0.7 L, Absolute Monocytes 0.3, Absolute Eosinophils 0.2, Absolute Basophils 0 Assessment/Plan Assessment: 67-year-old obese male with history of 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 He had a recent fall with injury to his right knee and now has a two day history of pain, erythema and warmness to touch, blisters of the sutherland. Vitals and labs are normal. EKG shows bradycardia that he apparentlly has had worked up with no cause found, untreated as it is asymptomatic. Patient is on metroprolol 25mg bid outpatient for Physical exam shows errythema and discoloration mostly around the knee, extending down to the sutherland, with tenderness to palpation mostly on the sutherland when he notes several blisters that that had formed, have burst. No crepitus noted on my exam. Benign left leg. Doppler ruled out DVT of left leg. CT of leg ruled out necrotizing fasciitis. Plan Skin changes secondary to bacterial infection: does not appear to be systemic, does not fit any SIRS criteria. Was given a dose of Unasyn in ED and is now on cefazolin. -Blood cultures -Start on cefazolin 1g q8h -PT evaluation -Neurochecks right extremity q8, pulses Bradycardia -Patient has been worked up for this issue and as such does not require telemetry as he is stable and asymptomatic. -Monitor vitals qshift Obesity -HbA1c no diabetes Full code Lovenox for DVT prophylaxis Heart healthy diet Problem List: 1. Cellulitis 2. Bradycardia Pain Ratin Pain Location: right knee and sutherland Pain Goal: Pain 4 or less Pain Plan: prn Tomorrow's Labs & Rationales: na
[2017-10-28 20:42] VITALS: BP 133/90
[2017-10-29 07:31] VITALS: BP 135/62
--- NOTE | 2017-10-29 08:02 | PN- Housestaff ---
Subjective Follow-up For: cellulitis Subjective: Patient notes continued pain on palpation of his lower extremities. The area is more well demarcated in the lower extremities and includes redness from knee to toe. Cellulitis compounded with chronic venous stasis changes and peripheral edema. Patient has no other complaints. Review of Systems Constitutional: Reports: no symptoms. EENTM: Reports: no symptoms. Cardiovascular: Reports: no symptoms, peripheral edema. Respiratory: Reports: no symptoms. Gastrointestinal: Reports: no symptoms. Genitourinary: Reports: no symptoms. Musculoskeletal: Reports: back pain. Skin: Reports: change in skin color, lesions. Neurological/Psychological: Reports: no symptoms. Hematologic/Endocrine: Reports: no symptoms. Objective Last 24 Hrs of Vital Signs/I&O Vital Signs Date Time Temp Pulse Resp B/P B/P Pulse O2 O2 Flow FiO2 Mean Ox Delivery Rate 10/29 1453 97.7 56 20 110/60 96 Room Air 10/29 0851 50 135/62 10/29 0849 50 135/62 10/29 0840 95 Room Air 10/29 0800 94 10/29 0731 97.8 50 18 135/62 95 Trach Mask 28% 10/29 0022 95 Trach Mask 28% 10/29 0000 100 Trach Mask 28% 10/28 2224 96 Trach Mask 28% 10/28 2042 98.5 55 18 133/90 93 Room Air 10/28 2035 55 133/90 10/28 1935 95 Room Air Intake & Output 10/29 1600 10/29 0800 10/29 0000 Intake Total 740 270 490 Output Total 750 350 600 Balance -10 -80 -110 Intake, IV 30 10 Intake, Oral 740 240 480 Number 0 0 0 Bowel Movements Output, Urine 750 350 600 Physical Exam General Appearance: Alert, Oriented X3, Cooperative, No Acute Distress Skin: No Rashes, patient has lower bilateral extremity cellulitis and well demarcated redness from the knee to the toe that has element of chronic venous stasis changes, peripheral edema, cellulitis. Tender to touch. Skin Temp/Moisture Exam: Warm/Dry Sepsis Skin Exam (color): Normal for Ethnicity HEENT: Atraumatic, EOMI, Mucous Membr. moist/pink Cardiovascular: Regular Rate, Normal S1, Normal S2, No Murmurs Lungs: Clear to Auscultation, Normal Air Movement Abdomen: Normal Bowel Sounds, Soft, No Tenderness Extremities: No Clubbing, No Cyanosis, Normal Pulses Vascular: Normal Pulses, Pulses Symmetrical Current Medications: Current Medications Sig/Samreen Start time Last Medication Dose Route Stop Time Status Admin Acetaminophen 325 MG .STK-MED ONE 10/28 2034 DC PO 10/29 2035 Acetaminophen 325 MG Q6P PRN 10/27 181 AC 10/28 PO 203 Albuterol Sulfate 3 ML TID 10/27 2100 AC 10/29 INH 1319 Aspirin Buffered 162 MG DAILY 10/28 09 AC 10/29 PO 0849 Atorvastatin Calcium 20 MG 1700 10/28 1700 AC 10/28 PO 1642 Bupropion HCl 300 MG DAILY 10/28 09 AC 10/29 PO 0850 Cefazolin Sodium 1,000 MG IQ8 10/28 0000 AC 10/29 IV 0847 Docusate Sodium 100 MG DAILY PRN 10/27 1814 AC PO Enoxaparin Sodium 40 MG DAILY 10/27 1807 AC 10/29 SC 0852 Escitalopram Oxalate 10 MG DAILY 10/28 09 AC 10/29 PO 0850 Furosemide 40 MG DAILY 10/28 09 AC 10/29 PO 0851 Isosorbide 30 MG DAILY 10/28 09 AC 10/29 Mononitrate PO 0851 Metoprolol Tartrate 25 MG BID 10/27 2099 AC 10/29 PO 0849 Mirtazapine 30 MG QPM 10/27 2099 AC 10/28 PO 2034 Naproxen 500 MG BID 10/27 2100 AC 10/29 PO 0854 Omeprazole 40 MG DAILY AC 10/28 0700 AC 10/29 PO 0526 Patient Medication 1 ED ONE ONE 10/29 09 RI 10/29 Teaching ED 10/29 09 0903 Polyethylene Glycol 17 GM AT BEDTIME PRN 10/27 181 AC PO Potassium Chloride 10 MEQ BID 10/27 2300 AC PO Assessment/Plan Assessment: 67-year-old obese male with history of 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 He had a recent fall with injury to his right knee and now has a two day history of pain, erythema and warmness to touch, blisters of the sutherland. Vitals and labs are normal. EKG shows bradycardia that he apparentlly has had worked up with no cause found, untreated as it is asymptomatic. Patient is on metroprolol 25mg bid outpatient for Physical exam shows errythema and discoloration mostly around the knee, extending down to the sutherland, with tenderness to palpation mostly on the sutherland when he notes several blisters that that had formed, have burst. No crepitus noted on my exam. Benign left leg. Doppler ruled out DVT of left leg. CT of leg ruled out necrotizing fasciitis. Plan Skin changes secondary to bacterial infection: does not appear to be systemic, does not fit any SIRS criteria. Was given a dose of Unasyn in ED and is now on cefazolin. -Blood cultures -Start on cefazolin 1g q8h. Give Keflex on dc. -PT evaluation states patient will be able to go home with his visiting nurse and aide. -Neurochecks right extremity q8, pulses Bradycardia -Patient has been worked up for this issue and as such does not require telemetry as he is stable and asymptomatic. -Monitor vitals qshift Obesity -HbA1c no diabetes Full code Lovenox for DVT prophylaxis Heart healthy diet Problem List: 1. Cellulitis Pain Ratin Pain Location: Lower extremities bilaterally Pain Goal: Pain 4 or less Pain Plan: As needed pain control Tomorrow's Labs & Rationales: CBC
--- NOTE | 2017-10-29 08:04 | Patient Discharge Instructions ---
Discharge Instructions General Discharge Information You were seen/treated for: cellulitis Other wound care: bacitracin with light bandage coverage Special Instructions: 1. please follow up with your pcp in one week 2. Patient was instructed to elevate the leg at home when resting. Was also told to return to emergency room if he has recurrent fever pain leg or increasing redness and swelling. Diet Continue normal diet: Yes Activity Full Activity/No Limits: Yes Acute Coronary Syndrome Inclusion Criteria At DC or during hospital stay patient has or had the following: ACS DIAGNOSIS No Discharge Core Measures Meds if any: Prescribed or Continued at Discharge Meds if any: NOT Prescribed or Continued at Discharge Congestive Heart Failure Inclusion Criteria At DC or during hospital stay patient has or had the following: CHF DIAGNOSIS No Discharge Core Measures Meds if any: Prescribed or Continued at Discharge Meds if any: NOT Prescribed or Continued at Discharge Cerebrovascular accident Inclusion Criteria At DC or during hospital stay patient has or had the following: CVA/TIA Diagnosis No Discharge Core Measures Meds if any: Prescribed or Continued at Discharge Meds if any: NOT Prescribed or Continued at Discharge Venous thromboembolism Inclusion Criteria VTE Diagnosis No VTE Type NONE VTE Confirmed by (Test) NONE Discharge Core Measures - Per Current guidelines, there needs to be overlap - treatment for the first 5 days of Warfarin therapy. - If discharged on Warfarin prior to 5 days of - overlap therapy, the patient will need to be - assessed for post discharge needs including - *Post discharge parental anticoagulation - *Warfarin and/or parental anticoagulation education - *Follow up date to check INR post discharge At least 5 days overlap therapy as Inpatient No Meds if any: Prescribed or Continued at Discharge Note: Overlap Therapy is Warfarin and Anticoagulant Meds if any: NOT Prescribed or Continued at Discharge
--- NOTE | 2017-10-29 11:00 | PN- Att Addend ---
Attending Addendum Attending Brief Note Patient seen and examined. Plan of care discussed with the medical team, ER provider and the patient. Available lab work and radiology test reports were reviewed. Patient awake alert and feels well and denies any recent fever chills or chest pain difficulty breathing. He has been keeping his right leg elevated. Today he is sitting in chair and the leg appears more red and hyperemic. Exam: General: Patient awake alert oriented without any distress; follows commands; patient is dysphonic due to prior laryngeal surgery CVS: S1 plus S2 without any murmur or gallops Chest: Few scattered crepitation without any wheeze. There is no respiratory distress. 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 Right sutherland appears erythematous but appears to have more red and hyperemic probably due to gravity; leg is warm to touch. no clubbing or cyanosis noted Assessment * Right leg cellulitis- improving gradually * Recent trauma to right knee after a fall * History of laryngeal cancer status post laryngectomy * History of CAD and CABG * Morbid obesity status post gastric sleeve surgery Plan * Elevated right leg * Continue IV cefazolin * Possible discharge next 1-2 days Current Medications Sig/Samreen Start time Last Medication Dose Route Stop Time Status Admin Acetaminophen 325 MG .STK-MED ONE 10/28 2034 DC PO 10/29 2035 Acetaminophen 325 MG Q6P PRN 10/27 1815 AC 10/28 PO 203 Albuterol Sulfate 3 ML TID 10/27 2100 AC 10/29 INH 0844 Aspirin Buffered 162 MG DAILY 10/28 0900 AC 10/29 PO 0849 Atorvastatin Calcium 20 MG 1700 10/28 1700 AC 10/28 PO 1642 Bupropion HCl 300 MG DAILY 10/28 09 AC 10/29 PO 0850 Cefazolin Sodium 1,000 MG IQ8 10/28 0000 AC 10/29 IV 0847 Docusate Sodium 100 MG DAILY PRN 10/27 1815 AC PO Enoxaparin Sodium 40 MG DAILY 10/27 1807 AC 10/29 SC 0852 Escitalopram Oxalate 10 MG DAILY 10/28 09 AC 10/29 PO 0850 Furosemide 40 MG DAILY 10/28 09 AC 10/29 PO 0851 Isosorbide 30 MG DAILY 10/28 0900 10/29 Mononitrate PO 0851 Metoprolol Tartrate 25 MG BID 10/27 2099 AC 10/29 PO 0849 Mirtazapine 30 MG QPM 10/27 2099 AC 10/28 PO 2034 Naproxen 500 MG BID 10/27 2099 AC 10/29 PO 0854 Omeprazole 40 MG DAILY AC 10/28 0700 AC 10/29 PO 0526 Patient Medication 1 ED ONE ONE 10/29 0900 MD 10/29 [facility] ED 10/29 0901 0903 Patient Medication 1 ED ONE ONE 10/28 1545 [facility] 10/28 1546 Polyethylene Glycol 17 GM AT BEDTIME PRN 10/27 1815 AC PO Potassium Chloride 10 MEQ BID 10/27 2300 AC PO Laboratory Tests 10/28/17 0615: Anion Gap 7, Estimated GFR > 60, BUN/Creatinine Ratio 21.4, CBC w Diff NO MAN DIFF REQ, RBC 3.66 L, MCV 88.6, MCH 29.6, MCHC 33.4, RDW 15.3 H, MPV 7.6, Gran % 70.6, Lymphocytes % 17.1 L, Monocytes % 7.8, Eosinophils % 3.7, Basophils % 0.8, Absolute Granulocytes 3.1, Absolute Lymphocytes 0.7 L, Absolute Monocytes 0.3, Absolute Eosinophils 0.2, Absolute Basophils 0 10/27/17 1620: Lactic Acid Cancelled 10/27/17 1350: Anion Gap 8, Estimated GFR > 60, BUN/Creatinine Ratio 22.5, Glucose 90, Hemoglobin A1c 5.4, Lactic Acid 1.0, Calcium 8.8, Total Bilirubin 0.5, AST 19, ALT 23, Alkaline Phosphatase 71, Total Protein 5.6 L, Albumin 3.3 L, Globulin 2.3, Albumin/Globulin Ratio 1.4, CBC w Diff NO MAN DIFF REQ, RBC 4.19 L, MCV 89.3, MCH 29.4, MCHC 32.9 L, RDW 15.0 H, MPV 7.3 L, Gran % 77.1 H, Lymphocytes % 12.5 L, Monocytes % 6.5, Eosinophils % 3.3, Basophils % 0.6, Absolute Granulocytes 4.7, Absolute Lymphocytes 0.8 L, Absolute Monocytes 0.4, Absolute Eosinophils 0.2, Absolute Basophils 0 Microbiology 10/27 1405 BLOOD: Blood Culture - RES 10/27 1350 BLOOD: Blood Culture - RES Vital Signs Date Time Temp Pulse Resp B/P B/P Pulse O2 O2 Flow FiO2 Mean Ox Delivery Rate 10/29 0851 50 135/62 10/29 0849 50 135/62 10/29 0840 95 Room Air 10/29 0731 97.8 50 18 135/62 95 Trach Mask 28% 10/29 0022 95 Trach Mask 28% 10/29 0000 100 Trach Mask 28% 10/28 2224 96 Trach Mask 28% 10/28 2042 98.5 55 18 133/90 93 Room Air 10/28 2035 55 133/90 10/28 1935 95 Room Air 10/28 1600 94 Room Air 10/28 1411 98.0 61 20 124/68 93 Room Air 10/28 1137 95 Room Air Intake & Output 10/29 1600 10/29 0800 10/29 0000 Intake Total 270 490 Output Total 400 350 600 Balance -400 -80 -110 Intake, IV 30 10 Intake, Oral 240 480 Number 0 0 Bowel Movements Output, Urine 400 350 600
[2017-10-29] MEDS ORDERED: CEFUROXIME250 M1 PO (13:37)
[2017-10-29 14:53] VITALS: BP 110/60
[2017-10-29] MEDS ORDERED: KEFLEX500 M1 PO (15:15)
[2017-10-29 21:06] VITALS: BP 142/80
--- NOTE | 2017-10-30 05:58 | PN- Housestaff ---
Subjective Follow-up For: Cellulitis Subjective: Seen and examined comfortably.Continues to report lower extremity pain no overnight acute events. Afebrile overnight. Review of Systems Constitutional: Reports: see HPI. Objective Last 24 Hrs of Vital Signs/I&O Vital Signs Date Time Temp Pulse Resp B/P B/P Pulse O2 O2 Flow FiO2 Mean Ox Delivery Rate 10/30 0611 97.6 51 16 130/74 98 Room Air 10/30 0000 Trach Mask 5.5L 10/29 2242 95 Trach Mask 28% 10/29 2230 50 130/68 10/29 2106 98.1 52 16 142/80 95 Room Air 10/29 1845 94 Room Air 10/29 1453 97.7 56 20 110/60 96 Room Air 10/29 0851 50 135/62 10/29 0849 50 135/62 10/29 0840 95 Room Air 10/29 0800 94 10/29 0731 97.8 50 18 135/62 95 Trach Mask 28% Intake & Output 10/30 0800 10/30 0000 10/29 1600 Intake Total 60 740 Output Total 950 900 750 Balance -890 -900 -10 Intake, Oral 60 740 Number 0 Bowel Movements Output, Urine 950 900 750 Physical Exam General Appearance: Alert, Oriented X3, Cooperative Other Physical Findings: Skin: No Rashes, patient has lower bilateral extremity cellulitis and well demarcated redness from the knee to the toe that has element of chronic venous stasis changes, peripheral edema, cellulitis. Tender to touch. Skin Temp/Moisture Exam: Warm/Dry Sepsis Skin Exam (color): Normal for Ethnicity HEENT: Atraumatic, EOMI, Mucous Membr. moist/pink Cardiovascular: Regular Rate, Normal S1, Normal S2, No Murmurs Lungs: Clear to Auscultation, Normal Air Movement Abdomen: Normal Bowel Sounds, Soft, No Tenderness Extremities: No Clubbing, No Cyanosis, Normal Pulses Vascular: Normal Pulses, Pulses Symmetrical Current Medications: Current Medications Sig/Samreen Start time Last Medication Dose Route Stop Time Status Admin Acetaminophen 325 MG Q6P PRN 10/27 1815 AC 10/30 PO 0547 Albuterol Sulfate 3 ML TID 10/27 2100 AC 10/29 INH 1850 Aspirin Buffered 162 MG DAILY 10/28 0900 AC 10/29 PO 0849 Atorvastatin Calcium 20 MG 1700 10/28 1700 AC 10/29 PO 1700 Bupropion HCl 300 MG DAILY 10/28 0900 AC 10/29 PO 0850 Cefazolin Sodium 1,000 MG IQ8 10/28 0000 AC 10/30 IV 0000 Docusate Sodium 100 MG DAILY PRN 10/27 1815 AC PO Enoxaparin Sodium 40 MG DAILY 10/27 1807 AC 10/29 SC 0852 Escitalopram Oxalate 10 MG DAILY 10/28 0900 AC 10/29 PO 0850 Furosemide 40 MG DAILY 10/28 0900 AC 10/29 PO 0851 Isosorbide 30 MG DAILY 10/28 0900 AC 10/29 Mononitrate PO 0851 Metoprolol Tartrate 25 MG BID 10/27 2100 AC 10/29 PO 0849 Mirtazapine 30 MG QPM 10/27 2099 AC 10/29 PO 205 Naproxen 500 MG BID 10/27 2100 AC 10/29 PO 2055 Omeprazole 40 MG DAILY AC 10/28 0700 AC 10/30 PO 0541 Patient Medication 1 ED ONE ONE 10/29 0900 DC 10/29 Teaching ED 10/29 0901 0903 Polyethylene Glycol 17 GM AT BEDTIME PRN 10/27 181 AC PO Potassium Chloride 10 MEQ BID 10/27 2300 AC PO Assessment/Plan Assessment: 67-year-old obese male with history of 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 Plan #Lower extremity Cellulitis :Skin changes secondary to bacterial infection: does not appear to be systemic, does not fit any SIRS criteria. Was given a dose of Unasyn in ED and is now on cefazolin. Afebrile overnight without any complaints. -Blood cultures -Start on cefazolin 1g q8h. Give Keflex on dc. -PT evaluation states patient will be able to go home with his visiting nurse and aide. -Neurochecks right extremity q8, pulses -Anticipated discharge for today on oral antibiotics #Bradycardia -Patient has been worked up for this issue and as such does not require telemetry as he is stable and asymptomatic. -Monitor vitals qshift Obesity -HbA1c 5.4 no diabetes Full code/Lovenox for DVT prophylaxis /Heart healthy diet Problem List: 1. Cellulitis Pain Ratin Pain Location: Lower extremities bilaterally Pain Goal: Pain 4 or less Pain Plan: prn Tomorrow's Labs & Rationales: cbc
[2017-10-30 06:11] VITALS: BP 130/74
[2017-10-30 08:29] LABS: ABSOLUTE BASOPHIL COUNT 0 /CUMM (0.0-0.2); ABSOLUTE EOSINOPHIL COUNT 0.2 /CUMM (0.0-0.7); ABSOLUTE GRANULOCYTE CT 2.8 /CUMM (1.4-6.5); ABSOLUTE LYMPH COUNT 0.8 /CUMM (1.2-3.4); ABSOLUTE MONOCYTE COUNT 0.4 /CUMM (0.10-0.60); BASOPHIL % 0.8 % (0.0-2.0); EOSINOPHIL % 3.8 % (0-5); GRANULOCYTE % 66.5 % (42.2-75.2); HEMATOCRIT 35.8 % (42-52); MEAN CORPUSCULAR HGB CONC 33.6 G/DL (33.0-37.0); MEAN CORPUSCULAR VOLUME 89.3 FL (80.0-94.0); MEAN PLATELET VOLUME 7.3 FL (7.4-10.4); PLATELET COUNT 203 /CUMM (130-400); RBC DISTRIBUTION WIDTH 15.3 % (11.5-14.5); RED BLOOD CELL CT 4.01 /CUMM (4.70-6.10); WHITE BLOOD CELL COUNT 4.3 /CUMM (4.8-10.8)
[2017-10-30 09:44] VITALS: BP 118/70
[2017-10-30] MEDS ORDERED: KEFLEX500 M1 PO (10:29)
--- NOTE | 2017-10-30 12:11 | PN- Att Addend ---
Attending Addendum Attending Brief Note Patient seen and examined. Plan of care discussed with the medical team, ER provider and the patient. Available lab work and radiology test reports were reviewed. Patient awake alert and feels well and denies any recent fever chills or chest pain difficulty breathing. He has been keeping his right leg elevated. He was go home today Exam: General: Patient awake alert oriented without any distress; follows commands; patient is dysphonic due to prior laryngeal surgery CVS: S1 plus S2 without any murmur or gallops Chest: Few scattered crepitation without any wheeze. There is no respiratory distress. 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 Right sutherland appears erythematous but overall appears better Assessment * Right leg cellulitis- improving gradually * Recent trauma to right knee after a fall * History of laryngeal cancer status post laryngectomy * History of CAD and CABG * Morbid obesity status post gastric sleeve surgery Plan * Elevate right leg when resting * Change IV cefazolin to by mouth Keflex to complete total of 10 days * Discharge home today Patient was instructed to elevate the leg at home when resting. Was also told to return to emergency room if he has recurrent fever pain leg or increasing redness and swelling. Current Medications Sig/Samreen Start time Last Medication Dose Route Stop Time Status Admin Acetaminophen 325 MG Q6P PRN 10/27 1815 AC 10/30 PO 0547 Albuterol Sulfate 3 ML TID 10/27 2100 AC 10/30 INH 0850 Aspirin Buffered 162 MG DAILY 10/28 09 AC 10/30 PO 0942 Atorvastatin Calcium 20 MG 1700 10/28 1700 AC 10/29 PO 1700 Bupropion HCl 300 MG DAILY 10/28 09 AC 10/30 PO 0943 Cefazolin Sodium 1,000 MG IQ8 10/28 0000 AC 10/30 IV 0800 Docusate Sodium 100 MG DAILY PRN 10/27 181 AC PO Enoxaparin Sodium 40 MG DAILY 10/27 1807 AC 10/30 SC 0941 Escitalopram Oxalate 10 MG DAILY 10/28 09 AC 10/30 PO 0942 Furosemide 40 MG DAILY 10/28 09 AC 10/30 PO 0942 Isosorbide 30 MG DAILY 10/28 09 AC 10/30 Mononitrate PO 0943 Metoprolol Tartrate 25 MG BID 10/27 2099 AC 10/30 PO 943 Mirtazapine 30 MG QPM 10/27 2099 AC 10/29 PO 2055 Naproxen 500 MG BID 10/27 2099 AC 10/30 PO 0947 Omeprazole 40 MG DAILY AC 10/28 0700 AC 10/30 PO 0541 Polyethylene Glycol 17 GM AT BEDTIME PRN 10/27 181 AC PO Potassium Chloride 10 MEQ BID 10/27 230 AC 10/30 PO 0944 Laboratory Tests 10/30/17 0625: CBC w Diff NO MAN DIFF REQ, RBC 4.01 L, MCV 89.3, MCH 30.0, MCHC 33.6, RDW 15.3 H, MPV 7.3 L, Gran % 66.5, Lymphocytes % 18.6 L, Monocytes % 10.3 H, Eosinophils % 3.8, Basophils % 0.8, Absolute Granulocytes 2.8, Absolute Lymphocytes 0.8 L, Absolute Monocytes 0.4, Absolute Eosinophils 0.2, Absolute Basophils 0 10/28/17 0615: Anion Gap 7, Estimated GFR > 60, BUN/Creatinine Ratio 21.4, CBC w Diff NO MAN DIFF REQ, RBC 3.66 L, MCV 88.6, MCH 29.6, MCHC 33.4, RDW 15.3 H, MPV 7.6, Gran % 70.6, Lymphocytes % 17.1 L, Monocytes % 7.8, Eosinophils % 3.7, Basophils % 0.8, Absolute Granulocytes 3.1, Absolute Lymphocytes 0.7 L, Absolute Monocytes 0.3, Absolute Eosinophils 0.2, Absolute Basophils 0 10/27/17 1620: Lactic Acid Cancelled 10/27/17 1350: Anion Gap 8, Estimated GFR > 60, BUN/Creatinine Ratio 22.5, Glucose 90, Hemoglobin A1c 5.4, Lactic Acid 1.0, Calcium 8.8, Total Bilirubin 0.5, AST 19, ALT 23, Alkaline Phosphatase 71, Total Protein 5.6 L, Albumin 3.3 L, Globulin 2.3, Albumin/Globulin Ratio 1.4, CBC w Diff NO MAN DIFF REQ, RBC 4.19 L, MCV 89.3, MCH 29.4, MCHC 32.9 L, RDW 15.0 H, MPV 7.3 L, Gran % 77.1 H, Lymphocytes % 12.5 L, Monocytes % 6.5, Eosinophils % 3.3, Basophils % 0.6, Absolute Granulocytes 4.7, Absolute Lymphocytes 0.8 L, Absolute Monocytes 0.4, Absolute Eosinophils 0.2, Absolute Basophils 0 Microbiology 10/27 1405 BLOOD: Blood Culture - RES 10/27 1350 BLOOD: Blood Culture - RES Vital Signs Date Time Temp Pulse Resp B/P B/P Pulse O2 O2 Flow FiO2 Mean Ox Delivery Rate 10/30 0945 95 Room Air 10/30 0944 80 118/70 10/30 0943 80 118/70 10/30 0611 97.6 51 16 130/74 98 Room Air 10/30 0000 Trach Mask 5.5L 10/29 2242 95 Trach Mask 28% 10/29 2230 50 130/68 10/29 2106 98.1 52 16 142/80 95 Room Air 10/29 1845 94 Room Air 10/29 1453 97.7 56 20 110/60 96 Room Air Intake & Output 10/30 1600 10/30 0800 10/30 0000 Intake Total 60 Output Total 950 900 Balance -890 -900 Intake, Oral 60 Output, Urine 950 900 Total time spent in preparation for discharge plan, patient education, and CMR preparation was 35 minutes.
== END 2017-10-30 14:15 | disposition home health service (06) | DRG 603 ==
LOC: ERH 12:53 → ERHI 15:19 → 2NB 15:19 → ENRESERV 16:13 → ENTRNSPT 17:02 → EDTRNSPT 17:13 → EDTRNSPTSTS 17:13 → 2NB 17:22 → CMPTRNSPT 17:35 → ENPENDDIS 10-30 11:30 → ENTRNSPT 10-30 13:48 → CMPTRNSPT 10-30 13:54 → 2NB 10-30 14:15
PROVIDERS: Internal Medicine Cardiovascular Disease; Physician Assistant Medical; Student in an Organized Health Care Education/Training Program
DX: L03.115 Cellulitis of right lower limb (principal); Z93.0 Tracheostomy status; Z99.81 Dependence on supplemental oxygen; J44.9 Chronic obstructive pulmonary disease, unspecified; I73.9 Peripheral vascular disease, unspecified; E66.01 Morbid (severe) obesity due to excess calories; Z68.41 Body mass index [BMI] 40.0-44.9, adult; I87.2 Venous insufficiency (chronic) (peripheral); E78.5 Hyperlipidemia, unspecified; I10 Essential (primary) hypertension; S80.01XD Contusion of right knee, subsequent encounter; W19.XXXD Unspecified fall, subsequent encounter; I25.10 Atherosclerotic heart disease of native coronary artery without angina pectoris; Z85.21 Personal history of malignant neoplasm of larynx; Z90.89 Acquired absence of other organs; Z95.1 Presence of aortocoronary bypass graft; G47.33 Obstructive sleep apnea (adult) (pediatric); K21.9 Gastro-esophageal reflux disease without esophagitis; F32.9 Major depressive disorder, single episode, unspecified; Z98.84 Bariatric surgery status; G89.29 Other chronic pain; M54.9 Dorsalgia, unspecified; R00.1 Bradycardia, unspecified; Z91.048 Other nonmedicinal substance allergy status
CPT/HCPCS: 2NBSP; 36592; 82436; 87040; 93005; 93010; 96374; 96375; J0690; J1650

== ENCOUNTER 2018-02-06 22:51 | Inpatient (IN) | payer OTHER, MEDICARE ==
[~2018-02-06] VITALS: Ht 185.4 cm; Wt 147.7 kg
[~2018-02-06 22:51] MED LIST changes: +CEFUROXIME250 M1 PO; +KEFLEX500 M1 PO
--- NOTE | 2018-02-07 00:12 | ED GENERAL ADULT ---
History of Present Illness General Chief Complaint: General Adult Stated Complaint: "COUGHING GETTING WORSE" Source: patient Exam Limitations: no limitations Vital Signs & Intake/Output Vital Signs & Intake/Output Vital Signs Date Time Temp Pulse Resp B/P B/P Pulse O2 O2 Flow FiO2 Mean Ox Delivery Rate 02/07 0314 99.4 82 20 145/65 100 Trach Mask 02/07 0150 93 02/07 0050 96 Room Air 02/06 2253 98.9 88 18 129/91 Room Air ED Intake and Output 02/07 0000 02/06 1200 Intake Total Output Total Balance Patient 324 lb Weight Weight Reported by Patient Measurement Method Allergies Coded Allergies: adhesive tape (ALL TAPE GIVES RASH EXCEPT PAPER, PAPER TAPE OK 10/27/17) Reconcile Medications Albuterol Sulfate 2.5 MG/3 ML VIAL.NEB 1 Vial INH/FERCHO BID RESPIRATORY ( Reported) Aspirin (Ecotrin*) 81 MG TABLET.DR 2 TAB PO DAILY heart health (Reported) Atorvastatin Calcium (Lipitor) 20 MG TABLET 1 TAB PO DAILY CHOLESTEROL ( Reported) Budesonide/Formoterol Fumarate (Symbicort 160-4.5 Mcg Inhaler) 160 MCG-4.5 MCG/ ACTUATION HFA.AER.AD 2 PUF INH BID COPD (Reported) Bupropion HCl (Wellbutrin XL) 300 MG TAB.ER.24H 1 TAB PO DAILY HEART HEALTH ( Reported) Escitalopram Oxalate 10 MG TABLET 1 TAB PO DAILY DEPRESSION (Reported) Furosemide (Lasix) 40 MG TABLET 1 TAB PO DAILY DIURETIC (Reported) Isosorbide Mononitrate (Isosorbide Mononitrate ER) 30 MG TAB.ER.24H 1 TAB PO DAILY HEART HEALTH (Reported) Metoprolol Tartrate 25 MG TABLET 1 TAB PO BID HEART (Reported) Mirtazapine 30 MG TABLET 1 TAB PO QPM MENTAL HEALTH (Reported) Naproxen 500 MG TABLET 1 TAB PO BID PAIN/INFLAMMATION (Reported) Pantoprazole Sodium 40 MG TABLET.DR 1 TAB PO DAILY ACID REFLUX (Reported) Potassium Chloride (Klor-Con 10) 10 MEQ TABLET.ER 1 TAB PO BID SUPPLEMENT ( Reported) Triage Note: PT FROM HOME C/O COUGH SINCE THIS AM THAT IS PRODUCTIVE WITH CLEAR/YELLOW SPUTUM. PT DENIES CP OR TIGHTNESS. PT STATES HIS ABD IS TENDER FROM COUGHING. VSS. Triage Nurses Notes Reviewed? yes Onset: Gradual Duration: day(s): Timing: recent history Injury Environment: home Severity: moderate Modifying Factors: Worsens With: other (worse w/cough). Associated Symptoms: cough HPI: 67 yo gentleman h/o laryngectomy from cancer, h/o cad, copd, presents with 1 day history of cough, productive of copious yellow phlegm, dyspnea at rest. He notes diffuse mild abdominal discomfort, without vomiting, diarrhea, dysuria. He notes that he can't lay flat Past History Travel History Traveled to [place] past 21 day No Medical History Any Pertinent Medical History? 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 MOTHER (CAD). Hx Contributory? No Review of Systems Review of Systems Constitutional: Reports: no symptoms. EENTM: Reports: no symptoms. Respiratory: Reports: no symptoms. Cardiovascular: Reports: no symptoms. GI: Reports: no symptoms. Genitourinary: Reports: no symptoms. Musculoskeletal: Reports: no symptoms. Skin: Reports: no symptoms. Neurological/Psychological: Reports: no symptoms. Hematologic/Endocrine: Reports: no symptoms. Immunologic/Allergic: Reports: no symptoms. All Other Systems: Reviewed and Negative Physical Exam Physical Exam General Appearance: well developed/nourished, mild distress Head: atraumatic, normal appearance Eyes: Bilateral: normal appearance. Ears, Nose, Throat: tracheostomy with copious purulent drainage. Neck: normal inspection, supple, full range of motion Respiratory: normal breath sounds, chest non-tender, no respiratory distress, wheezing, prolonge expiratory phase Cardiovascular: regular rate/rhythm Gastrointestinal: normal bowel sounds, soft, non-tender, no organomegaly Back: normal inspection, normal range of motion, vertebral tenderness, evidence of trauma Extremities: normal inspection, normal capillary refill, normal range of motion, no edema Neurologic/Psych: no motor/sensory deficits, awake, alert, oriented x 3 Skin: intact, normal color, warm/dry Core Measures ACS in differential dx? No CVA/TIA Diagnosis: No Sepsis Present: No Sepsis Focused Exam Completed? No Progress Differential Diagnoses I considered the following diagnoses in my evaluation of the patient: bronchitis, pneumonia, sepsis. Plan of Care: Orders Procedure Date/time Status Nothing by Mouth 02/07 B Active Weight 02/07 517 Active Vital Signs 02/07 517 Active Teach/Educate 02/07 517 Active Pain Treatment and Response 02/07 05 Active Nutritional Intake, Monitor 02/07 517 Active Isolation 02/07 05 Active Intake & Output 02/07 0517 Active Patient Care Conference 02/07 0517 Active Activity/Ambulation 02/07 0517 Active Pathway - chart 02/07 0350 Active House Staff 02/07 0350 Active Code Status 02/07 0350 Active Patient Data 02/07 0300 Active Saline Lock 02/07 0254 Active Misc Message 02/07 0254 Active ED Holding Orders 02/07 0254 Active Admit to inpatient 02/07 0254 Active Vital Signs 02/07 0254 Active Code Status 02/07 0254 Complete Intake & Output 02/07 0050 Active BLOOD CULTURE 02/07 0030 Active BLOOD CULTURE 02/07 0025 Active TROPONIN LEVEL 02/07 0025 Complete LIPASE 02/07 0025 Complete LACTIC ACID 02/07 0025 Complete HEPATIC FUNCTION PANEL 02/07 0025 Complete D-DIMER 02/07 0025 Complete CBC WITHOUT DIFFERENTIAL 02/07 0025 Complete B-TYPE NATRIURETIC PEP (BNP) 02/07 0025 Complete BASIC METABOLIC PANEL 02/07 0025 Complete AMYLASE 02/07 0025 Complete EKG 02/07 0025 Active TRC EVALUATION (GEN) 02/07 UNK Active VTE Mechanical Prophylaxis 02/07 UNK Active Current Medications Sig/Samreen Start time Last Medication Dose Stop Time Status Admin Azithromycin 500 MG DAILY 02/08 0900 UNVr (Zithromax) Sodium Chloride 250 ML (Normal Saline 0.9%) Ceftriaxone Sodium 1,000 MG DAILY 02/08 900 UNVr (Rocephin) Mirtazapine 30 MG QPM 02/07 2100 AC (Remeron) Aspirin Buffered 162 MG DAILY 02/07 900 UNVr (Ecotrin) Atorvastatin Calcium 20 MG DAILY 02/07 900 UNVr (Lipitor) Bupropion HCl 300 MG DAILY 02/07 900 UNVr (Wellbutrin XL) Enoxaparin Sodium 40 MG DAILY 02/07 900 UNVr (Lovenox) Escitalopram Oxalate 10 MG DAILY 02/07 900 UNVr (Lexapro) Furosemide 40 MG DAILY 02/07 900 AC (Lasix) Isosorbide 30 MG DAILY 02/07 900 AC Mononitrate (Imdur) Metoprolol Tartrate 25 MG BID 02/07 900 AC (Lopressor) Omeprazole 40 MG DAILY AC 02/07 07 AC (Prilosec) Methylprednisolone 40 MG Q8 02/07 600 AC (Solumedrol) Acetaminophen 650 MG Q6P PRN 02/07 0400 UNVr (Tylenol) Laboratory Tests 02/07/18 0325: Lactic Acid Cancelled 02/07/18 0059: Anion Gap 11, Estimated GFR > 60, BUN/Creatinine Ratio 24.4, Glucose 110 H, Lactic Acid 1.3, Calcium 9.9, Total Bilirubin 0.5, Direct Bilirubin 0.2, AST 24, ALT 29, Alkaline Phosphatase 89, Troponin I < 0.01, Fxh-D-Txzaywopuan Pept 113, Total Protein 6.9, Albumin 4.3, Amylase 45, Lipase 129, D-Dimer High Sensitivty < 200, CBC w Diff MAN DIFF ORDERED, RBC 5.41, MCV 87.2, MCH 28.6, MCHC 32.8 L, RDW 15.4 H, MPV 8.2, Gran % 85.4 H, Lymphocytes % 7.3 L, Monocytes % 6.2, Eosinophils % 0.8, Basophils % 0.3, Absolute Granulocytes 10.8 H, Segmented Neutrophils 83 H, Absolute Lymphocytes 0.9 L, Lymphocytes 11 L, Monocytes 4, Absolute Monocytes 0.8 H, Eosinophils 2, Absolute Eosinophils 0.1, Absolute Basophils 0, Platelet Estimate ADEQUATE, Hypochromic-Microcytic 1+, Poikilocytosis 1+, Ovalocytes 1+, Fld Total RBCs Counted 100 02/07/18 0028: [id number]-Ocstlmlmcfa Pept Cancelled Microbiology 02/07 0146 BLOOD: Blood Culture - RECD 02/07 0059 BLOOD: Blood Culture - RECD Diagnostic Imaging: Viewed by Me: Radiology Read. Discussed w/RAD: Radiology Read. CXR Impression: PATIENT: CODY HERNÁNDEZ PRESENT AGE: 67 PATIENT ACCOUNT NO: [id number] : 51 LOCATION: ER ORDERING PHYSICIAN: Everardo Conley MD SERVICE DATE: 02/07/18 EXAM TYPE: RAD - XRY- PORTABLE CHEST XRAY EXAMINATION: CHEST 1 VIEW CLINICAL INFORMATION: Dyspnea. COMPARISON: August 19, 2017. TECHNIQUE: An AP view of the chest is provided. FINDINGS: The cardiac silhouette is stable. Intact midline sternal wires are present. The mediastinal and hilar contours are unremarkable. There are no pneumothoraces. There is obscuration of the left hemidiaphragm with blunting of the left lateral costophrenic angle. There is slight volume loss to the left lung. The osseous structures are stable. IMPRESSION: Obscuration of the left hemidiaphragm. There is likely left lower lobe atelectasis or scarring. There is blunting of the left lateral costophrenic angle again identified possibly indicative of pleural thickening or small pleural effusion. DICTATED BY: Gordon Shahid MD DATE/TIME DICTATED:02/07/18119 SHRIMP HEADER:KARENA DATE/ TIME TRANSCRIBED:02/07/18119 CONFIDENTIAL, DO NOT COPY WITHOUT APPROPRIATE AUTHORIZATION. <Electronically signed in Other Vendor System> SIGNED BY: Gordon Shahid MD 02/07/18123 Initial ED EKG: normal axis, normal intervals, normal p-waves, normal QRS complex, normal sinus rhythm Departure Departure Disposition: STILL A PATIENT Condition: Stable Clinical Impression Primary Impression: COPD exacerbation Referrals: Tristan Matthews MD (PCP/Family) Departure Forms: Customer Survey General Discharge Information Admission Note Spoke With: Fely Nguyen MD Documentation of Exam: Documentation of any treatments & extenuating circumstances including Concerns Regarding Discharge (functional status, medication knowledge or non-compliance, living conditions, etc.) that warrant an admission rather than observation: pt presents in respiratory distress, requiring iv steroids, iv abx, 02 support... pt is high risk given his laryngectomy. would consider ent and /or pulm consult. pt will also need pulmonary toilet. Critical Care Note Critical Care Note Critical Care Time: non-applicable
[2018-02-07 01:14] LABS: ABSOLUTE BASOPHIL COUNT 0 /CUMM (0.0-0.2); ABSOLUTE EOSINOPHIL COUNT 0.1 /CUMM (0.0-0.7); ABSOLUTE GRANULOCYTE CT 10.8 /CUMM (1.4-6.5); ABSOLUTE LYMPH COUNT 0.9 /CUMM (1.2-3.4); ABSOLUTE MONOCYTE COUNT 0.8 /CUMM (0.10-0.60); BASOPHIL % 0.3 % (0.0-2.0); EOSINOPHIL % 0.8 % (0-5); GRANULOCYTE % 85.4 % (42.2-75.2); HEMATOCRIT 47.1 % (42-52); MEAN CORPUSCULAR HGB 28.6 PG (27.0-31.0); MEAN CORPUSCULAR HGB CONC 32.8 G/DL (33.0-37.0); MEAN CORPUSCULAR VOLUME 87.2 FL (80.0-94.0); MEAN PLATELET VOLUME 8.2 FL (7.4-10.4); PLATELET COUNT 199 /CUMM (130-400); RBC DISTRIBUTION WIDTH 15.4 % (11.5-14.5); RED BLOOD CELL CT 5.41 /CUMM (4.70-6.10); WHITE BLOOD CELL COUNT 12.7 /CUMM (4.8-10.8)
--- NOTE | 2018-02-07 01:24 | RADIOLOGY REPORT ---
EXAMINATION: CHEST 1 VIEW CLINICAL INFORMATION: Dyspnea. COMPARISON: August 19, 2017. TECHNIQUE: An AP view of the chest is provided. FINDINGS: The cardiac silhouette is stable. Intact midline sternal wires are present. The mediastinal and hilar contours are unremarkable. There are no pneumothoraces. There is obscuration of the left hemidiaphragm with blunting of the left lateral costophrenic angle. There is slight volume loss to the left lung. The osseous structures are stable. IMPRESSION: Obscuration of the left hemidiaphragm. There is likely left lower lobe atelectasis or scarring. There is blunting of the left lateral costophrenic angle again identified possibly indicative of pleural thickening or small pleural effusion.
--- NOTE | 2018-02-07 03:13 | History & Physical ---
Stacia Cloud 02/07/18 0312: General Information and HPI MD Statement: I have seen and personally examined CODY HERNÁNDEZ and documented this H&P. The patient is a 67 year old M who presented with a patient stated chief complaint of [worsening cough 1 day]. 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 Patient reports that he has worsening of cough for the past 1 day. The cough is productive of clear yellowish sputum. He also complains of shortness of breath at ambulation, rest, lying flat. He does complain of chills, aches and pains over his body. Also reports 3 episodes of vomiting today and belly pain in his epigastric region. His last bowel movement was this afternoon was well formed. Also mentions worsening edema of both lower extremities. He denies loss of appetite, diarrhea, constipation, dysuria, hearing problems. Allergies/Medications Allergies: Coded Allergies: adhesive tape (ALL TAPE GIVES RASH EXCEPT PAPER, PAPER TAPE [place] 10/27/17) Past History Travel History Traveled to [place] past 21 day No Medical History Neurological: NONE EENT: NONE Cardiovascular: CAD (S/P CABG X 3 '03), hyperlipidemia, PVD Respiratory: COPD (2L O2 CONTINUOUS), TRACH R/T REMOVAL OF VOICE BOX ( NIGHTLY CPAP) Gastrointestinal: GERD Hepatic: NONE Renal: NONE Musculoskeletal: chronic back pain, BACK SURGERY Psychiatric: depression (WITH SI+) Endocrine: obesity Blood Disorders: NONE Cancer(s): CA OF LARYNX REGISTERED OCCUPATIONAL THERAPIST/Reproductive: NONE Other Medical Hx: scc of vocal cords, tracheostomy History of MRSA: No History of VRE: No History of CDIFF: No Tetanus Vaccine: 10/13/17 Surgical History Surgical History: CABG, laminectomy (L4-5), GASTRIC SLEEVE LARYNGECTOMY Past Family/Social History Family History Relations & Conditions if any FATHER (CAD and CVA). MOTHER (CAD). Psychosocial History Who Do You Live With? Roommate Services at Home: Home Health Aide, Nursing Primary Language: Bolivian ETOH Use: denies use Illicit Drug Use: denies illicit drug use Functional Ability ADLs Independent: eating, toileting. Needs Assist: dressing, bathing. Ambulation: walker IADLs Needs Assist: medication admin. Review of Systems Review of Systems Constitutional: Reports: see HPI. Exam & Diagnostic Data Last 24 Hrs of Vital Signs/I&O Vital Signs Date Time Temp Pulse Resp B/P B/P Pulse O2 O2 Flow FiO2 Mean Ox Delivery Rate 02/07 0542 Trach Mask 02/07 0538 93 Trach Mask 28% 02/07 0314 99.4 82 20 145/65 100 Trach Mask 02/07 0150 93 02/07 0050 96 Room Air 02/06 2253 98.9 88 18 129/91 Room Air Intake & Output 02/07 0800 02/07 0000 02/06 1600 Intake Total Output Total Balance Patient 324 lb 324 lb Weight Weight Bed scale Reported by Patient Measurement Method Physical Exam General Appearance Alert, Oriented X3, Cooperative, No Acute Distress Skin No Rashes, No Breakdown, No Significant Lesion Skin Temp/Moisture Exam: Cool/Dry Sepsis Skin Exam (color): Normal for Ethnicity HEENT Atraumatic, PERRLA, Mucous Membr. 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 Vitals: Temp 99.4, heart rate 82, respiratory rate 20, blood pressure 145 at 65, 100% on trach mask. Labs: WBC 12.7 with granulocytes 85.4%, hemoglobin 15.5, hematocrit 47.1, platelets 199, sodium 141, potassium 25, chloride 104, bicarb 26, BUN 22, creatinine 0.9. Problems: 1.COPD exacerbation 2.bilateral lower extremity swelling Assessment and plan: 1.COPD exacerbation: The patient has a productive cough, leukocytosis with left shift, chest x-ray showing obscured left hemidiaphragm, left lobe atelectasis/scarring, blunted left lateral costophrenic angle. -Admit to general medicine floor -Continue Rocephin 1 g IV daily and azithromycin 500 mg IV daily empirically -Continue Solu-Medrol IV 60 mg every 8 -Continue inhalational oxygen -TRC nebs -Follow blood cultures 2 2.bilateral lower extremity swelling: -Leg elevation -Moisturizing/lubricant cream to bilateral legs DVT prophylaxis: Subcu Lovenox Diet: Regular CODE STATUS: Full code As Ranked By This Provider Problem List: 1. COPD exacerbation 2. Edema of both legs Core Measures/Misc (02/21) Acute Coronary Syndrome ACS Diagnosis: No Congestive Heart Failure Congestive Heart Failure Diagnosis No Cerebrovascular Accident CVA/TIA Diagnosis: No VTE (View Protocol) VTE Risk Factors Age>40 No Mechanical VTE Prophylaxis d/t N/A MechProphylax Ordered No VTE Pharm Prophylaxis d/t NA PharmProphylax ordered Sepsis (View protocol) Sepsis Present: No If YES complete Sepsis Event Note If YES complete Sepsis Event Note Wenyd ZENG,Fely 02/07/18 0450: General Information and HPI Allergies/Medications Home Med list Albuterol Sulfate 2.5 MG/3 ML VIAL.NEB 1 Vial INH/FERCHO BID RESPIRATORY ( Reported) Aspirin (Ecotrin*) 81 MG TABLET.DR 2 TAB PO DAILY heart health (Reported) Atorvastatin Calcium (Lipitor) 20 MG TABLET 1 TAB PO DAILY CHOLESTEROL ( Reported) Budesonide/Formoterol Fumarate (Symbicort 160-4.5 Mcg Inhaler) 160 MCG-4.5 MCG/ ACTUATION HFA.AER.AD 2 PUF INH BID COPD (Reported) Bupropion HCl (Wellbutrin XL) 300 MG TAB.ER.24H 1 TAB PO DAILY HEART HEALTH ( Reported) Escitalopram Oxalate 10 MG TABLET 1 TAB PO DAILY DEPRESSION (Reported) Furosemide (Lasix) 40 MG TABLET 1 TAB PO DAILY DIURETIC (Reported) Isosorbide Mononitrate (Isosorbide Mononitrate ER) 30 MG TAB.ER.24H 1 TAB PO DAILY HEART HEALTH (Reported) Metoprolol Tartrate 25 MG TABLET 1 TAB PO BID HEART (Reported) Mirtazapine 30 MG TABLET 1 TAB PO QPM MENTAL HEALTH (Reported) Naproxen 500 MG TABLET 1 TAB PO BID PAIN/INFLAMMATION (Reported) Pantoprazole Sodium 40 MG TABLET.DR 1 TAB PO DAILY ACID REFLUX (Reported) Potassium Chloride (Klor-Con 10) 10 MEQ TABLET.ER 1 TAB PO BID SUPPLEMENT ( Reported) Core Measures/Misc (02/21) Sepsis (View protocol) If YES complete Sepsis Event Note If YES complete Sepsis Event Note Attending MD Review Statement Attending Statement Attending MD Statement: examined this patient, discuss w/resident/PA/BUSINESS SALES CONSULTANT, agreed w/resident/PA/BUSINESS SALES CONSULTANT, reviewed EMR data (avail), discussed with nursing, discussed with case mgmt, amended to note Attending Assessment/Plan: Patient is a 67-year-old male with history of laryngeal cancer status post tracheostomy coronary artery disease. And obstructive sleep apnea oxygen dependent COPD. Plan cough productive of yellow phlegm. Denies any fever at home but reports having chills. He arrived emergency room afebrile hemodynamically stable. Emergency room staff reported that patient was wheezing. Chest x-ray showed likely left lower lobe atelectasis or scarring. Blunting of the left costophrenic angle possibly indicating of pleural thickening or small pleural effusion. Patient was afebrile. Hemodynamically stable. He was started on Rocephin and azithromycin bronchodilators and systemic steroids and then referred to the medical service for further management. When I evaluated the patient in the room with him in any acute distress. He did admit to abdominal pain but states that this is from repeated coughing. He has diminished breath sounds bilaterally with audible wheezing. He has 2+ pedal edema in lower extremities. He has significant venostasis changes including dry skin and hyperpigmentation. Recommendations: Admit to inpatient General medical service. Continue bronchodilator therapy. Systemic steroid therapy with Solu-Medrol 60 mg IV every 8 hours. Continue empiric antibiotic therapy with Rocephin and azithromycin. Maintain aspiration precautions at all times. Keep legs elevated while patient is immobile. Recommend application of lubrication cream to both lower extremities twice daily DVT prophylaxis with subcutaneous heparin. Kristian Hollis MD 02/07/18 0540: Core Measures/Misc (02/21) Sepsis (View protocol) If YES complete Sepsis Event Note If YES complete Sepsis Event Note Resident Review Statement Resident Statement: examined this patient, discussed with corporate strategy intern, reviewed EMR data (avail) Other Findings: 67-year-old obese male with history of squamous cell carcinoma of larynx status post laryngectomy and radiation, CAD status post CABG, hypertension, hyperlipidemia, peripheral vascular disease, GUSTAVO on nocturnal BiPAP, GERD, depression, gastric sleeve surgery, COPD presented to the ED for evaluation of worsening shortness of breath along with yellowish sputum production for the past few days. ROS: significant for shortness of breath, sputum production, cough, chills. Denies fevers. Physical Exam: General Appearance: well developed/nourished, alert, awake, mild distress, obese Head: atraumatic, normal appearance Eyes: bilateral: normal appearance and PERRLA. Ears, Nose, Throat, Mouth: hearing and speech normal, no sinus tenderness, tracheostomy Respiratory: diffuse wheezing present throughout Cardiovascular: midline scar, regular rate/rhythm, normal S1 and S2 Gastrointestinal: soft, distended, epigastric and RLQ tenderness Extremities: stasis venous skin changes with 4+ of b/l lower extremities, cool to touch Skin: normal inspection Labs showed mild leukocytosis to 12.7 Assessment: 1. COPD Exacerbation Plan: * Admit patient to general medicine floor. * Continue oxygen supplementation to maintain target sats > 92%. Currently on trach mask at 28%. * TRC/nebs as needed. * Continue IV Solu-Medrol 40mg q8. Will taper quickly. * Continue IV Ceftriaxone 1g daily and Azithromycin 500mg to cover for pneumonia. * Aspiration precautions * Elevate legs when possible. * Diet: Regular * DVT Prophylaxis: SC Lovenox * Code: Full Code
--- NOTE | 2018-02-07 04:50 | Admission Certification ---
Admission Certification Certification Statement - As attending physician, I certify that at the time of - admission, based on clinical presentation, severity of - symptoms, need for further diagnostic testing and - therapeutic interventions, and risk of adverse outcomes - without in-hospital treatment, in my clinical assessment, - this patient requires an acute hospital stay for a minimum - of two nights or longer. I have also considered psychsocial - factors such as support system, advanced age, financial - issues, cognitive issues, and failed out-patient treatments, - past re-admission history, safety of patient, and lack of - compliance as applicable. Specific rationale supporting this admission is: patient is being admitted for management of COPD exacerbation with possible underlying pneumonia
[2018-02-07 06:30] VITALS: BP 138/66
--- NOTE | 2018-02-07 14:23 | PN- Att Addend ---
Attending Addendum Attending Brief Note 67M PMH squamous cell carcinoma of larynx status post laryngectomy and radiation , CAD status post CABG, hypertension, hyperlipidemia, peripheral vascular disease, GUSTAVO on nocturnal BiPAP, GERD, depression, gastric sleeve surgery, COPD admitted for shortness of breath and thick yellow sputum in the setting of COPD exacerbation and acute bronchitis. Patient is comfortable today, breathing quietly, with yellow secretions from trach. Afebrile, stable vitals, labs reviewed. 1. COPD exacerbation 2. Acute bronchitis 3. S/p tracheostomy Plan - Continue on general medicine - Continue Ceftriaxone and Azithromycin - Sputum culture - Solumedrol to be tapered tomorrow - Nebulizer treatments - Continue home medications - DVT PPx
[2018-02-07 14:44] VITALS: BP 104/58
[2018-02-08 06:29] VITALS: BP 126/82
--- NOTE | 2018-02-08 07:26 | PN- Housestaff ---
Jasson ZENG,Lorenzo 02/08/18 0725: Subjective Follow-up For: aecopd Subjective: Seen and examined at bedside Reports feeling better compared to previous days Afebrile, withno o/n acute events. Review of Systems Constitutional: Reports: see HPI. Objective Last 24 Hrs of Vital Signs/I&O Vital Signs Date Time Temp Pulse Resp B/P B/P Pulse O2 O2 Flow FiO2 Mean Ox Delivery Rate 02/08 0812 93 Trach Mask 28% 02/08 0745 128/68 02/08 0744 128/68 02/08 0629 97.5 75 18 126/82 92 6.0L 02/08 0000 Trach Mask 40% 02/07 2201 97.4 71 19 94 02/07 2120 80 18 100/60 02/07 1840 96 Trach Mask 28% 02/07 1444 98.2 78 20 104/58 98 Trach Mask 02/07 1114 Trach Mask 28% Intake & Output 02/08 1600 02/08 0800 02/08 0000 Intake Total 370 120 Output Total Balance 370 120 Intake, IV 250 Intake, Oral 120 120 Patient 146.964 kg 148.126 kg Weight Weight Bed scale Measurement Method Physical Exam General Appearance: Alert, Oriented X3, Cooperative Lungs: mild exp wheezes on b/l jackson, appears better compared top previous days Abdomen: Normal Bowel Sounds, Soft Assessment/Plan Assessment: 67-year-old obese male with history of squamous cell carcinoma of larynx status post laryngectomy and radiation, CAD status post CABG, hypertension, hyperlipidemia, peripheral vascular disease, GUSTAVO on nocturnal BiPAP, GERD, depression, gastric sleeve surgery, COPD presented to the ED for evaluation of worsening shortness of breath along with yellowish sputum production for the past few days and is found to be in COPD exacerbation. Impression * AECOPD * Acute bronchitis * Morbid obesity as evident by BMI of 42.7 * Chronic respiratory failure on 2L baseline Plan Continue with 02 supplementation Decreased solumedrol to 40mg q12 TRC/nebs Continue ceftriaxone/azithromycin f/u sputum cultures Encourage out of bed Problem List: 1. COPD exacerbation Pain Ratin Pain Location: per pathway Pain Goal: Remain pain free Pain Plan: per pathway Tomorrow's Labs & Rationales: winnie Kaye MD,Braulio 02/08/18 1021: Attending MD Review Statement Attending Statement Attending MD Statement: examined this patient, discuss w/resident/PA/IMPREGNATOR OPERATOR, agreed w/resident/PA/IMPREGNATOR OPERATOR, reviewed EMR data (avail) Attending Assessment/Plan: 67M PMH squamous cell carcinoma of larynx status post laryngectomy and radiation , CAD status post CABG, hypertension, hyperlipidemia, peripheral vascular disease, GUSTAVO on nocturnal BiPAP, GERD, depression, gastric sleeve surgery, COPD admitted for shortness of breath and thick yellow sputum in the setting of COPD exacerbation and acute bronchitis. Patient is comfortable today, breathing quietly, with yellow secretions from trach. Afebrile, stable vitals, labs reviewed. 1. COPD exacerbation 2. Acute bronchitis 3. S/p tracheostomy Plan - Continue on general medicine - Continue Ceftriaxone and Azithromycin - Sputum culture - Taper Solumedrol - Nebulizer treatments - Continue home medications - DVT PPx
[2018-02-08 08:03] LABS: ABSOLUTE BASOPHIL COUNT 0 /CUMM (0.0-0.2); ABSOLUTE EOSINOPHIL COUNT 0 /CUMM (0.0-0.7); ABSOLUTE GRANULOCYTE CT 12.1 /CUMM (1.4-6.5); ABSOLUTE LYMPH COUNT 0.5 /CUMM (1.2-3.4); ABSOLUTE MONOCYTE COUNT 0.6 /CUMM (0.10-0.60); BASOPHIL % 0.2 % (0.0-2.0); EOSINOPHIL % 0 % (0-5); MEAN CORPUSCULAR HGB 28.5 PG (27.0-31.0); MEAN CORPUSCULAR HGB CONC 33.1 G/DL (33.0-37.0); MEAN CORPUSCULAR VOLUME 86.1 FL (80.0-94.0); MEAN PLATELET VOLUME 8.3 FL (7.4-10.4); PLATELET COUNT 198 /CUMM (130-400); RBC DISTRIBUTION WIDTH 15.3 % (11.5-14.5); RED BLOOD CELL CT 4.82 /CUMM (4.70-6.10); WHITE BLOOD CELL COUNT 13.2 /CUMM (4.8-10.8)
[2018-02-08 08:27] LABS: HEMATOCRIT 41.4 % (42-52)
[2018-02-08 09:07] LABS: GRANULOCYTE % 91.7 % (42.2-75.2)
[2018-02-08 14:10] VITALS: BP 126/70
[2018-02-08 22:40] VITALS: BP 118/78
[2018-02-09 06:53] VITALS: BP 162/74
[2018-02-09 07:42] VITALS: BP 154/70
[2018-02-09 07:59] LABS: ABSOLUTE BASOPHIL COUNT 0 /CUMM (0.0-0.2); ABSOLUTE EOSINOPHIL COUNT 0 /CUMM (0.0-0.7); ABSOLUTE GRANULOCYTE CT 12.3 /CUMM (1.4-6.5); ABSOLUTE LYMPH COUNT 0.7 /CUMM (1.2-3.4); ABSOLUTE MONOCYTE COUNT 0.6 /CUMM (0.10-0.60); BASOPHIL % 0 % (0.0-2.0); EOSINOPHIL % 0 % (0-5); HEMATOCRIT 42.8 % (42-52); MEAN CORPUSCULAR HGB 28.3 PG (27.0-31.0); MEAN CORPUSCULAR HGB CONC 32.6 G/DL (33.0-37.0); MEAN CORPUSCULAR VOLUME 86.7 FL (80.0-94.0); MEAN PLATELET VOLUME 8.3 FL (7.4-10.4); PLATELET COUNT 206 /CUMM (130-400); RBC DISTRIBUTION WIDTH 15.5 % (11.5-14.5); RED BLOOD CELL CT 4.94 /CUMM (4.70-6.10); WHITE BLOOD CELL COUNT 13.6 /CUMM (4.8-10.8)
--- NOTE | 2018-02-09 08:18 | PN- Housestaff ---
Jasson ZENG,Lorenzo 02/09/18 0818: Subjective Follow-up For: AECOPD Subjective: Seen and examined at bedside Reports feeling better compared to previous days Afebrile, withno o/n acute events. Review of Systems Constitutional: Reports: see HPI. Objective Last 24 Hrs of Vital Signs/I&O Vital Signs Date Time Temp Pulse Resp B/P B/P Pulse O2 O2 Flow FiO2 Mean Ox Delivery Rate 02/09 0742 154/70 02/09 0742 154/70 02/09 0653 96.3 56 20 162/74 96 Trach Mask 02/09 0000 95 Trach Mask 28% 02/08 2240 98.2 70 16 118/78 100 Trach Mask 02/08 2117 68 126/70 02/08 1929 95 Trach Mask 28% 02/08 1600 Trach Mask 28% 02/08 1410 97.9 68 18 126/70 95 Trach Mask 02/08 1346 Trach Mask 28% 02/08 1110 Trach Mask 28% Intake & Output 02/09 1600 02/09 0800 02/09 0000 Intake Total 425 400 Output Total Balance 425 400 Intake, IV 275 Intake, Oral 150 400 Patient 147.673 kg Weight Weight Bed scale Measurement Method Physical Exam General Appearance: Alert, Oriented X3, Cooperative Other Physical Findings: General Appearance: Alert, Oriented X3, Cooperative Lungs: mild exp wheezes on b/l jackson, appears better compared top previous days Abdomen: Normal Bowel Sounds, Soft Current Medications: Current Medications Sig/Samreen Start time Last Medication Dose Route Stop Time Status Admin Acetaminophen 650 MG Q6P PRN 02/07 0400 AC PO Albuterol Sulfate 3 ML TID 02/07 900 AC 02/08 INH 1928 Aspirin Buffered 162 MG DAILY 02/07 900 AC 02/09 PO 0742 Atorvastatin Calcium 20 MG 1700 02/07 1700 AC 02/08 PO 1729 Azithromycin 500 MG DAILY 02/08 900 DC Sodium Chloride 250 ML IV Azithromycin 500 MG 0200 02/08 020 DC 02/09 Sodium Chloride 250 ML IV 0203 Bupropion HCl 300 MG DAILY 02/07 900 AC 02/09 PO 0742 Ceftriaxone Sodium 1,000 MG DAILY 02/08 900 DC IV Ceftriaxone Sodium 1,000 MG 0200 02/08 0200 DC 02/09 IV 0202 Enoxaparin Sodium 40 MG DAILY 02/07 900 AC 02/09 SC 0744 Escitalopram Oxalate 10 MG DAILY 02/07 900 AC 02/09 PO 0741 Furosemide 40 MG DAILY 02/07 900 AC 02/09 PO 0742 Glycerin/Mineral Oil 1 USHA BID 02/07 900 AC 02/09 TOP 0743 Isosorbide 30 MG DAILY 02/07 900 AC 02/09 Mononitrate PO 0742 Methylprednisolone 40 MG Q12H 02/08 1800 DC 02/08 IV 1729 Methylprednisolone 40 MG Q8 02/07 06 DC 02/08 IV 0556 Metoprolol Tartrate 25 MG BID 02/07 900 AC 02/09 PO 0742 Mirtazapine 30 MG QPM 02/07 2100 AC 02/08 PO 2118 Omeprazole 40 MG DAILY AC 02/07 07 AC PO Pantoprazole Sodium 40 MG DAILY 02/08 900 AC 02/09 IV 0741 Patient Medication 1 ED ONE ONE 02/09 2000 AL Teaching ED 02/08 2001 Prednisone 50 MG DAILY 02/09 900 AC 02/09 PO 0743 Last 24 Hrs of Lab/Radu Results Last 24 Hrs of Labs/Mics: Laboratory Tests 02/09/18 0647: CBC w Diff Pending, WBC Pending, RBC Pending, Hgb Pending, Hct Pending, MCV Pending, MCH Pending, MCHC Pending, RDW Pending, Plt Count Pending, MPV Pending, Gran % Pending, Lymphocytes % Pending, Monocytes % Pending, Eosinophils % Pending, Basophils % Pending, Absolute Granulocytes Pending, Absolute Lymphocytes Pending, Absolute Monocytes Pending, Absolute Eosinophils Pending, Absolute Basophils Pending Assessment/Plan Assessment: 67-year-old obese male with history of squamous cell carcinoma of larynx status post laryngectomy and radiation, CAD status post CABG, hypertension, hyperlipidemia, peripheral vascular disease, GUSTAVO on nocturnal BiPAP, GERD, depression, gastric sleeve surgery, COPD presented to the ED for evaluation of worsening shortness of breath along with yellowish sputum production for the past few days and is found to be in COPD exacerbation. Impression * AECOPD * Acute bronchitis * Morbid obesity as evident by BMI of 42.7 * Chronic respiratory failure on 2L baseline Plan Stable for discharge Transtion to oral azithromycin to complete a 5 day course Transition to oral prednisone with a rapid taper Pt will go [facility]. Problem List: 1. COPD exacerbation 2. Morbid obesity Pain Ratin Pain Location: per pathway Pain Goal: Remain pain free Pain Plan: per pathway Tomorrow's Labs & Rationales: none-discharge Braulio Kaye MD 02/09/18 1253: Attending MD Review Statement Attending Statement Attending MD Statement: examined this patient, discuss w/resident/PA/WOOD MILLING MACHINE OPERATOR, agreed w/resident/PA/WOOD MILLING MACHINE OPERATOR, reviewed EMR data (avail) Attending Assessment/Plan: 67M PMH squamous cell carcinoma of larynx status post laryngectomy and radiation , CAD status post CABG, hypertension, hyperlipidemia, peripheral vascular disease, GUSTAVO on nocturnal BiPAP, GERD, depression, gastric sleeve surgery, COPD admitted for shortness of breath and thick yellow sputum in the setting of COPD exacerbation and acute bronchitis. Patient is comfortable today, breathing quietly, with yellow secretions from trach. Afebrile, stable vitals, labs reviewed. 1. COPD exacerbation 2. Acute bronchitis 3. S/p tracheostomy Plan - Stable for discharge - Complete Azithromycin course - Sputum culture negative thus far - Prednisone taper - Continue home medications
[2018-02-09 09:21] LABS: GRANULOCYTE % 90.5 % (42.2-75.2)
[2018-02-09] MEDS ORDERED: ZITHROMAX250 M2 PO (10:33)
[2018-02-09] MEDS ORDERED: PREDNISONE10 M2 PO (10:33)
--- NOTE | 2018-02-09 14:02 | Discharge Summary ---
Hospital Course Allergies: Coded Allergies: adhesive tape (ALL TAPE GIVES RASH EXCEPT PAPER, PAPER TAPE OK 10/27/17) Discharge Instructions Medications at Discharge Discharge Medications: Continue taking these medications: Aspirin (Ecotrin*) 81 MG TABLET.DR 2 Tablet ORAL DAILY Days = 30 Comments: Last Taken: 02/09/18 Time: 9:42 AM Atorvastatin Calcium (Lipitor) 20 MG TABLET 1 Tablet ORAL DAILY Days = 30 Comments: Last Taken: 02/08/18 Time: 500 PM Albuterol Sulfate (Albuterol Sulfate) 2.5 MG/3 ML VIAL.NEB 1 Vial Inhale Solution TWICE DAILY Comments: Last Taken: 10/30/17 Time: 8:50 AM Budesonide/Formoterol Fumarate (Symbicort 160-4.5 Mcg Inhaler) 160 MCG-4.5 MCG/ ACTUATION HFA.AER.AD 2 Puff Inhale through mouth TWICE DAILY Comments: Last Taken: 08/20/17 Time: 0900 AM Furosemide (Lasix) 40 MG TABLET 1 Tablet ORAL DAILY Comments: Last Taken: 02/09/18 Time: 9:42 AM Naproxen (Naproxen) 500 MG TABLET 1 Tablet ORAL TWICE DAILY Qty = 180 Comments: Last Taken: 10/30/17 Time: 9:74 AM Mirtazapine (Mirtazapine) 30 MG TABLET 1 Tablet ORAL Every night Qty = 90 Comments: Last Taken: 02/08/18 Time: 8:56 PM Potassium Chloride (Klor-Con 10) 10 MEQ TABLET.ER 1 Tablet ORAL TWICE DAILY Qty = 180 Comments: DID NOT TAKE IN HOSPITAL Pantoprazole Sodium (Pantoprazole Sodium) 40 MG TABLET.DR 1 Tablet ORAL DAILY Qty = 90 Comments: Last Taken:02/09/18 Time:0600 AM GIVEN IV Escitalopram Oxalate (Escitalopram Oxalate) 10 MG TABLET 1 Tablet ORAL DAILY Qty = 90 Comments: Last Taken:02/09/18 Time:9:42 AM Isosorbide Mononitrate (Isosorbide Mononitrate ER) 30 MG TAB.ER.24H 1 Tablet ORAL DAILY Comments: Last Taken:02/09/18 Time:9:43 AM Bupropion HCl (Wellbutrin XL) 300 MG TAB.ER.24H 1 Tablet ORAL DAILY Comments: Last Taken:02/09/18 Time:9:43 AM Metoprolol Tartrate (Metoprolol Tartrate) 25 MG TABLET 1 Tablet ORAL TWICE DAILY Comments: Last Taken:02/09/18 Time:9:44 AM Start taking the following new medications: Prednisone (Prednisone) 10 MG TABLET 10 Milligram ORAL SEE INSTRUCTIONS Qty = 30 No Refills Instructions: 50 MG FOR 2 DAYS, 40 MG FOR 2 DAYS, 30 MG FOR 2 DAYS, 20 MG FOR 2 DAYS, 10 MG FOR 2 DAYS, THEN STOP. Comments: Last Taken:02/09/18 Time:0900 Azithromycin (Zithromax) 250 MG TABLET 1 Tablet ORAL DAILY Qty = 2 No Refills Comments: Last Taken:02/09/18 GIVEN IV Time:0200
== END 2018-02-09 16:00 | disposition home health service (06) | DRG 191 ==
LOC: ERH 22:51 → 1NO 02-07 02:54 → ERHI 02-07 02:54 → ENRESERV 02-07 03:56 → 1NO 02-07 05:05 → ENPENDDIS 02-09 13:29 → ENTRNSPT 02-09 15:45 → EDTRNSPTSTS 02-09 15:53 → 1NO 02-09 16:00 → CMPTRNSPT 02-09 16:09
PROVIDERS: Pediatrics; Student in an Organized Health Care Education/Training Program
DX: J44.1 Chronic obstructive pulmonary disease with (acute) exacerbation (principal); Z68.41 Body mass index [BMI] 40.0-44.9, adult; J96.10 Chronic respiratory failure, unspecified whether with hypoxia or hypercapnia; J44.0 Chronic obstructive pulmonary disease with (acute) lower respiratory infection; F32.9 Major depressive disorder, single episode, unspecified; Z90.02 Acquired absence of larynx; Z93.0 Tracheostomy status; E78.5 Hyperlipidemia, unspecified; I25.10 Atherosclerotic heart disease of native coronary artery without angina pectoris; Z95.1 Presence of aortocoronary bypass graft; K21.9 Gastro-esophageal reflux disease without esophagitis; Z98.84 Bariatric surgery status; Z85.21 Personal history of malignant neoplasm of larynx; G47.33 Obstructive sleep apnea (adult) (pediatric); J20.9 Acute bronchitis, unspecified; G89.29 Other chronic pain; M54.9 Dorsalgia, unspecified; R60.0 Localized edema; I73.9 Peripheral vascular disease, unspecified; E66.9 Obesity, unspecified; Z99.81 Dependence on supplemental oxygen; E66.01 Morbid (severe) obesity due to excess calories; Z98.61 Coronary angioplasty status; Z98.1 Arthrodesis status; Z79.82 Long term (current) use of aspirin; Z79.51 Long term (current) use of inhaled steroids
CPT/HCPCS: 1NP; 36415; 71045; 87040; 87070; 93005; 93010; 96374; 96375; J0456; J0696; J1650; J2920; J2930; J7040